=== PATIENT | female | born 1965 | race Caucasian/White ===

== ENCOUNTER → 2024-03-19 13:00 | Outpatient (BNV) | payer MEDICARE, SELFPAY | PROVIDERS: PCP Hospitalist; Visit Provider Internal Medicine | DX: Z12.31 Encounter for screening mammogram for malignant neoplasm of breast (principal) | CPT/HCPCS: 77063; 77067 ==

== ENCOUNTER 2024-03-19 13:14 | Outpatient (REF) | payer MEDICARE, SELFPAY ==
--- NOTE | ~2024-03-19 | MM_ITS ---
EXAMINATION: MM SCREENING DIGITAL BREAST TOMOSYNTHESIS, BILATERAL CLINICAL INFORMATION: Screening. Asymptomatic. COMPARISON: Mammography: Comparison is made with available priors TECHNIQUE: Digital breast mammography with tomosynthesis is performed in both the craniocaudal and mediolateral oblique views along with computer-aided detection (CAD). FINDINGS: Limited exam due to patient's abilities. Within these limitations: There are scattered areas of fibroglandular density (ACR BI-RADS breast composition Category b). The lower posterior left breast is obscured by tissue overlap. There are no significant masses, abnormal calcifications, or other abnormalities. MM/MM tomosynthesis screening BI IMPRESSION: No mammographic evidence of malignancy. ASSESSMENT: BI-RADS BI-RADS 1 - Negative RECOMMENDATION: Routine annual mammography screening. 1 year F/U This examination should not preclude the clinical evaluation of a suspicious palpable abnormality. This patient's information was entered into a reminder system with a target due date for their next mammogram. Electronically signed by: Sabine Butterfield DO 03/30/2024 10:09 AM EDT
== END 2024-03-19 13:15 | disposition home or self-care (01) ==
LOC: HO.MAMMO 13:14
PROVIDERS: PCP Hospitalist; Visit Provider Hospitalist
DX: Z12.31 Encounter for screening mammogram for malignant neoplasm of breast (principal)
CPT/HCPCS: 77063; 77067

== ENCOUNTER 2024-03-22 13:28 | Outpatient (AMB) | payer MEDICARE, MEDICAID, SELFPAY ==
[2024-03-22 13:32] VITALS: BP 100/58; PULSE 115; O2SAT 88; BMI 30.7
--- NOTE | 2024-03-22 13:32 | MHC.OFFVIS ---
Vital Signs 03/22/24 13:32 Height 4 ft 11 in Weight 152 lb BMI 30.7 BP 100/58 L Blood Pressure Location Lt brachial Position Sitting Pulse 115 H Pulse Source Doppler Pulse Oximetry (%) 88 L Oxygen Delivery Method Room Air Intake Visit Reasons: Hypoxia/COPD/MARGARET Allergies erythromycin base Adverse Reaction (Unknown, Verified 03/22/24 13:45) Unknown moxifloxacin Adverse Reaction (Unknown, Verified 03/22/24 13:45) Unknown prednisone Adverse Reaction (Unknown, Verified 03/22/24 13:45) Unknown pregabalin Adverse Reaction (Unknown, Verified 03/22/24 13:45) Unknown HPI HPI Hypoxia/COPD/MARGARET: Details: 59-year-old lady, active 30+ pack-year smoker with likely underlying COPD referred for pulmonary evaluation. Patient states that she has been using Symbicort, duo nebs, and albuterol MDI with suboptimal control of his symptoms. She complains of exertional dyspnea after several 100 yd. Patient denies family history of lung disease. [facility], LATER [facility] Social History (Updated 03/22/24 @ 13:36 by Pao Desai [facility]) Patient Tobacco Use Status: Current everyday Tobacco user Tobacco use type: Cigarette Cigarettes Per Day: 4 Review of Systems Card Denies chest pain, Denies pedal edema, Denies dyspnea, Reports dyspnea on exertion, Denies orthopnea and Denies paroxysmal nocturnal dyspnea Resp Denies cough, Denies hemoptysis, Denies excessive phlegm production, Denies dyspnea, Reports dyspnea on exertion and Denies wheezing Aller/Immun Denies wheezing Physical Exam Vital Signs: Last Vital Signs Pulse 115 H 03/22/24 13:32 BP 100/58 L 03/22/24 13:32 Pulse Ox 88 L 03/22/24 13:32 Oxygen Delivery Method Room Air 03/22/24 13:32 BMI result Body Mass Index 30.7 Const General: no acute distress, alert and awake Nutritional Appearance: not obese Orientation/consciousness: Other orientation findings ( oriented) HEENT Head: Yes atraumatic Eyes General: appearance normal, both eyes and all related structures Sclerae: sclerae normal EOM: EOMs intact bilaterally Neck Neck: Yes no lymphadenopathy, Yes trachea midline and Yes supple Lymphatic: no lymphadenopathy noted Resp Effort & Inspection: normal respiratory effort and no respiratory distress Auscultation: clear to auscultation bilaterally Cardio Rate: regular rate Rhythm: regular rhythm Heart sounds: no gallops, no murmurs and no rubs GI Palpation (GI): Soft to palpation and Other GI palpation findings present ( Nontender) Auscultation: normal bowel sounds Skin General skin exam: other ( warm) Extrem General: Yes no pedal edema, No clubbing and No cyanosis Assessment & Plan Assessment & Plan (1) Personal history of nicotine dependence: Code(s): Z87.891 - Personal history of nicotine dependence Category: Medical Plan: Will obtain lung cancer screening CT chest. (2) COPD (chronic obstructive pulmonary disease): Code(s): J44.9 - Chronic obstructive pulmonary disease, unspecified Category: Medical Plan: Likely underlying COPD of unclear severity suboptimally controlled on Symbicort, will switch to Anoro. Continue albuterol MDI and duo nebs. Will obtain full PFT. In office supplemental oxygen evaluation/6 minute walk test performed, at this time patient does not require supplemental oxygen to maintain normal oximetry with exertion. Orders: Orders PFT pulmonary function test Today J44.9 - Chronic obstructive pulmonary disease, unspecified CT lung screening Today Z87.891 - Personal history of nicotine dependence Medications: New umeclidinium-vilanterol 62.5-25 mcg/actuation (Anoro Ellipta) 1 inh inhalation DAILY 1 ea 6RF J44.9 - Chronic obstructive pulmonary disease, unspecified Coding Level of Care Code New Pt Level 4 (13457) Diagnoses Personal history of nicotine dependence Z87.891 COPD (chronic obstructive pulmonary disease) J44.9
[2024-03-22 14:18] VITALS: PULSE 112; O2SAT 89
== END 2024-03-22 14:01 | disposition home or self-care (01) ==
PROVIDERS: PCP Hospitalist; Visit Provider Internal Medicine Pulmonary Disease
DX: Z87.891 Personal history of nicotine dependence (principal); J44.9 Chronic obstructive pulmonary disease, unspecified
CPT/HCPCS: 94618; 99204

== ENCOUNTER → 2024-03-22 13:28 | Outpatient (BNVA) | payer MEDICARE, SELFPAY | PROVIDERS: PCP Hospitalist; Visit Provider Internal Medicine Pulmonary Disease | DX: J44.9 Chronic obstructive pulmonary disease, unspecified (principal); F17.210 Nicotine dependence, cigarettes, uncomplicated | CPT/HCPCS: 94618; 99202 ==

== ENCOUNTER 2024-05-18 13:52 | Outpatient (REF) | payer MEDICARE, SELFPAY ==
[2024-05-18 11:30] VITALS: PULSE 113; O2SAT 89
--- NOTE | 2024-05-18 13:55 | PFT_ITS ---
Flows: FEV1: 26 % of predicted at 0.56 L FVC: 52 % of predicted at 1.41 L FEV1/FVC: 39 % Bronchodilator response: Present Volumes: Patient was unable to perform lung volumes maneuvers. Diffusion capacity: Severely decreased, adjusts to being moderately decreased after correction for alveolar ventilation. Impression: Very severe obstructive ventilatory defect with positive bronchodilator response. Patient was unable to perform lung volumes maneuvers. Decreased diffusion capacity suggests emphysema. MTDD
== END 2024-05-18 13:53 | disposition home or self-care (01) ==
LOC: HO.RESP 13:52
PROVIDERS: PCP Hospitalist; Visit Provider Internal Medicine Pulmonary Disease
DX: J44.9 Chronic obstructive pulmonary disease, unspecified (principal)
CPT/HCPCS: 94010; 94640; 94727; 94729

== ENCOUNTER → 2024-05-18 13:55 | Outpatient (BNV) | payer MEDICARE, SELFPAY | PROVIDERS: PCP Hospitalist; Visit Provider Internal Medicine Pulmonary Disease | DX: J44.9 Chronic obstructive pulmonary disease, unspecified (principal) | CPT/HCPCS: 94060; 94729 ==

== ENCOUNTER 2024-05-21 10:52 | Outpatient (REF) | payer MEDICARE, SELFPAY | END 2024-05-21 10:53 | disposition home or self-care (01) | LOC: HO.CT 10:52 | PROVIDERS: PCP Hospitalist; Visit Provider Internal Medicine Pulmonary Disease | DX: Z12.2 Encounter for screening for malignant neoplasm of respiratory organs (principal); Z87.891 Personal history of nicotine dependence | CPT/HCPCS: 71271 ==

== ENCOUNTER → 2024-05-21 10:54 | Outpatient (BNV) | payer MEDICARE, SELFPAY | PROVIDERS: PCP Hospitalist; Visit Provider Radiology Diagnostic Radiology | DX: Z12.2 Encounter for screening for malignant neoplasm of respiratory organs (principal); Z87.891 Personal history of nicotine dependence | CPT/HCPCS: 71271 ==

== ENCOUNTER 2024-05-25 14:14 | Outpatient (AMB) | payer MEDICARE, SELFPAY ==
[2024-05-25 14:15] VITALS: BP 117/62; PULSE 117; O2SAT 92; BMI 30.1
--- NOTE | 2024-05-25 14:15 | A.OFFVIS_ITS ---
Vital Signs 05/25/24 14:15 Height 4 ft 11 in Weight 149 lb BMI 30.1 BP 117/62 Blood Pressure Location Rt brachial Position Sitting Pulse 117 H Pulse Source Doppler Pulse Oximetry (%) 92 Oxygen Delivery Method Room Air Intake Visit Reasons: copd Allergies erythromycin base Adverse Reaction (Unknown, Verified 05/25/24 14:21) Unknown moxifloxacin Adverse Reaction (Unknown, Verified 05/25/24 14:21) Unknown prednisone Adverse Reaction (Unknown, Verified 05/25/24 14:21) Unknown pregabalin Adverse Reaction (Unknown, Verified 05/25/24 14:21) Unknown HPI HPI copd: Details: 59-year-old lady, active 30+ pack-year smoker with likely underlying COPD referred for pulmonary evaluation. After the last office visit she was switched to Anoro, however she was not able to tolerate powder inhaler. She denies recent acute exacerbations. COUNTS INCLUDE 234 BEDS AT THE [facility] Social History (Updated 03/22/24 @ 13:36 by Pao Desai Dang) Patient Tobacco Use Status: Current everyday Tobacco user Tobacco use type: Cigarette Cigarettes Per Day: 4 Review of Systems Const Denies daytime sleepiness, Denies excessive sweating, Denies fatigue, Denies fever(s), Denies lethargy, Denies malaise, Denies night sweats, Denies snoring and Denies weight loss Eyes Denies blurry vision and Denies itchy eyes ENT Denies nasal congestion, Denies post nasal drip, Denies sinus pain, Denies sinus pressure and Denies other ( Thrush) Card Denies chest pain, Denies pedal edema, Denies dyspnea, Denies orthopnea and Denies paroxysmal nocturnal dyspnea Resp Denies cough, Denies hemoptysis, Denies excessive phlegm production, Denies dyspnea, Denies snoring and Denies wheezing GI Denies abdominal pain and Denies heartburn Musc Denies myalgias, Denies arthralgias and Denies joint swelling Skin/Breast Denies rash Neuro Denies memory loss and Denies seizure-like activity Psych Denies abnormal sleep pattern, Denies anxiety and Denies memory loss Endo Denies excessive sweating, Denies fatigue and Denies heat intolerance Manuel/Lymph Denies easy bruising Aller/Immun Denies itchy eyes, Denies seasonal rhinorrhea and Denies wheezing Physical Exam Vital Signs: Last Vital Signs Pulse 117 H 05/25/24 14:15 BP 117/62 05/25/24 14:15 Pulse Ox 92 05/25/24 14:15 Oxygen Delivery Method Room Air 05/25/24 14:15 BMI result Body Mass Index 30.1 Const General: no acute distress and alert Nutritional Appearance: not obese Orientation/consciousness: Other orientation findings ( oriented) HEENT Head: Yes atraumatic Eyes General: appearance normal, both eyes and all related structures Sclerae: sclerae normal EOM: EOMs intact bilaterally Neck Neck: Yes supple Lymphatic: no lymphadenopathy noted Resp Effort & Inspection: normal respiratory effort and no use of accessory muscles Auscultation: clear to auscultation bilaterally Cardio Rate: regular rate Rhythm: regular rhythm Heart sounds: no gallops, no murmurs and no rubs Skin General skin exam: other ( warm) Extrem General: No clubbing, No cyanosis and No edema Office Procedures 6 Minute Walk Time:: 14:15 SPO2 % at rest: 92 Pulse at rest: 108 SPO2 % during excercise: 93 Pulse during excercise: 120 SPO2 % after excercise: 91 Pulse after excercise: 117 Distance in yards walked: 50 Autumn Score: 2 Performance Observations:: Katie walked on level ground with a walker, she walked about 50 yards before her legs became weak and she needed to stop. Her SPO2 was 91-93% during the entire walk on room air[place]. [address] - 6 Minute Walk Assessment & Plan Assessment & Plan (1) COPD (chronic obstructive pulmonary disease): Code(s): J44.9 - Chronic obstructive pulmonary disease, unspecified Category: Medical Plan: Underlying COPD suboptimally controlled as patient was not able to tolerate powder inhaler. Will switch Anoro to Stiolto. Continue albuterol MDI and duo nebs. 6 minute walk test/supplemental oxygen evaluation performed, patient does not require supplemental oxygen to maintain normal oximetry with exertion at this time. (2) Personal history of nicotine dependence: Code(s): Z87.891 - Personal history of nicotine dependence Category: Medical Plan: Results of lung cancer screening CT chest are not available for this visit. On my review no worrisome nodules, continue with yearly screening. Orders: Orders AMB 6 minute walk Today J44.9 - Chronic obstructive pulmonary disease, unspecified Medications: New tiotropium-olodaterol 2.5-2.5 mcg/actuation (Stiolto Respimat) 2 puffs inhalation Q24H 4 grams 6RF Discontinued umeclidinium-vilanterol 62.5-25 mcg/actuation (Anoro Ellipta) Discontinued Reason: Doctor's Order 1 inh inhalation DAILY 1 ea 6RF J44.9 - Chronic obstructive pulmonary disease, unspecified Coding Level of Care Code Est Pt Level 4 (92023) Complex EM visit Add On G2211 Diagnoses COPD (chronic obstructive pulmonary disease) J44.9 Personal history of nicotine dependence Z87.891 CPT Codes Coding ([id number])
[2024-05-25 14:36] VITALS: PULSE 108; O2SAT 92
== END 2024-05-25 14:35 | disposition home or self-care (01) ==
PROVIDERS: PCP Hospitalist; Visit Provider Internal Medicine Pulmonary Disease
DX: J44.9 Chronic obstructive pulmonary disease, unspecified (principal); Z87.891 Personal history of nicotine dependence
CPT/HCPCS: 94618; 99214; G2211

== ENCOUNTER → 2024-05-25 14:14 | Outpatient (BNVA) | payer MEDICARE, SELFPAY | PROVIDERS: PCP Hospitalist; Visit Provider Internal Medicine Pulmonary Disease | DX: J44.9 Chronic obstructive pulmonary disease, unspecified (principal); Z87.891 Personal history of nicotine dependence | CPT/HCPCS: 94618; 99212 ==

== ENCOUNTER 2024-07-29 13:37 | Inpatient (IN) | payer MEDICARE, MEDICAID, SELFPAY ==
[2024-07-29] VITALS (17 sets, daily range): BP systolic 77–118; BP diastolic 43–81; PULSE 80–124; RESP 18–34; TEMP 36.2–39.8; O2SAT 61–100; BMI 27.7
--- NOTE | ~2024-07-29 | XR_ITS ---
CLINICAL HISTORY: cough, fever 1 view chest x-ray Comparison: None Findings: Left lower lobe pleural-parenchymal opacity. No pneumothorax. Cardiac silhouette appears prominent. No pulmonary vascular congestion. No acute fracture. IMPRESSION: Left lower lobe consolidation with small parapneumonic effusion. This document has been electronically signed by: Shanti Baird DO on 07/29/2024 16:16:18
--- NOTE | ~2024-07-29 | CT_ITS ---
CLINICAL HISTORY: cough, fevers, hypoxia CT CHEST WITHOUT CONTRAST Comparison: None Findings: No significant pericardial effusion. No thoracic aortic aneurysm. The thyroid gland appears atrophic. No mediastinal lymphadenopathy. [id number] hiatal hernia. Lingular and left lower lobe consolidative changes with air bronchograms. Multiple nodular ground-glass opacities in the right upper lobe. No definite pleural effusion. No pneumothorax. Please see separate report for CT abdomen and pelvis. Mild superior endplate compression deformity in T6 with no significant bony retropulsion. IMPRESSION: 1. Respiratory motion artifact. 2. Lingular and left lower lobe pneumonia. No definite parapneumonic effusion. 3. Multiple nodular ground-glass opacities in the right upper lobe suggesting inflammatory or infectious process. 4. Age-indeterminate mild T6 compression fracture. 5. [id number] hiatal hernia. This document has been electronically signed by: Shanti Baird DO on 07/29/2024 17:46:23
--- NOTE | ~2024-07-29 | CT_ITS ---
CLINICAL HISTORY: herniated stoma CT ABDOMEN AND PELVIS WITHOUT CONTRAST Comparison: None Findings: There is image degradation secondary to motion artifact. Please see separate report for CT chest. No acute abnormalities in the unenhanced solid organs. No renal or ureteral calculus. There is a 3 cm exophytic cyst in the lower pole of the left kidney. Gallbladder is not seen. Calcific plaque throughout the aorta. No AAA. No bowel obstruction, pneumoperitoneum, or pneumatosis. There is a colostomy in the left anterior abdomen near the level of the umbilicus. There is a large parastomal hernia that contains fat and unobstructed bowel. There is diastasis recti with protrusion of mesenteric fat and nonobstructed small bowel loops. No ascites or definite mesenteric edema. No significant paracolic edema. The appendix is not seen. Atrophic appearing uterus. Urinary bladder unremarkable. The bones are intact. IMPRESSION: 1. Motion affected study. 2. No obstructive or acute inflammatory changes in the gastrointestinal and genitourinary tracts. 3. Left-sided colostomy with unobstructed bowel and mesenteric fat in the large parastomal hernia. This document has been electronically signed by: Shanti Baird DO on 07/29/2024 18:15:52
--- NOTE | 2024-07-29 13:45 | ECG_ITS ---
Test Reason : SOB Blood Pressure : */* mmHG Vent. Rate : 115 BPM Atrial Rate : 115 BPM P-R Int : 182 ms QRS Dur : 108 ms QT Int : 334 ms P-R-T Axes : 85 -19 111 degrees QTcB Int : 462 ms Sinus tachycardia with Premature atrial complexes Incomplete left bundle branch block Minimal voltage criteria for LVH, may be normal variant ( Cylinder product ) ST & T wave abnormality, consider lateral ischemia Abnormal ECG No previous ECGs available Referred By: Alta Courtney Electronically Signed By: ELENA LANDAVERDE
--- NOTE | 2024-07-29 14:02 | ED_ITS ---
HPI - SOB/Dyspnea General Chief Complaint: Altered Mental Status Stated Complaint: Sepsis Time Seen by Provider: 07/29/24 13:45 Source: patient and old records reviewed Mode of arrival: ambulatory Limitations: altered mental status History of Present Illness ED Provider: MARIELOS LAMBERT Narrative: 59 yo female with PMH of COPD not on home O2, colon cancer, diverticulitis s/p ostomy, pneumonia, GERD, thrombocytopenia, HLD, CAD with ND, bipolar, who is DNR/DNI but will allow CPAP she presents altered after being ill for one week she was found with low BPs at [facility] - EMS reported RA sat 90% with EMS came in on NRB, BP initially 77/45 given 500NS en route to the hospital. On arrival to the ED she is weak, febrile, junky cough, her stoma is protruding but there is stool in the bag and at the opening of the stoma. It is unclear if she has prior stomal herniation. She is confused and only knows her name. MD elicited complaint: shortness of breath and cough Pertinent past history: COPD Onset (ago): week(s) Context: recent illness Timing: progressively worsening Severity: severe Exacerbating factors: lying flat and coughing Relieving factors: oxygen and upright position Known history of: COPD Associated symptoms: fever, cough and wheezing Treatment prior to arrival: oxygen and other (IVF) Related Data Home Medications ?Medication ?Instructions ?Recorded ?Confirmed albuterol sulfate 90 mcg/actuation 2 puff inhalation Q4-6H PRN 03/22/24 aerosol inhaler ipratropium 0.5 mg-albuterol 3 mg 3 ml inhalation Q6-8H PRN 03/22/24 (2.5 mg base)/3 mL nebulization soln Previous Rx's ?Medication ?Instructions ?Recorded tiotropium 2.5 mcg-olodaterol 2.5 2 puff inhalation Q24H #4 grams 05/25/24 mcg/actuation mist for inhalation (Stiolto Respimat) Allergies Allergy/AdvReac Type Severity Reaction Status Date / Time erythromycin base AdvReac Unknown Unknown Verified 07/29/24 14:03 moxifloxacin AdvReac Unknown Unknown Verified 07/29/24 14:03 prednisone AdvReac Unknown Unknown Verified 07/29/24 14:03 pregabalin AdvReac Unknown Unknown Verified 07/29/24 14:03 Review of Systems 2 Review of Systems: ROS unable to be obtained due to altered mental status [facility] Past Medical History Source: old records reviewed Medical History Bipolar 1 disorder Hyperlipidemia CAD (coronary artery disease) Thrombocytopenia GERD (gastroesophageal reflux disease) Pneumonia Diverticulitis COPD (chronic obstructive pulmonary disease) Social History Social History Patient Tobacco Use Status: Current everyday Tobacco user Tobacco use type: Cigarette Cigarettes Per Day: 4 Advance Directives: Yes Advance Directives Information Provided: Yes Advance Directives on File: No Physical Exam 2 Vital Signs: Vital Signs: Last Vital Signs Temp 100.9 F H 07/29/24 16:58 Pulse 110 H 07/29/24 16:58 Resp 22 H 07/29/24 16:58 BP 96/57 L 07/29/24 16:58 Pulse Ox 94 07/29/24 16:58 O2 Del Method Oxymask 07/29/24 16:58 O2 Flow Rate 4 07/29/24 16:58 Oxygen Flow Rate 4 07/29/24 14:01 BMI result Body Mass Index 27.7 Appearance: Somnolent confused moderate acute distress. Eyes: Pupils equal, round and reactive to light. ENT: Pharynx dry MM Neck: Normal inspection. Neck supple. CVS: tachycardic heart rate and rhythm. Pulses normal. Respiratory: Mod respiratory distress labored. Breath sounds very coarse and diminished Abdomen: Soft and nontender. her ostomy shows a pink herniation of the stoma but there is brown stool and air in the bag Skin: Skin warm and dry. pale skin color. Extremities: No lower extremity edema. Neuro: altered and confused seems to be moving all extremities Course Course Course Narrative: she is not awake enough to take tamiflu she is confused - VBG normal she is desaturating to 60% will need possibly need high flow - ABG ordered Reevaluation(s) Reevaluation #1: there is no next of kin on paperwork at all she is her own contact Reevaluation #2: signed out to Dr. Villalba pending CT scan and admission Medications Administered Generic Name Dose Route Start Last Admin Trade Name Freq PRN Reason Stop Dose Admin Vancomycin HCl 2,000 mg in 500 mls @ 250 mls/hr 07/29/24 16:22 07/29/24 17:18 Vancomycin/Ns IV 07/29/24 18:21 250 mls/hr ONCE ONE Administration Discontinued Medications Generic Name Dose Route Start Last Admin Trade Name Deloris PRN Reason Stop Dose Admin Albuterol Sulfate 5 mg/ 0 mg 07/29/24 13:56 07/29/24 14:06 Albuterol/Ipratropium 3 ml INHALE 07/29/24 13:57 7.5 each ONCE ONE Administration Cefepime HCl 1 gm/ Sodium 50 mls @ 100 mls/hr 07/29/24 13:45 07/29/24 14:53 Chloride IV 07/29/24 14:14 Infused ONCE ONE Infusion Lactated Ringer's 2,268 mls @ 2,268 mls/hr 07/29/24 14:30 07/29/24 15:35 Lr 30 ml/kg infuse over 1 hr (2268 ml) 07/29/24 15:29 Infused IV Infusion .Q1H ONE Acetaminophen 1,000 mg in 100 mls @ 400 mls/hr 07/29/24 14:30 07/29/24 14:49 Ofirmev IV 07/29/24 14:44 Infused ONCE ONE Infusion Methylprednisolone Sodium Succinate 60 mg 07/29/24 13:45 07/29/24 14:12 Methylprednisolone Sod Succ 125 Mg/2 Ml Vial IVPUSH 07/29/24 13:46 60 mg ONCE ONE Administration Medical Decision Making Medical Decision Making [facility] Narrative: 59 yo female with PMH of COPD not on home O2, colon cancer, diverticulitis s/p ostomy, pneumonia, GERD, thrombocytopenia, HLD, CAD with ND, bipolar, who is DNR/DNI at this time will need labs, IVF, cefepime and vancomycin given her fevers, hypotension with EMS - IV tylenol ordered, resp therapy and solumedrol. I did order a CT scan of abdomen as [facility] is unclear if her stomal hernia is knew - it is pink and no signs of necrosis. She will need admission pending workup. Differential Diagnosis Differential Diagnoses: The differential diagnosis associated with the presentation includes pneumonia, viral syndrome, resp failure Admission/Observation Consideration of admission/observation: Escalation of care including admission/observation considered will need admission Lab Data [facility] Lab Attestation statement: I reviewed the patient's lab results. 07/29/24 14:22 07/29/24 14:21 Labs: Lab Results 07/29/24 07/29/24 07/29/24 Range/Units 13:59 14:21 14:22 WBC 10.6 (4.8-10.8) X10*3/uL RBC 3.31 L (4.20-5.50) X10*6/uL Hgb 10.0 L (12.0-16.0) g/dl Hct 31.0 L (37.0-47.0) % MCV 93.7 (80.0-98.0) fL MCH 30.2 (27.0-33.0) pg MCHC 32.3 (31.0-35.0) g/dl RDW 17.6 H (11.0-16.0) % Plt Count 71 L (160-400) X10*3/uL MPV 11.2 (9.4-12.3) fL Immature Gran % (Auto) 0.8 H (0.0-0.4) % Neut % (Auto) 79.7 H (45-73) % Lymph % (Auto) 8.5 L (20-40) % [place] % (Auto) 10.9 (2-11) % Eos % (Auto) 0.0 (0-4) % Baso % (Auto) 0.1 (0-2) % Lymph # (Auto) 0.9 L (1.2-4.9) X10*3/uL [place] # (Auto) 1.2 (0.1-1.2) X10*3/uL Eos # (Auto) 0.0 (0.0-0.4) X10*3/uL Baso # (Auto) 0.0 (0.0-0.2) X10*3/uL Abs Immat Gran (auto) 0.09 H (0.00-0.03) X10*3/uL Absolute Neuts (auto) 8.5 H (2.0-8.3) x10*3/uL Absolute Nucleated RBC 0.000 (0.0-0.012) X10*3/uL Nucleated RBC % (auto) 0.0 (0.0-0.2) /100WBC Smear Tech's Comments VERIFIED PT 14.1 H (10.9-12.4) SEC INR 1.2 H (0.9-1.1) O2 Saturation % ABG pH at Pt Temp (7.35-7.45) ABG pCO2 at Pt Temp (32-45) mmHg ABG pO2 at Pt Temp (83-108) mmHg ABG HCO3 (22-26) mmol/L ABG Base Excess (Actual) mmol/L VBG pH (7.32-7.43) VBG pCO2 mmHg VBG pO2 mmHg VBG HCO3 (22-26) mmol/L VBG O2 Saturation % VBG Base Excess mmol/L Sodium 138 (135-145) mmol/L Potassium 4.0 (3.3-5.1) mmol/L Chloride 104 (96-108) mmol/L Carbon Dioxide 25 (22-29) mmol/L Anion Gap 13 (12-20) BUN 19 H (9-16) mg/dL Creatinine 0.70 (0.5-1.4) mg/dL Estim Creat Clear Calc 89.1 Estimated GFR > 60 Random Glucose 110 (60-115) mg/dL Lactic Acid 0.8 (0.5-2.0) mmol/L Calcium 7.6 L (8.4-10.2) mg/dL Magnesium 1.8 (1.6-2.6) mg/dL Total Bilirubin 0.3 (0.0-1.0) mg/dL Direct Bilirubin 0.2 (0.0-0.5) mg/dL AST 40 H (5-31) U/L ALT < 6 (0-31) U/L Alkaline Phosphatase 50 (39-117) U/L Troponin I High Sens 9.6 (<3.5-17.0) ng/L C-Reactive Protein 11.92 H (< or = 0.50) mg/dL B-Natriuretic Peptide 179 H (<100) pg/mL Total Protein 7.0 (6.5-8.0) g/dL Albumin 2.9 L (3.5-5.0) g/dL Lipase < 4 L (8-78) U/L Procalcitonin 1.35 ng/mL Valproic Acid 62.6 (50.0-100.0) mcg/mL Influenza Type A (PCR) POSITIVE A (Negative) Influenza Type B (PCR) NEGATIVE (Negative) RSV RNA Qual (PCR) NEGATIVE (Negative) SARS-CoV-2 RNA (RT-PCR) NEGATIVE (Negative) Blood Type Antibody Screen 07/29/24 07/29/24 07/29/24 Range/Units 14:24 14:25 15:20 WBC (4.8-10.8) X10*3/uL RBC (4.20-5.50) X10*6/uL Hgb (12.0-16.0) g/dl Hct (37.0-47.0) % MCV (80.0-98.0) fL MCH (27.0-33.0) pg MCHC (31.0-35.0) g/dl RDW (11.0-16.0) % Plt Count (160-400) X10*3/uL MPV (9.4-12.3) fL Immature Gran % (Auto) (0.0-0.4) % Neut % (Auto) (45-73) % Lymph % (Auto) (20-40) % [place] % (Auto) (2-11) % Eos % (Auto) (0-4) % Baso % (Auto) (0-2) % Lymph # (Auto) (1.2-4.9) X10*3/uL [place] # (Auto) (0.1-1.2) X10*3/uL Eos # (Auto) (0.0-0.4) X10*3/uL Baso # (Auto) (0.0-0.2) X10*3/uL Abs Immat Gran (auto) (0.00-0.03) X10*3/uL Absolute Neuts (auto) (2.0-8.3) x10*3/uL Absolute Nucleated RBC (0.0-0.012) X10*3/uL Nucleated RBC % (auto) (0.0-0.2) /100WBC Smear Tech's Comments PT (10.9-12.4) SEC INR (0.9-1.1) O2 Saturation 100.0 % ABG pH at Pt Temp 7.37 (7.35-7.45) ABG pCO2 at Pt Temp 47 H (32-45) mmHg ABG pO2 at Pt Temp 302 H (83-108) mmHg ABG HCO3 27 H (22-26) mmol/L ABG Base Excess (Actual) 2.0 mmol/L VBG pH 7.40 (7.32-7.43) VBG pCO2 45 mmHg VBG pO2 69 mmHg VBG HCO3 28 H (22-26) mmol/L VBG O2 Saturation 92.0 % VBG Base Excess 3.6 mmol/L Sodium (135-145) mmol/L Potassium (3.3-5.1) mmol/L Chloride (96-108) mmol/L Carbon Dioxide (22-29) mmol/L Anion Gap (12-20) BUN (9-16) mg/dL Creatinine (0.5-1.4) mg/dL Estim Creat Clear Calc Estimated GFR Random Glucose (60-115) mg/dL Lactic Acid (0.5-2.0) mmol/L Calcium (8.4-10.2) mg/dL Magnesium (1.6-2.6) mg/dL Total Bilirubin (0.0-1.0) mg/dL Direct Bilirubin (0.0-0.5) mg/dL AST (5-31) U/L ALT (0-31) U/L Alkaline Phosphatase (39-117) U/L Troponin I High Sens (<3.5-17.0) ng/L C-Reactive Protein (< or = 0.50) mg/dL B-Natriuretic Peptide (<100) pg/mL Total Protein (6.5-8.0) g/dL Albumin (3.5-5.0) g/dL Lipase (8-78) U/L Procalcitonin ng/mL Valproic Acid (50.0-100.0) mcg/mL Influenza Type A (PCR) (Negative) Influenza Type B (PCR) (Negative) RSV RNA Qual (PCR) (Negative) SARS-CoV-2 RNA (RT-PCR) (Negative) Blood Type O Positive Antibody Screen NEGATIVE Independent Interpretation I performed an independent interpretation of an: EKG and Plain X-Ray (LLL consolidation) Interpretation: Rate: 115 Rhythm: sinus tach [place]: left, LVH Normal P waves. Normal CRESCENCIO. Normal QRS complex. ST T wave : no CHARLIE, inverted t waves I and aVL qTC: 462 prior studies: no prior The study has been interpreted contemporaneously by me. . Radiology Impression Discussion of test interpretation with radiology: I have reviewed the radiologist's reading. Independent Historian Clinical information obtained from an independent historian. History obtained from or confirmed by: EMS External Record Review External record reviewed: Outpatient record Discharge Plan Discharge Clinical Impression: Fever and chills, Hypoxia, Influenza A Altered mental status Qualifiers: Altered mental status type: unspecified Qualified Code(s): R41.82 - Altered mental status, unspecified Pneumonia Qualifiers: Pneumonia type: due to unspecified organism Laterality: left Lung location: l ower lobe of lung Qualified Code(s): J18.9 - Pneumonia, unspecified organism Patient Disposition: Admitted As Inpatient Print Language: Hebrew
[2024-07-29] MEDS: Albuterol Sulfate 5 MG, Albuterol/Iprat 2.5/0.5MG 3 ML 3 ML INHALE (14:06)
[2024-07-29] MEDS: methylPREDNISolone Sod Succ 125 MG/2 ML VIAL 60 MG IVPUSH (14:12)
[2024-07-29] MEDS: cefEPime HCl 1 GM in 0.9 % Sodium Chloride 50 ML IV (14:23)
[2024-07-29 14:29] LABS: Venous Blood Gas Refer to POC result
[2024-07-29 14:29] LABS: Basophils Percent Auto 0.1 % (0-2); Imm Gran Abs Auto 0.09 X10*3/uL (0.00-0.03); Imm Gran Pct Auto 0.8 % (0.0-0.4); Lymphocytes Absolute Auto 0.9 X10*3/uL (1.2-4.9); Lymphocytes Percent Auto 8.5 % (20-40); Mean Corpuscular HGB Conc 32.3 g/dl (31.0-35.0); Mean Corpuscular Hemoglobin 30.2 pg (27.0-33.0); Mean Corpuscular Volume 93.7 fL (80.0-98.0); Mean Platelet Volume 11.2 fL (9.4-12.3); Monocytes Absolute Auto 1.2 X10*3/uL (0.1-1.2); Monocytes Percent Auto 10.9 % (2-11); Neutrophils Absolute Auto 8.5 x10*3/uL (2.0-8.3); Neutrophils Percent Auto 79.7 % (45-73); Red Blood Count 3.31 X10*6/uL (4.20-5.50); Red Cell Distribution Width 17.6 % (11.0-16.0); White Blood Count 10.6 X10*3/uL (4.8-10.8)
[2024-07-29 14:32] LABS: Platelet Count 71 X10*3/uL (160-400)
[2024-07-29 14:33] LABS: INTERNATIONAL NORM RATIO 1.2 (0.9-1.1); Prothrombin Time 14.1 SEC (10.9-12.4)
[2024-07-29] MEDS: Acetaminophen 1,000 MG/100 ML PIGGYBACK 400 MG IV (14:34)
[2024-07-29] MEDS: LACTATED RINGERS 2268 ML IV (14:35)
[2024-07-29 14:39] LABS: VBG Base Excess 3.6 mmol/L; VBG HCO3 28 mmol/L (22-26); VBG pCO2 45 mmHg; VBG pO2 69 mmHg
[2024-07-29 14:46] LABS: MANUAL DIFF FLAG SCAN
[2024-07-29 14:47] LABS: SLIDE REVIEW VERIFIED
[2024-07-29 14:47] LABS: Valproate 62.6 mcg/mL (50.0-100.0)
[2024-07-29 14:49] LABS: Influenza A PCR POSITIVE (Negative); Influenza B PCR NEGATIVE (Negative); Resp Syncy Virus RNA Qual PCR NEGATIVE (Negative); SARS COV2 PCR INHOUSE NEGATIVE (Negative)
[2024-07-29 14:49] LABS: Lactic Acid 0.8 mmol/L (0.5-2.0)
[2024-07-29 14:55] LABS: Troponin-I High Sensitivity 9.6 ng/L (<3.5-17.0)
[2024-07-29 14:56] LABS: B Type Natriuretic Peptide 179 pg/mL (<100)
[2024-07-29 14:59] LABS: Alanine Aminotransferase < 6 U/L (0-31); Albumin Level 2.9 g/dL (3.5-5.0); Alkaline Phosphatase 50 U/L (39-117); Anion Gap 13 (12-20); Aspartate Amino Transferase 40 U/L (5-31); Bilirubin Direct 0.2 mg/dL (0.0-0.5); Bilirubin Total 0.3 mg/dL (0.0-1.0); Blood Urea Nitrogen 19 mg/dL (9-16); C Reactive Protein 11.92 mg/dL (< or = 0.50); Calcium 7.6 mg/dL (8.4-10.2); Carbon Dioxide 25 mmol/L (22-29); Chloride 104 mmol/L (96-108); Creatinine Clr Calc Pharmacy 89.1; Estimated Glomerular Filt Rate > 60; Glucose Random 110 mg/dL (60-115); Lipase < 4 U/L (8-78); Magnesium 1.8 mg/dL (1.6-2.6); Sodium 138 mmol/L (135-145)
[2024-07-29 15:12] LABS: Procalcitonin 1.35 ng/mL
[2024-07-29 15:26] LABS: ABG HCO3 27 mmol/L (22-26); ABG pCO2 47 mmHg (32-45); ABG pH 7.37 (7.35-7.45); ABG pO2 302 mmHg (83-108)
--- NOTE | 2024-07-29 16:31 | PC.RT ---
RT called to bedside by RN for SATs in the 70's. Upon arrival, pt was on NRB and SATs 100%. RT switched mask to oxy and began titration as tolerated. PT on 4L oxy at this time, SATs 93%. Pt encouraged to cough and coughed up thick, yellow sputum.
[2024-07-29] MEDS: vancomycin/NS 2,000 MG/500 ML PLAST..BAG 250 MG IV (17:18)
--- NOTE | 2024-07-29 18:42 | PC.NURSE ---
16fr indwelling catheter placed - 400ml of clear, dark yellow, foul smelling urine noted immediately post output. specimen obtained/sent to lab. pt tolerated well.
[2024-07-29 18:53] LABS: Appearance Urine Clear; Color Urine Yellow; Glucose Urine UA Negative (Negative); Leukocyte Esterase Urine Negative (Negative); Nitrite Urine Negative (Negative); PH 5.5 (5.0-9.0); Urine Blood Negative (Negative); Urine Ketones 15 mg/dL (Negative); Urine Protein Trace mg/dL (Neg-Trace)
--- NOTE | 2024-07-29 20:24 | P.HPHOSP_ITS ---
History of Present Illness Date of Service: 07/29/24 Attending physician on admission: Maury David Chief Complaint: AMS and weakness Pt is a 59-year-old female with a PMH significant for?colon cancer, diverticulitis, s/p ostomy, COPD HLD, CAD and bipolar disorder among others who presents to the ED from [facility] for evaluation of altered mental status and generalized weakness. Staff report pt has been ill with generalized weakness and cough for the past week. Today was found to be lethargic and altered from baseline, EMS noted her to hypotensive as low as 77/45. Pt was given 500 mL bolus en route. During initial evaluation by ED clinician pt's stoma was noted to be protruding into colostomy bag. CT was negative for obstruction or ischemia of the bowel and showed unobstructed peristomal hernia. Pt seen and evaluated in her room where she is somnolent but arousable, but not answering questions and falling immediately back asleep. Breathing is shallow pt has OxyMask on. In the ED pt was febrile up 103.6, tachycardic up to 124, and tachypneic up to 34, and hypotensive as low as 90/45. Labs were significant for testing positive for influenza type a, H&H 10.0/31.0, CRP 11.92, BNP mildly elevated at 179, albumin 2.9, procalcitonin 1.35. UA negative for UTI. CXR showed left lower lobe consolidation and small parapneumonic effusion. CTA of chest showed lingular and left lower lobe pneumonia and multiple nodular ground-glass opacities in right upper lobe suggesting inflammatory or infectious process. CT?of abdomen and pelvis without acute process. Showed left-sided colostomy with nonobstructive bowel and mesenteric fat and large parastomal hernia. EKG demonstrated sinus tachycardia with PACs . Pt was treated with DuoNeb, Solu- Medrol, Tylenol, IVF, cefepime, and vancomycin. Pt will be admitted to the hospital for treatment and further evaluation of acute metabolic encephalopathy and hypoxic respiratory failure in the setting of flu with underlying pneumonia with sepsis. Review of Systems 2 Review of Systems: Yes Unobtainable due to mental status [facility] Medical History Bipolar 1 disorder Hyperlipidemia CAD (coronary artery disease) Thrombocytopenia GERD (gastroesophageal reflux disease) Pneumonia Diverticulitis COPD (chronic obstructive pulmonary disease) Social History Patient Tobacco Use Status: Current everyday Tobacco user Tobacco use type: Cigarette Cigarettes Per Day: 4 Advance Directives: Yes Advance Directives Information Provided: Yes Advance Directives on File: No Patient : No Meds Allergies Allergy/AdvReac Type Severity Reaction Status Date / Time erythromycin base AdvReac Unknown Unknown Verified 07/29/24 14:03 moxifloxacin AdvReac Unknown Unknown Verified 07/29/24 14:03 prednisone AdvReac Unknown Unknown Verified 07/29/24 14:03 pregabalin AdvReac Unknown Unknown Verified 07/29/24 14:03 Active Medications: Current Medications Acetaminophen (Acetaminophen 325 Mg Tablet) 650 mg PO Q6H PRN PRN Reason: Pain, Mild 1-3,fever,headache Calcium Carbonate (Calcium Carbonate 750 Mg Tab.Chew) 750 mg PO Q4H PRN PRN Reason: Heartburn Ceftriaxone Sodium (Ceftriaxone Sodium 1 Gm Vial) 1 gm IVPUSH Q24H DENISE Enoxaparin Sodium (Enoxaparin Sodium 40 Mg/0.4 Ml Syringe) 40 mg SUBCUT Q24H [facility] Azithromycin 500 mg/ Sodium (Chloride) 250 mls @ 125 mls/hr IV Q24H [facility] Magnesium Hydroxide (Milk Of Magnesia 30 Ml Oral.Susp) 30 ml PO DAILY PRN PRN Reason: Constipation Melatonin (Melatonin 3 Mg Tablet) 6 mg PO BEDTIME PRN PRN Reason: Insomnia Ondansetron HCl (Ondansetron Hcl 4 Mg/2 Ml Vial) 4 mg IVPUSH Q8H PRN PRN Reason: Nausea and Vomiting Oseltamivir Phosphate (Oseltamivir Phosphate 75 Mg Capsule) 75 mg PO Q12H DENISE Stop: 08/03/24 07:46 Sodium Chloride (0.9 % Sodium Chloride Flush 3 Ml Syringe) 3 ml IVFLUSH QSHIFT [facility] Home Medications ?Medication ?Instructions ?Recorded ?Confirmed ?Last Taken ?Type albuterol sulfate 90 mcg/actuation 2 puff inhalation Q4-6H PRN 03/22/24 Unknown History aerosol inhaler ipratropium 0.5 mg-albuterol 3 mg 3 ml inhalation Q6-8H PRN 03/22/24 Unknown History (2.5 mg base)/3 mL nebulization soln Physical Exam 2 Vital Signs and Narrative: Vital Signs: Last Vital Signs Temp 98.8 F 07/29/24 19:34 Pulse 88 07/29/24 19:34 Resp 20 07/29/24 19:34 BP 113/47 L 07/29/24 19:34 Pulse Ox 96 07/29/24 19:34 O2 Del Method Oxymask 07/29/24 19:34 O2 Flow Rate 5 07/29/24 19:34 Oxygen Flow Rate 4 07/29/24 14:01 BMI result Body Mass Index 27.7 General: Somnolent but arousable, though immediately falling back asleep without answering questions. In no acute distress Resp: CTA bilaterally though diminished. Poor inspiratory effort. Some increased work of breathing. CVS: S1, S2, RRR GI: +BS, NT, colostomy with ostomy herniation. Stool in ostomy bag. Skin: Warm, dry Neuro: Cranial nerves II-XII grossly intact bilaterally. Motor grossly intact bilaterally Extremities: No edema Results Labs 07/29/24 14:22 07/29/24 14:21 Labs: Laboratory Results - last 24 hr 07/29/24 07/29/24 07/29/24 13:59 14:21 14:22 MCV 93.7 MCH 30.2 MCHC 32.3 RDW 17.6 H Plt Count 71 L MPV 11.2 Immature Gran % (Auto) 0.8 H Neut % (Auto) 79.7 H Lymph % (Auto) 8.5 L [place] % (Auto) 10.9 Eos % (Auto) 0.0 Baso % (Auto) 0.1 Lymph # (Auto) 0.9 L [place] # (Auto) 1.2 Eos # (Auto) 0.0 Baso # (Auto) 0.0 Abs Immat Gran (auto) 0.09 H Absolute Neuts (auto) 8.5 H Absolute Nucleated RBC 0.000 Nucleated RBC % (auto) 0.0 Smear Tech's Comments VERIFIED PT 14.1 H INR 1.2 H O2 Saturation ABG pH at Pt Temp ABG pCO2 at Pt Temp ABG pO2 at Pt Temp ABG HCO3 ABG Base Excess (Actual) VBG pH VBG pCO2 VBG pO2 VBG HCO3 VBG O2 Saturation VBG Base Excess Anion Gap 13 Estim Creat Clear Calc 89.1 Estimated GFR > 60 Random Glucose 110 Lactic Acid 0.8 Calcium 7.6 L Magnesium 1.8 Total Bilirubin 0.3 Direct Bilirubin 0.2 AST 40 H ALT < 6 Alkaline Phosphatase 50 C-Reactive Protein 11.92 H B-Natriuretic Peptide 179 H Total Protein 7.0 Albumin 2.9 L Lipase < 4 L Procalcitonin 1.35 Urine Color Urine Appearance Urine pH Ur Specific [place] Urine Protein Urine Glucose (UA) Urine Ketones Urine Blood Urine Nitrite Ur Leukocyte Esterase Valproic Acid 62.6 Influenza Type A (PCR) POSITIVE A Influenza Type B (PCR) NEGATIVE RSV RNA Qual (PCR) NEGATIVE SARS-CoV-2 RNA (RT-PCR) NEGATIVE Blood Type Antibody Screen 07/29/24 07/29/24 07/29/24 14:24 14:25 15:20 MCV MCH MCHC RDW Plt Count MPV Immature Gran % (Auto) Neut % (Auto) Lymph % (Auto) [place] % (Auto) Eos % (Auto) Baso % (Auto) Lymph # (Auto) [place] # (Auto) Eos # (Auto) Baso # (Auto) Abs Immat Gran (auto) Absolute Neuts (auto) Absolute Nucleated RBC Nucleated RBC % (auto) Smear Tech's Comments PT INR O2 Saturation 100.0 ABG pH at Pt Temp 7.37 ABG pCO2 at Pt Temp 47 H ABG pO2 at Pt Temp 302 H ABG HCO3 27 H ABG Base Excess (Actual) 2.0 VBG pH 7.40 VBG pCO2 45 VBG pO2 69 VBG HCO3 28 H VBG O2 Saturation 92.0 VBG Base Excess 3.6 Anion Gap Estim Creat Clear Calc Estimated GFR Random Glucose Lactic Acid Calcium Magnesium Total Bilirubin Direct Bilirubin AST ALT Alkaline Phosphatase C-Reactive Protein B-Natriuretic Peptide Total Protein Albumin Lipase Procalcitonin Urine Color Urine Appearance Urine pH Ur Specific [place] Urine Protein Urine Glucose (UA) Urine Ketones Urine Blood Urine Nitrite Ur Leukocyte Esterase Valproic Acid Influenza Type A (PCR) Influenza Type B (PCR) RSV RNA Qual (PCR) SARS-CoV-2 RNA (RT-PCR) Blood Type O Positive Antibody Screen NEGATIVE 07/29/24 18:33 MCV MCH MCHC RDW Plt Count MPV Immature Gran % (Auto) Neut % (Auto) Lymph % (Auto) [place] % (Auto) Eos % (Auto) Baso % (Auto) Lymph # (Auto) [place] # (Auto) Eos # (Auto) Baso # (Auto) Abs Immat Gran (auto) Absolute Neuts (auto) Absolute Nucleated RBC Nucleated RBC % (auto) Smear Tech's Comments PT INR O2 Saturation ABG pH at Pt Temp ABG pCO2 at Pt Temp ABG pO2 at Pt Temp ABG HCO3 ABG Base Excess (Actual) VBG pH VBG pCO2 VBG pO2 VBG HCO3 VBG O2 Saturation VBG Base Excess Anion Gap Estim Creat Clear Calc Estimated GFR Random Glucose Lactic Acid Calcium Magnesium Total Bilirubin Direct Bilirubin AST ALT Alkaline Phosphatase C-Reactive Protein B-Natriuretic Peptide Total Protein Albumin Lipase Procalcitonin Urine Color Yellow Urine Appearance Clear Urine pH 5.5 Ur Specific [place] 1.020 Urine Protein Trace Urine Glucose (UA) Negative Urine Ketones 15 Urine Blood Negative Urine Nitrite Negative Ur Leukocyte Esterase Negative Valproic Acid Influenza Type A (PCR) Influenza Type B (PCR) RSV RNA Qual (PCR) SARS-CoV-2 RNA (RT-PCR) Blood Type Antibody Screen Assessment and Plan (1) Influenza A: Status: Acute (2) Pneumonia: Qualifiers: Laterality: left Lung location: lower lobe of lung Pneumonia type: due to unspecified organism Qualified Code(s): J18.9 - Pneumonia, unspecified organism Status: Acute (3) Hypoxia: Status: Acute Plan Pt is a 59-year-old female with a PMH significant for?colon cancer, diverticulitis, s/p ostomy, COPD HLD, CAD and bipolar disorder among others who presents to the ED from [facility] for evaluation of altered mental status and generalized weakness. Pt will be admitted to the hospital for treatment and further evaluation of acute metabolic encephalopathy and hypoxic respiratory failure in the setting of flu with underlying pneumonia with sepsis. Acute hypoxic respiratory failure in the setting of acute influenza A infection with superimposed pneumonia with sepsis Pt with AMS, desatting into the 80s on RA, influenza type A positive, CT showing left lower lobe pneumonia Meets sepsis criteria with fever, tachycardia, and tachypnea; lactic acid WNL, pt with hypotension Pt received sepsis bolus IVF and started on broad-spectrum antibiotics Will treat with ceftriaxone and azithromycin, started 07/29/2024 DuoNebs, Tamiflu, and guaifenesin Titrate supplemental O2>92, wean as tolerated Monitor respiratory status Follow blood cultures Acute metabolic encephalopathy In the setting of above Treat as above Monitor mentation CAD/HLD Continue aspirin and statin Anemia of chronic disease H&H 10.0/31.0, baseline unknown Continue iron supplementation Hypothyroidism Continue levothyroxine GERD Continue famotidine, pantoprazole Mood disorder Continue Depakote, prazosin, and Seroquel DNR/DNI Attending:?Dr. David DVT Prophylaxis: Lovenox Pt will require a hospitalization of at least two nights for treatment of?acute metabolic encephalopathy and hypoxic respiratory failure in the setting of acute influenza type a infection with underlying pneumonia with sepsis. Pt will require hospital level care for administration of IV antibiotics, supplemental oxygen, breathing treatments, and close monitoring of respiratory status. Quality Stroke Does the patient have a stroke diagnosis?: No VTE Prior VTE?: No VTE Risk Level:: Medical - moderate - high VTE Device Contraindication: Treatment Not Indicated VTE Drug Contraindication: N/A - Med Ordered
[2024-07-29] MEDS: Enoxaparin Sodium 40 MG/0.4 ML SYRINGE SUBCUT (21:32)
[2024-07-29] MEDS: cefTRIAXone sodium 1 GM VIAL IVPUSH (21:33)
[2024-07-29] MEDS: Azithromycin 500 MG in 0.9 % Sodium Chloride 250 ML 125 MG IV (21:33)
[2024-07-29 23:15] LABS: ABG Refer to POC result
[2024-07-29] MEDS: 0.9 % Sodium Chloride Flush 3 ML SYRINGE IVFLUSH (23:46)
[2024-07-30] VITALS (10 sets, daily range): BP systolic 98–127; BP diastolic 51–64; PULSE 85–100; RESP 14–20; TEMP 36.1–36.4; O2SAT 93–100
--- NOTE | 2024-07-30 03:25 | PC.NURSE ---
Pt b/p 84/46. Dr David notified and aware. Plan of care ongoing.
[2024-07-30] MEDS: Lactated Ringers 1,000 ML 999 ML IV (03:30)
--- NOTE | 2024-07-30 03:32 | PC.NURSE ---
Pt medicated per [facility] Plan of care ongoing
[2024-07-30 05:45] LABS: MANUAL DIFF FLAG NO
[2024-07-30 05:49] LABS: Basophils Percent Auto 0.1 % (0-2); Hemoglobin 9.5 g/dl (12.0-16.0); Imm Gran Abs Auto 0.05 X10*3/uL (0.00-0.03); Imm Gran Pct Auto 0.5 % (0.0-0.4); Lymphocytes Absolute Auto 0.7 X10*3/uL (1.2-4.9); Lymphocytes Percent Auto 6.7 % (20-40); Mean Corpuscular HGB Conc 31.7 g/dl (31.0-35.0); Mean Corpuscular Volume 94.6 fL (80.0-98.0); Mean Platelet Volume 12.7 fL (9.4-12.3); Monocytes Absolute Auto 0.7 X10*3/uL (0.1-1.2); Monocytes Percent Auto 6.4 % (2-11); Neutrophils Percent Auto 86.3 % (45-73); Platelet Count 61 X10*3/uL (160-400); Red Blood Count 3.17 X10*6/uL (4.20-5.50); Red Cell Distribution Width 17.1 % (11.0-16.0); White Blood Count 10.4 X10*3/uL (4.8-10.8)
[2024-07-30 05:59] LABS: Anion Gap 11 (12-20); Blood Urea Nitrogen 14 mg/dL (9-16); Calcium 7.4 mg/dL (8.4-10.2); Carbon Dioxide 25 mmol/L (22-29); Chloride 109 mmol/L (96-108); Creatinine Clr Calc Pharmacy 119.9; Estimated Glomerular Filt Rate > 60; Glucose Random 106 mg/dL (60-115); Sodium 141 mmol/L (135-145)
--- NOTE | 2024-07-30 06:15 | PC.NURSE ---
This RN assumed pt care @ 0330 Plan of care ongoing.
--- NOTE | 2024-07-30 06:44 | PC.NURSE ---
Pt arrived to [facility] at 0635, pt seen alert and comfortable on bed with oxymask at 5L/min, pt denies any pain, looking fir her boyfriend, oriented pt on the hospital arrival.
--- NOTE | 2024-07-30 08:08 | PHA.MEDREC ---
Pharmacy Consult ? Medication Reconciliation Pharmacy has completed the medication reconciliation. LIST FROM [facility] [place]. NOTIFIED MED REC COMPLETE
[2024-07-30] MEDS: Albuterol/Iprat 2.5/0.5MG 3 ML AMPUL.NEB INHALE ×2 (09:19→16:15)
[2024-07-30] MEDS: Oseltamivir Phosphate 75 MG CAPSULE PO ×2 (09:26→19:53)
[2024-07-30] MEDS: 0.9 % Sodium Chloride Flush 3 ML SYRINGE IVFLUSH ×2 (09:30→17:23)
[2024-07-30] MEDS: Divalproex Sodium ER 500 MG TAB.ER.24H PO ×2 (10:34→19:53)
[2024-07-30] MEDS: Famotidine 20 MG TABLET PO ×2 (10:34→19:54)
[2024-07-30] MEDS: Cholecalciferol (Vitamin D3) 25 MCG TABLET 50 MCG PO (10:34)
[2024-07-30] MEDS: Cyclobenzaprine HCl 10 MG TABLET PO ×2 (10:35→19:53)
[2024-07-30] MEDS: Omeprazole 20 MG CAPSULE.DR PO (10:35)
[2024-07-30] MEDS: Levothyroxine Sodium 112 MCG TABLET PO (10:35)
[2024-07-30] MEDS: Magnesium Oxide 400 MG TABLET PO ×2 (10:36→19:54)
--- NOTE | 2024-07-30 10:41 | P.PNIM_ITS ---
Subjective Subjective Date of Service: 07/30/24 Interval History: Clinically is doing better, no sob mental status is better Physical Exam 2 Vital Signs: Vital Signs: Last Vital Signs Temp 97 F 07/30/24 07:25 Pulse 85 07/30/24 09:25 Resp 16 07/30/24 09:25 BP 119/64 07/30/24 07:25 Pulse Ox 97 07/30/24 07:25 O2 Del Method Oxymask 07/30/24 07:25 O2 Flow Rate 6 07/30/24 07:25 Oxygen Flow Rate 4 07/29/24 14:01 BMI result Body Mass Index 27.7 Const: Other: General: oriented to self, no distress Resp: CTA bilateral CVS: S1,S2,RRR GI: +BS, NT, no distention Skin: No rash Neuro: motor grossly intact Psych: appropriate affect Objective Data Active Medications Acetaminophen (Acetaminophen 325 Mg Tablet) 650 mg PO Q6H PRN PRN Reason: Pain, Mild 1-3,fever,headache Al Hydroxide/Mg Hydroxide (Magnesium Hydrox/Alum Hydrox 30 Ml Oral.Susp) 30 ml PO Q6H PRN PRN Reason: Dyspepsia Albuterol Sulfate (Albuterol Sulfate 90 Mcg 8 Gm Inhaler) 2 puff INHALE Q4H PRN PRN Reason: Shortness Of Breath Or Wheezing Albuterol/Ipratropium (Albuterol/Iprat 2.5/0.5mg 3 Ml Ampul.Neb) 3 ml INHALE RQ6H WHILE AWAKE [facility] Last Admin: 07/30/24 09:19 Dose: 3 ml Documented By: MADINA Albuterol/Ipratropium (Albuterol/Iprat 2.5/0.5mg 3 Ml Ampul.Neb) 3 ml INHALE Q6H PRN PRN Reason: Shortness Of Breath Or Wheezing Aspirin (Aspirin Enteric Coated 81 Mg Tablet.Dr) 81 mg PO BEDTIME DENISE Atorvastatin Calcium (Atorvastatin Calcium 10 Mg Tablet) 10 mg PO BEDTIME DENISE Bisacodyl (Bisacodyl 10 Mg Supp.Rect) 10 mg LA Q24H PRN PRN Reason: Constipation Calcium Carbonate (Calcium Carbonate 750 Mg Tab.Chew) 750 mg PO Q4H PRN PRN Reason: Heartburn Ceftriaxone Sodium (Ceftriaxone Sodium 1 Gm Vial) 1 gm IVPUSH Q24H [facility] Last Admin: 07/29/24 21:33 Dose: 1 gm Documented By: JORDY Cyclobenzaprine HCl (Cyclobenzaprine Hcl 10 Mg Tablet) 10 mg PO BID [facility] Divalproex Sodium (Divalproex Sodium Er 500 Mg Tab.Er.24h) 500 mg PO BID [facility] Docusate Sodium (Docusate Sodium 100 Mg Capsule) 100 mg PO Q24H PRN PRN Reason: Constipation Enoxaparin Sodium (Enoxaparin Sodium 40 Mg/0.4 Ml Syringe) 40 mg SUBCUT Q24H [facility] Last Admin: 07/29/24 21:32 Dose: 40 mg Documented By: JORDY Famotidine (Famotidine 20 Mg Tablet) 20 mg PO BEDTIME [facility] Ferrous Sulfate (Ferrous Sulfate 324 Mg Tablet.) 324 mg PO BEDTIME [facility] Guaifenesin/Dextromethorphan (Guaifenesin Dm 200/20/10 Ml 10 Ml Syrup) 10 ml PO Q4H PRN PRN Reason: Cough Hydroxyzine HCl (Hydroxyzine Hcl 25 Mg Tablet) 25 mg PO Q6H PRN PRN Reason: Anxiety Azithromycin 500 mg/ Sodium (Chloride) 250 mls @ 125 mls/hr IV Q24H [facility] Last Infusion: 07/29/24 23:46 Dose: Infused Documented By: JORDY Levothyroxine Sodium (Levothyroxine Sodium 112 Mcg Tablet) 112 mcg PO DAILY@0630 [facility] Magnesium Hydroxide (Milk Of Magnesia 30 Ml Oral.Susp) 30 ml PO DAILY PRN PRN Reason: Constipation Magnesium Oxide (Magnesium Oxide 400 Mg Tablet) 400 mg PO BID [facility] Melatonin (Melatonin 3 Mg Tablet) 6 mg PO BEDTIME PRN PRN Reason: Insomnia Non-Formulary Medication (Quetiapine [Seroquel Xr]) 50 mg PO BEDTIME [facility] Non-Formulary Medication (Tiotropium-Olodaterol [Stiolto Respimat]) 2 puff INHALE DAILY [facility] Omeprazole (Omeprazole 20 Mg Capsule.) 20 mg PO DAILY@0630 [facility] Ondansetron HCl (Ondansetron Hcl 4 Mg/2 Ml Vial) 4 mg IVPUSH Q8H PRN PRN Reason: Nausea and Vomiting Oseltamivir Phosphate (Oseltamivir Phosphate 75 Mg Capsule) 75 mg PO Q12H [facility] Stop: 08/03/24 07:46 Last Admin: 07/30/24 09:26 Dose: 75 mg Documented By: JR Prazosin HCl (Prazosin Hcl 1 Mg Capsule) 1 mg PO BEDTIME [facility]; Protocol Senna (Sennosides 8.6 Mg Tablet) 8.6 mg PO Q24H PRN PRN Reason: Constipation Sodium Biphosphate/Sodium Phosphate (Sodium Phosphate,[place]-Dibasic 133 Ml Enema) 118 ml LA Q24H PRN PRN Reason: Constipation Sodium Chloride (0.9 % Sodium Chloride Flush 3 Ml Syringe) 3 ml IVFLUSH QSHIFT [facility] Last Admin: 07/30/24 09:30 Dose: 3 ml Documented By: JR Trazodone HCl (Trazodone Hcl 25 Mg Halftab) 25 mg PO DAILY [facility] Vitamin D (Cholecalciferol (Vitamin D3) 25 Mcg Tablet) 50 mcg PO DAILY [facility] Labs 07/30/24 04:58 07/30/24 04:58 Labs: Laboratory Results - last 24 hr 07/29/24 07/29/24 07/29/24 13:59 14:21 14:22 MCV 93.7 MCH 30.2 MCHC 32.3 RDW 17.6 H Plt Count 71 L MPV 11.2 Immature Gran % (Auto) 0.8 H Neut % (Auto) 79.7 H Lymph % (Auto) 8.5 L [place] % (Auto) 10.9 Eos % (Auto) 0.0 Baso % (Auto) 0.1 Lymph # (Auto) 0.9 L [place] # (Auto) 1.2 Eos # (Auto) 0.0 Baso # (Auto) 0.0 Abs Immat Gran (auto) 0.09 H Absolute Neuts (auto) 8.5 H Absolute Nucleated RBC 0.000 Nucleated RBC % (auto) 0.0 Smear Tech's Comments VERIFIED PT 14.1 H INR 1.2 H O2 Saturation ABG pH at Pt Temp ABG pCO2 at Pt Temp ABG pO2 at Pt Temp ABG HCO3 ABG Base Excess (Actual) VBG pH VBG pCO2 VBG pO2 VBG HCO3 VBG O2 Saturation VBG Base Excess Anion Gap 13 Estim Creat Clear Calc 89.1 Estimated GFR > 60 Random Glucose 110 Lactic Acid 0.8 Calcium 7.6 L Magnesium 1.8 Total Bilirubin 0.3 Direct Bilirubin 0.2 AST 40 H ALT < 6 Alkaline Phosphatase 50 C-Reactive Protein 11.92 H B-Natriuretic Peptide 179 H Total Protein 7.0 Albumin 2.9 L Lipase < 4 L Procalcitonin 1.35 Urine Color Urine Appearance Urine pH Ur Specific [place] Urine Protein Urine Glucose (UA) Urine Ketones Urine Blood Urine Nitrite Ur Leukocyte Esterase Valproic Acid 62.6 Influenza Type A (PCR) POSITIVE A Influenza Type B (PCR) NEGATIVE RSV RNA Qual (PCR) NEGATIVE SARS-CoV-2 RNA (RT-PCR) NEGATIVE Blood Type Antibody Screen 07/29/24 07/29/24 07/29/24 14:24 14:25 15:20 MCV MCH MCHC RDW Plt Count MPV Immature Gran % (Auto) Neut % (Auto) Lymph % (Auto) [place] % (Auto) Eos % (Auto) Baso % (Auto) Lymph # (Auto) [place] # (Auto) Eos # (Auto) Baso # (Auto) Abs Immat Gran (auto) Absolute Neuts (auto) Absolute Nucleated RBC Nucleated RBC % (auto) Smear Tech's Comments PT INR O2 Saturation 100.0 ABG pH at Pt Temp 7.37 ABG pCO2 at Pt Temp 47 H ABG pO2 at Pt Temp 302 H ABG HCO3 27 H ABG Base Excess (Actual) 2.0 VBG pH 7.40 VBG pCO2 45 VBG pO2 69 VBG HCO3 28 H VBG O2 Saturation 92.0 VBG Base Excess 3.6 Anion Gap Estim Creat Clear Calc Estimated GFR Random Glucose Lactic Acid Calcium Magnesium Total Bilirubin Direct Bilirubin AST ALT Alkaline Phosphatase C-Reactive Protein B-Natriuretic Peptide Total Protein Albumin Lipase Procalcitonin Urine Color Urine Appearance Urine pH Ur Specific [place] Urine Protein Urine Glucose (UA) Urine Ketones Urine Blood Urine Nitrite Ur Leukocyte Esterase Valproic Acid Influenza Type A (PCR) Influenza Type B (PCR) RSV RNA Qual (PCR) SARS-CoV-2 RNA (RT-PCR) Blood Type O Positive Antibody Screen NEGATIVE 07/29/24 07/30/24 18:33 04:58 MCV 94.6 MCH 30.0 MCHC 31.7 RDW 17.1 H Plt Count 61 L MPV 12.7 H Immature Gran % (Auto) 0.5 H Neut % (Auto) 86.3 H Lymph % (Auto) 6.7 L [place] % (Auto) 6.4 Eos % (Auto) 0.0 Baso % (Auto) 0.1 Lymph # (Auto) 0.7 L [place] # (Auto) 0.7 Eos # (Auto) 0.0 Baso # (Auto) 0.0 Abs Immat Gran (auto) 0.05 H Absolute Neuts (auto) 9.0 H Absolute Nucleated RBC 0.000 Nucleated RBC % (auto) 0.0 Smear Tech's Comments PT INR O2 Saturation ABG pH at Pt Temp ABG pCO2 at Pt Temp ABG pO2 at Pt Temp ABG HCO3 ABG Base Excess (Actual) VBG pH VBG pCO2 VBG pO2 VBG HCO3 VBG O2 Saturation VBG Base Excess Anion Gap 11 L Estim Creat Clear Calc 119.9 Estimated GFR > 60 Random Glucose 106 Lactic Acid Calcium 7.4 L Magnesium Total Bilirubin Direct Bilirubin AST ALT Alkaline Phosphatase C-Reactive Protein B-Natriuretic Peptide Total Protein Albumin Lipase Procalcitonin Urine Color Yellow Urine Appearance Clear Urine pH 5.5 Ur Specific [place] 1.020 Urine Protein Trace Urine Glucose (UA) Negative Urine Ketones 15 Urine Blood Negative Urine Nitrite Negative Ur Leukocyte Esterase Negative Valproic Acid Influenza Type A (PCR) Influenza Type B (PCR) RSV RNA Qual (PCR) SARS-CoV-2 RNA (RT-PCR) Blood Type Antibody Screen Assessment and Plan (1) Influenza A: Status: Acute (2) Altered mental status: Status: Acute (3) Pneumonia: Status: Acute (4) Hypoxia: Status: Acute Plan Pt is a 59-year-old female with a PMH significant for?colon cancer, diverticulitis, s/p ostomy, COPD HLD, CAD and bipolar disorder among others who presents to the ED from [facility] for evaluation of altered mental status and generalized weakness. Pt will be admitted to the hospital for treatment and further evaluation of acute metabolic encephalopathy and hypoxic respiratory failure in the setting of flu with underlying pneumonia with sepsis. Acute hypoxic respiratory failure in the setting of acute influenza A infection with superimposed pneumonia with sepsis, complicated by metabolic encephalopathy, clinically better today continue DuoNebs, Tamiflu, and guaifenesin Will treat with ceftriaxone and azithromycin, started 07/29/2024 for pna Wean off O2 as ranjana, follow cultures Hypotension related to sepsis, resolved. hold meds today Acute metabolic encephalopathy In the setting of above Treat as above Monitor mentation CAD/HLD Continue aspirin and statin Anemia of chronic disease H&H 10.0/31.0, baseline unknown Continue iron supplementation Hypothyroidism Continue levothyroxine GERD Continue famotidine, pantoprazole Mood disorder Continue Depakote, prazosin, and Seroquel DNR/DNI Attending:?Dr. David DVT Prophylaxis: Lovenox need for inpt: acute hypoxia, influenza a, pna, needs iv abx Quality Stroke Does the patient have a stroke diagnosis?: No VTE Prior VTE?: No VTE Risk Level:: Medical - moderate - high VTE Device Contraindication: Treatment Not Indicated VTE Drug Contraindication: N/A - Med Ordered
[2024-07-30] MEDS: Acetaminophen 325 MG TABLET 650 MG PO (17:57)
[2024-07-30] MEDS: cefTRIAXone sodium 1 GM VIAL IVPUSH (19:52)
[2024-07-30] MEDS: Enoxaparin Sodium 40 MG/0.4 ML SYRINGE SUBCUT (19:52)
[2024-07-30] MEDS: Azithromycin 500 MG in 0.9 % Sodium Chloride 250 ML 125 MG IV (19:52)
[2024-07-30] MEDS: Atorvastatin Calcium 10 MG TABLET PO (19:53)
[2024-07-30] MEDS: Prazosin HCL 1 MG CAPSULE PO (19:53)
[2024-07-30] MEDS: traZODone HCL 25 MG HALFTAB PO (19:53)
[2024-07-30] MEDS: Aspirin Enteric Coated 81 MG TABLET.DR PO (19:53)
[2024-07-30] MEDS: Ferrous Sulfate 324 MG TABLET.DR PO (19:53)
[2024-07-30] MEDS: QUEtiapine Fumarate 50 MG TABLET PO (19:54)
[2024-07-31] MEDS: 0.9 % Sodium Chloride Flush 3 ML SYRINGE IVFLUSH ×2 (00:08→07:28)
[2024-07-31 03:23] VITALS: BP 111/56; PULSE 87; RESP 18; TEMP 36.3; O2SAT 94
[2024-07-31] MEDS: Levothyroxine Sodium 112 MCG TABLET PO (06:07)
[2024-07-31] MEDS: Omeprazole 20 MG CAPSULE.DR PO (06:07)
[2024-07-31] MEDS: Magnesium Oxide 400 MG TABLET PO (07:28)
[2024-07-31] MEDS: Divalproex Sodium ER 500 MG TAB.ER.24H PO (07:28)
[2024-07-31] MEDS: Oseltamivir Phosphate 75 MG CAPSULE PO (07:28)
[2024-07-31] MEDS: Cyclobenzaprine HCl 10 MG TABLET PO (07:28)
[2024-07-31] MEDS: Cholecalciferol (Vitamin D3) 25 MCG TABLET 50 MCG PO (07:28)
[2024-07-31 08:10] VITALS: BP 106/70; PULSE 102; RESP 18; TEMP 36.4; O2SAT 91
[2024-07-31] MEDS: Tiotropium Bromide 2.5 mcg 1 PUFF/2.5 MCG MIST.INHAL 2 PUFF INHALE (09:36)
[2024-07-31] MEDS: Albuterol/Iprat 2.5/0.5MG 3 ML AMPUL.NEB INHALE (09:36)
[2024-07-31 09:37] VITALS: PULSE 100; RESP 18; O2SAT 92
--- NOTE | 2024-07-31 10:19 | P.DS_ITS ---
DS: Providers Provider Date of Service: 07/31/24 Date of admission: 07/29/24 19:37 Date of discharge: 07/31/24 Primary care physician: Wilbert Leonard DO DS: Diagnosis Discharge Diagnosis (1) Influenza A: Status: Acute (2) Altered mental status: Status: Acute (3) Pneumonia: Status: Acute (4) Hypoxia: Status: Acute DS: Summary Hospital Course Hospital Course: Chief Complaint: AMS and weakness Pt is a 59-year-old female with a PMH significant for?colon cancer, diverticulitis, s/p ostomy, COPD HLD, CAD and bipolar disorder among others who presents to the ED from [facility] for evaluation of altered mental status and generalized weakness. Staff report pt has been ill with generalized weakness and cough for the past week. Today was found to be lethargic and altered from baseline, EMS noted her to hypotensive as low as 77/45. Pt was given 500 mL bolus en route. During initial evaluation by ED clinician pt's stoma was noted to be protruding into colostomy bag. CT was negative for obstruction or ischemia of the bowel and showed unobstructed peristomal hernia. Pt seen and evaluated in her room where she is somnolent but arousable, but not answering questions and falling immediately back asleep. Breathing is shallow pt has OxyMask on. In the ED pt was febrile up 103.6, tachycardic up to 124, and tachypneic up to 34, and hypotensive as low as 90/45. Labs were significant for testing positive for influenza type a, H&H 10.0/31.0, CRP 11.92, BNP mildly elevated at 179, albumin 2.9, procalcitonin 1.35. UA negative for UTI. CXR showed left lower lobe consolidation and small parapneumonic effusion. CTA of chest showed lingular and left lower lobe pneumonia and multiple nodular ground-glass opacities in right upper lobe suggesting inflammatory or infectious process. CT?of abdomen and pelvis without acute process. Showed left-sided colostomy with nonobstructive bowel and mesenteric fat and large parastomal hernia. EKG demonstrated sinus tachycardia with PACs . Pt was treated with DuoNeb, Solu- Medrol, Tylenol, IVF, cefepime, and vancomycin. Pt will be admitted to the hospital for treatment and further evaluation of acute metabolic encephalopathy and hypoxic respiratory failure in the setting of flu with underlying pneumonia with sepsis. Hospital course: The patient is a 59-year-old female with a past medical history significant for colon cancer, diverticulitis (status post ostomy), COPD, hyperlipidemia (HLD), coronary artery disease (CAD), and bipolar disorder, among others. She presented to the ED from [facility] for evaluation of altered mental status and generalized weakness.bWorkup revealed Influenza A with pneumonia, hypoxia, metabolic encephalopathy due to acute illness, and she met sepsis criteria. She was treated with Tamiflu (Oseltamivir) 75 mg twice daily for 5 days for influenza, and IV Ceftriaxone and Azithromycin for pneumonia, with a total antibiotic course of 5 days. Cultures were negative.bThe patient uses oxygen at baseline, and her mental status has returned to baseline. She is presently afebrile and will complete the prescribed antibiotic course. Hypotension related to sepsis, resolved with IVF and meds on hold Acute metabolic encephalopathy In the setting of above Treat as above Monitor mentation continue all other home meds Time Attestation Discharge Coordination Time (in mins): 45 Quality: Safe Use of Opioids Does Pt have an Active Cancer Diagnosis on the Problem List?: No Quality: Stroke Does the patient have a stroke diagnosis?: No Physical Exam Vital Signs: Vital Signs: Last Vital Signs Temp 97.6 F 07/31/24 08:10 Pulse 100 07/31/24 09:37 Resp 18 07/31/24 09:37 BP 106/70 07/31/24 08:10 Pulse Ox 91 L 07/31/24 08:10 O2 Del Method Nasal Cannula 07/31/24 08:10 O2 Flow Rate 2 07/31/24 08:10 Oxygen Flow Rate 4 07/29/24 14:01 BMI result Body Mass Index 27.7 DS: Data Data Completed and Pending Labs on day of discharge: Preliminary micro results at discharge 07/29/24 14:20 Blood Culture - Preliminary Blood - Venous No growth after 24 hours. 07/29/24 13:59 Blood Culture - Preliminary Blood - Venous No growth after 24 hours. Discharge Plan Discharge Anticipated Discharge Date/Time: 07/31/24 10:15 Patient Disposition: [facility] Discharge Diagnosis: Influenza pneumonia Referrals: Wilbert Leonard DO [Primary Care Provider] - 1 Week Discharge Medications: New cefuroxime axetil 500 mg tablet 500 mg PO BID 3 Days Qty: 6 0RF oseltamivir [Tamiflu] 75 mg Capsule 75 mg PO Q12H Qty: 7 0RF azithromycin 250 mg tablet 250 mg PO DAILY 2 Days Qty: 2 0RF Rx Instructions: start on day 2 of therapy Continued cyclobenzaprine 10 mg Tablet 10 mg PO BID sennosides [senna] 8.6 mg Tablet 8.6 mg PO Q24H PRN (Reason: Constipation) acetaminophen 325 mg Tablet 650 mg PO Q6H PRN (Reason: pain or fever) ipratropium-albuterol [DuoNeb] 0.5 mg-3 mg(2.5 mg base)/3 mL Solution For Nebulization 3 ml INHALATION Q6H PRN (Reason: Shortness Of Breath Or Wheezing) trazodone 50 mg Tablet 25 mg PO DAILY atorvastatin 10 mg Tablet 10 mg PO BEDTIME prazosin 1 mg Capsule 1 mg PO BEDTIME aspirin 81 mg Tablet,Delayed Release (Dr/Ec) 81 mg PO BEDTIME guaifenesin [Zoraida-Tussin] 100 mg/5 mL Liquid 200 mg PO Q4H PRN (Reason: Cough) ondansetron 8 mg Tablet,Disintegrating 8 mg PO Q8H PRN (Reason: Nausea And Vomiting) famotidine 20 mg Tablet 20 mg PO BEDTIME bisacodyl 10 mg Suppository 10 mg [place] Q24H PRN (Reason: Constipation) pantoprazole 40 mg Tablet,Delayed Release (Dr/Ec) 40 mg PO DAILY@0630 ferrous sulfate 325 mg (65 mg iron) Tablet 325 mg PO BEDTIME divalproex [Depakote ER] 500 mg Tablet Extended Release 24 Hr 500 mg PO BID calcium carbonate 200 mg calcium (500 mg) Tablet,Chewable 400 mg PO Q4H PRN (Reason: Indigestion) Enema 19-7 gram/118 mL Enema 118 ml [place] Q24H PRN (Reason: Constipation) docusate sodium 100 mg Capsule 100 mg PO Q24H PRN (Reason: Constipation) hydroxyzine HCl 25 mg Tablet 25 mg PO Q6H PRN (Reason: Anxiety) alum-mag hydroxide-simeth [Zoraida-Lanta] 200-200-20 mg/5 mL Suspension 30 ml PO Q6H PRN (Reason: Dyspepsia) Rx Instructions: administer between meals and at bedtime albuterol sulfate 90 mcg/actuation Hfa Aerosol Inhaler 2 puff INHALATION Q4H PRN (Reason: Shortness Of Breath Or Wheezing) levothyroxine 112 mcg Tablet 112 mcg PO DAILY@0630 cholecalciferol (vitamin D3) [Vitamin D3] 25 mcg (1,000 unit) Tablet 50 mcg PO DAILY quetiapine [Seroquel XR] 50 mg Tablet Extended Release 24 Hr 50 mg PO BEDTIME Stiolto Respimat 2.5-2.5 mcg/actuation Mist 2 puff INHALATION DAILY magnesium oxide 400 mg magnesium Tablet 400 mg PO BID Discharge Orders: Discharge Order (Routine); Ordered 07/31/24 Ordered By: Kash Warren Diet: Advance to usual diet Activity on Discharge: As tolerated Stand Alone Forms: Patient Portal Discharge page Print Language: Stateless Care Plan Goals: Recovery from influenza pneumonia Health Concerns: Influenza, pneumonia Plan of Treatment: Take Tamiflu as recommended Take cefuroxime and azithromycin as recommended Continue oxygen as before Follow-up with PCP in a week Assessment: See above
--- NOTE | 2024-07-31 11:06 | MHC.CM.PN ---
IMM VERBALLY DELIVERED TO FRIEND CHITRA OSVALDO PT HAS COGNITIVE LOSS. WHITE COPY TO BE LEFT AT PT'S BEDSIDE. PT IS A LTC RESIDENT AT [facility]. PT HAS BEEN MEDICALLY CLEARED FOR RETURN THERE TODAY FOR RESUMPTION OF [facility]. S TRANSPORT BOOKED FOR 1:30 PM VIA [employer]. RN NOTIFIED. CENTER AND CONTACT CHITRA STORY.
== END 2024-07-31 14:55 | disposition intermediate care facility (04) | DRG 193 ==
LOC: HO.ED 17:10 → HO.EDOVER 19:47 → HO.S3 07-30 05:32
PROVIDERS: Emergency Medicine; Admitting Provider Student in an Organized Health Care Education/Training Program; Emergency Provider Emergency Medicine Emergency Medical Services; PCP Hospitalist; Visit Provider Internal Medicine
DX: J10.00 Influenza due to other identified influenza virus with unspecified type of pneumonia (principal); G93.41 Metabolic encephalopathy; I25.10 Atherosclerotic heart disease of native coronary artery without angina pectoris; F17.210 Nicotine dependence, cigarettes, uncomplicated; F31.9 Bipolar disorder, unspecified; I95.9 Hypotension, unspecified; Z71.6 Tobacco abuse counseling; Z66 Do not resuscitate; Z20.822 Contact with and (suspected) exposure to COVID-19; Z93.3 Colostomy status; Z85.038 Personal history of other malignant neoplasm of large intestine; Z79.82 Long term (current) use of aspirin; Z79.890 Hormone replacement therapy; Z79.899 Other long term (current) drug therapy
CPT/HCPCS: 0241U; 36415; 71045; 71250; 74176; 80048; 80076; 80164; 81003; 82803; 83605; 83690; 83735; 83880; 84145; 84484; 85025; 85610; 86140; 86850; 86900; 86901; 87040; 93005; 94640; 99285; C1758; J0131; J0456; J0692; J0696; J1650; J2919; J3370; J7120

== ENCOUNTER → 2024-07-29 13:45 | Outpatient (BNV) | payer MEDICARE, MEDICAID, SELFPAY | PROVIDERS: Emergency Provider Emergency Medicine; PCP Hospitalist; Visit Provider Radiology Diagnostic Radiology | DX: J90 Pleural effusion, not elsewhere classified (principal); R91.8 Other nonspecific abnormal finding of lung field; J18.9 Pneumonia, unspecified organism; S22.050A Wedge compression fracture of T5-T6 vertebra, initial encounter for closed fracture; K44.9 Diaphragmatic hernia without obstruction or gangrene | CPT/HCPCS: 71045; 71250; 74176 ==

== ENCOUNTER → 2024-07-29 13:45 | Outpatient (BNV) | payer MEDICARE, MEDICAID, SELFPAY | PROVIDERS: Admitting Provider Student in an Organized Health Care Education/Training Program; Emergency Provider Emergency Medicine Emergency Medical Services; PCP Hospitalist; Visit Provider Internal Medicine | DX: R00.0 Tachycardia, unspecified (principal); I49.1 Atrial premature depolarization | CPT/HCPCS: 93010 ==

== ENCOUNTER → 2024-07-29 19:37 | Outpatient (BNV) | payer MEDICARE, MEDICAID, SELFPAY | PROVIDERS: Admitting Provider Student in an Organized Health Care Education/Training Program; Emergency Provider Emergency Medicine Emergency Medical Services; PCP Hospitalist; Visit Provider Student in an Organized Health Care Education/Training Program | DX: J96.01 Acute respiratory failure with hypoxia (principal); J10.1 Influenza due to other identified influenza virus with other respiratory manifestations; R41.82 Altered mental status, unspecified; J18.9 Pneumonia, unspecified organism | CPT/HCPCS: 99223; 99232; 99239 ==

== ENCOUNTER 2024-08-16 10:14 | Inpatient (IN) | payer MEDICARE, MEDICAID, SELFPAY ==
[2024-08-16] VITALS (10 sets, daily range): BP systolic 88–123; BP diastolic 47–77; PULSE 99–120; RESP 18–25; TEMP 36.7–39.1; O2SAT 75–99; BMI 24.9
--- NOTE | ~2024-08-16 | XR_ITS ---
EXAMINATION: XR CHEST CLINICAL INFORMATION: Pneumonia? COMPARISON: July 29, 2024. TECHNIQUE: Frontal view of the chest was obtained. FINDINGS: Bilateral multifocal patchy and confluent opacities involving mostly the right lung. Improved aeration in the left lung. No gross pneumothorax. No gross pleural effusion. Cardiomediastinal silhouette size is unchanged with calcified plaque aortic arch. Altered level thoracic and upper lumbar stenosis. XR/XR chest 1V IMPRESSION: Chronic interstitial lung disease with the superimposed interstitial lung edema versus multifocal pneumonia. Electronically signed by: Venkatesh Hunter MD 08/16/2024 12:38 PM EST
--- NOTE | 2024-08-16 10:25 | ECG_ITS ---
Test Reason : SEPSIS Blood Pressure : */* mmHG Vent. Rate : 117 BPM Atrial Rate : 117 BPM P-R Int : 142 ms QRS Dur : 108 ms QT Int : 326 ms P-R-T Axes : 7 22 137 degrees QTcB Int : 454 ms Sinus tachycardia Incomplete left bundle branch block Septal infarct , age undetermined Abnormal ECG When compared with ECG of 29-Jul-2024 15:14, Premature atrial complexes are no longer Present Septal infarct is now Present Referred By: Jay Quintanilla Electronically Signed By: BELEN CH MD
--- NOTE | 2024-08-16 10:27 | ED_ITS ---
HPI - General Adult General Chief complaint: Altered Mental Status Stated complaint: NOT FEELING WELL,FROM SNF PER EMS Time Seen by Provider: 08/16/24 10:22 Source: patient Mode of arrival: ambulatory Limitations: no limitations History of Present Illness ED Provider: Piter Quintanilla HPI narrative: 59-year-old female history of COPD asthma, diverticulitis, with colostomy bag presents to ED for fever, hypoxia 75%, and lethargy. Patient is oxygen dependent but last night was not on her oxygen. EMS placed her on [address] to EMS[address] Unknown how much is patient's baseline O2 L. secondary complaint slight bleeding from colostomy bag. Patient is DNI DNR Related Data Home Medications ?Medication ?Instructions ?Recorded ?Confirmed acetaminophen 325 mg tablet 650 mg PO Q6H PRN pain or fever 07/30/24 08/16/24 albuterol sulfate 90 mcg/actuation 2 puff inhalation Q4H PRN 07/30/24 08/16/24 aerosol inhaler Shortness Of Breath Or Wheezing aluminum-mag hydroxide-simethicone 30 ml PO Q6H PRN Dyspepsia 07/30/24 08/16/24 200 mg-200 mg-20 mg/5 mL oral susp (Zoraida-Lanta) aspirin 81 mg tablet,delayed 81 mg PO DAILY 07/30/24 08/16/24 release atorvastatin 10 mg tablet 10 mg PO BEDTIME 07/30/24 08/16/24 bisacodyl 10 mg rectal suppository 10 mg NV Q24H PRN Constipation 07/30/24 08/16/24 calcium carbonate 400 mg PO Q4H PRN Indigestion 07/30/24 08/16/24 cholecalciferol (vitamin D3) 25 50 mcg PO DAILY 07/30/24 08/16/24 mcg (1,000 unit) tablet (Vitamin D3) cyclobenzaprine 10 mg tablet 10 mg PO BID 07/30/24 08/16/24 divalproex 500 mg tablet,extended 500 mg PO BID 07/30/24 08/16/24 release 24 hr (Depakote ER) docusate sodium 100 mg capsule 100 mg PO Q24H PRN Constipation 07/30/24 08/16/24 famotidine 20 mg tablet 20 mg PO BEDTIME 07/30/24 08/16/24 ferrous sulfate 325 mg (65 mg 325 mg PO DAILY 07/30/24 08/16/24 iron) tablet guaifenesin 100 mg/5 mL oral 200 mg PO Q4H PRN Cough 07/30/24 08/16/24 liquid (Zoraida-Tussin) hydroxyzine HCl 25 mg tablet 25 mg PO Q6H PRN Anxiety 07/30/24 08/16/24 ipratropium 0.5 mg-albuterol 3 mg 3 ml inhalation Q6H PRN Shortness 07/30/24 08/16/24 (2.5 mg base)/3 mL nebulization Of Breath Or Wheezing soln levothyroxine 112 mcg tablet 112 mcg PO DAILY@62907/30/24 08/16/24 magnesium oxide 400 mg PO BID 07/30/24 08/16/24 ondansetron 8 mg disintegrating 8 mg PO Q8H PRN Nausea And Vomiting 07/30/24 08/16/24 tablet pantoprazole 40 mg tablet,delayed 40 mg PO DAILY@62907/30/24 08/16/24 release prazosin 1 mg capsule 1 mg PO BEDTIME 07/30/24 08/16/24 quetiapine 50 mg tablet,extended 50 mg PO BEDTIME 07/30/24 08/16/24 release 24 hr (Seroquel XR) sennosides 8.6 mg tablet (senna) 8.6 mg PO Q24H PRN Constipation 07/30/24 08/16/24 sodium phosphates 19 gram-7 118 ml NV Q24H PRN Constipation 07/30/24 08/16/24 gram/118 mL enema (Enema) tiotropium 2.5 mcg-olodaterol 2.5 2 puff inhalation DAILY 07/30/24 08/16/24 mcg/actuation mist for inhalation (Stiolto Respimat) trazodone 50 mg tablet 25 mg PO DAILY 07/30/24 08/16/24 Allergies Allergy/AdvReac Type Severity Reaction Status Date / Time erythromycin base AdvReac Unknown Unknown Verified 08/16/24 10:43 moxifloxacin AdvReac Unknown Unknown Verified 08/16/24 10:43 prednisone AdvReac Unknown Unknown Verified 08/16/24 10:43 pregabalin AdvReac Unknown Unknown Verified 08/16/24 10:43 Review of Systems 2 Review of Systems: Fever, slight cough, lethargy Yes all other systems are reviewed and are negative FOR[facility]LY [facility] Past Medical History Medical History Bipolar 1 disorder Hyperlipidemia CAD (coronary artery disease) Thrombocytopenia GERD (gastroesophageal reflux disease) Pneumonia Diverticulitis COPD (chronic obstructive pulmonary disease) Social History Social History Household Members: Other Household Members Other:: SNF Housing: [facility] Do you presently have visiting nurse or other home services: No Patient Tobacco Use Status: Tobacco use Unknown Tobacco use type: Cigarette Cigarettes Per Day: 4 Advance Directives Date on File: 07/30/24 service: No Physical Exam ED Vital Signs: Vital Signs - 24 hr 08/16/24 13:46 Temperature 98.0 F Pulse Rate 103 H Respiratory Rate 19 Blood Pressure 114/66 Pulse Oximetry 94 Oxygen Delivery Method Nasal Cannula Oxygen Flow Rate 4 BMI result Body Mass Index 24.9 Const General: cooperative, healthy appearing, comfortable, no acute distress, well developed, alert, awake and Physically active Orientation/consciousness: patient oriented x3 HENMT Head: Yes normal to inspection, Yes No palpable skull fracture present, Yes normocephalic and Yes atraumatic Ears: hearing grossly normal bilaterally, external ears normal, TM's normal bilaterally, TM normal on the right, TM normal on the left, EAC's normal and mastoids normal Throat: Yes posterior oropharynx normal, Yes tonsils normal and Yes uvula midline Eyes General: appearance normal, both eyes and all related structures Neck Neck: Yes normal visual inspection, Yes full ROM, Yes no lymphadenopathy, Yes no meningeal signs, Yes trachea midline, Yes supple, No anterior neck swelling and No tender Chest Chest palpation & inspection: normal inspection of the chest and normal palpation of entire chest wall Resp Effort & Inspection: normal respiratory effort and able to speak in complete sentences Auscultation: clear to auscultation bilaterally and rhonchi Cardio Jugular venous distension: no JVD Heart sounds: S1 normal heart sound present and S2 normal heart sound present GI Inspection: Yes normal to inspection Abdomen image: 2 1. colostomy bag with pink stoma slight blood in colstomy bag. negative for any tenderness, ecchymosis, or bloating. General: Yes no CVA tenderness Back/Spine/Pelvis Back: no CVA tenderness and No back tenderness Skin General skin exam: no rashes or lesions noted, elasticity normal and turgor normal Neuro General: patient oriented x3, gait normal, tone normal, moves all extremities, Normal light touch and pain sensation, no meningeal signs, no focal motor deficits and CN's II-XI intact bilaterally Extrem General: Yes normal to inspection, Yes full ROM and Yes capillary refill normal Psych Appearance: grossly normal, well kempt and not disheveled Medications Administered Generic Name Dose Route Start Last Admin Trade Name Freq PRN Reason Stop Dose Admin Acetaminophen 650 mg 08/16/24 15:18 08/17/24 03:58 Acetaminophen 325 Mg Tablet PO 650 mg Q6H PRN Administration Pain, Mild 1-3,fever,headache Aspirin 81 mg 08/17/24 09:00 08/17/24 09:12 Aspirin Enteric Coated 81 Mg Tablet. PO 81 mg DAILY DENISE Administration Atorvastatin Calcium 10 mg 08/16/24 21:00 08/16/24 21:55 Atorvastatin Calcium 10 Mg Tablet PO 10 mg BEDTIME DENISE Administration Cyclobenzaprine HCl 10 mg 08/16/24 21:00 08/17/24 09:12 Cyclobenzaprine Hcl 10 Mg Tablet PO 10 mg BID DENISE Administration Divalproex Sodium 500 mg 08/16/24 21:00 08/17/24 09:13 Divalproex Sodium Er 500 Mg Tab.Er.24h PO 500 mg BID DENISE Administration Enoxaparin Sodium 40 mg 08/16/24 15:30 08/16/24 15:45 Enoxaparin Sodium 40 Mg/0.4 Ml Syringe SUBCUT 40 mg Q24H DENISE Administration Famotidine 20 mg 08/16/24 21:00 08/16/24 21:55 Famotidine 20 Mg Tablet PO 20 mg BEDTIME DENISE Administration Ferrous Sulfate 324 mg 08/17/24 09:00 08/17/24 09:13 Ferrous Sulfate 324 Mg Tablet. PO 324 mg DAILY DENISE Administration Hydroxyzine HCl 25 mg 08/16/24 16:09 08/17/24 03:58 Hydroxyzine Hcl 25 Mg Tablet PO 25 mg Q6H PRN Administration Anxiety Cefepime HCl 2 gm in 50 mls @ 100 mls/hr 08/16/24 19:30 08/17/24 11:33 Maxipime IV Infused Q8H DENISE Infusion Doxycycline Hyclate 100 mg/ 250 mls @ 166.67 mls/hr 08/17/24 08:00 08/17/24 10:42 Sodium Chloride IV Infused Q12H DENISE Infusion Levalbuterol HCl 1.25 mg 08/16/24 16:00 08/17/24 11:41 Levalbuterol Hcl 1.25 Mg/3 Ml Vial.Neb INHALE 1.25 mg RQ4H WHILE AWAKE DENISE Administration Levothyroxine Sodium 112 mcg 08/17/24 06:30 08/17/24 06:36 Levothyroxine Sodium 112 Mcg Tablet PO 112 mcg DAILY@0630 DENISE Administration Magnesium Oxide 400 mg 08/16/24 21:00 08/17/24 09:12 Magnesium Oxide 400 Mg Tablet PO 400 mg BID DENISE Administration Omeprazole 20 mg 08/17/24 06:30 08/17/24 06:36 Omeprazole 20 Mg Capsule.Dr PO 20 mg DAILY@0630 DENISE Administration Prazosin HCl 1 mg 08/16/24 21:00 08/16/24 21:57 Prazosin Hcl 1 Mg Capsule PO 1 mg BEDTIME EDNISE Administration Protocol Quetiapine Fumarate 25 mg 08/16/24 21:00 08/17/24 09:12 Quetiapine Fumarate 25 Mg Tablet PO 25 mg BID DENISE Administration Sodium Chloride 3 ml 08/16/24 16:00 08/17/24 09:09 0.9 % Sodium Chloride Flush 3 Ml Syringe IVFLUSH 3 ml QSHIFT DENISE Administration Trazodone HCl 25 mg 08/17/24 09:00 08/17/24 09:13 Trazodone Hcl 25 Mg Halftab PO 25 mg DAILY DENISE Administration Vitamin D 50 mcg 08/17/24 09:00 08/17/24 09:13 Cholecalciferol (Vitamin D3) 25 Mcg Tablet PO 50 mcg DAILY DENISE Administration Discontinued Medications Generic Name Dose Route Start Last Admin Trade Name Freq PRN Reason Stop Dose Admin Acetaminophen 650 mg 08/16/24 10:47 08/16/24 11:03 Acetaminophen Supp 650 Mg Supp.Rect NV 08/16/24 10:48 650 mg ONCE ONE Administration Albuterol Sulfate 2.5 mg/ 0 mg 08/16/24 11:28 08/16/24 11:34 Albuterol/Ipratropium 3 ml INHALE 08/16/24 11:29 5 dose ONCE ONE Administration Sodium Chloride 1,000 mls @ 999 mls/hr 08/16/24 10:59 08/16/24 12:10 Ns IV 08/16/24 11:59 Infused .Q1H1M STA Infusion Cefepime HCl 2 gm in 50 mls @ 100 mls/hr 08/16/24 11:10 08/16/24 12:41 Maxipime IV 08/16/24 11:39 Infused ONCE ONE Infusion Sodium Chloride 1,000 mls @ 999 mls/hr 08/16/24 12:53 08/16/24 14:06 Ns IV 08/16/24 13:53 Infused .Q1H1M STA Infusion Medical Decision Making Medical Decision Making MDM Narrative: 59-year-old female history of pneumonia, COPD asthma, diverticulitis colostomy bag DNI DNR presents to ED for fever, tachycardia, and hypoxia on room air 75%. Patient initially was on 5 L oxygen 90% patient was brought down to 2% ends at 90%. Sepsis protocol called. Antibiotic labs fluids ordered 12:13pm: That was a delayed and lab results due to patient being hard stick. 1:04pm: ABG ordered. No white count. Lactate acid negative. Blood pressure soft with odor not of fluids. Case presents to hospitalist 2:00PM; PATIENT ADMITTED FOR MULTIFOCAL PNEUMONIA. SRIDHAR Ramirez WAS MADE AWARE OF PATIENT'S STOMA WITH SLIGHT BLEEDING IN THE c. Holostomy bagE STATES PATIENT'S PRIOR CT SCAN WAS NEGATIVE FOR OBSTRUCTION AND STATES HE WILL WATCH PATIENT'S STOMA AND IF THIS MORE PROTRUSION OR NO BOWEL MOVEMENT OR WORSENING BLEEDING HE WAS SENT FOR CT SCAN. Differential Diagnosis Differential Diagnoses: The differential diagnosis associated with the presentation includes (chf, pneumonia, sars. covid, ) Admission/Observation Consideration of admission/observation: Escalation of care including admission/observation considered Consult Healthcare Provider Management of the patient was discussed with: Hospitalist (Katelin) Lab Data MDM Lab Attestation statement: I reviewed the patient's lab results. 08/17/24 03:58 08/17/24 03:58 Labs: Lab Results 08/16/24 08/16/24 08/16/24 Range/Units 12:08 12:16 12:19 WBC 5.5 (4.8-10.8) X10*3/uL RBC 3.00 L (4.20-5.50) X10*6/uL Hgb 9.1 L (12.0-16.0) g/dl Hct 29.7 L (37.0-47.0) % MCV 99.0 H (80.0-98.0) fL MCH 30.3 (27.0-33.0) pg MCHC 30.6 L (31.0-35.0) g/dl RDW 18.3 H (11.0-16.0) % Plt Count 73 L (160-400) X10*3/uL MPV 12.4 H (9.4-12.3) fL Immature Gran % (Auto) 0.7 H (0.0-0.4) % Neut % (Auto) 64.3 (45-73) % Lymph % (Auto) 17.9 L (20-40) % [place] % (Auto) 14.5 H (2-11) % Eos % (Auto) 2.4 (0-4) % Baso % (Auto) 0.2 (0-2) % Lymph # (Auto) 1.0 L (1.2-4.9) X10*3/uL [place] # (Auto) 0.8 (0.1-1.2) X10*3/uL Eos # (Auto) 0.1 (0.0-0.4) X10*3/uL Baso # (Auto) 0.0 (0.0-0.2) X10*3/uL Abs Immat Gran (auto) 0.04 H (0.00-0.03) X10*3/uL Absolute Neuts (auto) 3.6 (2.0-8.3) x10*3/uL Absolute Nucleated RBC 0.000 (0.0-0.012) X10*3/uL Nucleated RBC % (auto) 0.0 (0.0-0.2) /100WBC VBG pH 7.48 H (7.32-7.43) VBG pCO2 47 mmHg VBG pO2 70 mmHg VBG HCO3 35 H (22-26) mmol/L VBG O2 Saturation 96.0 % VBG Base Excess 11.2 mmol/L Sodium 141 (135-145) mmol/L Potassium 4.1 (3.3-5.1) mmol/L Chloride 108 (96-108) mmol/L Carbon Dioxide 27 (22-29) mmol/L Anion Gap 10 L (12-20) BUN 12 (9-16) mg/dL Creatinine 0.60 (0.5-1.4) mg/dL Estim Creat Clear Calc 95.4 Estimated GFR > 60 Random Glucose 83 (60-115) mg/dL Lactic Acid 1.5 (0.5-2.0) mmol/L Calcium 7.5 L (8.4-10.2) mg/dL Total Bilirubin 0.4 (0.0-1.0) mg/dL AST 16 (5-31) U/L ALT < 6 (0-31) U/L Alkaline Phosphatase 47 (39-117) U/L Troponin I High Sens < 2.7 D (<3.5-17.0) ng/L B-Natriuretic Peptide 38 (<100) pg/mL Total Protein 6.1 L (6.5-8.0) g/dL Albumin 2.7 L (3.5-5.0) g/dL Influenza Type A (PCR) NEGATIVE (Negative) Influenza Type B (PCR) NEGATIVE (Negative) RSV RNA Qual (PCR) NEGATIVE (Negative) SARS-CoV-2 RNA (RT-PCR) NEGATIVE (Negative) Independent Interpretation I performed an independent interpretation of an: EKG (negative stemi) and Plain X-Ray Radiology Impression Discussion of test interpretation with radiology: I have reviewed the radiologist's reading. Independent Historian Clinical information obtained from an independent historian. History obtained from or confirmed by: Other (ems, car one) Critical Care Time Critical Care Time Critical Care Time: Yes Total Critical Care Time: 60 Attestation: patient is hypoxic, septic, and febrile. antibiotics, fluids, breathing treatment ordered. Discharge Plan Discharge Clinical Impression: Pneumonia Qualifiers: Pneumonia type: due to unspecified organism Laterality: left Lung location: l ower lobe of lung Qualified Code(s): J18.9 - Pneumonia, unspecified organism Patient Disposition: Admitted As Inpatient Interventions: Admission Worksheet (ED) Last Done: 08/17/24 08:00 Discharge Date/Time: 08/17/24 10:57
[2024-08-16] MEDS: 0.9 % Sodium Chloride 1,000 ML 999 ML IV ×2 (11:01→13:05)
[2024-08-16] MEDS: Acetaminophen Supp 650 MG SUPP.RECT PR (11:03)
[2024-08-16] MEDS: Albuterol Sulfate 2.5 MG, Albuterol/Iprat 2.5/0.5MG 3 ML 3 ML INHALE (11:34)
[2024-08-16] MEDS: cefEPime HCl/D5W 2 GM/50 ML PIGGYBACK IV ×2 (12:11→19:13)
[2024-08-16 12:15] LABS: MANUAL DIFF FLAG NO
[2024-08-16 12:18] LABS: Basophils Percent Auto 0.2 % (0-2); Eosinophils Absolute Auto 0.1 X10*3/uL (0.0-0.4); Eosinophils Percent Auto 2.4 % (0-4); Hematocrit 29.7 % (37.0-47.0); Hemoglobin 9.1 g/dl (12.0-16.0); Imm Gran Abs Auto 0.04 X10*3/uL (0.00-0.03); Imm Gran Pct Auto 0.7 % (0.0-0.4); Lymphocytes Percent Auto 17.9 % (20-40); Mean Corpuscular HGB Conc 30.6 g/dl (31.0-35.0); Mean Corpuscular Hemoglobin 30.3 pg (27.0-33.0); Mean Platelet Volume 12.4 fL (9.4-12.3); Monocytes Absolute Auto 0.8 X10*3/uL (0.1-1.2); Monocytes Percent Auto 14.5 % (2-11); Neutrophils Absolute Auto 3.6 x10*3/uL (2.0-8.3); Neutrophils Percent Auto 64.3 % (45-73); Red Cell Distribution Width 18.3 % (11.0-16.0); White Blood Count 5.5 X10*3/uL (4.8-10.8)
[2024-08-16 12:21] LABS: Venous Blood Gas Refer to POC result
[2024-08-16 12:21] LABS: VBG Base Excess 11.2 mmol/L; VBG HCO3 35 mmol/L (22-26); VBG pCO2 47 mmHg; VBG pH 7.48 (7.32-7.43); VBG pO2 70 mmHg
[2024-08-16 12:25] LABS: Platelet Count 73 X10*3/uL (160-400)
[2024-08-16 12:30] LABS: Lactic Acid 1.5 mmol/L (0.5-2.0)
[2024-08-16 12:31] LABS: Alanine Aminotransferase < 6 U/L (0-31); Albumin Level 2.7 g/dL (3.5-5.0); Alkaline Phosphatase 47 U/L (39-117); Anion Gap 10 (12-20); Aspartate Amino Transferase 16 U/L (5-31); Bilirubin Total 0.4 mg/dL (0.0-1.0); Blood Urea Nitrogen 12 mg/dL (9-16); Calcium 7.5 mg/dL (8.4-10.2); Carbon Dioxide 27 mmol/L (22-29); Chloride 108 mmol/L (96-108); Creatinine Clr Calc Pharmacy 95.4; Estimated Glomerular Filt Rate > 60; Glucose Random 83 mg/dL (60-115); Potassium 4.1 mmol/L (3.3-5.1); Sodium 141 mmol/L (135-145); Total Protein 6.1 g/dL (6.5-8.0)
[2024-08-16 12:36] LABS: B Type Natriuretic Peptide 38 pg/mL (<100)
[2024-08-16 12:37] LABS: Troponin-I High Sensitivity < 2.7 ng/L (<3.5-17.0)
--- NOTE | 2024-08-16 13:07 | PC.NURSE ---
patient arrived via ems altered mental status- pt unsure the year, unsure where she is and calls this nurse Emily. monitor technician applied, ekg performed,swabs obtained, lungs have rhonchi throughout, she was on O2 via [place] from EMS as they found her with an O2 sat in the 70s, pt is currently low 80s-provider is aware- this nurse attempted forehead, multiple fingers/toes with many different means to obtain a O2 sat without much change in the number., RT to perform an ABG. Pt very difficult stick- this nurse, 2 different techs and 2 different phlebotomy providers all had difficult time obtaining labs which delayed abx to be given. Sepsis checklist has been completed at this time.
[2024-08-16 13:11] LABS: Influenza A PCR NEGATIVE (Negative); Influenza B PCR NEGATIVE (Negative); Resp Syncy Virus RNA Qual PCR NEGATIVE (Negative); SARS COV2 PCR INHOUSE NEGATIVE (Negative)
--- OUTSIDE RECORDS SUMMARY | 2024-08-16 13:17 | XMS_ITS | Clinical Summary ---
Author Organization [address] Address [address] [place] [address] Phone Care Team Providers Care Devops Developer Name Role Phone Wilbert Leonard MD Primary Care Provider [phone] Encounters Date Type Department Care Team Description 07/25/2024 Lab Requisition [facility] Lab [address] [place] [phone] Wilbert Leonard MD Urinary tract infection, site not specified 07/18/2024 Lab Requisition [facility] Lab [address] [place] [phone] Wilbert Leonard MD Other parts counterman (current) drug therapy 07/13/2024 Lab Requisition [facility] Lab [address] [place] [phone] Wilbert Leonard MD Cough, unspecified; Altered mental status, unspecified 07/12/2024 Lab Requisition [facility] Lab [address] [place] [phone] Wilbert Leonard MD Cough, unspecified 06/13/2024 Lab Requisition [facility] Lab [address] [place] [phone] Wilbert Leonard MD Other jail (current) drug therapy 05/28/2024 Lab Requisition [facility] Lab [address] [place] [phone] Wilbert Leonard MD Unspecified intracranial injury with loss of consciousness of unspecified duration, sequela (CMS/HCC) from Last 3 Months Social History Tobacco Use Types Packs/Day Years Used Date Smoking Tobacco: Never Assessed Comments Unknown Sex and Gender Information Value Date Recorded Sex Assigned at Not on file Legal Sex Female 3:40 PM EDT Gender Identity Not on file Sexual Orientation Not on file Plan of Treatment Health Maintenance Due Date Last Done Comments Breast Cancer Screening 1966 DTaP,Tdap,and Td Vaccines (1 - Tdap) 1985 Hepatitis B Vaccines (1 of 3 - 19+ 3-dose series) 1985 Cervical Cancer Screening: P ap Smear 1987 Pneumococcal Vaccine: 50+ Ye ars (1 of 1 - PCV) 2016 Zoster Vaccines (1 of 2) 2016 COVID-19 Vaccine (1 - 2023-2 5 season) 2024 Influenza Vaccine (#1) 2024 Colorectal Cancer Screening: Colonoscopy 04/07/2024 Depression Screening 04/07/2024 HIV Screening 04/07/2024 Hepatitis C Screening 04/07/2024 Social Influencers of Health Screening 04/07/2024 HIB Vaccines Aged Out No longer eligi ble based on patient's age to complete this topic HPV Vaccines Aged Out No longer eligi ble based on patient's age to complete this topic Hepatitis A Vaccines Aged Out No long er eligible based on patient's age to complete this topic IPV Vaccines Aged Out No longer eligi ble based on patient's age to complete this topic MMR Vaccines Aged Out No longer eligi ble based on patient's age to complete this topic Meningococcal ACWY Vaccine Aged Out N o longer eligible based on patient's age to complete this topic Meningococcal B Vacine Aged Out No lo nger eligible based on patient's age to complete this topic Pneumococcal Vaccine: Pediat rics (0 to 5 Years) and At-Risk Patients (6 to 64 Years) Aged Out No longer eligible b ased on patient's age to complete this topic RSV Immunization Patients Un boaz 20 months Aged Out No longer eligible b ased on patient's age to complete this topic Varicella Vaccines Aged Out No longer eligible based on patient's age to complete this topic Procedures Procedure Name Priority Date/Time Associated Diagnosis Comments URINALYSIS WITH REFLEX MICROSCOPIC Routine 07/25/2024 5:40 AM EST Urinary tract infection, site not specified URINALYSIS WITH REFLEX MICROSCOPIC Routine 07/25/2024 5:40 AM EST Urinary tract infection, site not specified VALPROIC ACID LEVEL, TOTAL Routine 07/18/2024 6:40 AM EST Other jail (current) drug therapy VITAMIN D 25 HYDROXY Routine 07/18/2024 6:40 AM EST Other jail (current) drug therapy CBC WITH AUTO DIFFERENTIAL Routine 07/13/2024 7:30 AM EST Cough, unspecified Altered mental status, unspecified AMMONIA Routine 07/13/2024 7:30 AM EST Cough, unspecified Altered mental status, unspecified THYROID STIMULATING HORMONE WITH REFLEX TO FREE T4 AND FREE T3 Routine 07/13/2024 7:30 AM EST Cough, unspecified Altered mental status, unspecified COMPREHENSIVE METABOLIC PANEL Routine 07/13/2024 7:30 AM EST Cough, unspecified Altered mental status, unspecified CBC AND DIFFERENTIAL Routine 07/13/2024 7:30 AM EST Cough, unspecified Altered mental status, unspecified [id number], RSV, FLU A AND B QUALITATIVE RT-PCR, LOCAL REFERENCE LAB Routine 07/12/2024 12:05 PM EST Cough, unspecified VITAMIN D 25 HYDROXY Routine 06/13/2024 8:25 AM EST Other parts counterman (current) drug therapy VITAMIN B6 Routine 06/13/2024 8:25 AM EST Other jail (current) drug therapy HEMOGLOBIN A1C Routine 06/13/2024 8:25 AM EST Other jail (current) drug therapy VITAMIN B12 Routine 06/13/2024 8:25 AM EST Other parts counterman (current) drug therapy THYROXINE FREE Routine 05/28/2024 6:35 AM EST Unspecified intracranial injury with loss of consciousness of unspecified duration, sequela (CMS/HCC) THYROID STIMULATING HORMONE Routine 05/28/2024 6:35 AM EST Unspecified intracranial injury with loss of consciousness of unspecified duration, sequela (CMS/HCC) VALPROIC ACID LEVEL, TOTAL Routine 05/28/2024 6:35 AM EST Unspecified intracranial injury with loss of consciousness of unspecified duration, sequela (CMS/HCC) from Last 3 Months Results * (ABNORMAL) Urinalysis with reflex microscopic (07/25/2024 5:40 AM EST) Specific [place] Urine 1.030 1.003 - 1.030 LAB URINALYSIS - AUTOMATED METHOD 07/25/2024 8:42 AM [facility] pH, Urine 6.5 5.0 - 8.0 pH LAB URINALYSIS - AUTOMATED METHOD 07/25/2024 8:42 AM [facility] Leukocytes, Urine Trace(A) Negative LAB URINALYSIS - AUTOMATED METHOD 07/25/2024 8:42 AM [facility] Nitrite, Urine Negative Negative LAB URINALYSIS - AUTOMATED METHOD 07/25/2024 8:42 AM [facility] Protein, Urine Trace <=Trace mg/dL LAB URINALYSIS - AUTOMATED METHOD 07/25/2024 8:42 AM [facility] Glucose, Urine Negative Negative mg/dL LAB URINALYSIS - AUTOMATED METHOD 07/25/2024 8:42 AM [facility] Ketones, Urine Trace(A) Negative mg/dL LAB URINALYSIS - AUTOMATED METHOD 07/25/2024 8:42 AM [facility] Urobilinogen , Urine 1.0 0.2 - 1.0 mg/dL LAB URINALYSIS - AUTOMATED METHOD 07/25/2024 8:42 AM [facility] Bilirubin, Urine Negative Negative LAB URINALYSIS - AUTOMATED METHOD 07/25/2024 8:42 AM [facility] Blood, Urine Negative Negative LAB URINALYSIS - AUTOMATED METHOD 07/25/2024 8:42 AM [facility] RBC, Urine 0.0 0 - 4 /HPF LAB URINALYSIS - AUTOMATED METHOD 07/25/2024 8:42 AM [facility] WBC, Urine 15.9(H) 0 - 4 /HPF LAB URINALYSIS - AUTOMATED METHOD 07/25/2024 8:42 AM [facility] Squamous Epithelial, Urine 80(H) 0 - 60 /LPF LAB URINALYSIS - AUTOMATED METHOD 07/25/2024 8:42 AM [facility] Non-Squamous Epithelial, Urine 2-5 Transitional epithelial cells. /LPF LAB URINALYSIS - AUTOMATED METHOD 07/25/2024 8:42 AM [facility] Bacteria, Urine Negative Negative /HPF LAB URINALYSIS - AUTOMATED METHOD 07/25/2024 8:42 AM [facility] Hyaline Casts, Urine 4.4(H) 0 - 3 /LPF LAB URINALYSIS - AUTOMATED METHOD 07/25/2024 8:42 AM [facility] Mucus, Urine Small None /HPF LAB URINALYSIS - AUTOMATED METHOD 07/25/2024 8:42 AM [facility] Urine Urine specimen obtained by clean catch procedure / Unknown 07/25/2024 5:40 AM EST 07/25/2024 8:06 AM EST us Wilbert Leonard MD LAB URINE ORDERABLES Final Resul t [facility] [address] [place] [address], * Vitamin D 25 hydroxy (07/18/2024 6:40 AM EST) Only the most recent of2 resultswithin the time period is included. Vit D, 25-Hydroxy 37.6 30.0 - 80.0 ng/mL LAB CHEMISTRY METHOD 07/18/2024 8:57 AM EST [facility] Blood Venous blood specimen / Unknown 07/18/2024 6:40 AM EST 07/18/2024 7:28 AM EST us Wilbert Leonard MD LAB BLOOD ORDERABLES Final Resul t Performing Organization Address [facility]/ZIP Co de Phone Number [facility] [address] [place] [address], [place] [phone] * Valproic acid level, total (07/18/2024 6:40 AM EST) Only the most recent of2 resultswithin the time period is included. Pathologist [facility] Valproic Acid, Total 87 50 - 100 mcg/mL LAB CHEMISTRY METHOD 07/18/2024 8:30 AM EST [facility] Blood Venous blood specimen / Unknown 07/18/2024 6:40 AM EST 07/18/2024 7:28 AM EST us Wilbert Leonard MD LAB BLOOD ORDERABLES Final Resul t Performing Organization Address [facility] de Phone Number [facility] [address] [place] [address], [place] [phone] * Thyroid stimulating hormone with reflex to free t4 and free t3 (07/13/2024 7:30 AM EST) TSH 1.93 0.40 - 4.00 mcIU/mL LAB CHEMISTRY METHOD 07/13/2024 10:39 AM EST [facility] Blood Venous blood specimen / Unknown 07/13/2024 7:30 AM EST 07/13/2024 8:00 AM EST us Wilbert Leonard MD LAB BLOOD ORDERABLES Final Resul t Performing Organization Address City/[facility]/ZIP Co de Phone Number [facility] [address] [place] [address], [place] [phone] * (ABNORMAL) CBC auto differential (07/13/2024 7:30 AM EST) [facility] WBC 12.8(H) 4.8 - 10.8 K/mcL LAB HEMETOLOGY METHOD 07/13/2024 8:10 AM [facility] RBC 3.70(L) 3.80 - 4.80 M/mcL LAB HEMETOLOGY METHOD 07/13/2024 8:10 AM [facility] Hemoglobin 10.7(L) 11.5 - 16.0 g/dL LAB HEMETOLOGY METHOD 07/13/2024 8:10 AM [facility] Hematocrit 35.1 35.0 - 47.0 % LAB HEMETOLOGY METHOD 07/13/2024 8:10 AM [facility] MCV 94.9 79.0 - 98.0 FL LAB HEMETOLOGY METHOD 07/13/2024 8:10 AM [facility] MCH 28.9 27.0 - 32.0 pcg LAB HEMETOLOGY METHOD 07/13/2024 8:10 AM [facility] MCHC 30.5(L) 32.0 - 37.0 g/dL LAB HEMETOLOGY METHOD 07/13/2024 8:10 AM [facility] RDW 15.6(H) 11.0 - 15.0 % LAB HEMETOLOGY METHOD 07/13/2024 8:10 AM [facility] Platelets 210 130 - 400 K/mcL LAB HEMETOLOGY METHOD 07/13/2024 8:10 AM [facility] MPV 10.7 7.0 - 11.0 FL LAB HEMETOLOGY METHOD 07/13/2024 8:10 AM [facility] NRBC 0.2 <1.0 % LAB HEMETOLOGY METHOD 07/13/2024 8:10 AM [facility] NRBC Absolute 0.02 <0.10 K/mcL LAB HEMETOLOGY METHOD 07/13/2024 8:10 AM [facility] Neutrophils Relative 72.7 % LAB HEMETOLOGY METHOD 07/13/2024 8:10 AM [facility] Lymphocytes Relative 13.7 % LAB HEMETOLOGY METHOD 07/13/2024 8:10 AM [facility] Monocytes Relative 10.3 % LAB HEMETOLOGY METHOD 07/13/2024 8:10 AM [facility] Eosinophils Relative 0.8 % LAB HEMETOLOGY METHOD 07/13/2024 8:10 AM [facility] Basophils Relative 0.4 % LAB HEMETOLOGY METHOD 07/13/2024 8:10 AM [facility] Immature Granulocytes Relative 2.1 % LAB HEMETOLOGY METHOD 07/13/2024 8:10 AM [facility] Neutrophils Absolute 9.34(H) 1.50 - 7.00 K/mcL LAB HEMETOLOGY METHOD 07/13/2024 8:10 AM [facility] Lymphocytes Absolute 1.76 1.00 - 5.00 K/mcL LAB HEMETOLOGY METHOD 07/13/2024 8:10 AM [facility] Monocytes Absolute 1.32(H) 0.20 - 1.00 K/mcL LAB HEMETOLOGY METHOD 07/13/2024 8:10 AM [facility] Eosinophils Absolute 0.10 0.00 - 0.50 K/mcL LAB HEMETOLOGY METHOD 07/13/2024 8:10 AM [facility] Basophils Absolute 0.05 0.00 - 0.20 K/mcL LAB HEMETOLOGY METHOD 07/13/2024 8:10 AM [facility] Immature Granulocytes Absolute 0.27(H) 0.00 - 0.03 K/mcL LAB HEMETOLOGY METHOD 07/13/2024 8:10 AM EST [facility] Blood Venous blood specimen / Unknown 07/13/2024 7:30 AM EST 07/13/2024 8:00 AM EST us Wilbert Leonard MD LAB BLOOD ORDERABLES Final Resul t Performing Organization Address [facility]/ZIP Co de Phone Number [facility] [address] [place] [address], [place] [phone] * (ABNORMAL) Ammonia (07/13/2024 7:30 AM EST) Ammonia 52(H) 11 - 35 mcmol/L LAB CHEMISTRY METHOD 07/13/2024 8:27 AM [facility] Comment:Hemolysis present Blood Venous blood specimen / Unknown 07/13/2024 7:30 AM EST 07/13/2024 8:00 AM EST us Wilbert Leonard MD LAB BLOOD ORDERABLES Final Resul t Performing Organization Address [facility] Co de Phone Number [facility] [address] [place] [address], [place] [phone] * (ABNORMAL) Comprehensive metabolic panel (07/13/2024 7:30 AM EST) Sodium 138 133 - 145 mmol/L LAB CHEMISTRY METHOD 07/13/2024 8:34 AM [facility] Potassium 4.2 3.5 - 5.5 mmol/L LAB CHEMISTRY METHOD 07/13/2024 8:34 AM [facility] Chloride 99 96 - 110 mmol/L LAB CHEMISTRY METHOD 07/13/2024 8:34 AM [facility] CO2 35(H) 21 - 32 mmol/L LAB CHEMISTRY METHOD 07/13/2024 8:34 AM [facility] Anion Gap 4 3 - 11 LAB CHEMISTRY METHOD 07/13/2024 8:34 AM [facility] Glucose 83 70 - 100 mg/dL LAB CHEMISTRY METHOD 07/13/2024 8:34 AM [facility] BUN 12 5 - 25 mg/dL LAB CHEMISTRY METHOD 07/13/2024 8:34 AM [facility] Creatinine 0.52 0.50 - 1.10 mg/dL LAB CHEMISTRY METHOD 07/13/2024 8:34 AM [facility] eGFR 108 >=60 mL/min/1. 73m2 LAB CHEMISTRY METHOD 07/13/2024 8:34 AM [facility] Comment:Calculation based on the??Chronic Kidney Disease Epidemiology Collaboration (CKD-EPI) equation refit??without adjustment for race. BUN/Creatinine Ratio 23.1 LAB CHEMISTRY METHOD 07/13/2024 8:34 AM [facility] Calcium 8.0(L) 8.5 - 10.5 mg/dL LAB CHEMISTRY METHOD 07/13/2024 8:34 AM [facility] AST (SGOT) 20 10 - 42 unit/L LAB CHEMISTRY METHOD 07/13/2024 8:34 AM [facility] ALT (SGPT) 11 10 - 60 unit/L LAB CHEMISTRY METHOD 07/13/2024 8:34 AM [facility] Alkaline Phosphatase 70 42 - 121 unit/L LAB CHEMISTRY METHOD 07/13/2024 8:34 AM [facility] Total Protein 6.8 6.0 - 8.0 g/dL LAB CHEMISTRY METHOD 07/13/2024 8:34 AM [facility] Albumin 2.4(L) 3.2 - 5.0 g/dL LAB CHEMISTRY METHOD 07/13/2024 8:34 AM [facility] Total Bilirubin 0.4 0.0 - 1.4 mg/dL LAB CHEMISTRY METHOD 07/13/2024 8:34 AM [facility] Blood Venous blood specimen / Unknown 07/13/2024 7:30 AM EST 07/13/2024 8:00 AM EST us Wilbert Leonard MD LAB BLOOD ORDERABLES Final Resul t [facility] [address] [place] [address], * [id number], RSV, Influenza A and B qualitative RT-PCR (07/12/2024 12:05 PM EST) SARS COV-2 Not Detected Not Detected LAB MOLECULAR DIAGNOSTICS METHOD 07/12/2024 11:53 PM EST [facility] Comment: Disclaimer: The manner in which this information is used to guide patient care is the responsibility of the healthcare provider. Testing was performed using the [employer] m SARS-CoV-2 test. This test has been authorized by FDA under an Emergency Use Authorization (EUA). This test is only authorized for the duration of time the declaration that circumstances exist justifying the authorization of the emergency use of in vitro diagnostic tests for detection of SARS-CoV-2 virus and/or diagnosis of COVID-19 infection under section 564(b)(1) of the Act, 21 U.S.C. 360bbb- 3(b)(1), unless the authorization is terminated or revoked sooner. Fact sheet for Healthcare Providers can be found at: https://www.fda.gov/media/506253/download Fact sheet for Patients can be found at: https://www.fda.gov/media/568306/download Influenza A PCR Not Detected Not Detected LAB MOLECULAR DIAGNOSTICS METHOD 07/12/2024 11:53 PM EST [facility] Influenza B PCR Not Detected Not Detected LAB MOLECULAR DIAGNOSTICS METHOD 07/12/2024 11:53 PM EST [facility] RSV PCR Not Detected Not Detected LAB MOLECULAR DIAGNOSTICS METHOD 07/12/2024 11:53 PM EST [facility] Swab Nasopharyngeal structure / Unknown 07/12/2024 12:05 PM EST 07/12/2024 1:27 PM EST us Wilbert Leonard MD LAB MICROBIOLOGY - GENERAL ORDER GRACIELA Final Result [facility] [address] [place] [address], [place] [phone] * (ABNORMAL) Vitamin B6 (06/13/2024 8:25 AM EST) Vitamin B6 (Pyridoxine) Level 2(L) 5 - 50 ug/L 06/21/2024 6:07 AM EST [facility] Comment: This test was developed and the performance characteristics determined by [facility]. It has not been cleared or approved by the FDA. The laboratory is regulated under CLIA as qualified to perform high-complexity testing. This test is used for patient testing purposes. It should not be regarded as investigational or for research. Test performed at [facility], [address] , [place], [place] ??[address] ? [phone] Deirdre Vogt MD, PhD - Boring Machine Operator Vertical Blood Venous blood specimen / Unknown 06/13/2024 8:25 AM EST 06/13/2024 10:04 AM EST us Wilbert Leonard MD LAB BLOOD ORDERABLES Final Resul t [facility] [address] [place] [address] * Hemoglobin A1c (06/13/2024 8:25 AM EST) Hemoglobin A1C 5.8 <6.5 % LAB CHEMISTRY METHOD 06/14/2024 8:45 AM EST [facility] Mean Bld Glu Estim. 120 mg/dL LAB CHEMISTRY METHOD 06/14/2024 8:45 AM EST [facility] Blood Venous blood specimen / Unknown 06/13/2024 8:25 AM EST 06/13/2024 10:04 AM EST us Wilbert Leonard MD LAB BLOOD ORDERABLES Final Resul t Performing Organization Address [facility] de Phone Number [facility] [address] [place] [address], [place] [phone] * (ABNORMAL) Vitamin B12 (06/13/2024 8:25 AM EST) Vitamin B-12 1,655(H) 250 - 900 pcg/mL LAB CHEMISTRY METHOD 06/13/2024 11:39 AM EST [facility] Blood Venous blood specimen / Unknown 06/13/2024 8:25 AM EST 06/13/2024 10:04 AM EST us Wilbert Leonard MD LAB BLOOD ORDERABLES Final Resul t Performing Organization Address [facility] de Phone Number [facility] [address] [place] [address], [place] [phone] * Thyroid stimulating hormone (05/28/2024 6:35 AM EST) TSH 1.55 0.40 - 4.00 mcIU/mL LAB CHEMISTRY METHOD 05/28/2024 7:43 AM EST [facility] Blood Venous blood specimen / Unknown 05/28/2024 6:35 AM EST 05/28/2024 7:07 AM EST us Wilbert Leonard MD LAB BLOOD ORDERABLES Final Resul t Performing Organization Address [facility]/ZIP Co de Phone Number [facility] [address] [place] [address], [place] [phone] * Thyroxine free (05/28/2024 6:35 AM EST) Free T4 1.07 0.70 - 1.80 ng/dL LAB CHEMISTRY METHOD 05/28/2024 7:42 AM EST [facility] Blood Venous blood specimen / Unknown 05/28/2024 6:35 AM EST 05/28/2024 7:07 AM EST us Wilbert Leonard MD LAB BLOOD ORDERABLES Final Resul t [facility] ([facility]) [facility] [address] [place] [address], from Last 3 Months Care Teams Devops Developer Relationship Specialty Start Date End Date Wilbert Leonard MD [address] [place] [address] Dr [address] [place], [place] PCP - General Internal Medicine 07/18/24
--- OUTSIDE RECORDS SUMMARY | 2024-08-16 13:17 | XMS_ITS | Encounter Summary ---
Author Organization [facility] Address [address] [place] [address] Care Team Providers Care Explosives Worker Name Role Phone Wilbert Leonard MD Primary Care Provider [phone] Encounter Details Date Type Department Care Team (Late st Contact Info) Description 07/18/2024 Lab Requisition [facility] [address] [place] [address] Wilbert Leonard MD [address] [place] [address] [address] [place], [place] Other watermaster (current) drug therapy Social History Tobacco Use Types Packs/Day Years Used Date Smoking Tobacco: Never Assessed Comments Unknown Sex and Gender Information Value Date Recorded Sex Assigned at Not on file Legal Sex Female 3:40 PM EDT Gender Identity Not on file Sexual Orientation Not on file documented as of this encounter Plan of Treatment Not on file documented as of this encounter Procedures Procedure Name Priority Date/Time Associated Diagnosis Comments VITAMIN D 25 HYDROXY Routine 07/18/2024 6:40 AM EST Other watermaster (current) drug therapy VALPROIC ACID LEVEL, TOTAL Routine 07/18/2024 6:40 AM EST Other [facility] (current[facility] drug therapy documented in this encounter Results * Valproic acid level, total (07/18/2024 6:40 AM EST) Valproic Acid, Total 87 50 - 100 mcg/mL LAB CHEMISTRY METHOD 07/18/2024 8:30 AM EST [facility] Blood Venous blood specimen / Unknown 07/18/2024 6:40 AM EST 07/18/2024 7:28 AM EST us Wilbert Leonard MD LAB BLOOD ORDERABLES Final Resul t [facility] [address] [place] [address], [place] [phone] * Vitamin D 25 hydroxy (07/18/2024 6:40 AM EST) Vit D, 25-Hydroxy 37.6 30.0 - 80.0 ng/mL LAB CHEMISTRY METHOD 07/18/2024 8:57 AM EST [facility] Blood Venous blood specimen / Unknown 07/18/2024 6:40 AM EST 07/18/2024 7:28 AM EST us Wilbert Leonard MD LAB BLOOD ORDERABLES Final Resul t Performing Organization Address [facility] Co de Phone Number [facility] [address] [place] [address], [place] [phone] documented in this encounter Visit Diagnoses Diagnosis Other watermaster (current) drug therapy documented in this encounter Care Teams Explosives Worker Relationship Specialty Start Date End Date Wilbert Leonard MD [address] [place] [address] Dr [address] [place] Paulson PCP - General Internal Medicine 07/18/24 documented as of this encounter
--- OUTSIDE RECORDS SUMMARY | 2024-08-16 13:17 | XMS_ITS | Encounter Summary ---
[facility] Organization [facility] Address [address] [place] [address] Care Team Providers Care Respiratory Director Name Role Phone Wilbert Leonard MD Primary Care Provider [phone] Encounter Details Date Type Department Care Team (Late st Contact Info) Description 07/25/2024 Lab Requisition [facility] Lab [address] [facility] [place] [address] Wilbert Leonard MD [address] [place] [address] [address] [place], [place] Urinary tract infection, site not specified Social History Tobacco Use Types Packs/Day Years [...] EST Urinary tract infection, site not specified documented in this encounter Results * (ABNORMAL) Urinalysis with reflex microscopic (07/25/2024 5:40 AM EST) Specific [place] Urine 1.030 1.003 - 1.030 LAB URINALYSIS - AUTOMATED METHOD 07/25/2024 8:42 AM EST [facility] pH, Urine 6.5 5.0 - 8.0 pH LAB URINALYSIS - AUTOMATED METHOD 07/25/2024 8:42 AM EST [facility] Leukocytes, Urine Trace(A) Negative LAB URINALYSIS - AUTOMATED METHOD 07/25/2024 8:42 AM [facility] Nitrite, Urine Negative Negative LAB URINALYSIS - AUTOMATED METHOD 07/25/2024 8:42 AM [facility] Protein, Urine Trace <=Trace mg/dL LAB URINALYSIS - AUTOMATED METHOD 07/25/2024 8:42 AM [facility] Glucose, Urine Negative Negative mg/dL LAB URINALYSIS - AUTOMATED METHOD 07/25/2024 8:42 AM [facility] Ketones, Urine Trace(A) Negative mg/dL LAB URINALYSIS - AUTOMATED METHOD 07/25/2024 8:42 AM [facility] Urobilinogen , Urine 1.0 0.2 - 1.0 mg/dL LAB URINALYSIS - AUTOMATED METHOD 07/25/2024 8:42 AM [facility] Bilirubin, Urine Negative Negative LAB URINALYSIS - AUTOMATED METHOD 07/25/2024 8:42 AM [facility] Blood, Urine Negative Negative LAB URINALYSIS - AUTOMATED METHOD 07/25/2024 8:42 AM [facility] RBC, Urine 0.0 0 - 4 /HPF LAB URINALYSIS - AUTOMATED METHOD 07/25/2024 8:42 AM [facility] WBC, Urine 15.9(H) 0 - 4 /HPF LAB URINALYSIS - AUTOMATED METHOD 07/25/2024 8:42 AM [facility] Squamous Epithelial, Urine 80(H) 0 - 60 /LPF LAB URINALYSIS - AUTOMATED METHOD 07/25/2024 8:42 AM [facility] Non-Squamous Epithelial, Urine 2-5 Transitional epithelial cells. /LPF LAB URINALYSIS - AUTOMATED METHOD 07/25/2024 8:42 AM [facility] Bacteria, Urine Negative Negative /HPF LAB URINALYSIS - AUTOMATED METHOD 07/25/2024 8:42 AM [facility] Hyaline Casts, Urine 4.4(H) 0 - 3 /LPF LAB URINALYSIS - AUTOMATED METHOD 07/25/2024 8:42 AM EST [facility] Mucus, Urine Small None /HPF LAB URINALYSIS - AUTOMATED METHOD 07/25/2024 8:42 AM EST [facility] Urine Urine specimen obtained by clean catch procedure / Unknown 07/25/2024 5:40 AM EST 07/25/2024 8:06 AM EST us Wilbert Leonard MD LAB URINE ORDERABLES Final Resul t [facility] [address] [place] [address], documented in this encounter Visit Diagnoses Diagnosis Urinary tract infection, site not specified documented in this encounter Care Teams Respiratory Director Relationship Specialty Start Date End Date Wilbert Leonard MD [address] [place] [address] Dr [address] [place], [place] PCP - General Internal Medicine 07/18/24 documented as of this encounter
--- OUTSIDE RECORDS SUMMARY | 2024-08-16 13:17 | XMS_ITS | Encounter Summary ---
Author Organization [employer] Address [address] [place] [address] Care Team Providers Care Oil Field Worker Name Role Phone Wilbert Leonard MD Primary Care Provider [phone] Encounter Details Date Type Department Care Team (Late st Contact Info) Description 07/13/2024 Lab Requisition [facility] - Main Lab 299 [facility] [employer] [employer] [place] [address] Wilbert Leonard MD [address] [place] [address] [address] [place], [place] Cough, unspecified; Altered mental status, unspecified Social History Tobacco Use Types Packs/Day Years [...] Procedure Name Priority Date/Time Associated Diagnosis Comments THYROID STIMULATING HORMONE WITH REFLEX TO FREE T4 AND FREE T3 Routine 07/13/2024 7:30 AM EST Cough, unspecified Altered mental status, unspecified CBC WITH AUTO DIFFERENTIAL Routine 07/13/2024 7:30 AM EST Cough, unspecified Altered mental status, unspecified CBC AND DIFFERENTIAL Routine 07/13/2024 7:30 AM EST Cough, unspecified Altered mental status, unspecified AMMONIA Routine 07/13/2024 7:30 AM EST Cough, unspecified Altered mental status, unspecified COMPREHENSIVE METABOLIC PANEL Routine 07/13/2024 7:30 AM EST Cough, unspecified Altered mental status, unspecified documented in this encounter Results * (ABNORMAL) CBC auto differential (07/13/2024 7:30 AM EST) [facility] WBC 12.8(H) 4.8 - 10.8 K/mcL LAB HEMETOLOGY METHOD 07/13/2024 8:10 AM [facility] RBC 3.70(L) 3.80 - 4.80 M/mcL LAB HEMETOLOGY METHOD 07/13/2024 8:10 AM [facility] Hemoglobin 10.7(L) 11.5 - 16.0 g/dL LAB HEMETOLOGY METHOD 07/13/2024 8:10 AM [facility] Hematocrit 35.1 35.0 - 47.0 % LAB HEMETOLOGY METHOD 07/13/2024 8:10 AM [facility] MCV 94.9 79.0 - 98.0 FL LAB HEMETOLOGY METHOD 07/13/2024 8:10 AM [facility] MCH 28.9 27.0 - 32.0 pcg LAB HEMETOLOGY METHOD 07/13/2024 8:10 AM [facility] MCHC 30.5(L) 32.0 - 37.0 g/dL LAB HEMETOLOGY METHOD 07/13/2024 8:10 AM [facility] RDW 15.6(H) 11.0 - 15.0 % LAB HEMETOLOGY METHOD 07/13/2024 8:10 AM [facility] Platelets 210 130 - 400 K/mcL LAB HEMETOLOGY METHOD 07/13/2024 8:10 AM [facility] MPV 10.7 7.0 - 11.0 FL LAB HEMETOLOGY METHOD 07/13/2024 8:10 AM [facility] NRBC 0.2 <1.0 % LAB HEMETOLOGY METHOD 07/13/2024 8:10 AM [facility] NRBC Absolute 0.02 <0.10 K/mcL LAB HEMETOLOGY METHOD 07/13/2024 8:10 AM [facility] Neutrophils Relative 72.7 % LAB HEMETOLOGY METHOD 07/13/2024 8:10 AM [facility] Lymphocytes Relative 13.7 % LAB HEMETOLOGY METHOD 07/13/2024 8:10 AM [facility] Monocytes Relative 10.3 % LAB HEMETOLOGY METHOD 07/13/2024 8:10 AM [facility] Eosinophils Relative 0.8 % LAB HEMETOLOGY METHOD 07/13/2024 8:10 AM [facility] Basophils Relative 0.4 % LAB HEMETOLOGY METHOD 07/13/2024 8:10 AM [facility] Immature Granulocytes Relative 2.1 % LAB HEMETOLOGY METHOD 07/13/2024 8:10 AM [facility] Neutrophils Absolute 9.34(H) 1.50 - 7.00 K/mcL LAB HEMETOLOGY METHOD 07/13/2024 8:10 AM [facility] Lymphocytes Absolute 1.76 1.00 - 5.00 K/mcL LAB HEMETOLOGY METHOD 07/13/2024 8:10 AM [facility] Monocytes Absolute 1.32(H) 0.20 - 1.00 K/mcL LAB HEMETOLOGY METHOD 07/13/2024 8:10 AM [facility] Eosinophils Absolute 0.10 0.00 - 0.50 K/mcL LAB HEMETOLOGY METHOD 07/13/2024 8:10 AM [facility] Basophils Absolute 0.05 0.00 - 0.20 K/mcL LAB HEMETOLOGY METHOD 07/13/2024 8:10 AM [facility] Immature Granulocytes Absolute 0.27(H) 0.00 - 0.03 K/mcL LAB HEMETOLOGY METHOD 07/13/2024 8:10 AM [facility] Blood Venous blood specimen / Unknown 07/13/2024 7:30 AM EST 07/13/2024 8:00 AM EST us Wilbert Leonard MD LAB BLOOD ORDERABLES Final Resul t Performing Organization Address [facility] de Phone Number [facility] [address] [place] [address], [place] [phone] * (ABNORMAL) Ammonia (07/13/2024 7:30 AM EST) Ammonia 52(H) 11 - 35 mcmol/L LAB CHEMISTRY METHOD 07/13/2024 8:27 AM EST [facility] Comment:Hemolysis present Blood Venous blood specimen / Unknown 07/13/2024 7:30 AM EST 07/13/2024 8:00 AM EST us Wilbert Leonard MD LAB BLOOD ORDERABLES Final Resul t Performing Organization Address [facility] de Phone Number [facility] [address] [place] [address], [place] [phone] * Thyroid stimulating hormone with reflex to free t4 and free t3 (07/13/2024 7:30 AM EST) TSH 1.93 0.40 - 4.00 mcIU/mL LAB CHEMISTRY METHOD 07/13/2024 10:39 AM EST [facility] Blood Venous blood specimen / Unknown 07/13/2024 7:30 AM EST 07/13/2024 8:00 AM EST us Wilbert Leonard MD LAB BLOOD ORDERABLES Final Resul t Performing Organization Address [facility] de Phone Number [facility] [address] [place] [address], [place] [phone] * (ABNORMAL) Comprehensive metabolic panel (07/13/2024 7:30 AM EST) Sodium 138 133 - 145 mmol/L LAB CHEMISTRY METHOD 07/13/2024 8:34 AM [facility] Potassium 4.2 3.5 - 5.5 mmol/L LAB CHEMISTRY METHOD 07/13/2024 8:34 AM [facility] Chloride 99 96 - 110 mmol/L LAB CHEMISTRY METHOD 07/13/2024 8:34 AM [facility] CO2 35(H) 21 - 32 mmol/L LAB CHEMISTRY METHOD 07/13/2024 8:34 AM [facility] Anion Gap 4 3 - 11 LAB CHEMISTRY METHOD 07/13/2024 8:34 AM [facility] Glucose 83 70 - 100 mg/dL LAB CHEMISTRY METHOD 07/13/2024 8:34 AM [facility] BUN 12 5 - 25 mg/dL LAB CHEMISTRY METHOD 07/13/2024 8:34 AM [facility] Creatinine 0.52 0.50 - 1.10 mg/dL LAB CHEMISTRY METHOD 07/13/2024 8:34 AM [facility] eGFR 108 >=60 mL/min/1. 73m2 LAB CHEMISTRY METHOD 07/13/2024 8:34 AM [facility] Comment:Calculation based on the??Chronic Kidney Disease Epidemiology Collaboration (CKD-EPI) equation refit??without adjustment for race. BUN/Creatinine Ratio 23.1 LAB CHEMISTRY METHOD 07/13/2024 8:34 AM [facility] Calcium 8.0(L) 8.5 - 10.5 mg/dL LAB CHEMISTRY METHOD 07/13/2024 8:34 AM [facility] AST (SGOT) 20 10 - 42 unit/L LAB CHEMISTRY METHOD 07/13/2024 8:34 AM [facility] ALT (SGPT) 11 10 - 60 unit/L LAB CHEMISTRY METHOD 07/13/2024 8:34 AM [facility] Alkaline Phosphatase 70 42 - 121 unit/L LAB CHEMISTRY METHOD 07/13/2024 8:34 AM EST [facility] Total Protein 6.8 6.0 - 8.0 g/dL LAB CHEMISTRY METHOD 07/13/2024 8:34 AM EST [facility] Albumin 2.4(L) 3.2 - 5.0 g/dL LAB CHEMISTRY METHOD 07/13/2024 8:34 AM [facility] Total Bilirubin 0.4 0.0 - 1.4 mg/dL LAB CHEMISTRY METHOD 07/13/2024 8:34 AM EST [facility] Blood Venous blood specimen / Unknown 07/13/2024 7:30 AM EST 07/13/2024 8:00 AM EST us Wilbert Leonard MD LAB BLOOD ORDERABLES Final Resul t [facility] [address] [place] [address], documented in this encounter Visit Diagnoses Diagnosis Cough, unspecified Altered mental status, unspecified documented in this encounter Care Teams Oil Field Worker Relationship Specialty Start Date End Date Wilbert Leonard MD [address] [place] [address] Dr [facility] GIDEON Paulson PCP - General Internal Medicine 07/18/24 documented as of this encounter
--- OUTSIDE RECORDS SUMMARY | 2024-08-16 13:17 | XMS_ITS | Encounter Summary ---
Author Organization [facility] Address [address] [place] [address] Care Team Providers Care Physical Therapist Aide Name Role Phone Wilbert Leonard MD Primary Care Provider [phone] Encounter Details Date Type Department Care Team (Late st Contact Info) Description 07/12/2024 Lab Requisition [facility] Lab [address] [place] [address] Wilbert Leonard MD [address] [place] [address] [address] [place], [place] Cough, unspecified Social History Tobacco Use Types Packs/Day [...] Procedure Name Priority Date/Time Associated Diagnosis Comments [id number], RSV, FLU A AND B QUALITATIVE RT-PCR, LOCAL REFERENCE LAB Routine 07/12/2024 12:05 PM EST Cough, unspecified documented in this encounter Results * [id number], RSV, Influenza A and B qualitative RT-PCR (07/12/2024 12:05 PM EST) SARS COV-2 Not Detected Not Detected LAB MOLECULAR DIAGNOSTICS METHOD 07/12/2024 11:53 PM EST [facility] Comment: Disclaimer: The manner in which this information is used to guide patient care is the responsibility of the healthcare provider. Testing was performed using the [employer] m SARS-CoV-2 test. This test has [...] for Healthcare Providers can be found at: https://www.fda.gov/media/091607/download Fact sheet for Patients can be found at: https://www.fda.gov/media/161413/download Influenza A PCR Not Detected Not Detected LAB MOLECULAR DIAGNOSTICS METHOD 07/12/2024 11:53 PM EST [facility] Influenza B PCR Not Detected Not Detected LAB MOLECULAR DIAGNOSTICS METHOD 07/12/2024 11:53 PM EST [facility] RSV PCR Not Detected Not Detected LAB MOLECULAR DIAGNOSTICS METHOD 07/12/2024 11:53 PM EST [facility] Swab Nasopharyngeal structure / Unknown 07/12/2024 12:05 PM EST 07/12/2024 1:27 PM EST us Wilbert Leonard MD LAB MICROBIOLOGY - GENERAL ORDER GRACIELA Final Result [facility] [address] [place] [address], documented in this encounter Visit Diagnoses Diagnosis Cough, unspecified documented in this encounter Additional Health Concerns Infection Onset Date Last Indicated Resolved Time Respiratory Rule-Out 07/12/2024 07/12/2024 025 11:53 PM EST documented as of this encounter Care Teams Physical Therapist Aide Relationship Specialty Start Date End Date Wilbert Leonard MD [address] [place] [address] [address] [place], [place] PCP - General Internal Medicine 07/18/24 documented as of this encounter
--- OUTSIDE RECORDS SUMMARY | 2024-08-16 13:17 | XMS_ITS | Encounter Summary ---
Author Organization [facility] Address [address] [place] [address] Care Team Providers Care Body Art Technician Name Role Phone Wilbert Leonard MD Primary Care Provider [phone] Encounter Details Date Type Department Care Team (Late st Contact Info) Description 05/28/2024 Lab Requisition [facility] - Main Lab 299 [facility] [place] [address] Wilbert Leonard MD [address] [place] [address] [address] [place], [place] Unspecified intracranial injury with loss of consciousness of unspecified duration, sequela (CMS/HCC) Social History Tobacco Use Types Packs/Day Years [...] Date/Time Associated Diagnosis Comments THYROID STIMULATING HORMONE Routine 05/28/2024 6:35 AM EST Unspecified intracranial injury with loss of consciousness of unspecified duration, sequela (CMS/HCC) THYROXINE FREE Routine 05/28/2024 6:35 AM EST Unspecified intracranial injury with loss of consciousness of unspecified duration, sequela (CMS/HCC) VALPROIC ACID LEVEL, TOTAL Routine 05/28/2024 6:35 AM EST Unspecified intracranial injury with loss of consciousness of unspecified duration, sequela (CMS/HCC) documented in this encounter Results * Thyroxine free (05/28/2024 6:35 AM EST) [facility] Signature Free T4 1.07 0.70 - 1.80 ng/dL LAB CHEMISTRY METHOD 05/28/2024 7:42 AM EST [facility] Blood Venous blood specimen / Unknown 05/28/2024 6:35 AM EST 05/28/2024 7:07 AM EST us Wilbert Leonard MD LAB BLOOD ORDERABLES Final Resul t Performing Organization Address [facility]/ZIP Co de Phone Number [facility] [address] [place] [address], [place] [phone] * Thyroid stimulating hormone (05/28/2024 6:35 AM EST) TSH 1.55 0.40 - 4.00 mcIU/mL LAB CHEMISTRY METHOD 05/28/2024 7:43 AM EST [facility] Blood Venous blood specimen / Unknown 05/28/2024 6:35 AM EST 05/28/2024 7:07 AM EST us Wilbert Leonard MD LAB BLOOD ORDERABLES Final Resul t Performing Organization Address [facility] Co de Phone Number [facility] [address] [place] [address], [place] [phone] * Valproic acid level, total (05/28/2024 6:35 AM EST) Valproic Acid, Total 70 50 - 100 mcg/mL LAB CHEMISTRY METHOD 05/28/2024 7:33 AM EST [facility] Blood Venous blood specimen / Unknown 05/28/2024 6:35 AM EST 05/28/2024 7:07 AM EST us Wilbert Leonard MD LAB BLOOD ORDERABLES Final Resul t Performing Organization Address City/[facility]/ZIP Co de Phone Number [facility] [address] [place] [address], [place] [phone] documented in this encounter Visit Diagnoses Diagnosis Unspecified intracranial injury with loss of consciousness of unspecified duration, sequela (CMS/HCC) documented in this encounter Additional Health Concerns Infection Onset Date Last Indicated Resolved Time Respiratory Rule-Out 07/12/2024 07/12/2024 025 11:53 PM EST documented as of this encounter Care Teams Body Art Technician Relationship Specialty Start Date End Date Wilbert Leonard MD [address] [place] [address] [address] GIDEON Paulson PCP - General Internal Medicine 07/18/24 documented as of this encounter
--- OUTSIDE RECORDS SUMMARY | 2024-08-16 13:17 | XMS_ITS | Encounter Summary ---
Author Organization [facility] Address [address] [place] [address] Care Team Providers Care Strip Mine Supervisor Name Role Phone Wilbert Leonard MD Primary Care Provider [phone] Encounter Details Date Type Department Care Team (Late st Contact Info) Description 06/13/2024 Lab Requisition [facility] - Main Lab 299 [facility] [place] [address] Wilbert Leonard MD [address] [place] [address] [address] [place], [place] Other director long term care (current) drug therapy Social History Tobacco Use [...] Diagnosis Comments VITAMIN D 25 HYDROXY Routine 06/13/2024 8:25 AM EST Other director long term care (current) drug therapy VITAMIN B6 Routine 06/13/2024 8:25 AM EST Other residential (current) drug therapy HEMOGLOBIN A1C Routine 06/13/2024 8:25 AM EST Other residential (current) drug therapy VITAMIN B12 Routine 06/13/2024 8:25 AM EST Other residential (current) drug therapy documented in this encounter Results * (ABNORMAL) Vitamin D 25 hydroxy (06/13/2024 8:25 AM EST) Vit D, 25-Hydroxy 21.5(L) 30.0 - 80.0 ng/mL LAB CHEMISTRY METHOD 06/13/2024 11:28 AM EST [facility] Blood Venous blood specimen / Unknown 06/13/2024 8:25 AM EST 06/13/2024 10:04 AM EST us Wilbert Leonard MD LAB BLOOD ORDERABLES Final Resul t Performing Organization Address [facility] de Phone Number [facility] [address] [place] [address], [place] [phone] * (ABNORMAL) Vitamin B6 (06/13/2024 8:25 AM EST) Vitamin B6 (Pyridoxine) Level 2(L) 5 - 50 ug/L 06/21/2024 6:07 AM EST [facility] Comment: This test was developed and the performance characteristics determined by [facility]. It has not been cleared or approved by the FDA. The laboratory is regulated under CLIA as qualified to perform high-complexity testing. This test is used for patient testing purposes. It should not be regarded as investigational or for research. Test performed at [facility], [address] , [place], [place] ??[address] ? [phone] Deirdre Vogt MD, PhD - Clothing Cutter Blood Venous blood specimen / Unknown 06/13/2024 8:25 AM EST 06/13/2024 10:04 AM EST us Wilbert Leonard MD LAB BLOOD ORDERABLES Final Resul t Performing Organization Address [facility]/ZIP Co de Phone Number [facility] [address] [place] [address] * Hemoglobin A1c (06/13/2024 8:25 AM EST) Hemoglobin A1C 5.8 <6.5 % LAB CHEMISTRY METHOD 06/14/2024 8:45 AM EST [facility] Mean Bld Glu Estim. 120 mg/dL LAB CHEMISTRY METHOD 06/14/2024 8:45 AM EST [facility] Blood Venous blood specimen / Unknown 06/13/2024 8:25 AM EST 06/13/2024 10:04 AM EST us Wilbert Leonard MD LAB BLOOD ORDERABLES Final Resul t Performing Organization Address [facility]/ZIP Co de Phone Number [facility] [address] [place] [address], [place] [phone] * (ABNORMAL) Vitamin B12 (06/13/2024 8:25 AM EST) [facility] Vitamin B-12 1,655(H) 250 - 900 pcg/mL LAB CHEMISTRY METHOD 06/13/2024 11:39 AM EST [facility] Blood Venous blood specimen / Unknown 06/13/2024 8:25 AM EST 06/13/2024 10:04 AM EST us Wilbert Leonard MD LAB BLOOD ORDERABLES Final Resul t Performing Organization Address City/[facility] Co de Phone Number [facility] [address] [place] [address], [place] [phone] documented in this encounter Visit Diagnoses Diagnosis Other director long term care (current) drug therapy documented in this encounter Additional Health Concerns Infection Onset Date Last Indicated Resolved Time Respiratory Rule-Out 07/12/2024 07/12/2024 025 11:53 PM EST documented as of this encounter Care Teams Strip Mine Supervisor Relationship Specialty Start Date End Date Wilbert Leonard MD [address] [place] [address] [address] [place], [place] PCP - General Internal Medicine 07/18/24 documented as of this encounter
--- NOTE | 2024-08-16 13:27 | MHC.EDTECH ---
When this tech assumed care, I was informed that the pt was a difficult stick and phlebotomy was being sent down to draw which was why there was a delay in labs.
--- NOTE | 2024-08-16 14:01 | P.HPHOSP_ITS ---
History of Present Illness Date of Service: 08/16/24 Attending physician on admission: Stacey Cline Chief Complaint: SOB, difficulty breathing Pt is a 59-year-old female with a PMH significant for?colon cancer, diverticulitis, s/p ostomy, COPD on home 2L O2 at baseline, HLD, CAD, and bipolar disorder among others who presents to the ED from [facility] for evaluation of hypoxia and difficulty breathing. Staff report found pt lethargic this morning. Was not on home O2 last night. EMS found pt satting at 75% on RA and placed on 5 L with improvement to 90%. In the ED pt has been at times agitated and encephalopathic. Pt ripped off her ostomy, as well has pulled off numerous leads. Pt is somnolent but arousable and answers questions, even realizing that she was ?confused? earlier today and apologizes for her behavior. Complains of SOB, difficulty breathing, and cough, but is unable to provide further details or length of symptoms. Denies nausea, vomiting, abdominal pain. Of note, pt was recently admitted to the hospital from 07/29-07/31 and treated for flu and superimposed pneumonia. During initial evaluation in the ED patient's stoma was noted to be protruding into colostomy bag, though CT was negative for obstruction or ischemia of the bowel. In the ED pt was febrile up to 102.3, tachycardic to 112, tachypneic up to 25, soft BP as low as 104/47, and desatting to 75% on RA. Labs were grossly unremarkable and around baseline for pt. Stable microcytic anemia of 9.1/29.7, around baseline. Chronic thrombocytopenia of 73. No significant electrolyte abnormalities. Renal function WNL. Lactic acid WNL. Hepatic function WNL at baseline. Troponin negative. VBG pH 7.48, pCO2 47, bicarb 35. Tested negative for flu, COVID, RSV. CXR showed chronic interstitial lung disease with superimposed interstitial lung edema vs multifocal pneumonia. EKG demonstrated sinus tachycardia of 117 without evidence of significant ST elevations or depressions. Pt was treated with IVF, acetaminophen, DuoNebs, and cefepime. Pt will be admitted to the hospital for treatment and further evaluation of acute hypoxic respiratory failure in the setting of multifocal pneumonia with sepsis. Review of Systems 2 Review of Systems: Negative except for that which is stated in the HPI PMFSH Medical History Bipolar 1 disorder Hyperlipidemia CAD (coronary artery disease) Thrombocytopenia GERD (gastroesophageal reflux disease) Pneumonia Diverticulitis COPD (chronic obstructive pulmonary disease) Social History Household Members: Significant Other Housing: House Do you presently have visiting nurse or other home services: No Patient Tobacco Use Status: Current everyday Tobacco user Tobacco use type: Cigarette Cigarettes Per Day: 4 Advance Directives: Yes Advance Directives on File: Yes Advance Directives Date on File: 07/30/24 Do you have a plan to hurt others: No Plan service: No Meds Allergies Allergy/AdvReac Type Severity Reaction Status Date / Time erythromycin base AdvReac Unknown Unknown Verified 08/16/24 10:43 moxifloxacin AdvReac Unknown Unknown Verified 08/16/24 10:43 prednisone AdvReac Unknown Unknown Verified 08/16/24 10:43 pregabalin AdvReac Unknown Unknown Verified 08/16/24 10:43 Home Medications ?Medication ?Instructions ?Recorded ?Confirmed ?Last Taken ?Type acetaminophen 325 mg tablet 650 mg PO Q6H PRN pain or fever 07/30/24 08/16/24 Unknown History albuterol sulfate 90 mcg/actuation 2 puff inhalation Q4H PRN 07/30/24 08/16/24 Unknown History aerosol inhaler Shortness Of Breath Or Wheezing aluminum-mag hydroxide-simethicone 30 ml PO Q6H PRN Dyspepsia 07/30/24 08/16/24 Unknown History 200 mg-200 mg-20 mg/5 mL oral susp (Zoraida-Lanta) aspirin 81 mg tablet,delayed 81 mg PO DAILY 07/30/24 08/16/24 Unknown History release atorvastatin 10 mg tablet 10 mg PO BEDTIME 07/30/24 08/16/24 Unknown History bisacodyl 10 mg rectal suppository 10 mg [place] Q24H PRN Constipation 07/30/24 08/16/24 Unknown History calcium carbonate 400 mg PO Q4H PRN Indigestion 07/30/24 08/16/24 Unknown History cholecalciferol (vitamin D3) 25 50 mcg PO DAILY 07/30/24 08/16/24 Unknown History mcg (1,000 unit) tablet (Vitamin D3) cyclobenzaprine 10 mg tablet 10 mg PO BID 07/30/24 08/16/24 Unknown History divalproex 500 mg tablet,extended 500 mg PO BID 07/30/24 08/16/24 Unknown History release 24 hr (Depakote ER) docusate sodium 100 mg capsule 100 mg PO Q24H PRN Constipation 07/30/24 08/16/24 Unknown History famotidine 20 mg tablet 20 mg PO BEDTIME 07/30/24 08/16/24 Unknown History ferrous sulfate 325 mg (65 mg 325 mg PO DAILY 07/30/24 08/16/24 Unknown History iron) tablet guaifenesin 100 mg/5 mL oral 200 mg PO Q4H PRN Cough 07/30/24 08/16/24 Unknown History liquid (Zoraida-Tussin) hydroxyzine HCl 25 mg tablet 25 mg PO Q6H PRN Anxiety 07/30/24 08/16/24 Unknown History ipratropium 0.5 mg-albuterol 3 mg 3 ml inhalation Q6H PRN Shortness 07/30/24 08/16/24 Unknown History (2.5 mg base)/3 mL nebulization Of Breath Or Wheezing soln levothyroxine 112 mcg tablet 112 mcg PO DAILY@0607/30/24 08/16/24 Unknown History magnesium oxide 400 mg PO BID 07/30/24 08/16/24 Unknown History ondansetron 8 mg disintegrating 8 mg PO Q8H PRN Nausea And Vomiting 07/30/24 08/16/24 Unknown History tablet pantoprazole 40 mg tablet,delayed 40 mg PO DAILY@0630 07/30/24 08/16/24 Unknown History release prazosin 1 mg capsule 1 mg PO BEDTIME 07/30/24 08/16/24 Unknown History quetiapine 50 mg tablet,extended 50 mg PO BEDTIME 07/30/24 08/16/24 Unknown History release 24 hr (Seroquel XR) sennosides 8.6 mg tablet (senna) 8.6 mg PO Q24H PRN Constipation 07/30/24 08/16/24 Unknown History sodium phosphates 19 gram-7 118 ml [place] Q24H PRN Constipation 07/30/24 08/16/24 Unknown History gram/118 mL enema (Enema) tiotropium 2.5 mcg-olodaterol 2.5 2 puff inhalation DAILY 07/30/24 08/16/24 Unknown History mcg/actuation mist for inhalation (Stiolto Respimat) trazodone 50 mg tablet 25 mg PO DAILY 07/30/24 08/16/24 Unknown History Physical Exam 2 Vital Signs and Narrative: Vital Signs: Last Vital Signs Temp 98.0 F 08/16/24 13:46 Pulse 103 H 08/16/24 13:46 Resp 19 08/16/24 13:46 BP 114/66 08/16/24 13:46 Pulse Ox 94 08/16/24 13:46 O2 Del Method Nasal Cannula 08/16/24 13:46 O2 Flow Rate 4 08/16/24 13:46 Oxygen Flow Rate 3 08/16/24 10:34 BMI result Body Mass Index 24.9 General: Somnolent but arousable, answering questions appropriately. Appears agitated while resting/sleeping. In no acute distress Resp: Diffuse bilateral rhonchi. CVS: S1, S2, regular rhythm, tachycardic GI: +BS, NT, no distention. Pt with ostomy, non-protruding. Skin: Warm, dry Neuro: Cranial nerves II-XII grossly intact bilaterally. Motor grossly intact bilaterally Extremities: No edema Results Labs 08/16/24 12:08 08/16/24 12:08 Labs: Laboratory Results - last 24 hr 08/16/24 08/16/24 08/16/24 12:08 12:16 12:19 MCV 99.0 H MCH 30.3 MCHC 30.6 L RDW 18.3 H Plt Count 73 L MPV 12.4 H Immature Gran % (Auto) 0.7 H Neut % (Auto) 64.3 Lymph % (Auto) 17.9 L [place] % (Auto) 14.5 H Eos % (Auto) 2.4 Baso % (Auto) 0.2 Lymph # (Auto) 1.0 L [place] # (Auto) 0.8 Eos # (Auto) 0.1 Baso # (Auto) 0.0 Abs Immat Gran (auto) 0.04 H Absolute Neuts (auto) 3.6 Absolute Nucleated RBC 0.000 Nucleated RBC % (auto) 0.0 VBG pH 7.48 H VBG pCO2 47 VBG pO2 70 VBG HCO3 35 H VBG O2 Saturation 96.0 VBG Base Excess 11.2 Anion Gap 10 L Estim Creat Clear Calc 95.4 Estimated GFR > 60 Random Glucose 83 Lactic Acid 1.5 Calcium 7.5 L Total Bilirubin 0.4 AST 16 ALT < 6 Alkaline Phosphatase 47 B-Natriuretic Peptide 38 Total Protein 6.1 L Albumin 2.7 L Influenza Type A (PCR) NEGATIVE Influenza Type B (PCR) NEGATIVE RSV RNA Qual (PCR) NEGATIVE SARS-CoV-2 RNA (RT-PCR) NEGATIVE Imaging Radiologist's Impressions: Impressions Chest X-Ray 08/16/24 10:22 IMPRESSION: Chronic interstitial lung disease with the superimposed interstitial lung edema versus multifocal pneumonia. Electronically signed by: Venkatesh Hunter MD 08/16/2024 12:38 PM [facility] Assessment and Plan (1) Acute on chronic hypoxic respiratory failure: Status: Acute Plan Pt is a 59-year-old female with a PMH significant for?colon cancer, diverticulitis, s/p ostomy, COPD on home 2L O2 at baseline, HLD, CAD, and bipolar disorder among others who presents to the ED from [facility] for evaluation of hypoxia and difficulty breathing. Pt will be admitted to the hospital for treatment and further evaluation of acute hypoxic respiratory failure in the setting of multifocal pneumonia with sepsis. Acute on chronic hypoxic respiratory failure in the setting of COPD exacerbation superimposed multifocal pneumonia with sepsis Pt SOB, lethargy, desatting to 75% on RA, CXR concerning for multifocal pneumonia Meets sepsis criteria with fever, tachycardia, and tachypnea; lactic acid WNL Pt received IVF and started broad-spectrum antibiotics Will treat with cefepime, started 08/16/2024 Xopenex, guaifenesin Titrate supplemental O2 >90, pt apparently on 2L home O2 Monitor respiratory status Acute metabolic encephalopathy Pt has been agitated and confused above baseline in the ED Ripped off her colostomy bag, as well as monitoring leads In the setting of above One-on-one sitter/camera Nursing swallow screen prior to p.o. Monitor mentation S/P ostomy During previous admission on 07/29/2024 patient's stoma noted to be protruding into colostomy bag Workup at that time negative for obstruction or ischemia, but showed unobstructed parastomal hernia Monitor stoma and output Repeat imaging if concern for obstruction or stangulation CAD/HLD Continue aspirin and statin Anemia of chronic disease Stable, at baseline Continue iron supplementation Hypothyroidism Continue levothyroxine GERD Continue famotidine, pantoprazole Mood disorder Continue Depakote, prazosin, and Seroquel DNR/DNI Attending:?Dr. Cline DVT Prophylaxis: Lovenox Pt will require a hospital stay of at least 2 overnight for treatment and further evaluation of acute hypoxic respiratory failure in the setting of multifocal pneumonia with sepsis that will require IV antibiotics, breathing treatments, supplemental oxygen above baseline, and close monitoring of mentation and respiratory status. Quality Stroke Does the patient have a stroke diagnosis?: No VTE Prior VTE?: No VTE Risk Level:: Medical - moderate - high VTE Device Contraindication: Treatment Not Indicated VTE Drug Contraindication: N/A - Med Ordered
--- NOTE | 2024-08-16 15:28 | PHA.MEDREC ---
Pharmacy Consult ? Medication Reconciliation Pharmacy has completed the medication reconciliation. Med rec was completed using list from [employer].
--- NOTE | 2024-08-16 15:40 | PC.NURSE ---
patient pulled off O2 sat probe, monitor and also took off her colostomy bag throwing it onto the floor. new colostomy bag obtained, stoma red in color, camera placed in room to prevent patient from pulling at items.
[2024-08-16] MEDS: levalbuterol HCL 1.25 MG/3 ML VIAL.NEB INHALE ×2 (15:44→20:03)
[2024-08-16] MEDS: Enoxaparin Sodium 40 MG/0.4 ML SYRINGE SUBCUT (15:45)
[2024-08-16] MEDS: 0.9 % Sodium Chloride Flush 3 ML SYRINGE IVFLUSH (16:04)
--- NOTE | 2024-08-16 16:34 | PC.NURSE ---
patient is a very difficult stick- 2 respiratory therapists attempted the ABG and was unable to obtain, provider is aware of this
[2024-08-16] MEDS: Cyclobenzaprine HCl 10 MG TABLET PO (21:55)
[2024-08-16] MEDS: Famotidine 20 MG TABLET PO (21:55)
[2024-08-16] MEDS: Atorvastatin Calcium 10 MG TABLET PO (21:55)
[2024-08-16] MEDS: QUEtiapine Fumarate 25 MG TABLET PO (21:56)
[2024-08-16] MEDS: Divalproex Sodium ER 500 MG TAB.ER.24H PO (21:56)
[2024-08-16] MEDS: Magnesium Oxide 400 MG TABLET PO (21:56)
[2024-08-16] MEDS: Prazosin HCL 1 MG CAPSULE PO (21:57)
--- NOTE | 2024-08-16 22:13 | PC.NURSE ---
Pt medicated per mar Tolerated well Complete bed change done. Pt dressed in clean gown. Plan of care ongoing.
[2024-08-17] VITALS (9 sets, daily range): BP systolic 103–130; BP diastolic 57–73; PULSE 86–107; RESP 16–22; TEMP 36.4–37.4; O2SAT 91–97; BMI 24.1
[2024-08-17] MEDS: hydrOXYzine HCL 25 MG TABLET PO (03:58)
[2024-08-17] MEDS: Acetaminophen 325 MG TABLET 650 MG PO (03:58)
[2024-08-17] MEDS: cefEPime HCl/D5W 2 GM/50 ML PIGGYBACK IV ×3 (03:58→21:07)
[2024-08-17 04:08] LABS: Hematocrit 29.4 % (37.0-47.0); Hemoglobin 9.1 g/dl (12.0-16.0); Mean Platelet Volume 11.6 fL (9.4-12.3); Red Blood Count 3.03 X10*6/uL (4.20-5.50); Red Cell Distribution Width 18.2 % (11.0-16.0); White Blood Count 4.9 X10*3/uL (4.8-10.8)
[2024-08-17 04:09] LABS: Platelet Count 60 X10*3/uL (160-400)
[2024-08-17 04:20] LABS: Anion Gap 11 (12-20); Blood Urea Nitrogen 11 mg/dL (9-16); Calcium 7.7 mg/dL (8.4-10.2); Carbon Dioxide 23 mmol/L (22-29); Chloride 110 mmol/L (96-108); Creatinine Clr Calc Pharmacy 119.3; Estimated Glomerular Filt Rate > 60; Glucose Random 90 mg/dL (60-115); Sodium 140 mmol/L (135-145)
[2024-08-17] MEDS: Omeprazole 20 MG CAPSULE.DR PO (06:36)
[2024-08-17] MEDS: Levothyroxine Sodium 112 MCG TABLET PO (06:36)
[2024-08-17] MEDS: 0.9 % Sodium Chloride Flush 3 ML SYRINGE IVFLUSH ×3 (09:09→23:33)
[2024-08-17] MEDS: Doxycycline Hyclate 100 MG in 0.9 % Sodium Chloride 250 ML 166.67 MG IV ×2 (09:09→21:07)
[2024-08-17] MEDS: Cyclobenzaprine HCl 10 MG TABLET PO ×2 (09:12→21:08)
[2024-08-17] MEDS: Aspirin Enteric Coated 81 MG TABLET.DR PO (09:12)
[2024-08-17] MEDS: Magnesium Oxide 400 MG TABLET PO ×2 (09:12→21:08)
[2024-08-17] MEDS: QUEtiapine Fumarate 25 MG TABLET PO ×2 (09:12→21:08)
[2024-08-17] MEDS: traZODone HCL 25 MG HALFTAB PO (09:13)
[2024-08-17] MEDS: Cholecalciferol (Vitamin D3) 25 MCG TABLET 50 MCG PO (09:13)
[2024-08-17] MEDS: Divalproex Sodium ER 500 MG TAB.ER.24H PO ×2 (09:13→21:08)
[2024-08-17] MEDS: Ferrous Sulfate 324 MG TABLET.DR PO (09:13)
--- NOTE | 2024-08-17 10:24 | P.PNIM_ITS ---
Subjective Subjective Date of Service: 08/17/24 Interval History: Seen and evaluated this morning feels little better complaining of all body pain on 4L O2 more alert and interactive Review of Systems Review of Systems: Yes all other systems are reviewed and are negative Physical Exam 2 Vital Signs: Vital Signs: Last Vital Signs Temp 97.5 F 08/17/24 09:58 Pulse 97 08/17/24 09:58 Resp 16 08/17/24 09:58 BP 116/70 08/17/24 09:58 Pulse Ox 96 08/17/24 09:58 O2 Del Method Nasal Cannula 08/17/24 09:58 O2 Flow Rate 4 08/17/24 09:58 Oxygen Flow Rate 3 08/16/24 10:34 BMI result Body Mass Index 24.9 Const: Other: Constitutional : Awake, interactive, not in distress Neck : Normal inspection, Supple Cardiovascular : RRR, no JVP, no lower extremity edema Respiratory : good bilateral air entry, basal fine crackles bilaterally, on O2 supplement Gastrointestinal: soft, lax, Normal bowel sounds, Non tender Skin : Warm, Dry Neurological : Alert & oriented to self and place, No focal deficit Objective Data Active Medications Acetaminophen (Acetaminophen 325 Mg Tablet) 650 mg PO Q6H PRN PRN Reason: Pain, Mild 1-3,fever,headache Last Admin: 08/17/24 03:58 Dose: 650 mg Documented By: MO Al Hydroxide/Mg Hydroxide (Magnesium Hydrox/Alum Hydrox 30 Ml Oral.Susp) 30 ml PO Q6H PRN PRN Reason: Dyspepsia Albuterol Sulfate (Albuterol Sulfate 90 Mcg 8 Gm Inhaler) 2 puff INHALE Q4H PRN PRN Reason: Shortness Of Breath Or Wheezing Aspirin (Aspirin Enteric Coated 81 Mg Tablet.Dr) 81 mg PO DAILY [facility] Last Admin: 08/17/24 09:12 Dose: 81 mg Documented By: GEETA Atorvastatin Calcium (Atorvastatin Calcium 10 Mg Tablet) 10 mg PO BEDTIME [facility] Last Admin: 08/16/24 21:55 Dose: 10 mg Documented By: STEFFANY Bisacodyl (Bisacodyl 10 Mg Supp.Rect) 10 mg [place] Q24H PRN PRN Reason: Constipation Calcium Carbonate (Calcium Carbonate 750 Mg Tab.Chew) 750 mg PO Q4H PRN PRN Reason: Heartburn Cyclobenzaprine HCl (Cyclobenzaprine Hcl 10 Mg Tablet) 10 mg PO BID [facility] Last Admin: 08/17/24 09:12 Dose: 10 mg Documented By: GEETA Divalproex Sodium (Divalproex Sodium Er 500 Mg Tab.Er.24h) 500 mg PO BID [facility] Last Admin: 08/17/24 09:13 Dose: 500 mg Documented By: GEETA Docusate Sodium (Docusate Sodium 100 Mg Capsule) 100 mg PO Q24H PRN PRN Reason: Constipation Enoxaparin Sodium (Enoxaparin Sodium 40 Mg/0.4 Ml Syringe) 40 mg SUBCUT Q24H [facility] Last Admin: 08/16/24 15:45 Dose: 40 mg Documented By: DAMION Famotidine (Famotidine 20 Mg Tablet) 20 mg PO BEDTIME [facility] Last Admin: 08/16/24 21:55 Dose: 20 mg Documented By: STEFFANY Ferrous Sulfate (Ferrous Sulfate 324 Mg Tablet.Dr) 324 mg PO DAILY [facility] Last Admin: 08/17/24 09:13 Dose: 324 mg Documented By: GEETA Guaifenesin/Dextromethorphan (Guaifenesin Dm 200/20/10 Ml 10 Ml Syrup) 10 ml PO Q4H PRN PRN Reason: Cough Hydroxyzine HCl (Hydroxyzine Hcl 25 Mg Tablet) 25 mg PO Q6H PRN PRN Reason: Anxiety Last Admin: 08/17/24 03:58 Dose: 25 mg Documented By: MO Cefepime HCl (Maxipime) 2 gm in 50 mls @ 100 mls/hr IV Q8H [facility] Last Infusion: 08/17/24 04:30 Dose: Infused Documented By: MO Doxycycline Hyclate 100 mg/ (Sodium Chloride) 250 mls @ 166.67 mls/hr IV Q12H [facility] Last Admin: 08/17/24 09:09 Dose: 166.67 mls/hr Documented By: GEETA Levalbuterol HCl (Levalbuterol Hcl 1.25 Mg/3 Ml Vial.Neb) 1.25 mg INHALE RQ4H WHILE AWAKE [facility] Last Admin: 08/17/24 07:49 Dose: Not Given Documented By: LATRICE Non-Admin Reason: Patient Asleep Levothyroxine Sodium (Levothyroxine Sodium 112 Mcg Tablet) 112 mcg PO DAILY@629 [facility] Last Admin: 08/17/24 06:36 Dose: 112 mcg Documented By: MO Magnesium Hydroxide (Milk Of Magnesia 30 Ml Oral.Susp) 30 ml PO DAILY PRN PRN Reason: Constipation Magnesium Oxide (Magnesium Oxide 400 Mg Tablet) 400 mg PO BID [facility] Last Admin: 08/17/24 09:12 Dose: 400 mg Documented By: GEETA Melatonin (Melatonin 3 Mg Tablet) 6 mg PO BEDTIME PRN PRN Reason: Insomnia Omeprazole (Omeprazole 20 Mg Capsule.Dr) 20 mg PO DAILY@629 [facility] Last Admin: 08/17/24 06:36 Dose: 20 mg Documented By: MO Ondansetron HCl (Ondansetron Hcl 4 Mg/2 Ml Vial) 4 mg IVPUSH Q8H PRN PRN Reason: Nausea and Vomiting Prazosin HCl (Prazosin Hcl 1 Mg Capsule) 1 mg PO BEDTIME [facility]; Protocol Last Admin: 08/16/24 21:57 Dose: 1 mg Documented By: STEFFANY Quetiapine Fumarate (Quetiapine Fumarate 25 Mg Tablet) 25 mg PO BID [facility] Last Admin: 08/17/24 09:12 Dose: 25 mg Documented By: GEETA Senna (Sennosides 8.6 Mg Tablet) 8.6 mg PO Q24H PRN PRN Reason: Constipation Sodium Biphosphate/Sodium Phosphate (Sodium Phosphate,[place]-Dibasic 133 Ml Enema) 118 ml [place] Q24H PRN PRN Reason: Constipation Sodium Chloride (0.9 % Sodium Chloride Flush 3 Ml Syringe) 3 ml IVFLUSH QSHIFT [facility] Last Admin: 08/17/24 09:09 Dose: 3 ml Documented By: GEETA Trazodone HCl (Trazodone Hcl 25 Mg Halftab) 25 mg PO DAILY [facility] Last Admin: 08/17/24 09:13 Dose: 25 mg Documented By: GEETA Vitamin D (Cholecalciferol (Vitamin D3) 25 Mcg Tablet) 50 mcg PO DAILY [facility] Last Admin: 08/17/24 09:13 Dose: 50 mcg Documented By: GEETA Labs 08/17/24 03:58 08/17/24 03:58 Labs: Laboratory Results - last 24 hr 08/16/24 08/16/24 08/16/24 12:08 12:16 12:19 MCV 99.0 H MCH 30.3 MCHC 30.6 L RDW 18.3 H Plt Count 73 L MPV 12.4 H Immature Gran % (Auto) 0.7 H Neut % (Auto) 64.3 Lymph % (Auto) 17.9 L [place] % (Auto) 14.5 H Eos % (Auto) 2.4 Baso % (Auto) 0.2 Lymph # (Auto) 1.0 L [place] # (Auto) 0.8 Eos # (Auto) 0.1 Baso # (Auto) 0.0 Abs Immat Gran (auto) 0.04 H Absolute Neuts (auto) 3.6 Absolute Nucleated RBC 0.000 Nucleated RBC % (auto) 0.0 VBG pH 7.48 H VBG pCO2 47 VBG pO2 70 VBG HCO3 35 H VBG O2 Saturation 96.0 VBG Base Excess 11.2 Anion Gap 10 L Estim Creat Clear Calc 95.4 Estimated GFR > 60 Random Glucose 83 Lactic Acid 1.5 Calcium 7.5 L Total Bilirubin 0.4 AST 16 ALT < 6 Alkaline Phosphatase 47 B-Natriuretic Peptide 38 Total Protein 6.1 L Albumin 2.7 L Influenza Type A (PCR) NEGATIVE Influenza Type B (PCR) NEGATIVE RSV RNA Qual (PCR) NEGATIVE SARS-CoV-2 RNA (RT-PCR) NEGATIVE 08/17/24 03:58 MCV 97.0 MCH 30.0 MCHC 31.0 RDW 18.2 H Plt Count 60 L MPV 11.6 Immature Gran % (Auto) Neut % (Auto) Lymph % (Auto) [place] % (Auto) Eos % (Auto) Baso % (Auto) Lymph # (Auto) [place] # (Auto) Eos # (Auto) Baso # (Auto) Abs Immat Gran (auto) Absolute Neuts (auto) Absolute Nucleated RBC 0.000 Nucleated RBC % (auto) 0.0 VBG pH VBG pCO2 VBG pO2 VBG HCO3 VBG O2 Saturation VBG Base Excess Anion Gap 11 L Estim Creat Clear Calc 119.3 Estimated GFR > 60 Random Glucose 90 Lactic Acid Calcium 7.7 L Total Bilirubin AST ALT Alkaline Phosphatase B-Natriuretic Peptide Total Protein Albumin Influenza Type A (PCR) Influenza Type B (PCR) RSV RNA Qual (PCR) SARS-CoV-2 RNA (RT-PCR) Assessment and Plan (1) Acute on chronic hypoxic respiratory failure: Status: Acute (2) Pneumonia: Status: Acute (3) Sepsis: Status: Acute Plan Pt is a 59-year-old female with a PMH significant for?colon cancer, diverticulitis, s/p ostomy, COPD on home 2L O2 at baseline, HLD, CAD, and bipolar disorder among others who presents to the ED from [facility] for evaluation of hypoxia and difficulty breathing. Pt will be admitted to the hospital for treatment and further evaluation of acute hypoxic respiratory failure in the setting of multifocal pneumonia with sepsis. Acute on chronic hypoxic respiratory failure in the setting of COPD exacerbation superimposed multifocal pneumonia with sepsis on 4L O2 Continue with cefepime and Doxycycline, started 08/16/2024 Xopenex, guaifenesin Hold on steroids for reported reaction, unclear Titrate supplemental O2 >90, wean to 2L baseline Monitor respiratory status Acute metabolic encephalopathy 2/2 infection improving dc sitter/ have camera Monitor mentation and redirect as needed Hx Divericulitis S/P ostomy During previous admission on 07/29/2024 patient's stoma noted to be protruding into colostomy bag Workup at that time negative for obstruction or ischemia, but showed unobstructed parastomal hernia Monitor stoma and output Repeat imaging if concern for obstruction or stangulation CAD/HLD Continue aspirin and statin Anemia of chronic disease Stable, at baseline Continue iron supplementation Hypothyroidism Continue levothyroxine GERD Continue famotidine, pantoprazole Mood disorder Continue Depakote, prazosin, and Seroquel DNR/DNI Attending:?Dr. Cline DVT Prophylaxis: Lovenox Pt will require a hospital stay overnight for treatment and further evaluation of acute hypoxic respiratory failure in the setting of multifocal pneumonia with sepsis that will require IV antibiotics, breathing treatments, supplemental oxygen above baseline, and close monitoring of mentation and respiratory status. Quality Stroke Does the patient have a stroke diagnosis?: No VTE Prior VTE?: No VTE Risk Level:: Medical - moderate - high VTE Device Contraindication: Treatment Not Indicated VTE Drug Contraindication: N/A - Med Ordered
--- NOTE | 2024-08-17 11:16 | MHC.CM.PN ---
PT IS A LT RESIDENT AT [facility] WHERE SHE WILL RETURN WHEN DCD BY BLS
[2024-08-17] MEDS: levalbuterol HCL 1.25 MG/3 ML VIAL.NEB INHALE ×3 (11:41→21:41)
--- NOTE | 2024-08-17 12:30 | PC.NURSE ---
unable to participate with RN Swallow eval, to sleepy
[2024-08-17] MEDS: Enoxaparin Sodium 40 MG/0.4 ML SYRINGE SUBCUT (15:18)
[2024-08-17] MEDS: Atorvastatin Calcium 10 MG TABLET PO (21:08)
[2024-08-17] MEDS: Prazosin HCL 1 MG CAPSULE PO (21:08)
[2024-08-17] MEDS: Famotidine 20 MG TABLET PO (21:08)
[2024-08-18] VITALS (9 sets, daily range): BP systolic 107–143; BP diastolic 56–67; PULSE 95–107; RESP 16–19; TEMP 36.1–37.1; O2SAT 75–93
[2024-08-18] MEDS: cefEPime HCl/D5W 2 GM/50 ML PIGGYBACK IV ×3 (04:19→22:20)
[2024-08-18] MEDS: Omeprazole 20 MG CAPSULE.DR PO (05:54)
[2024-08-18] MEDS: Levothyroxine Sodium 112 MCG TABLET PO (05:55)
[2024-08-18 06:16] LABS: MANUAL DIFF FLAG NO
[2024-08-18 06:24] LABS: Basophils Percent Auto 0.3 % (0-2); Eosinophils Percent Auto 0.8 % (0-4); Hematocrit 27.3 % (37.0-47.0); Hemoglobin 8.6 g/dl (12.0-16.0); Imm Gran Abs Auto 0.02 X10*3/uL (0.00-0.03); Imm Gran Pct Auto 0.5 % (0.0-0.4); Lymphocytes Percent Auto 24.3 % (20-40); Mean Corpuscular HGB Conc 31.5 g/dl (31.0-35.0); Mean Corpuscular Hemoglobin 30.2 pg (27.0-33.0); Mean Corpuscular Volume 95.8 fL (80.0-98.0); Mean Platelet Volume 11.9 fL (9.4-12.3); Monocytes Absolute Auto 0.5 X10*3/uL (0.1-1.2); Monocytes Percent Auto 12.3 % (2-11); Neutrophils Absolute Auto 2.5 x10*3/uL (2.0-8.3); Neutrophils Percent Auto 61.8 % (45-73); Platelet Count 65 X10*3/uL (160-400); Red Blood Count 2.85 X10*6/uL (4.20-5.50); Red Cell Distribution Width 17.6 % (11.0-16.0)
[2024-08-18 06:36] LABS: Anion Gap 9 (12-20); Blood Urea Nitrogen 11 mg/dL (9-16); Calcium 8.3 mg/dL (8.4-10.2); Carbon Dioxide 28 mmol/L (22-29); Chloride 107 mmol/L (96-108); Creatinine Clr Calc Pharmacy 110.2; Estimated Glomerular Filt Rate > 60; Glucose Random 84 mg/dL (60-115); Potassium 3.8 mmol/L (3.3-5.1); Sodium 140 mmol/L (135-145)
[2024-08-18] MEDS: levalbuterol HCL 1.25 MG/3 ML VIAL.NEB INHALE ×4 (08:21→19:40)
[2024-08-18] MEDS: traZODone HCL 25 MG HALFTAB PO (09:28)
[2024-08-18] MEDS: Ferrous Sulfate 324 MG TABLET.DR PO (09:29)
[2024-08-18] MEDS: Cyclobenzaprine HCl 10 MG TABLET PO ×2 (09:29→20:56)
[2024-08-18] MEDS: Cholecalciferol (Vitamin D3) 25 MCG TABLET 50 MCG PO (09:29)
[2024-08-18] MEDS: Divalproex Sodium ER 500 MG TAB.ER.24H PO ×2 (09:29→20:57)
[2024-08-18] MEDS: Aspirin Enteric Coated 81 MG TABLET.DR PO (09:29)
[2024-08-18] MEDS: Magnesium Oxide 400 MG TABLET PO ×2 (09:29→20:52)
[2024-08-18] MEDS: Furosemide 20 MG/2 ML VIAL IVPUSH (09:30)
[2024-08-18] MEDS: 0.9 % Sodium Chloride Flush 3 ML SYRINGE IVFLUSH ×2 (09:30→17:29)
[2024-08-18] MEDS: QUEtiapine Fumarate 25 MG TABLET PO ×2 (09:30→20:57)
[2024-08-18] MEDS: Doxycycline Hyclate 100 MG in 0.9 % Sodium Chloride 250 ML 166.67 MG IV ×2 (09:42→22:56)
--- NOTE | 2024-08-18 10:05 | P.PNIM_ITS ---
Subjective Subjective Date of Service: 08/18/24 Interval History: Seen and evaluated this morning feels little better complaining of all body pain on 2L O2 more alert and interactive Review of Systems Review of Systems: Yes all other systems are reviewed and are negative Physical Exam 2 Vital Signs: Vital Signs: Last Vital Signs Temp 96.9 F 08/18/24 08:11 Pulse 107 H 08/18/24 08:23 Resp 18 08/18/24 08:23 BP 111/57 L 08/18/24 08:11 Pulse Ox 92 08/18/24 08:11 O2 Del Method Nasal Cannula 08/18/24 08:11 O2 Flow Rate 3 08/18/24 08:11 Oxygen Flow Rate 3 08/16/24 10:34 BMI result Body Mass Index 24.1 Const: Other: Constitutional : Awake, interactive, not in distress Neck : Normal inspection, Supple Cardiovascular : RRR, no JVP, no lower extremity edema Respiratory : good bilateral air entry, basal fine crackles bilaterally, on O2 supplement Gastrointestinal: soft, lax, Normal bowel sounds, Non tender Skin : Warm, Dry Neurological : Alert & oriented to self and place, No focal deficit Objective Data Active Medications Acetaminophen (Acetaminophen 325 Mg Tablet) 650 mg PO Q6H PRN PRN Reason: Pain, Mild 1-3,fever,headache Last Admin: 08/17/24 03:58 Dose: 650 mg Documented By: MO Al Hydroxide/Mg Hydroxide (Magnesium Hydrox/Alum Hydrox 30 Ml Oral.Susp) 30 ml PO Q6H PRN PRN Reason: Dyspepsia Albuterol Sulfate (Albuterol Sulfate 90 Mcg 8 Gm Inhaler) 2 puff INHALE Q4H PRN PRN Reason: Shortness Of Breath Or Wheezing Aspirin (Aspirin Enteric Coated 81 Mg Tablet.) 81 mg PO DAILY [facility] Last Admin: 08/18/24 09:29 Dose: 81 mg Documented By: BECK Atorvastatin Calcium (Atorvastatin Calcium 10 Mg Tablet) 10 mg PO BEDTIME [facility] Last Admin: 08/17/24 21:08 Dose: 10 mg Documented By: NASRIN Bisacodyl (Bisacodyl 10 Mg Supp.Rect) 10 mg MO Q24H PRN PRN Reason: Constipation Calcium Carbonate (Calcium Carbonate 750 Mg Tab.Chew) 750 mg PO Q4H PRN PRN Reason: Heartburn Cyclobenzaprine HCl (Cyclobenzaprine Hcl 10 Mg Tablet) 10 mg PO BID [facility] Last Admin: 08/18/24 09:29 Dose: 10 mg Documented By: BECK Divalproex Sodium (Divalproex Sodium Er 500 Mg Tab.Er.24h) 500 mg PO BID [facility] Last Admin: 08/18/24 09:29 Dose: 500 mg Documented By: BECK Docusate Sodium (Docusate Sodium 100 Mg Capsule) 100 mg PO Q24H PRN PRN Reason: Constipation Enoxaparin Sodium (Enoxaparin Sodium 40 Mg/0.4 Ml Syringe) 40 mg SUBCUT Q24H [facility] Last Admin: 08/17/24 15:18 Dose: 40 mg Documented By: LEONOR Famotidine (Famotidine 20 Mg Tablet) 20 mg PO BEDTIME [facility] Last Admin: 08/17/24 21:08 Dose: 20 mg Documented By: NASRIN Ferrous Sulfate (Ferrous Sulfate 324 Mg Tablet.Dr) 324 mg PO DAILY [facility] Last Admin: 08/18/24 09:29 Dose: 324 mg Documented By: BECK Furosemide (Furosemide 20 Mg/2 Ml Vial) 20 mg IVPUSH DAILY [facility]; Protocol Last Admin: 08/18/24 09:30 Dose: 20 mg Documented By: BECK Guaifenesin/Dextromethorphan (Guaifenesin Dm 200/20/10 Ml 10 Ml Syrup) 10 ml PO Q4H PRN PRN Reason: Cough Hydroxyzine HCl (Hydroxyzine Hcl 25 Mg Tablet) 25 mg PO Q6H PRN PRN Reason: Anxiety Last Admin: 08/17/24 03:58 Dose: 25 mg Documented By: MO Cefepime HCl (Maxipime) 2 gm in 50 mls @ 100 mls/hr IV Q8H [facility] Last Infusion: 08/18/24 04:58 Dose: Infused Documented By: KEE Doxycycline Hyclate 100 mg/ (Sodium Chloride) 250 mls @ 166.67 mls/hr IV Q12H [facility] Last Admin: 08/18/24 09:42 Dose: 166.67 mls/hr Documented By: BECK Levalbuterol HCl (Levalbuterol Hcl 1.25 Mg/3 Ml Vial.Neb) 1.25 mg INHALE RQ4H WHILE AWAKE [facility] Last Admin: 08/18/24 08:21 Dose: 1.25 mg Documented By: EVER Levothyroxine Sodium (Levothyroxine Sodium 112 Mcg Tablet) 112 mcg PO DAILY@629 [facility] Last Admin: 08/18/24 05:55 Dose: 112 mcg Documented By: KEE Magnesium Hydroxide (Milk Of Magnesia 30 Ml Oral.Susp) 30 ml PO DAILY PRN PRN Reason: Constipation Magnesium Oxide (Magnesium Oxide 400 Mg Tablet) 400 mg PO BID [facility] Last Admin: 08/18/24 09:29 Dose: 400 mg Documented By: BECK Melatonin (Melatonin 3 Mg Tablet) 6 mg PO BEDTIME PRN PRN Reason: Insomnia Omeprazole (Omeprazole 20 Mg Capsule.Dr) 20 mg PO DAILY@629 [facility] Last Admin: 08/18/24 05:54 Dose: 20 mg Documented By: KEE Ondansetron HCl (Ondansetron Hcl 4 Mg/2 Ml Vial) 4 mg IVPUSH Q8H PRN PRN Reason: Nausea and Vomiting Prazosin HCl (Prazosin Hcl 1 Mg Capsule) 1 mg PO BEDTIME [facility]; Protocol Last Admin: 08/17/24 21:08 Dose: 1 mg Documented By: NASRIN Quetiapine Fumarate (Quetiapine Fumarate 25 Mg Tablet) 25 mg PO BID [facility] Last Admin: 08/18/24 09:30 Dose: 25 mg Documented By: BECK Senna (Sennosides 8.6 Mg Tablet) 8.6 mg PO Q24H PRN PRN Reason: Constipation Sodium Biphosphate/Sodium Phosphate (Sodium Phosphate,[place]-Dibasic 133 Ml Enema) 118 ml MO Q24H PRN PRN Reason: Constipation Sodium Chloride (0.9 % Sodium Chloride Flush 3 Ml Syringe) 3 ml IVFLUSH QSHIFT [facility] Last Admin: 08/18/24 09:30 Dose: 3 ml Documented By: BECK Trazodone HCl (Trazodone Hcl 25 Mg Halftab) 25 mg PO DAILY [facility] Last Admin: 08/18/24 09:28 Dose: 25 mg Documented By: BECK Vitamin D (Cholecalciferol (Vitamin D3) 25 Mcg Tablet) 50 mcg PO DAILY [facility] Last Admin: 08/18/24 09:29 Dose: 50 mcg Documented By: BECK Labs 08/18/24 05:52 08/18/24 05:52 Labs: Laboratory Results - last 24 hr 08/18/24 05:52 MCV 95.8 MCH 30.2 MCHC 31.5 RDW 17.6 H Plt Count 65 L MPV 11.9 Immature Gran % (Auto) 0.5 H Neut % (Auto) 61.8 Lymph % (Auto) 24.3 [place] % (Auto) 12.3 H Eos % (Auto) 0.8 Baso % (Auto) 0.3 Lymph # (Auto) 1.0 L [place] # (Auto) 0.5 Eos # (Auto) 0.0 Baso # (Auto) 0.0 Abs Immat Gran (auto) 0.02 Absolute Neuts (auto) 2.5 Absolute Nucleated RBC 0.000 Nucleated RBC % (auto) 0.0 Anion Gap 9 L Estim Creat Clear Calc 110.2 Estimated GFR > 60 Random Glucose 84 Calcium 8.3 L D Microbiology Microbiology Results: Microbiology 08/16/24 12:07 Blood Culture - Preliminary Blood - Venous No growth after 24 hours. 08/16/24 11:05 Blood Culture - Preliminary Blood - Venous No growth after 24 hours. Assessment and Plan (1) Sepsis: Status: Acute (2) Acute on chronic hypoxic respiratory failure: Status: Acute (3) Pneumonia: Status: Acute (4) Influenza A: Status: Acute Plan Pt is a 59-year-old female with a PMH significant for?colon cancer, diverticulitis, s/p ostomy, COPD on home 2L O2 at baseline, HLD, CAD, and bipolar disorder among others who [facility] of hypoxia and difficulty breathing. Pt will be admitted to the hospital for treatment and further evaluation of acute hypoxic respiratory failure in the setting of multifocal pneumonia with sepsis. Acute on chronic hypoxic respiratory failure in the setting of COPD exacerbation superimposed multifocal pneumonia with sepsis on 2L O2 Continue with cefepime and Doxycycline, started 08/16/2024 Xopenex, guaifenesin Hold on steroids for reported reaction, unclear Titrate supplemental O2 >90, wean to 2L baseline Monitor respiratory status Acute metabolic encephalopathy 2/2 infection improving Monitor mentation and redirect as needed Hx Divericulitis S/P ostomy During previous admission on 07/29/2024 patient's stoma noted to be protruding into colostomy bag Workup at that time negative for obstruction or ischemia, but showed unobstructed parastomal hernia Monitor stoma and output Repeat imaging if concern for obstruction or stangulation CAD/HLD Continue aspirin and statin Anemia of chronic disease Stable, at baseline Continue iron supplementation Hypothyroidism Continue levothyroxine GERD Continue famotidine, pantoprazole Mood disorder Continue Depakote, prazosin, and Seroquel DNR/DNI Attending:?Dr. Cline DVT Prophylaxis: Lovenox Pt will require a hospital stay overnight for treatment and further evaluation of acute hypoxic respiratory failure in the setting of multifocal pneumonia with sepsis that will require IV antibiotics, breathing treatments, supplemental oxygen above baseline, and close monitoring of mentation and respiratory status. Quality Stroke Does the patient have a stroke diagnosis?: No VTE Prior VTE?: No VTE Risk Level:: Medical - moderate - high VTE Device Contraindication: Treatment Not Indicated VTE Drug Contraindication: N/A - Med Ordered
[2024-08-18] MEDS: Enoxaparin Sodium 40 MG/0.4 ML SYRINGE SUBCUT (15:39)
[2024-08-18] MEDS: Prazosin HCL 1 MG CAPSULE PO (20:50)
[2024-08-18] MEDS: Acetaminophen 325 MG TABLET 650 MG PO (20:52)
[2024-08-18] MEDS: Melatonin 3 MG TABLET 6 MG PO (20:52)
[2024-08-18] MEDS: Famotidine 20 MG TABLET PO (20:57)
[2024-08-18] MEDS: Atorvastatin Calcium 10 MG TABLET PO (20:57)
[2024-08-19] MEDS: cefEPime HCl/D5W 2 GM/50 ML PIGGYBACK IV (03:19)
[2024-08-19 04:00] VITALS: BP 118/65; PULSE 81; RESP 18; TEMP 36.3; O2SAT 96
[2024-08-19] MEDS: Levothyroxine Sodium 112 MCG TABLET PO (05:45)
[2024-08-19] MEDS: Omeprazole 20 MG CAPSULE.DR PO (05:47)
[2024-08-19 06:19] LABS: MANUAL DIFF FLAG NO
[2024-08-19 06:22] LABS: Basophils Percent Auto 0.7 % (0-2); Eosinophils Absolute Auto 0.1 X10*3/uL (0.0-0.4); Eosinophils Percent Auto 1.7 % (0-4); Hematocrit 29.1 % (37.0-47.0); Hemoglobin 8.9 g/dl (12.0-16.0); Imm Gran Abs Auto 0.01 X10*3/uL (0.00-0.03); Imm Gran Pct Auto 0.3 % (0.0-0.4); Mean Corpuscular HGB Conc 30.6 g/dl (31.0-35.0); Mean Corpuscular Hemoglobin 29.7 pg (27.0-33.0); Mean Platelet Volume 12.5 fL (9.4-12.3); Monocytes Absolute Auto 0.4 X10*3/uL (0.1-1.2); Monocytes Percent Auto 12.5 % (2-11); Neutrophils Absolute Auto 1.5 x10*3/uL (2.0-8.3); Neutrophils Percent Auto 49.8 % (45-73); Red Cell Distribution Width 17.6 % (11.0-16.0)
[2024-08-19 06:23] LABS: Platelet Count 71 X10*3/uL (160-400)
[2024-08-19 06:34] LABS: Anion Gap 9 (12-20); Blood Urea Nitrogen 12 mg/dL (9-16); Calcium 8.2 mg/dL (8.4-10.2); Carbon Dioxide 31 mmol/L (22-29); Chloride 106 mmol/L (96-108); Creatinine Clr Calc Pharmacy 112.6; Estimated Glomerular Filt Rate > 60; Glucose Random 74 mg/dL (60-115); Potassium 3.7 mmol/L (3.3-5.1); Sodium 142 mmol/L (135-145)
[2024-08-19 07:22] VITALS: BP 124/72; PULSE 91; RESP 16; TEMP 36.1; O2SAT 98
[2024-08-19] MEDS: Cyclobenzaprine HCl 10 MG TABLET PO (08:26)
[2024-08-19] MEDS: traZODone HCL 25 MG HALFTAB PO (08:26)
[2024-08-19] MEDS: Ferrous Sulfate 324 MG TABLET.DR PO (08:26)
[2024-08-19] MEDS: Divalproex Sodium ER 500 MG TAB.ER.24H PO (08:26)
[2024-08-19] MEDS: Cholecalciferol (Vitamin D3) 25 MCG TABLET 50 MCG PO (08:26)
[2024-08-19] MEDS: QUEtiapine Fumarate 25 MG TABLET PO (08:26)
[2024-08-19] MEDS: Magnesium Oxide 400 MG TABLET PO (08:26)
[2024-08-19] MEDS: Aspirin Enteric Coated 81 MG TABLET.DR PO (08:26)
[2024-08-19] MEDS: Furosemide 20 MG/2 ML VIAL IVPUSH (08:27)
[2024-08-19] MEDS: Doxycycline Hyclate 100 MG in 0.9 % Sodium Chloride 250 ML 166.67 MG IV (08:27)
[2024-08-19] MEDS: 0.9 % Sodium Chloride Flush 3 ML SYRINGE IVFLUSH ×2 (08:29→17:02)
[2024-08-19] MEDS: levalbuterol HCL 1.25 MG/3 ML VIAL.NEB INHALE ×3 (08:30→15:45)
[2024-08-19 08:31] VITALS: PULSE 88; RESP 18; O2SAT 93
--- NOTE | 2024-08-19 11:16 | P.DS_ITS ---
DS: Providers Provider Date of Service: 08/19/24 Date of admission: 08/16/24 15:18 Date of discharge: 08/19/24 Primary care physician: Wilbert Leonard DO Consults: 08/16/24 15:27 Consult for Sitter Routine Reason for consultation: Pt with agitation, ripping off colostomy and leads DS: Diagnosis Discharge Diagnosis (1) Sepsis: Status: Acute (2) Acute on chronic hypoxic respiratory failure: Status: Acute (3) Pneumonia: Status: Acute (4) Influenza A: Status: Acute DS: Summary Hospital Course Hospital Course: Admission note HPI Pt is a 59-year-old female with a PMH significant for?colon cancer, diverticulitis, s/p ostomy, COPD on home 2L O2 at baseline, HLD, CAD, and bipolar disorder among others who [facility] of [facility] and difficulty breathing. Staff report found pt lethargic this morning. Was not on home O2 last night. EMS found pt satting at 75% on RA and placed on 5 L with improvement to 90%. In the ED pt has been at times agitated and encephalopathic. Pt ripped off her ostomy, as well has pulled off numerous leads. Pt is somnolent but arousable and answers questions, even realizing that she was ?confused? earlier today and apologizes for her behavior. Complains of SOB, difficulty breathing, and cough, but is unable to provide further details or length of symptoms. Denies nausea, vomiting, abdominal pain. Of note, pt was recently admitted to the hospital from 07/29-07/31 and treated for flu and superimposed pneumonia. During initial evaluation in the ED patient's stoma was noted to be protruding into colostomy bag, though CT was negative for obstruction or ischemia of the bowel. In the ED pt was febrile up to 102.3, tachycardic to 112, tachypneic up to 25, soft BP as low as 104/47, and desatting to 75% on RA. Labs were grossly unremarkable and around baseline for pt. Stable microcytic anemia of 9.1/29.7, around baseline. Chronic thrombocytopenia of 73. No significant electrolyte abnormalities. Renal function WNL. Lactic acid WNL. Hepatic function WNL at baseline. Troponin negative. VBG pH 7.48, pCO2 47, bicarb 35. Tested negative for flu, COVID, RSV. CXR showed chronic interstitial lung disease with superimposed interstitial lung edema vs multifocal pneumonia. EKG demonstrated sinus tachycardia of 117 without evidence of significant ST elevations or depressions. Pt was treated with IVF, acetaminophen, DuoNebs, and cefepime. Pt will be admitted to the hospital for treatment and further evaluation of acute hypoxic respiratory failure in the setting of multifocal pneumonia with sepsis. Hospital course The patient was admitted for treatment of Acute on chronic hypoxic respiratory failure in the setting of COPD exacerbation superimposed multifocal pneumonia with sepsis responded well to IV antibiotics of Cefepime and Doxycycline, started 08/16/2024. Xopenex, guaifenesin. Hold on steroids for reported reaction. weaned to 2L baseline O2. To continue Doxycycline and Ceftion PO for 5 more days. Cough medicine as needed. She was also seen for Acute metabolic encephalopathy from the infection which improved to baseline with treatment of the infection. She has Hx Divericulitis S/P ostomy. During previous admission on 07/29/2024 patient's stoma noted to be protruding into colostomy bag. Workup at that time negative for obstruction or ischemia, but showed unobstructed parastomal hernia. Monitored stoma and had normal output. Discharge plan Continue antibiotics as prescrived physical therapy as tolerated This note is constructed using voice recognition software. While every effort has been made to ensure accuracy, roll up guider operator errors may have been included. Time Attestation Discharge Coordination Time (in mins): 43 Quality: Safe Use of Opioids Does Pt have an Active Cancer Diagnosis on the Problem List?: No Quality: Stroke Does the patient have a stroke diagnosis?: No Physical Exam Vital Signs: Vital Signs: Last Vital Signs Temp 96.9 F 08/19/24 07:22 Pulse 88 08/19/24 08:31 Resp 18 08/19/24 08:31 BP 124/72 08/19/24 07:22 Pulse Ox 98 08/19/24 07:22 O2 Del Method Nasal Cannula 08/19/24 07:22 O2 Flow Rate 2 08/19/24 07:22 Oxygen Flow Rate 3 08/16/24 10:34 BMI result Body Mass Index 24.1 Const: Other: Constitutional : Awake, interactive, not in distress Neck : Normal inspection, Supple Cardiovascular : RRR, no JVP, no lower extremity edema Respiratory : good bilateral air entry, resolving basal fine crackles bilaterally, on O2 supplement Gastrointestinal: soft, lax, Normal bowel sounds, Non tender Skin : Warm, Dry Neurological : Alert & oriented to self and place, No focal deficit DS: Data Data Completed and Pending Labs on day of discharge: Laboratory Results - last 24 hr 08/19/24 05:46 WBC 3.0 L RBC 3.00 L Hgb 8.9 L Hct 29.1 L MCV 97.0 MCH 29.7 MCHC 30.6 L RDW 17.6 H Plt Count 71 L MPV 12.5 H Immature Gran % (Auto) 0.3 Neut % (Auto) 49.8 Lymph % (Auto) 35.0 [place] % (Auto) 12.5 H Eos % (Auto) 1.7 Baso % (Auto) 0.7 Lymph # (Auto) 1.0 L [place] # (Auto) 0.4 Eos # (Auto) 0.1 Baso # (Auto) 0.0 Abs Immat Gran (auto) 0.01 Absolute Neuts (auto) 1.5 L Absolute Nucleated RBC 0.000 Nucleated RBC % (auto) 0.0 Sodium 142 Potassium 3.7 Chloride 106 Carbon Dioxide 31 H Anion Gap 9 L BUN 12 Creatinine 0.47 L Estim Creat Clear Calc 112.6 Estimated GFR > 60 Random Glucose 74 Calcium 8.2 L Preliminary micro results at discharge 08/16/24 12:07 Blood Culture - Preliminary Blood - Venous No growth after 48 hours. 08/16/24 11:05 Blood Culture - Preliminary Blood - Venous No growth after 48 hours. Imaging Chest x-ray: Radiologist's impression: ITS Impressions Chest X-Ray 08/16/24 10:22 IMPRESSION: Chronic interstitial lung disease with the superimposed interstitial lung edema versus multifocal pneumonia. Electronically signed by: Venkatesh Hunter MD 08/16/2024 12:38 PM [facility] Discharge Plan Discharge Anticipated Discharge Date/Time: 08/19/24 11:08 Patient Disposition: er [facility] Discharge Diagnosis: Pneumonia Influenza Referrals: Wilbert Leonard DO [Primary Care Provider] - 1 Week Discharge Medications: New doxycycline monohydrate 100 mg Capsule 100 mg PO BID Qty: 10 0RF cefuroxime axetil 500 mg tablet 500 mg PO BID Qty: 10 0RF Continued cyclobenzaprine 10 mg Tablet 10 mg PO BID sennosides [senna] 8.6 mg Tablet 8.6 mg PO Q24H PRN (Reason: Constipation) acetaminophen 325 mg Tablet 650 mg PO Q6H PRN (Reason: pain or fever) ipratropium-albuterol 0.5 mg-3 mg(2.5 mg base)/3 mL Solution For Nebulization 3 ml INHALATION Q6H PRN (Reason: Shortness Of Breath Or Wheezing) trazodone 50 mg Tablet 25 mg PO DAILY atorvastatin 10 mg Tablet 10 mg PO BEDTIME prazosin 1 mg Capsule 1 mg PO BEDTIME aspirin 81 mg Tablet,Delayed Release (Dr/Ec) 81 mg PO DAILY guaifenesin [Zoraida-Tussin] 100 mg/5 mL Liquid 200 mg PO Q4H PRN (Reason: Cough) ondansetron 8 mg Tablet,Disintegrating 8 mg PO Q8H PRN (Reason: Nausea And Vomiting) famotidine 20 mg Tablet 20 mg PO BEDTIME bisacodyl 10 mg Suppository 10 mg NJ Q24H PRN (Reason: Constipation) pantoprazole 40 mg Tablet,Delayed Release (Dr/Ec) 40 mg PO DAILY@0630 ferrous sulfate 325 mg (65 mg iron) Tablet 325 mg PO DAILY divalproex [Depakote ER] 500 mg Tablet Extended Release 24 Hr 500 mg PO BID calcium carbonate 200 mg calcium (500 mg) Tablet,Chewable 400 mg PO Q4H PRN (Reason: Indigestion) Enema 19-7 gram/118 mL Enema 118 ml NJ Q24H PRN (Reason: Constipation) docusate sodium 100 mg Capsule 100 mg PO Q24H PRN (Reason: Constipation) hydroxyzine HCl 25 mg Tablet 25 mg PO Q6H PRN (Reason: Anxiety) alum-mag hydroxide-simeth [Zoraida-Lanta] 200-200-20 mg/5 mL Suspension 30 ml PO Q6H PRN (Reason: Dyspepsia) Rx Instructions: administer between meals and at bedtime albuterol sulfate 90 mcg/actuation Hfa Aerosol Inhaler 2 puff INHALATION Q4H PRN (Reason: Shortness Of Breath Or Wheezing) levothyroxine 112 mcg Tablet 112 mcg PO DAILY@0630 cholecalciferol (vitamin D3) [Vitamin D3] 25 mcg (1,000 unit) Tablet 50 mcg PO DAILY quetiapine [Seroquel XR] 50 mg Tablet Extended Release 24 Hr 50 mg PO BEDTIME Stiolto Respimat 2.5-2.5 mcg/actuation Mist 2 puff INHALATION DAILY magnesium oxide 400 mg magnesium Tablet 400 mg PO BID Discharge Orders: Discharge Order (Routine); Ordered 08/19/24 Ordered By: Stacey Cline Diet: Advance to usual diet Activity on Discharge: As tolerated Stand Alone Forms: Patient Portal Discharge page Print Language: Kinyarwanda Care Plan Goals: Continue Doxycycline and Ceftin for 5 more days Physical therapy as tolerated Health Concerns: Pneumonia Flu Plan of Treatment: Antibiotics Assessment: as above
[2024-08-19 11:37] VITALS: PULSE 94; RESP 18; O2SAT 93
--- NOTE | 2024-08-19 12:39 | MHC.CM.PN ---
PT CLEARED TO DC BACK TO [facility] TODAY CM SPOKE TO [facility], THEY HAVE CLEARED PT TO RETURN BLS TRANSPORT BOOKED FOR 1530 HOURS WITH JAMEL
[2024-08-19] MEDS: cefuroxime axetiL 500 MG TABLET PO (15:08)
[2024-08-19] MEDS: Enoxaparin Sodium 40 MG/0.4 ML SYRINGE SUBCUT (15:08)
[2024-08-19 15:46] VITALS: PULSE 97; RESP 18; O2SAT 92
[2024-08-19 15:53] VITALS: BP 134/66; PULSE 91; RESP 18; TEMP 36.1; O2SAT 92
== END 2024-08-19 17:00 | DRG 871 ==
LOC: HO.ED 10:58 → HO.EDOVER 15:33 → HO.S3 08-17 08:23
PROVIDERS: Physician Assistant; Admitting Provider Student in an Organized Health Care Education/Training Program; Emergency Provider Emergency Medicine; PCP Hospitalist; Visit Provider Student in an Organized Health Care Education/Training Program
DX: A41.9 Sepsis, unspecified organism (principal); G93.41 Metabolic encephalopathy; J18.9 Pneumonia, unspecified organism; J96.21 Acute and chronic respiratory failure with hypoxia; J44.0 Chronic obstructive pulmonary disease with (acute) lower respiratory infection; J44.1 Chronic obstructive pulmonary disease with (acute) exacerbation; E03.9 Hypothyroidism, unspecified; I25.10 Atherosclerotic heart disease of native coronary artery without angina pectoris; D63.8 Anemia in other chronic diseases classified elsewhere; K43.5 Parastomal hernia without obstruction or gangrene; Z66 Do not resuscitate; Z20.822 Contact with and (suspected) exposure to COVID-19; F31.9 Bipolar disorder, unspecified; Z93.3 Colostomy status; Z85.038 Personal history of other malignant neoplasm of large intestine; Z99.81 Dependence on supplemental oxygen; Z79.82 Long term (current) use of aspirin; Z79.890 Hormone replacement therapy; Z79.899 Other long term (current) drug therapy
CPT/HCPCS: 0241U; 36415; 71045; 80048; 80053; 82803; 83605; 83880; 84484; 85025; 85027; 87040; 93005; 94640; 99285; J0692; J1650; J1940

== ENCOUNTER → 2024-08-16 10:22 | Outpatient (BNV) | payer MEDICARE, MEDICAID, SELFPAY | PROVIDERS: Emergency Provider Emergency Medicine; PCP Hospitalist; Visit Provider Radiology Diagnostic Radiology | DX: J84.114 Acute interstitial pneumonitis (principal) | CPT/HCPCS: 71045 ==

== ENCOUNTER → 2024-08-16 10:25 | Outpatient (BNV) | payer MEDICARE, MEDICAID, SELFPAY | PROVIDERS: Admitting Provider Student in an Organized Health Care Education/Training Program; Emergency Provider Emergency Medicine; PCP Hospitalist; Visit Provider Internal Medicine Cardiovascular Disease | DX: I44.7 Left bundle-branch block, unspecified (principal); R00.0 Tachycardia, unspecified | CPT/HCPCS: 93010 ==

== ENCOUNTER → 2024-08-16 15:18 | Outpatient (BNV) | payer MEDICARE, MEDICAID, SELFPAY | PROVIDERS: Admitting Provider Student in an Organized Health Care Education/Training Program; Emergency Provider Emergency Medicine; PCP Hospitalist; Visit Provider Student in an Organized Health Care Education/Training Program | DX: A41.9 Sepsis, unspecified organism (principal); J96.21 Acute and chronic respiratory failure with hypoxia; J18.9 Pneumonia, unspecified organism; J10.1 Influenza due to other identified influenza virus with other respiratory manifestations | CPT/HCPCS: 99223; 99232; 99233; 99239 ==

== ENCOUNTER 2024-08-23 11:38 | Outpatient (AMB) | payer MEDICARE, SELFPAY ==
--- NOTE | 2024-08-23 11:40 | MHC.OFFVIS ---
Vital Signs 08/23/24 11:41 Weight 138 lb BP 117/62 Blood Pressure Location Rt brachial Position Sitting Pulse 107 H Pulse Source Doppler Pulse Oximetry (%) 78 L Oxygen Flow Rate 2 Intake Visit Reasons: COPD Allergies erythromycin base Adverse Reaction (Unknown, Verified 08/23/24 11:53) Unknown moxifloxacin Adverse Reaction (Unknown, Verified 08/23/24 11:53) Unknown prednisone Adverse Reaction (Unknown, Verified 08/23/24 11:53) Unknown pregabalin Adverse Reaction (Unknown, Verified 08/23/24 11:53) Unknown HPI HPI COPD: Details: 59-year-old lady, active 30+ pack-year smoker followed for underlying COPD. Patient has been recently hospitalized for influenza complicated by community-acquired pneumonia requiring 2 L of supplemental oxygen upon discharge. She did have abnormal CT imaging at that time. She continues to use Stiolto, duo nebs, and albuterol MDI with reasonable control of her symptoms. She denies recent exacerbations. [facility] Medical History (Updated 08/23/24 @ 12:13 by Cr Justice MD) COPD (chronic obstructive pulmonary disease) Bipolar 1 disorder Hyperlipidemia CAD (coronary artery disease) Thrombocytopenia GERD (gastroesophageal reflux disease) Pneumonia Diverticulitis Social History Household Members: Other Household Members Other:: SNF Housing: [facility] Do you presently have visiting nurse or other home services: No Patient Tobacco Use Status: Tobacco use Unknown Tobacco use type: Cigarette Cigarettes Per Day: 4 Advance Directives Date on File: 07/30/24 service: No Review of Systems Const Denies daytime sleepiness, Denies excessive sweating, Denies fatigue, Denies fever(s), Denies lethargy, Denies malaise, Denies night sweats, Denies snoring and Denies weight loss Eyes Denies blurry vision and Denies itchy eyes ENT Denies nasal congestion, Denies post nasal drip, Denies sinus pain, Denies sinus pressure and Denies other ( Thrush) Card Denies chest pain, Denies pedal edema, Denies dyspnea, Denies orthopnea and Denies paroxysmal nocturnal dyspnea Resp Denies cough, Denies hemoptysis, Denies excessive phlegm production, Denies dyspnea, Denies snoring and Denies wheezing GI Denies abdominal pain and Denies heartburn Musc Denies myalgias, Denies arthralgias and Denies joint swelling Skin/Breast Denies rash Neuro Denies memory loss and Denies seizure-like activity Psych Denies abnormal sleep pattern, Denies anxiety and Denies memory loss Endo Denies excessive sweating, Denies fatigue and Denies heat intolerance Manuel/Lymph Denies easy bruising Aller/Immun Denies itchy eyes, Denies seasonal rhinorrhea and Denies wheezing Physical Exam Vital Signs: Last Vital Signs Pulse 107 H 08/23/24 11:41 BP 117/62 08/23/24 11:41 Pulse Ox 78 L 08/23/24 11:41 Oxygen Flow Rate 2 08/23/24 11:41 Const General: no acute distress and alert Nutritional Appearance: not obese Orientation/consciousness: Other orientation findings ( oriented) HEENT Head: Yes atraumatic Eyes General: appearance normal, both eyes and all related structures Sclerae: sclerae normal EOM: EOMs intact bilaterally Neck Neck: Yes supple Lymphatic: no lymphadenopathy noted Resp Effort & Inspection: normal respiratory effort and no use of accessory muscles Auscultation: clear to auscultation bilaterally Cardio Rate: regular rate Rhythm: regular rhythm Heart sounds: no gallops, no murmurs and no rubs Skin General skin exam: other ( warm) Extrem General: No clubbing, No cyanosis and No edema Assessment & Plan Assessment & Plan (1) Supplemental oxygen dependent: Code(s): Z99.81 - Dependence on supplemental oxygen Category: Medical Plan: Continue supplemental oxygen to maintain O2 saturation of 88-93%. (2) COPD (chronic obstructive pulmonary disease): Code(s): J44.9 - Chronic obstructive pulmonary disease, unspecified Category: Medical Plan: Well controlled on baseline regimen of Stiolto, duo nebs, and albuterol MDI. Continue current regimen. (3) Abnormal CT scan, chest: Code(s): R93.89 - Abnormal findings on diagnostic imaging of other specified body structures Category: Medical Plan: Abnormal CT imaging when patient was hospitalized with influenza/pneumonia. Will repeat CT chest in October of 2024 to evaluate for resolution. Orders: Orders CT chest wo IV con 10/23/24 J18.9 - Pneumonia, unspecified organism Coding Level of Care Code Est Pt Level 4 (29223) Complex EM visit Add On G2211 Diagnoses Supplemental oxygen dependent Z99.81 COPD (chronic obstructive pulmonary disease) J44.[address] scan, chest R93.89
[2024-08-23 11:41] VITALS: BP 117/62; PULSE 107; O2SAT 78
--- OUTSIDE RECORDS SUMMARY | 2024-08-23 15:04 | XMS_ITS | Clinical Summary ---
Author Organization [address] Address [address] [place] [address] Phone Care Team Providers Care Room Manager Name Role Phone Wilbert Leonard MD Primary Care Provider [phone] Encounters Date Type Department Care Team Description 08/22/2024 Lab Requisition [facility] [address] [place] [phone] Wilbert Leonard MD Bipolar disorder, current episode mixed, severe, with psychotic features ([facility]) 07/25/2024 Lab Requisition [facility] [address] [place] [phone] Wilbert Leonard MD Urinary tract infection, site not specified 07/18/2024 Lab Requisition [facility] [address] [place] [phone] Wilbert Leonard MD Other custodial (current) drug therapy 07/13/2024 Lab Requisition [facility] [address] [place] [address] Wilbert Leonard MD Cough, unspecified; Altered mental status, unspecified 07/12/2024 Lab Requisition [facility] Lab [address] [place] [phone] Wilbert Leonard MD Cough, unspecified 06/13/2024 Lab Requisition [facility] Lab [address] [place] [phone] Wilbert Leonard MD Other supervisor intermediates (current) drug therapy 05/28/2024 Lab Requisition [facility] Lab [address] [place] [phone] Wilbert Leonard MD Unspecified intracranial injury with [...] Vaccines (1 of 2) 2016 COVID-19 Vaccine ( - 2023-2 5 season) 2024 Influenza Vaccine (#1) 2024 Colorectal Cancer Screening: Colonoscopy 04/07/2024 Depression Screening 04/07/2024 HIV Screening 04/07/2024 Hepatitis C Screening 04/07/2024 Social Influencers of Health Screening 04/07/2024 Cholesterol Screening (Lipid Panel) 08/22/2029 08/22/2024 HIB Vaccines Aged Out No longer eligi [...] to 64 Years) Aged Out No longer eligi ble based on patient's age to complete this topic RSV Immunization Patients Un boaz 20 months Aged Out No longer eligible b ased on patient's age to complete this topic Varicella Vaccines Aged Out No longer eligible based on patient's age to complete this topic Procedures Procedure Name Priority Date/Time Associated Diagnosis Comments CBC WITH AUTO DIFFERENTIAL Routine 08/22/2024 6:00 AM EDT Bipolar disorder, current episode mixed, severe, with psychotic features (CMS/HCC) MAGNESIUM Routine 08/22/2024 6:00 AM EDT Bipolar disorder, current episode mixed, severe, with psychotic features (CMS/HCC) THYROXINE FREE Routine 08/22/2024 6:00 AM EDT Bipolar disorder, current episode mixed, severe, with psychotic features (CMS/HCC) AMMONIA Routine 08/22/2024 6:00 AM EDT Bipolar disorder, current episode mixed, severe, with psychotic features (CMS/HCC) VALPROIC ACID LEVEL, TOTAL Routine 08/22/2024 6:00 AM EDT Bipolar disorder, current episode mixed, severe, with psychotic features (CMS/HCC) THYROID STIMULATING HORMONE Routine 08/22/2024 6:00 AM EDT Bipolar disorder, current episode mixed, severe, with psychotic features (CMS/HCC) LIPID PANEL WITH REFLEX TO DIRECT LDL Routine 08/22/2024 6:00 AM EDT Bipolar disorder, current episode mixed, severe, with psychotic features (CMS/HCC) CBC AND DIFFERENTIAL Routine 08/22/2024 6:00 AM EDT Bipolar disorder, current episode mixed, severe, with psychotic features (CMS/HCC) URINALYSIS WITH REFLEX MICROSCOPIC Routine 07/25/2024 5:40 AM EST Urinary tract infection, site not specified URINALYSIS WITH REFLEX MICROSCOPIC Routine 07/25/2024 5:40 AM EST Urinary tract infection, site not specified VALPROIC ACID LEVEL, TOTAL Routine 07/18/2024 6:40 AM EST Other supervisor intermediates (current) drug therapy VITAMIN D 25 HYDROXY Routine 07/18/2024 6:40 AM EST Other custodial (current) drug therapy CBC WITH AUTO DIFFERENTIAL [...] EST Cough, unspecified Altered mental status, unspecified [id number], RSV, FLU A AND B QUALITATIVE RT-PCR, LOCAL REFERENCE LAB Routine 07/12/2024 12:05 PM EST Cough, unspecified VITAMIN D 25 HYDROXY Routine 06/13/2024 8:25 AM EST Other supervisor intermediates (current) drug therapy VITAMIN B6 Routine 06/13/2024 8:25 AM EST Other supervisor intermediates (current) drug therapy HEMOGLOBIN A1C Routine 06/13/2024 8:25 AM EST Other custodial (current) drug therapy VITAMIN B12 Routine 06/13/2024 8:25 AM EST Other custodial (current) drug therapy THYROXINE FREE Routine 05/28/2024 [...] from Last 3 Months Results * (ABNORMAL) Lipid panel with reflex to direct LDL (08/22/2024 6:00 AM EDT) Pathologist [facility] Cholesterol 96 0 - 200 mg/dL LAB CHEMISTRY METHOD 08/22/2024 7:31 AM EDT [facility] Triglycerides 163(H) 0 - 150 mg/dL LAB CHEMISTRY METHOD 08/22[facility]2024 7[facility] HDL 31(L) >=40 mg/dL LAB CHEMISTRY METHOD 08/22/2024 7:31 AM [facility] LDL Calculated 32 0 - 100 mg/dL LAB CHEMISTRY METHOD 08/22/2024 7:31 [facility] VLDL Cholesterol Marshall 32.6 mg/dL LAB CHEMISTRY METHOD 08/22/2024 7:31 AM [facility] Non HDL Chol. (LDL+VLDL) 65 <145 mg/dL LAB CHEMISTRY METHOD 08/22/2024 7:31 AM [facility] Chol/HDL Ratio 3.1 0.0 - 4.4 LAB CHEMISTRY METHOD 08/22/2024 7:31 AM [facility] Blood Venous blood specimen / Unknown 08/22/2024 6:00 AM EDT 08/22/2024 6:36 AM EDT us Wilbert Leonard MD LAB BLOOD ORDERABLES Final Resul t [facility] [address] [place] [address], * (ABNORMAL) CBC auto differential (08/22/2024 6:00 AM EDT) Only the most recent of2 resultswithin the time period is included. WBC 3.6(L) 4.8 - 10.8 K/mcL LAB HEMETOLOGY METHOD 08/22/2024 8:52 AM [facility] RBC 2.70(L) 3.80 - 4.80 M/[facility] LAB HEMETOLOGY METHOD 08/22/2024 8:52 AM [facility] Hemoglobin 8.1(L) 11.5 - 16.0 g/dL LAB HEMETOLOGY METHOD 08/22/2024 8:52 AM [facility] Hematocrit 26.9(L) 35.0 - 47.0 % LAB HEMETOLOGY METHOD 08/22/2024 8:52 AM [facility] MCV 100.0(H) 79.0 - 98.0 FL LAB HEMETOLOGY METHOD 08/22/2024 8:52 AM [facility] MCH 30.1 27.0 - 32.0 pcg LAB HEMETOLOGY METHOD 08/22/2024 8:52 AM [facility] MCHC 30.1(L) 32.0 - 37.0 g/dL LAB HEMETOLOGY METHOD 08/22/2024 8:52 AM [facility] RDW 17.4(H) 11.0 - 15.0 % LAB HEMETOLOGY METHOD 08/22/2024 8:52 AM [facility] Platelets 96(L) 130 - 400 K/[facility] LAB HEMETOLOGY METHOD 08/22/2024 8:52 AM [facility] Comment:reviewed by slide MPV 11.1(H) 7.0 - 11.0 FL LAB HEMETOLOGY METHOD 08/22/2024 8:52 AM [facility] NRBC 0.6 <1.0 % LAB HEMETOLOGY METHOD 08/22/2024 8:52 AM [facility] NRBC Absolute 0.02 <0.10 K/mcL LAB HEMETOLOGY METHOD 08/22/2024 8:52 AM [facility] Neutrophils Relative 28.3 % LAB HEMETOLOGY METHOD 08/22/2024 8:52 AM [facility] Lymphocytes Relative 50.1 % LAB HEMETOLOGY METHOD 08/22/2024 8:52 AM [facility] Monocytes Relative 17.4 % LAB HEMETOLOGY METHOD 08/22/2024 8:52 AM [facility] Eosinophils Relative 1.9 % LAB HEMETOLOGY METHOD 08/22/2024 8:52 AM [facility] Basophils Relative 0.6 % LAB HEMETOLOGY METHOD 08/22/2024 8:52 AM [facility] Immature Granulocytes Relative 1.7 % LAB HEMETOLOGY METHOD 08/22/2024 8:52 AM [facility] Neutrophils Absolute 1.03(L) 1.50 - 7.00 K/mcL LAB HEMETOLOGY METHOD 08/22/2024 8:52 AM [facility] Lymphocytes Absolute 1.82 1.00 - 5.00 K/mcL LAB HEMETOLOGY METHOD 08/22/2024 8:52 AM [facility] Monocytes Absolute 0.63 0.20 - 1.00 K/mcL LAB HEMETOLOGY METHOD 08/22/2024 8:52 AM [facility] Eosinophils Absolute 0.07 0.00 - 0.50 K/mcL LAB HEMETOLOGY METHOD 08/22/2024 8:52 AM [facility] Basophils Absolute 0.02 0.00 - 0.20 K/mcL LAB HEMETOLOGY METHOD 08/22/2024 8:52 AM [facility] Immature Granulocytes Absolute 0.06(H) 0.00 - 0.03 K/mcL LAB HEMETOLOGY METHOD 08/22/2024 8:52 AM EDT [facility] Blood Venous blood specimen / Unknown 08/22/2024 6:00 AM EDT 08/22/2024 6:36 AM EDT us Wilbert Leonard MD LAB BLOOD ORDERABLES Final Resul t Performing Organization Address City/[facility]/ZIP Co de Phone Number [facility] [address] [place] [address], [place] [phone] * (ABNORMAL) Thyroid stimulating hormone (08/22/2024 6:00 AM EDT) Only the most recent of2 resultswithin the time period is included. TSH 4.41(H) 0.40 - 4.00 mcIU/mL LAB CHEMISTRY METHOD 08/22/2024 4:45 PM EDT [facility] Blood Venous blood specimen / Unknown 08/22/2024 6:00 AM EDT 08/22/2024 6:36 AM EDT us Wilbert Leonard MD LAB BLOOD ORDERABLES Final Resul t Performing Organization Address [facility] de Phone Number [facility] [address] [place] [address], [place] [phone] * Thyroxine free (08/22/2024 6:00 AM EDT) Only the most recent of2 resultswithin the time period is included. Free T4 1.45 0.70 - 1.80 ng/dL LAB CHEMISTRY METHOD 08/22/2024 4:45 PM EDT [facility] Blood Venous blood specimen / Unknown 08/22/2024 6:00 AM EDT 08/22/2024 6:36 AM EDT us Wilbert Leonard MD LAB BLOOD ORDERABLES Final Resul t Performing Organization Address City/[facility] Co de Phone Number [facility] [address] [place] [address], [place] [phone] * Magnesium (08/22/2024 6:00 AM EDT) Pathologist [facility] Magnesium 2.0 1.9 - 2.6 mg/dL LAB CHEMISTRY METHOD 08/22/2024 7:31 AM EDT [facility] Blood Venous blood specimen / Unknown 08/22/2024 6:00 AM EDT 08/22/2024 6:36 AM EDT us Wilbert Leonard MD LAB BLOOD ORDERABLES Final Resul t Performing Organization Address City/[facility]/ZIP Co de Phone Number [facility] [address] [place] [address], * (ABNORMAL) Ammonia (08/22/2024 6:00 AM EDT) Only the most recent of2 resultswithin the time period is included. Pathologist [facility] Ammonia 41(H) 11 - 35 mcmol/L LAB CHEMISTRY METHOD 08/22/2024 7:38 AM EDT [facility] Blood Venous blood specimen / Unknown 08/22/2024 6:00 AM EDT 08/22/2024 6:36 AM EDT us Wilbert Leonard MD LAB BLOOD ORDERABLES Final Resul t Performing Organization Address City/[facility]/ZIP Co de Phone Number [facility] [address] [place] [address], [place] [phone] * Valproic acid level, total (08/22/2024 6:00 AM EDT) Only the most recent of3 resultswithin the time period is included. Pathologist [facility] Valproic Acid, Total 77 50 - 100 mcg/mL LAB CHEMISTRY METHOD 08/22/2024 7:31 AM EDT [facility] Blood Venous blood specimen / Unknown 08/22/2024 6:00 AM EDT 08/22/2024 6:36 AM EDT us Wilbert Leonard MD LAB BLOOD ORDERABLES Final Resul t [facility] [address] [place] [address], [place] [phone] * (ABNORMAL) Urinalysis with reflex microscopic (07/25/2024 5:40 AM EST) Specific [place] Urine 1.030 1.003 - 1.030 LAB URINALYSIS - AUTOMATED METHOD 07/25/2024 8:42 AM [facility] pH, Urine 6.5 5.0 - 8.0 pH LAB URINALYSIS - AUTOMATED METHOD 07/25/2024 8:42 AM [facility] Leukocytes, Urine Trace(A) Negative LAB URINALYSIS - AUTOMATED METHOD 07/25/2024 8:42 AM [facility] Nitrite, Urine Negative Negative LAB URINALYSIS - AUTOMATED METHOD 07/25/2024 8:42 AM [facility] Protein, Urine Trace <=Trace mg/dL LAB URINALYSIS - AUTOMATED METHOD 07/25/2024 8:42 AM [facility] Glucose, Urine Negative Negative mg/dL LAB URINALYSIS - AUTOMATED METHOD 07/25/2024 8:42 AM [facility] Ketones, Urine Trace(A) Negative mg/dL LAB URINALYSIS - AUTOMATED METHOD 07/25/2024 8:42 AM [facility] Urobilinogen , Urine 1.0 0.2 - 1.0 mg/dL LAB URINALYSIS - AUTOMATED METHOD 07/25/2024 8:42 AM [facility] Bilirubin, Urine Negative Negative LAB URINALYSIS - AUTOMATED METHOD 07/25/2024 8:42 AM [facility] Blood, Urine Negative Negative LAB URINALYSIS - AUTOMATED METHOD 07/25/2024 8:42 AM [facility] RBC, Urine 0.0 0 - 4 /HPF LAB URINALYSIS - AUTOMATED METHOD 07/25/2024 8:42 AM [facility] WBC, Urine 15.9(H) 0 - 4 /HPF LAB URINALYSIS - AUTOMATED METHOD 07/25/2024 8:42 AM [facility] Squamous Epithelial, Urine 80(H) 0 - 60 /LPF LAB URINALYSIS - AUTOMATED METHOD 07/25/2024 8:42 AM [facility] Non-Squamous Epithelial, Urine 2-5 Transitional epithelial cells. /LPF LAB URINALYSIS - AUTOMATED METHOD 07/25/2024 8:42 AM [facility] Bacteria, Urine Negative Negative /HPF LAB URINALYSIS - AUTOMATED METHOD 07/25/2024 8:42 AM [facility] Hyaline Casts, Urine 4.4(H) 0 - 3 /LPF LAB URINALYSIS - AUTOMATED METHOD 07/25/2024 8:42 AM [facility] Mucus, Urine Small None /HPF LAB URINALYSIS - AUTOMATED METHOD 07/25/2024 8:42 AM [facility] Urine Urine specimen obtained by clean catch procedure / Unknown 07/25/2024 5:40 AM EST 07/25/2024 8:06 AM EST Wilbert Leonard MD LAB URINE ORDERABLES Final Resul t [facility] [address] [place] [address], * Vitamin D 25 hydroxy (07/18/2024 6:40 AM EST) Only the most recent of2 resultswithin the time period is included. Vit D, 25-Hydroxy 37.6 30.0 - 80.0 ng/mL LAB CHEMISTRY METHOD 07/18/2024 8:57 AM [facility] Blood Venous blood specimen / Unknown 07/18/2024 6:40 AM EST 07/18/2024 7:28 AM EST us Wilbert Leonard MD LAB BLOOD ORDERABLES Final Resul t Performing Organization Address [facility]/ZIP Co de Phone Number [facility] [address] [place] [address], [place] [phone] * Thyroid stimulating hormone with reflex to free t4 and free t3 (07/13/2024 7:30 AM EST) TSH 1.93 0.40 - 4.00 mcIU/mL LAB CHEMISTRY METHOD 07/13/2024 10:39 AM EST [facility] Blood Venous blood specimen / Unknown 07/13/2024 7:30 AM EST 07/13/2024 8:00 AM EST us Wilbert Leonard MD LAB BLOOD ORDERABLES Final Resul t Performing Organization Address City/[facility]/ZIP Co de Phone Number [facility] [address] [place] [address], [place] [phone] * (ABNORMAL) Comprehensive metabolic panel (07/13/2024 7:30 AM EST) Sodium 138 133 - 145 mmol/L LAB CHEMISTRY METHOD 07/13/2024 8:34 AM EST [facility] Potassium 4.2 3.5 - 5.5 mmol/L LAB CHEMISTRY METHOD 07/13/2024 8:34 AM EST [facility] Chloride 99 96 - 110 mmol/L LAB CHEMISTRY METHOD 07/13/2024 8:34 AM EST [facility] CO2 35(H) 21 - 32 mmol/L LAB CHEMISTRY METHOD 07/13/2024 8:34 AM EST [facility] Anion Gap 4 3 - 11 LAB CHEMISTRY METHOD 07/13/2024 8:34 AM EST [facility] Glucose 83 70 - 100 mg/dL LAB CHEMISTRY METHOD 07/13/2024 8:34 AM [facility] BUN 12 5 - 25 mg/dL LAB CHEMISTRY METHOD 07/13/2024 8:34 AM [facility] Creatinine 0.52 0.50 - 1.10 mg/dL LAB CHEMISTRY METHOD 07/13/2024 8:34 AM [facility] eGFR 108 >=60 mL/min/1. 73m2 LAB CHEMISTRY METHOD 07/13/2024 8:34 AM [facility] Comment:Calculation based on the??Chronic Kidney Disease Epidemiology Collaboration (CKD-EPI) equation refit??without adjustment for race. BUN/Creatinine Ratio 23.1 LAB CHEMISTRY METHOD 07/13/2024 8:34 AM [facility] Calcium 8.0(L) 8.5 - 10.5 mg/dL LAB CHEMISTRY METHOD 07/13/2024 8:34 AM [facility] AST (SGOT) 20 10 - 42 unit/L LAB CHEMISTRY METHOD 07/13/2024 8:34 AM [facility] ALT (SGPT) 11 10 - 60 unit/L LAB CHEMISTRY METHOD 07/13/2024 8:34 AM [facility] Alkaline Phosphatase 70 42 - 121 unit/L LAB CHEMISTRY METHOD 07/13/2024 8:34 AM [facility] Total Protein 6.8 6.0 - 8.0 g/dL LAB CHEMISTRY METHOD 07/13/2024 8:34 AM [facility] Albumin 2.4(L) 3.2 - 5.0 g/dL LAB CHEMISTRY METHOD 07/13/2024 8:34 AM [facility] Total Bilirubin 0.4 0.0 - 1.4 mg/dL LAB CHEMISTRY METHOD 07/13/2024 8:34 AM [facility] Blood Venous blood specimen / Unknown 07/13/2024 7:30 AM EST 07/13/2024 8:00 AM EST us Wilbert Leonard MD LAB BLOOD ORDERABLES Final Resul t [facility] [address] [place] [address], * [id number], RSV, Influenza A and B qualitative RT-PCR (07/12/2024 12:05 PM EST) SARS COV-2 Not Detected Not Detected LAB MOLECULAR DIAGNOSTICS METHOD 07/12/2024 11:53 PM EST [facility] Comment: Disclaimer: The manner in which this information is used to guide patient care is the responsibility of the healthcare provider. Testing was performed using the [employer] m SARS-CoV-2 test. This test has [...] for Healthcare Providers can be found at: https://www.fda.gov/media/650108/download Fact sheet for Patients can be found at: https://www.fda.gov/media/431689/download Influenza A PCR Not Detected Not Detected LAB MOLECULAR DIAGNOSTICS METHOD 07/12/2024 11:53 PM EST [facility] Influenza B PCR Not Detected Not Detected LAB MOLECULAR DIAGNOSTICS METHOD 07/12/2024 11:53 PM EST [facility] RSV PCR Not Detected Not Detected LAB MOLECULAR DIAGNOSTICS METHOD 07/12/2024 11:53 PM EST [facility] Swab Nasopharyngeal structure / Unknown 07/12/2024 12:05 PM EST 07/12/2024 1:27 PM EST us Wilbert Leonard MD LAB MICROBIOLOGY - GENERAL ORDER GRACIELA Final Result Performing Organization Address City/[facility]/ZIP Co de Phone Number [facility] [address] [place] [address], [place] [phone] * (ABNORMAL) Vitamin B6 (06/13/2024 8:25 AM EST) Vitamin B6 (Pyridoxine) Level 2(L) 5 - 50 ug/L 06/21/2024 6:07 AM EST [facility] Comment: This test was developed and the performance characteristics determined by [facility]. It has not been cleared or approved by the FDA. The laboratory is regulated under CLIA as qualified to perform high-complexity testing. This test is used for patient testing purposes. It should not be regarded as investigational or for research. Test performed at [facility], [address] , [place], [place] ??[address] ? [phone] Deirdre Vogt MD, PhD - Childcare Aide Blood Venous blood specimen / Unknown 06/13/2024 8:25 AM EST 06/13/2024 10:04 AM EST us Wilbert Leonard MD LAB BLOOD ORDERABLES Final Resul t Performing Organization Address [facility] Co de Phone Number [facility] [address] [place] [address] * Hemoglobin A1c (06/13/2024 8:25 AM EST) Hemoglobin A1C 5.8 <6.5 % LAB CHEMISTRY METHOD 06/14/2024 8:45 AM EST [facility] Mean Bld Glu Estim. 120 mg/dL LAB CHEMISTRY METHOD 06/14/2024 8:45 AM EST [facility] Blood Venous blood specimen / Unknown 06/13/2024 8:25 AM EST 06/13/2024 10:04 AM EST us Wilbert Leonard MD LAB BLOOD ORDERABLES Final Resul t Performing Organization Address City/[facility]/ZIP Co de Phone Number [facility] [address] [place] [address], [place] [phone] * (ABNORMAL) Vitamin B12 (06/13/2024 8:25 AM EST) Vitamin B-12 1,655(H) 250 - 900 pcg/mL LAB CHEMISTRY METHOD 06/13/2024 11:39 AM EST [facility] Blood Venous blood specimen / Unknown 06/13/2024 8:25 AM EST 06/13/2024 10:04 AM EST Wilbert Leonard MD LAB BLOOD ORDERABLES Final Resul t Performing Organization Address [facility] Co de Phone Number [facility] [address] [place] [address], [place] [phone] from Last 3 Months Care Teams Room Manager Relationship Specialty Start Date End Date Wilbert Leonard MD [address] [place] [address] Dr [address] GIDEON Paulson PCP - General Internal Medicine 07/18/24
--- OUTSIDE RECORDS SUMMARY | 2024-08-23 15:04 | XMS_ITS | Encounter Summary ---
Author Organization [facility] Address [address] [place] [address] Care Team Providers Care Fabric Worker Fitter Name Role Phone Wilbert Leonard MD Primary Care Provider [phone] Encounter Details Date Type Department Care Team (Late st Contact Info) Description 07/18/2024 Lab Requisition [facility] [address] [place] [address] Wilbert Leonard MD [address] [place] [address] [address] [place], [place] Other chcf (current) drug therapy Social History Tobacco Use [...] HYDROXY Routine 07/18/2024 6:40 AM EST Other fruit receiver (current) drug therapy VALPROIC ACID LEVEL, TOTAL Routine 07/18/2024 6:40 AM EST Other fruit receiver (current) drug therapy documented in this encounter Results * Valproic acid level, total (07/18/2024 6:40 AM EST) Valproic Acid, Total 87 50 - 100 mcg/mL LAB CHEMISTRY METHOD 07/18/2024 8:30 AM EST [facility] Blood Venous blood specimen / Unknown 07/18/2024 6:40 AM EST 07/18/2024 7:28 AM EST us Wilbert Leonard MD LAB BLOOD ORDERABLES Final Resul t [facility] [address] [place] [address], [place] [phone] * Vitamin D 25 hydroxy (07/18/2024 6:40 AM EST) Vit D, 25-Hydroxy 37.6 30.0 - 80.0 ng/mL LAB CHEMISTRY METHOD 07/18/2024 8:57 AM EST [facility] Blood Venous blood specimen / Unknown 07/18/2024 6:40 AM EST 07/18/2024 7:28 AM EST us Wilbert Leonard MD LAB BLOOD ORDERABLES Final Resul t Performing Organization Address [facility] Co de Phone Number [facility] [address] [place] [address], [place] [phone] documented in this encounter Visit Diagnoses Diagnosis Other chcf (current) drug therapy documented in this encounter Care Teams Fabric Worker Fitter Relationship Specialty Start Date End Date Wilbert Leonard MD [address] [place] [address] Dr [address] GIDEON Paulson PCP - General Internal Medicine 07/18/24 documented as of this encounter
--- OUTSIDE RECORDS SUMMARY | 2024-08-23 15:04 | XMS_ITS | Encounter Summary ---
Author Organization [facility] Address [address] [place] [address] Care Team Providers Care Actuarial Consultant Name Role Phone Wilbert Leonard MD Primary Care Provider Encounter Details Date Type Department Care Team (Late st Contact Info) Description 06/13/2024 Lab Requisition [facility] - Main Lab 299 [facility] [place] [address] Wilbert Leonard MD [address] [place] [address] [address] [place] [facility] [place] drug therapy Social History Tobacco Use [...] HYDROXY Routine 06/13/2024 8:25 AM EST Other local intermodal truck driver (current) drug therapy VITAMIN B6 Routine 06/13/2024 8:25 AM EST Other [place] [facility] drug therapy HEMOGLOBIN A1C Routine 06/13/2024 8:25 AM EST Other local intermodal truck driver (current) drug therapy VITAMIN B12 Routine 06/13/2024 8:25 AM EST Other [place] [facility] ([place] drug therapy documented in this encounter Results * (ABNORMAL) Vitamin D 25 hydroxy (06/13/2024 8:25 AM EST) Vit D, 25-Hydroxy 21.5(L) 30.0 - 80.0 ng/mL LAB CHEMISTRY METHOD 06/13/2024 11:28 AM EST [facility] Blood Venous blood specimen / Unknown 06/13/2024 8:25 AM EST 06/13/2024 10:04 AM EST us Wilbetr Leonard MD LAB BLOOD ORDERABLES Final Resul t Performing Organization Address [facility] de Phone Number [facility] [address] [place] [address], [place] [phone] * (ABNORMAL) Vitamin B6 (06/13/2024 8:25 AM EST) Vitamin B6 (Pyridoxine) Level 2(L) 5 - 50 ug/L 06/21/2024 6:07 AM EST [facility] Comment: This test was developed and the performance characteristics determined by [facility]. It has not been cleared or approved by the FDA. The laboratory is regulated under CLIA as qualified to perform high-complexity testing. This test is used for patient testing purposes. It should not be regarded as investigational or for research. Test performed at [facility], [address] , [place], [place] ??[address] ? [phone] Deirdre Vogt MD, PhD - Senior Ux Designer Blood Venous blood specimen / Unknown 06/13/2024 8:25 AM EST 06/13/2024 10:04 AM EST us Wilbert Leonard MD LAB BLOOD ORDERABLES Final Resul t Performing Organization Address [facility]/ZIP Co de Phone Number [facility] [address] [place] [address] * Hemoglobin A1c (06/13/2024 8:25 AM EST) Hemoglobin A1C 5.8 <6.5 % LAB CHEMISTRY METHOD 06/14/2024 8:45 AM EST [facility] Mean Bld Glu Estim. 120 mg/dL LAB CHEMISTRY METHOD 06/14/2024 8:45 AM EST [facility] Blood Venous blood specimen / Unknown 06/13/2024 8:25 AM EST 06/13/2024 10:04 AM EST us Wilbert Leonard MD LAB BLOOD ORDERABLES Final Resul t Performing Organization Address [facility]/ZIP Co de Phone Number [facility] [address] [place] [address], [place] [phone] * (ABNORMAL) Vitamin B12 (06/13/2024 8:25 AM EST) [facility] Vitamin B-12 1,655(H) 250 - 900 pcg/mL LAB CHEMISTRY METHOD 06/13/2024 11:39 AM EST [facility] Blood Venous blood specimen / Unknown 06/13/2024 8:25 AM EST 06/13/2024 10:04 AM EST us Wilbert Leonard MD LAB BLOOD ORDERABLES Final Resul t Performing Organization Address City/[facility] Co de Phone Number [facility] [address] [place] [address], [place] [phone] documented in this encounter Visit Diagnoses Diagnosis Other local intermodal truck driver (current) drug therapy documented in this encounter Additional Health Concerns Infection Onset Date Last Indicated Resolved Time Respiratory Rule-Out 07/12/2024 07/12/2024 025 11:53 PM EST documented as of this encounter Care Teams Actuarial Consultant Relationship Specialty Start Date End Date Wilbert Leonard MD [address] [place] [address] Dr [address] [place], [place] PCP - General Internal Medicine 07/18/24 documented as of this encounter
--- OUTSIDE RECORDS SUMMARY | 2024-08-23 15:04 | XMS_ITS | Encounter Summary ---
[facility] Address [address] [place] [address] Care Team Providers Care Bread Wrapper Operator Name Role Phone Wilbert Leonard MD Primary Care Provider [phone] Encounter Details Date Type Department Care Team (Late st Contact Info) Description 07/12/2024 Lab Requisition [facility] [address] [place] [address] Wilbert Leonard MD [address] [place] [address] [address] [place], [place] Cough, unspecified Social History Tobacco Use [...] Procedure Name Priority Date/Time Associated Diagnosis Comments [id number], RSV, FLU A AND B QUALITATIVE RT-PCR, LOCAL REFERENCE LAB Routine 07/12/2024 12:05 PM EST Cough, unspecified documented in this encounter Results * [id number], RSV, Influenza A and B qualitative RT-PCR (07/12/2024 12:05 PM EST) SARS COV-2 Not Detected Not Detected LAB MOLECULAR DIAGNOSTICS METHOD 07/12/2024 11:53 PM EST [facility] Comment: Disclaimer: The manner in which this information is used to guide patient care is the responsibility of the healthcare provider. Testing was performed using the [employer] Alinity m SARS-CoV-2 test. This test has [...] for Healthcare Providers can be found at: https://www.fda.gov/media/198313/download Fact sheet for Patients can be found at: https://www.fda.gov/media/529168/download Influenza A PCR Not Detected Not Detected LAB MOLECULAR DIAGNOSTICS METHOD 07/12/2024 11:[address] [facility] Influenza B PCR Not Detected Not Detected LAB MOLECULAR DIAGNOSTICS METHOD 07/12/2024 11:[address] [facility] RSV PCR Not Detected Not Detected LAB MOLECULAR DIAGNOSTICS METHOD 07/12/2024 11:[address] [facility] Swab Nasopharyngeal structure / Unknown 07/12/2024 12:05 PM EST 07/12/2024 1:27 PM EST us Wilbert Leonard MD LAB MICROBIOLOGY - GENERAL ORDER GRACIELA Final Result [facility] [address] [place] [address], documented in this encounter Visit Diagnoses Diagnosis Cough, unspecified documented in this encounter Additional Health Concerns Infection Onset Date Last Indicated Resolved Time Respiratory Rule-Out 07/12/2024 07/12/2024 025 11:53 PM EST documented as of this encounter Care Teams Bread Wrapper Operator Relationship Specialty Start Date End Date Wilbert Leonard MD [address] [place] [address] [address] [place], [place] PCP - General Internal Medicine 07/18/24 documented as of this encounter
--- OUTSIDE RECORDS SUMMARY | 2024-08-23 15:04 | XMS_ITS | Encounter Summary ---
Author Organization [facility] Address [address] [place] [address] Care Team Providers Care Fuel Yard Operator Name Role Phone Wilbert Leonard MD Primary Care Provider [phone] Encounter Details Date Type Department Care Team (Late st Contact Info) Description 08/22/2024 Lab Requisition [facility] - Main Lab 299 [facility] [place] [address] Wilbert Leonard MD [address] [place] [address] [address] [place], [place] Bipolar disorder, current episode mixed, severe, with psychotic features (CMS/HCC) Social History Tobacco Use Types Packs/Day [...] Procedure Name Priority Date/Time Associated Diagnosis Comments LIPID PANEL WITH REFLEX TO DIRECT LDL Routine 08/22/2024 6:00 AM EDT Bipolar disorder, current episode mixed, severe, with psychotic features (CMS/HCC) CBC WITH AUTO DIFFERENTIAL Routine 08/22/2024 6:00 [...] episode mixed, severe, with psychotic features (CMS/HCC) documented in this encounter Results * (ABNORMAL) CBC auto differential (08/22/2024 6:00 AM EDT) [facility] Signature WBC 3.6(L) 4.8 - 10.8 K/mcL LAB HEMETOLOGY METHOD 08/22/2024 8:52 AM [facility] RBC 2.70(L) 3.80 - 4.80 M/mcL LAB HEMETOLOGY METHOD 08/22/2024 8:52 AM [facility] Hemoglobin 8.1(L) 11.5 - 16.0 g/dL LAB HEMETOLOGY METHOD 08/22/2024 8:52 AM [facility] Hematocrit 26.9(L) 35.0 - 47.0 % LAB HEMETOLOGY METHOD 08/22/2024 8:52 AM [facility] MCV 100.0(H) 79.0 - 98.0 FL LAB HEMETOLOGY METHOD 08/22/2024 8:52 AM [facility] MCH 30.1 27.0 - 32.0 pcg LAB HEMETOLOGY METHOD 08/22/2024 8:52 AM [facility] MCHC 30.1(L) 32.0 - 37.0 g/dL LAB HEMETOLOGY METHOD 08/22/2024 8:52 AM [facility] RDW 17.4(H) 11.0 - 15.0 % LAB HEMETOLOGY METHOD 08/22/2024 8:52 AM [facility] Platelets 96(L) 130 - 400 K/mcL LAB HEMETOLOGY METHOD 08/22/2024 8:52 AM [facility] Comment:reviewed by slide MPV 11.1(H) 7.0 - 11.0 FL LAB HEMETOLOGY METHOD 08/22/2024 8:52 AM [facility] NRBC 0.6 <1.0 % LAB HEMETOLOGY METHOD 08/22/2024 8:52 AM [facility] NRBC Absolute 0.02 <0.10 K/mcL LAB HEMETOLOGY METHOD 08/22/2024 8:52 AM [facility] Neutrophils Relative 28.3 % LAB HEMETOLOGY METHOD 08/22/2024 8:52 AM [facility] Lymphocytes Relative 50.1 % LAB HEMETOLOGY METHOD 08/22/2024 8:52 AM [facility] Monocytes Relative 17.4 % LAB HEMETOLOGY METHOD 08/22/2024 8:52 AM [facility] Eosinophils Relative 1.9 % LAB HEMETOLOGY METHOD 08/22/2024 8:52 AM [facility] Basophils Relative 0.6 % LAB HEMETOLOGY METHOD 08/22/2024 8:52 AM [facility] Immature Granulocytes Relative 1.7 % LAB HEMETOLOGY METHOD 08/22/2024 8:52 AM [facility] Neutrophils Absolute 1.03(L) 1.50 - 7.00 K/mcL LAB HEMETOLOGY METHOD 08/22/2024 8:52 AM [facility] Lymphocytes Absolute 1.82 1.00 - 5.00 K/mcL LAB HEMETOLOGY METHOD 08/22/2024 8:52 AM EDT [facility] Monocytes Absolute 0.63 0.20 - 1.00 K/mcL LAB HEMETOLOGY METHOD 08/22/2024 8:52 AM EDT [facility] Eosinophils Absolute 0.07 0.00 - 0.50 K/mcL LAB HEMETOLOGY METHOD 08/22/2024 8:52 AM EDT [facility] Basophils Absolute 0.02 0.00 - 0.20 K/[facility] LAB HEMETOLOGY METHOD 08/22/2024 8:52 AM EDT [facility] Immature Granulocytes Absolute 0.06(H) 0.00 - 0.03 K/[facility] LAB HEMETOLOGY METHOD 08/22/2024 8:52 AM EDT [facility] Blood Venous blood specimen / Unknown 08/22/2024 6:00 AM EDT 08/22/2024 6:36 AM EDT us Wilbert Leonard MD LAB BLOOD ORDERABLES Final Resul t Performing Organization Address City/[facility]/ZIP Co de Phone Number [facility] [address] [place] [address], [place] [phone] * Magnesium (08/22/2024 6:00 AM EDT) Magnesium 2.0 1.9 - 2.6 mg/dL LAB CHEMISTRY METHOD 08/22/2024 7:31 AM EDT [facility] Blood Venous blood specimen / Unknown 08/22/2024 6:00 AM EDT 08/22/2024 6:36 AM EDT us Wilbert Leonard MD LAB BLOOD ORDERABLES Final Resul t Performing Organization Address City/[facility]/ZIP Co de Phone Number [facility] [address] [place] [address], [place] [phone] * Thyroxine free (08/22/2024 6:00 AM EDT) Free T4 1.45 0.70 - 1.80 ng/dL LAB CHEMISTRY METHOD 08/22/2024 4:45 PM EDT [facility] Blood Venous blood specimen / Unknown 08/22/2024 6:00 AM EDT 08/22/2024 6:36 AM EDT us Wilbert Leonard MD LAB BLOOD ORDERABLES Final Resul t Performing Organization Address [facility] de Phone Number [facility] [address] [place] [address], [place] [phone] * (ABNORMAL) Ammonia (08/22/2024 6:00 AM EDT) Ammonia 41(H) 11 - 35 mcmol/L LAB CHEMISTRY METHOD 08/22/2024 7:38 AM EDT [facility] Blood Venous blood specimen / Unknown 08/22/2024 6:00 AM EDT 08/22/2024 6:36 AM EDT us Wilbert Leonard MD LAB BLOOD ORDERABLES Final Resul t Performing Organization Address [facility] de Phone Number [facility] [address] [place] [address], [place] [phone] * Valproic acid level, total (08/22/2024 6:00 AM EDT) Valproic Acid, Total 77 50 - 100 mcg/mL LAB CHEMISTRY METHOD 08/22/2024 7:31 AM EDT [facility] Blood Venous blood specimen / Unknown 08/22/2024 6:00 AM EDT 08/22/2024 6:36 AM EDT us Wilbert Leonard MD LAB BLOOD ORDERABLES Final Resul t Performing Organization Address City/[facility]/ZIP Co de Phone Number [facility] [address] [place] [address], [place] [phone] * (ABNORMAL) Thyroid stimulating hormone (08/22/2024 6:00 AM EDT) TSH 4.41(H) 0.40 - 4.00 mcIU/mL LAB CHEMISTRY METHOD 08/22/2024 4:45 PM EDT [facility] Blood Venous blood specimen / Unknown 08/22/2024 6:00 AM EDT 08/22/2024 6:36 AM EDT Wilbert Leonard MD LAB BLOOD ORDERABLES Final Resul t [facility] [address] [place] [address], [place] [phone] * (ABNORMAL) Lipid panel with reflex to direct LDL (08/22/2024 6:00 AM EDT) Pathologist [facility] Cholesterol 96 0 - 200 mg/dL LAB CHEMISTRY METHOD 08/22/2024 7:[facility] Triglycerides 163(H) 0 - 150 mg/dL LAB CHEMISTRY METHOD 08/22/2024 7:31 AM [facility] HDL 31(L) >=40 mg/dL LAB CHEMISTRY METHOD 08/22/2024 7:31 AM EDT [facility] LDL Calculated 32 0 - 100 mg/dL LAB CHEMISTRY METHOD 08/22/2024 7:31 AM [facility] VLDL Cholesterol Marshall 32.6 mg/dL LAB CHEMISTRY METHOD 08/22/2024 7:31 AM EDT [facility] Non HDL Chol. (LDL+VLDL) 65 <145 mg/dL LAB CHEMISTRY METHOD 08/22/2024 7:31 AM [facility] Chol/HDL Ratio 3.1 0.0 - 4.4 LAB CHEMISTRY METHOD 08/22/2024 7:31 AM EDT [facility] Blood Venous blood specimen / Unknown 08/22/2024 6:00 AM EDT 08/22/2024 6:36 AM EDT us Wilbert Loenard MD LAB BLOOD ORDERABLES Final Resul t [facility] [address] [place] [address], documented in this encounter Visit Diagnoses Diagnosis Bipolar disorder, current episode mixed, severe, with psychotic features (CMS/HCC) documented in this encounter Care Teams Fuel Yard Operator Relationship Specialty Start Date End Date Wilbert Leonard MD [address] [place] [address] Dr [address] [place], [place] PCP - General Internal Medicine 07/18/24 documented as of this encounter
--- OUTSIDE RECORDS SUMMARY | 2024-08-23 15:04 | XMS_ITS | Encounter Summary ---
Author Organization [facility] Address [address] [place] [address] Care Team Providers Care Donor Services Specialist Name Role Phone Wilbert Leonard MD Primary Care Provider [phone] Encounter Details Date Type Department Care Team (Late st Contact Info) Description 05/28/2024 Lab Requisition [facility] - Main Lab 299 [facility] [place] [address] Wilbert Leonard MD [address] [place] [address] [address] [place], [place] Unspecified intracranial injury with loss of [...] * Thyroxine free (05/28/2024 6:35 AM EST) [facility] Signature Free T4 1.07 0.70 - 1.80 ng/dL LAB CHEMISTRY METHOD 05/28/2024 7:42 AM EST [facility] Blood Venous blood specimen / Unknown 05/28/2024 6:35 AM EST 05/28/2024 7:07 AM EST us Wilbert Leonard MD LAB BLOOD ORDERABLES Final Resul t Performing Organization Address [facility]/ZIP Co de Phone Number [facility] [address] [place] [address], [place] [phone] * Thyroid stimulating hormone (05/28/2024 6:35 AM EST) TSH 1.55 0.40 - 4.00 mcIU/mL LAB CHEMISTRY METHOD 05/28/2024 7:43 AM EST [facility] Blood Venous blood specimen / Unknown 05/28/2024 6:35 AM EST 05/28/2024 7:07 AM EST us Wilbert Leonard MD LAB BLOOD ORDERABLES Final Resul t Performing Organization Address [facility] Co de Phone Number [facility] [address] [place] [address], [place] [phone] * Valproic acid level, total (05/28/2024 6:35 AM EST) Valproic Acid, Total 70 50 - 100 mcg/mL LAB CHEMISTRY METHOD 05/28/2024 7:33 AM EST [facility] Blood Venous blood specimen / Unknown 05/28/2024 6:35 AM EST 05/28/2024 7:07 AM EST us Wilbert Leonard MD LAB BLOOD ORDERABLES Final Resul t Performing Organization Address City/[facility]/ZIP Co de Phone Number [facility] [address] [place] [address], [place] [phone] documented in this encounter Visit Diagnoses Diagnosis Unspecified intracranial injury with loss of consciousness of unspecified duration, sequela (CMS/HCC) documented in this encounter Additional Health Concerns Infection Onset Date Last Indicated Resolved Time Respiratory Rule-Out 07/12/2024 07/12/2024 025 11:53 PM EST documented as of this encounter Care Teams Donor Services Specialist Relationship Specialty Start Date End Date Wilbert Leonard MD [address] [place] [address] Dr [address] [place] PCP - General Internal Medicine 07/18/24 documented as of this encounter
--- OUTSIDE RECORDS SUMMARY | 2024-08-23 15:04 | XMS_ITS | Encounter Summary ---
[facility] Address [address] [place] [address] Care Team Providers Care Continuity Person Name Role Phone Wilbert Leonard MD Primary Care Provider [phone] Encounter Details Date Type Department Care Team (Late st Contact Info) Description 07/25/2024 Lab Requisition [facility] Lab [address] [place] [address] Wilbert Leonard MD [address] [place] [address] [address] [place], [place] Urinary tract infection, site not specified [...] reflex microscopic (07/25/2024 5:40 AM EST) Specific [place] Urine 1.030 1.003 - 1.030 LAB URINALYSIS - AUTOMATED METHOD 07/25/2024 8:42 AM EST [facility] pH, Urine 6.5 5.0 - 8.0 pH LAB URINALYSIS - AUTOMATED METHOD 07/25/2024 8:42 AM EST [facility] Leukocytes, Urine Trace(A) Negative LAB URINALYSIS - AUTOMATED METHOD 07/25/2024 8:42 AM [facility] Nitrite, Urine Negative Negative LAB URINALYSIS - AUTOMATED METHOD 07/25/2024 8:42 AM [facility] Protein, Urine Trace <=Trace mg/dL LAB URINALYSIS - AUTOMATED METHOD 07/25/2024 8:42 AM [facility] Glucose, Urine Negative Negative mg/dL LAB URINALYSIS - AUTOMATED METHOD 07/25/2024 8:42 AM [facility] Ketones, Urine Trace(A) Negative mg/dL LAB URINALYSIS - AUTOMATED METHOD 07/25/2024 8:42 AM [facility] Urobilinogen , Urine 1.0 0.2 - 1.0 mg/dL LAB URINALYSIS - AUTOMATED METHOD 07/25/2024 8:42 AM [facility] Bilirubin, Urine Negative Negative LAB URINALYSIS - AUTOMATED METHOD 07/25/2024 8:42 AM [facility] Blood, Urine Negative Negative LAB URINALYSIS - AUTOMATED METHOD 07/25/2024 8:42 AM [facility] RBC, Urine 0.0 0 - 4 /HPF LAB URINALYSIS - AUTOMATED METHOD 07/25/2024 8:42 AM [facility] WBC, Urine 15.9(H) 0 - 4 /HPF LAB URINALYSIS - AUTOMATED METHOD 07/25/2024 8:42 AM [facility] Squamous Epithelial, Urine 80(H) 0 - 60 /LPF LAB URINALYSIS - AUTOMATED METHOD 07/25/2024 8:42 AM [facility] Non-Squamous Epithelial, Urine 2-5 Transitional epithelial cells. /LPF LAB URINALYSIS - AUTOMATED METHOD 07/25/2024 8:42 AM [facility] Bacteria, Urine Negative Negative /HPF LAB URINALYSIS - AUTOMATED METHOD 07/25/2024 8:42 AM [facility] Hyaline Casts, Urine 4.4(H) 0 - 3 /LPF LAB URINALYSIS - AUTOMATED METHOD 07/25/2024 8:42 AM EST [facility] Mucus, Urine Small None /HPF LAB URINALYSIS - AUTOMATED METHOD 07/25/2024 8:42 AM EST [facility] Urine Urine specimen obtained by clean catch procedure / Unknown 07/25/2024 5:40 AM EST 07/25/2024 8:06 AM EST us Wilbert Leonard MD LAB URINE ORDERABLES Final Resul t [facility] [address] [place] [address], documented in this encounter Visit Diagnoses Diagnosis Urinary tract infection, site not specified documented in this encounter Care Teams Continuity Person Relationship Specialty Start Date End Date Wilbert Leonard MD [address] [place] [address] Dr [address] [place], [place] PCP - General Internal Medicine 07/18/24 documented as of this encounter
--- OUTSIDE RECORDS SUMMARY | 2024-08-23 15:04 | XMS_ITS | Encounter Summary ---
Author Organization [facility] Address [address] [place] [address] Care Team Providers Care Television Audio Engineer Name Role Phone Wilbert Leonard MD Primary Care Provider [phone] Encounter Details Date Type Department Care Team (Late st Contact Info) Description 07/13/2024 Lab Requisition [facility] - Main Lab [address] [facility] [place] [address] Wilbert Leonard MD [address] [place] [address] [address] [place], [place] Cough, unspecified; Altered mental status, unspecified [...] CBC auto differential (07/13/2024 7:30 AM EST) [facility] WBC 12.8(H) 4.8 - 10.8 K/mcL LAB HEMETOLOGY METHOD 07/13/2024 8:10 AM [facility] RBC 3.70(L) 3.80 - 4.80 M/mcL LAB HEMETOLOGY METHOD 07/13/2024 8:10 AM [facility] LAB Hemoglobin 10.7(L) 11.5 - 16.0 g/dL LAB HEMETOLOGY METHOD 07/13/2024 8:10 AM [facility] LAB Hematocrit 35.1 35.0 - 47.0 % LAB HEMETOLOGY METHOD 07/13/2024 8:10 AM [facility] MCV 94.9 79.0 - 98.0 FL LAB HEMETOLOGY METHOD 07/13/2024 8:10 AM [facility] LAB MCH 28.9 27.0 - 32.0 pcg LAB HEMETOLOGY METHOD 07/13/2024 8:10 AM [facility] LAB MCHC 30.5(L) 32.0 - 37.0 g/dL LAB HEMETOLOGY METHOD 07/13/2024 8:10 AM [facility] RDW 15.6(H) 11.0 - 15.0 % LAB HEMETOLOGY METHOD 07/13/2024 8:10 AM [facility] Platelets 210 130 - 400 K/mcL LAB HEMETOLOGY METHOD 07/13/2024 8:10 AM [facility] LAB MPV 10.7 7.0 - 11.0 FL LAB HEMETOLOGY METHOD 07/13/2024 8:10 AM [facility] NRBC 0.2 <1.0 % LAB HEMETOLOGY METHOD 07/13/2024 8:10 AM [facility] LAB NRBC Absolute 0.02 <0.10 K/mcL LAB HEMETOLOGY METHOD 07/13/2024 8:10 AM [facility] Neutrophils Relative 72.7 % LAB HEMETOLOGY METHOD 07/13/2024 8:10 AM [facility] Lymphocytes Relative 13.7 % LAB HEMETOLOGY METHOD 07/13/2024 8:10 AM [facility] Monocytes Relative 10.3 % LAB HEMETOLOGY METHOD 07/13/2024 8:10 AM [facility] Eosinophils Relative 0.8 % LAB HEMETOLOGY METHOD 07/13/2024 8:10 AM [facility] Basophils Relative 0.4 % LAB HEMETOLOGY METHOD 07/13/2024 8:10 AM [facility] Immature Granulocytes Relative 2.1 % LAB HEMETOLOGY METHOD 07/13/2024 8:10 AM [facility] Neutrophils Absolute 9.34(H) 1.50 - 7.00 K/mcL LAB HEMETOLOGY METHOD 07/13/2024 8:10 AM [facility] Lymphocytes Absolute 1.76 1.00 - 5.00 K/mcL LAB HEMETOLOGY METHOD 07/13/2024 8:10 AM [facility] Monocytes Absolute 1.32(H) 0.20 - 1.00 K/mcL LAB HEMETOLOGY METHOD 07/13/2024 8:10 AM [facility] Eosinophils Absolute 0.10 0.00 - 0.50 K/mcL LAB HEMETOLOGY METHOD 07/13/2024 8:10 AM [facility] Basophils Absolute 0.05 0.00 - 0.20 K/mcL LAB HEMETOLOGY METHOD 07/13/2024 8:10 AM [facility] Immature Granulocytes Absolute 0.27(H) 0.00 - 0.03 K/mcL LAB HEMETOLOGY METHOD 07/13/2024 8:10 AM [facility] Blood Venous blood specimen / Unknown 07/13/2024 7:30 AM EST 07/13/2024 8:00 AM EST us Wilbert Leonard MD LAB BLOOD ORDERABLES Final Resul t Performing Organization Address [facility] de Phone Number [facility] LAB [address] [place] [address], [place] [phone] * (ABNORMAL) Ammonia (07/13/2024 7:30 AM EST) Ammonia 52(H) 11 - 35 mcmol/L LAB CHEMISTRY METHOD 07/13/2024 8:27 AM EST [facility] Comment:Hemolysis present Blood Venous blood specimen / Unknown 07/13/2024 7:30 AM EST 07/13/2024 8:00 AM EST us Wilbert Leonard MD LAB BLOOD ORDERABLES Final Resul t Performing Organization Address [facility] de Phone Number [facility] [address] [place] [address], [place] [phone] * Thyroid stimulating hormone with reflex to free t4 and free t3 (07/13/2024 7:30 AM EST) TSH 1.93 0.40 - 4.00 mcIU/mL LAB CHEMISTRY METHOD 07/13/2024 10:39 AM EST [facility] Blood Venous blood specimen / Unknown 07/13/2024 7:30 AM EST 07/13/2024 8:00 AM EST us Wilbert Leonard MD LAB BLOOD ORDERABLES Final Resul t Performing Organization Address [facility] de Phone Number [facility] [address] [place] [address], [place] [phone] * (ABNORMAL) Comprehensive metabolic panel (07/13/2024 7:30 AM EST) Sodium 138 133 - 145 mmol/L LAB CHEMISTRY METHOD 07/13/2024 8:34 AM [facility] Potassium 4.2 3.5 - 5.5 mmol/L LAB CHEMISTRY METHOD 07/13/2024 8:34 AM [facility] Chloride 99 96 - 110 mmol/L LAB CHEMISTRY METHOD 07/13/2024 8:34 AM [facility] CO2 35(H) 21 - 32 mmol/L LAB CHEMISTRY METHOD 07/13/2024 8:34 AM [facility] Anion Gap 4 3 - 11 LAB CHEMISTRY METHOD 07/13/2024 8:34 AM [facility] Glucose 83 70 - 100 mg/dL LAB CHEMISTRY METHOD 07/13/2024 8:34 AM [facility] BUN 12 5 - 25 mg/dL LAB CHEMISTRY METHOD 07/13/2024 8:34 AM [facility] Creatinine 0.52 0.50 - 1.10 mg/dL LAB CHEMISTRY METHOD 07/13/2024 8:34 AM [facility] eGFR 108 >=60 mL/min/1. 73m2 LAB CHEMISTRY METHOD 07/13/2024 8:34 AM [facility] LAB Comment:Calculation based on the??Chronic Kidney Disease Epidemiology Collaboration (CKD-EPI) equation refit??without adjustment for race. BUN/Creatinine Ratio 23.1 LAB CHEMISTRY METHOD 07/13/2024 8:34 AM [facility] Calcium 8.0(L) 8.5 - 10.5 mg/dL LAB CHEMISTRY METHOD 07/13/2024 8:34 AM [facility] AST (SGOT) 20 10 - 42 unit/L LAB CHEMISTRY METHOD 07/13/2024 8:34 AM [facility] ALT (SGPT) 11 10 - 60 unit/L LAB CHEMISTRY METHOD 07/13/2024 8:34 AM [facility] Alkaline Phosphatase 70 42 - 121 unit/L LAB CHEMISTRY METHOD 07/13/2024 8:34 AM EST [facility] Total Protein 6.8 6.0 - 8.0 g/dL LAB CHEMISTRY METHOD 07/13/2024 8:34 AM EST [facility] Albumin 2.4(L) 3.2 - 5.0 g/dL LAB CHEMISTRY METHOD 07/13/2024 8:34 AM [facility] Total Bilirubin 0.4 0.0 - 1.4 mg/dL LAB CHEMISTRY METHOD 07/13/2024 8:34 AM EST [facility] Blood Venous blood specimen / Unknown 07/13/2024 7:30 AM EST 07/13/2024 8:00 AM EST us Wilbert Leonard MD LAB BLOOD ORDERABLES Final Resul t [facility] [address] [place] [address], documented in this encounter Visit Diagnoses Diagnosis Cough, unspecified Altered mental status, unspecified documented in this encounter Care Teams Television Audio Engineer Relationship Specialty Start Date End Date Wilbert Leonard MD [address] [place] [address] Dr [facility] GIDEON Paulson PCP - General Internal Medicine 07/18/24 documented as of this encounter
== END 2024-08-23 12:06 | disposition home or self-care (01) ==
LOC: HO.HPS 11:39
PROVIDERS: PCP Hospitalist; Visit Provider Internal Medicine Pulmonary Disease
DX: Z99.81 Dependence on supplemental oxygen (principal); J44.9 Chronic obstructive pulmonary disease, unspecified; R93.89 Abnormal findings on diagnostic imaging of other specified body structures
CPT/HCPCS: 99214; G2211

== ENCOUNTER → 2024-08-23 11:38 | Outpatient (BNVA) | payer MEDICARE, SELFPAY | PROVIDERS: PCP Hospitalist; Visit Provider Internal Medicine Pulmonary Disease | DX: J44.9 Chronic obstructive pulmonary disease, unspecified (principal); J18.9 Pneumonia, unspecified organism; F17.210 Nicotine dependence, cigarettes, uncomplicated; R93.89 Abnormal findings on diagnostic imaging of other specified body structures; Z99.81 Dependence on supplemental oxygen | CPT/HCPCS: 99212 ==

== ENCOUNTER 2024-11-28 07:56 | Outpatient (REF) | payer MEDICARE, SELFPAY ==
--- NOTE | ~2024-11-28 | CT_ITS ---
CLINICAL HISTORY: J18.9 - Pneumonia, unspecified organism CT chest without IV contrast. COMPARISON: CT chest dated 07/29/24 at 17:03 EST FINDINGS: No supraclavicular or axillary lymphadenopathy. Ascending aorta and main pulmonary artery are normal in caliber. Coronary artery calcifications present within the LAD. Mitral annular calcifications. Euuxq-bs-hswieich hiatal hernia. No mediastinal lymphadenopathy. No pleural effusion. Multifocal tree-in-bud nodularity primarily within the mid to lower lungs. Linear atelectasis versus scarring along the posterior right upper lung. Trachea and central airways are clear. Mild bronchial wall thickening. No bronchiectasis. Visualized portions of the upper abdomen are unremarkable. Chronic anterior wedge compression fracture of the T6 vertebral body with approximately 50 percent height loss, stable. No acute fracture. IMPRESSION: 1. Multifocal tree-in-bud nodularity with bronchial wall thickening consistent with a multifocal pneumonia including atypical/viral infections. 2. Ipamw-zr-kixlzcbr hiatal hernia. 3. Coronary artery atherosclerosis. This document has been electronically signed by: Des Monroe MD on 11/28/2024 16:03:23
--- OUTSIDE RECORDS SUMMARY | 2024-11-28 08:03 | XMS_ITS | Encounter Summary ---
Author Organization [facility] Address [address] [place] [address] Care Team Providers Care Railroad Car Inspector Name Role Phone Wilbert Leonard MD Primary Care Provider [phone] Encounter Details Date Type Department Care Team (Late st Contact Info) Description 07/25/2024 Lab Requisition [facility] Lab [address] [facility] [place] [address] Wilbert Leonard MD [address] [place] [address] [address] [place], [place] Urinary tract infection, site not specified [...] reflex microscopic (07/25/2024 5:40 AM EST) Specific [place] Urine 1.030 1.003 - 1.030 LAB URINALYSIS - AUTOMATED METHOD 07/25/2024 8:42 AM EST [facility] pH, Urine 6.5 5.0 - 8.0 pH LAB URINALYSIS - AUTOMATED METHOD 07/25/2024 8:42 AM EST [facility] Leukocytes, Urine Trace(A) Negative LAB URINALYSIS - AUTOMATED METHOD 07/25/2024 8:42 AM [facility] Nitrite, Urine Negative Negative LAB URINALYSIS - AUTOMATED METHOD 07/25/2024 8:42 AM [facility] Protein, Urine Trace <=Trace mg/dL LAB URINALYSIS - AUTOMATED METHOD 07/25/2024 8:42 AM [facility] Glucose, Urine Negative Negative mg/dL LAB URINALYSIS - AUTOMATED METHOD 07/25/2024 8:42 AM [facility] Ketones, Urine Trace(A) Negative mg/dL LAB URINALYSIS - AUTOMATED METHOD 07/25/2024 8:42 AM [facility] Urobilinogen , Urine 1.0 0.2 - 1.0 mg/dL LAB URINALYSIS - AUTOMATED METHOD 07/25/2024 8:42 AM [facility] Bilirubin, Urine Negative Negative LAB URINALYSIS - AUTOMATED METHOD 07/25/2024 8:42 AM [facility] Blood, Urine Negative Negative LAB URINALYSIS - AUTOMATED METHOD 07/25/2024 8:42 AM [facility] RBC, Urine 0.0 0 - 4 /HPF LAB URINALYSIS - AUTOMATED METHOD 07/25/2024 8:42 AM [facility] WBC, Urine 15.9(H) 0 - 4 /HPF LAB URINALYSIS - AUTOMATED METHOD 07/25/2024 8:42 AM [facility] Squamous Epithelial, Urine 80(H) 0 - 60 /LPF LAB URINALYSIS - AUTOMATED METHOD 07/25/2024 8:42 AM [facility] Non-Squamous Epithelial, Urine 2-5 Transitional epithelial cells. /LPF LAB URINALYSIS - AUTOMATED METHOD 07/25/2024 8:42 AM [facility] Bacteria, Urine Negative Negative /HPF LAB URINALYSIS - AUTOMATED METHOD 07/25/2024 8:42 AM [facility] Hyaline Casts, Urine 4.4(H) 0 - 3 /LPF LAB URINALYSIS - AUTOMATED METHOD 07/25/2024 8:42 AM EST [facility] Mucus, Urine Small None /HPF LAB URINALYSIS - AUTOMATED METHOD 07/25/2024 8:42 AM EST [facility] Urine Urine specimen obtained by clean catch procedure / Unknown 07/25/2024 5:40 AM EST 07/25/2024 8:06 AM EST us Wilbert Leonard MD LAB URINE ORDERABLES Final Resul t [facility] [address] [place] [address], documented in this encounter Visit Diagnoses Diagnosis Urinary tract infection, site not specified documented in this encounter Care Teams Railroad Car Inspector Relationship Specialty Start Date End Date Wilbert Leonard MD [address] [place] [address] Dr [address] [place], [place] PCP - General Internal Medicine 07/18/24 documented as of this encounter
== END 2024-11-28 07:57 | disposition home or self-care (01) ==
LOC: HO.CT 07:56
PROVIDERS: PCP Hospitalist; Visit Provider Internal Medicine Pulmonary Disease
DX: J18.9 Pneumonia, unspecified organism (principal)
CPT/HCPCS: 71250

== ENCOUNTER → 2024-11-28 07:57 | Outpatient (BNV) | payer MEDICARE, SELFPAY | PROVIDERS: PCP Hospitalist; Visit Provider Radiology Diagnostic Radiology | DX: I25.10 Atherosclerotic heart disease of native coronary artery without angina pectoris (principal); J98.09 Other diseases of bronchus, not elsewhere classified; K44.9 Diaphragmatic hernia without obstruction or gangrene; R91.1 Solitary pulmonary nodule | CPT/HCPCS: 71250 ==

== ENCOUNTER 2025-04-09 09:35 | Outpatient (AMB) | payer MEDICARE, MEDICAID, SELFPAY ==
--- NOTE | 2025-04-09 09:43 | MHC.OFFVIS ---
Vital Signs 04/09/25 09:46 Height 4 ft 11 in Weight 110 lb BMI 22.2 BP 96/60 Blood Pressure Location Rt brachial Position Sitting Pulse 100 Pulse Source Pulse Oximeter Pulse Oximetry (%) 83 L Oxygen Delivery Method Room Air Intake Visit Reasons: COPD Allergies erythromycin base Adverse Reaction (Unknown, Verified 04/09/25 09:47) Unknown moxifloxacin Adverse Reaction (Unknown, Verified 04/09/25 09:47) Unknown prednisone Adverse Reaction (Unknown, Verified 04/09/25 09:47) Unknown pregabalin Adverse Reaction (Unknown, Verified 04/09/25 09:47) Unknown HPI HPI COPD: Details: 59-year-old lady, recent 30+ pack-year smoker, quit some 2024 followed for underlying supplemental oxygen dependent COPD and abnormal CT chest. She continues to use albuterol MDI, duo nebs, and Stiolto with reasonable control of her symptoms. She did have follow-up CT chest in November of 2024 showed improving bilateral patchy opacities. She denies recent exacerbations. She is now a resident at [facility]. ON LICENSE OF [facility] Medical History (Updated 08/27/24 @ 00:02 by Brennon Krishna) COPD (chronic obstructive pulmonary disease) Bipolar 1 disorder Hyperlipidemia CAD (coronary artery disease) Thrombocytopenia GERD (gastroesophageal reflux disease) Pneumonia Diverticulitis Social History Household Members: Other Household Members Other:: SNF Housing: Retirement Do you presently have visiting nurse or other home services: No Patient Tobacco Use Status: Tobacco use Unknown Tobacco use type: Cigarette Cigarettes Per Day: 4 Advance Directives Date on File: 07/30/24 service: No Review of Systems Const Denies daytime sleepiness, Denies excessive sweating, Denies fatigue, Denies fever(s), Denies lethargy, Denies malaise, Denies night sweats, Denies snoring and Denies weight loss Eyes Denies blurry vision and Denies itchy eyes ENT Denies nasal congestion, Denies post nasal drip, Denies sinus pain, Denies sinus pressure and Denies other ( Thrush) Card Denies chest pain, Denies pedal edema, Denies dyspnea, Denies orthopnea and Denies paroxysmal nocturnal dyspnea Resp Denies cough, Denies hemoptysis, Denies excessive phlegm production, Denies dyspnea, Denies snoring and Denies wheezing GI Denies abdominal pain and Denies heartburn Musc Denies myalgias, Denies arthralgias and Denies joint swelling Skin/Breast Denies rash Neuro Denies memory loss and Denies seizure-like activity Psych Denies abnormal sleep pattern, Denies anxiety and Denies memory loss Endo Denies excessive sweating, Denies fatigue and Denies heat intolerance Manuel/Lymph Denies easy bruising Aller/Immun Denies itchy eyes, Denies seasonal rhinorrhea and Denies wheezing Physical Exam Vital Signs: Last Vital Signs Pulse 100 04/09/25 09:46 BP 96/60 04/09/25 09:46 Pulse Ox 83 L 04/09/25 09:46 Oxygen Delivery Method Room Air 04/09/25 09:46 BMI result Body Mass Index 22.2 Const General: no acute distress and alert Nutritional Appearance: not obese Orientation/consciousness: Other orientation findings ( oriented) HEENT Head: Yes atraumatic Eyes General: appearance normal, both eyes and all related structures Sclerae: sclerae normal EOM: EOMs intact bilaterally Neck Neck: Yes supple Lymphatic: no lymphadenopathy noted Resp Effort & Inspection: normal respiratory effort and no use of accessory muscles Auscultation: clear to auscultation bilaterally Cardio Rate: regular rate Rhythm: regular rhythm Heart sounds: no gallops, no murmurs and no rubs Skin General skin exam: other ( warm) Extrem General: No clubbing, No cyanosis and No edema Assessment & Plan Assessment & Plan (1) COPD (chronic obstructive pulmonary disease): Code(s): J44.9 - Chronic obstructive pulmonary disease, unspecified Category: Medical Plan: Well controlled on Stiolto, duo nebs, and albuterol MDI. Continue current regimen. (2) Supplemental oxygen dependent: Code(s): Z99.81 - Dependence on supplemental oxygen Category: Medical Plan: Continue supplemental oxygen to maintain O2 saturation of 89-93%. (3) Abnormal CT scan, chest: Code(s): R93.89 - Abnormal findings on diagnostic imaging of other specified body structures Category: Medical Plan: Results of follow-up CT chest from 11/30/2024 reviewed and improving patchy infiltrates noted, will repeat CT chest in 6 months from prior, ordered. Orders: Orders CT chest wo IV con 05/30/25 R93.89 - Abnormal findings on diagnostic imaging of other specified body structures Coding Level of Care Code Est Pt Level 4 (00407) Complex EM visit Add On G2211 Diagnoses COPD (chronic obstructive pulmonary disease) J44.9 Supplemental oxygen dependent Z99.[address] scan, chest R93.89
[2025-04-09 09:46] VITALS: BP 96/60; PULSE 100; O2SAT 83; BMI 22.2
== END 2025-04-09 10:09 | disposition home or self-care (01) ==
PROVIDERS: PCP Hospitalist; Visit Provider Internal Medicine Pulmonary Disease
DX: J44.9 Chronic obstructive pulmonary disease, unspecified (principal); Z99.81 Dependence on supplemental oxygen; R93.89 Abnormal findings on diagnostic imaging of other specified body structures
CPT/HCPCS: 99214; G2211

== ENCOUNTER → 2025-04-09 09:35 | Outpatient (BNVA) | payer MEDICARE, MEDICAID, SELFPAY | PROVIDERS: PCP Hospitalist; Visit Provider Internal Medicine Pulmonary Disease | DX: R93.89 Abnormal findings on diagnostic imaging of other specified body structures (principal); J44.9 Chronic obstructive pulmonary disease, unspecified; Z99.81 Dependence on supplemental oxygen | CPT/HCPCS: 99212 ==

== ENCOUNTER 2025-04-11 09:02 | Emergency (ER) | payer MEDICARE, MEDICAID, SELFPAY ==
--- NOTE | ~2025-04-11 | CT_ITS ---
EXAMINATION: CT CHEST ANGIOGRAPHY WITH IV CONTRAST INDICATION: SOB, hypoxia, concern for PE COMPARISON: Previous chest CT most recent July and November 2024 TECHNIQUE: Helical CT scan of the chest was performed following administration of intravenous contrast (65 mL Omnipaque 350). The contrast bolus was timed to optimally opacify the pulmonary arteries. Thin sections were obtained through the pulmonary arteries. Coronal and sagittal reformatted images were generated. 3D/MIP reconstructed images are also obtained and reviewed. This CT exam was performed with one or more of the following dose reduction techniques: automated exposure control, adjustment of the mA and/or kV according to patient size, use of iterative reconstruction technique. DLP: 218 mGy-cm CHEST: THYROID: No nodule. PULMONARY ARTERIES: No intraluminal filling defects are identified within the pulmonary arteries to suggest pulmonary emboli. Pulmonary arteries are normal in size and main pulmonary artery measuring 2.3 cm. No evidence of right heart strain or reflux of contrast into the liver. LUNGS: Limited evaluation due to artifact from respiratory motion. Increased groundglass attenuation and patchy nodular opacities in the posterior segment of the right upper lobe. Largest nodule or nodular opacity measures 7 mm axial image 51 series 6. This is new from recent November 2024 exam. Previously identified nodular opacities in the right upper lobe are no longer seen or appearing improved. Waxing and waning appearance suggests an infectious or inflammatory process. Bilateral lower lobe bronchial wall thickening. Groundglass attenuation and consolidation in the bilateral lower lobes and to a lesser extent the right middle lobe suggestive of pneumonitis/pneumonia. MEDIASTINUM: Moderate size esophageal hernia. Patulous appearing proximal thoracic esophagus. This contains dependent debris. Potential aspiration should be considered. BRYAN: There is no hilar lymphadenopathy. CARDIOVASCULATURE: The heart is normal in size. There is no pericardial effusion. The thoracic aorta is normal in caliber. 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 DEGREE OF CORONARY CALCIFICATION: mild PLEURA: There is no pleural effusion. No pneumothorax. MAIN AIRWAYS: The mainstem bronchi and proximal branches are patent. AXILLA: There is no axillary lymphadenopathy. UPPER ABDOMEN: The visualized portions of the liver, spleen, and adrenals are unremarkable. BONES AND SOFT TISSUES: Degenerative changes of the spine. Loss of height of the T6 vertebral body questionable for mild compression fracture versus Schmorl's node. This is unchanged from prior exams. CT/CT angio chest PE protocol IMPRESSION: No evidence of pulmonary emboli. New bronchial wall thickening and mixed groundglass attenuation and consolidation in both lower lobes and to lesser extent right middle lobe probably representing pneumonia/pneumonitis. Increased groundglass attenuation in the posterior segment of the right upper lobe. Waxing and waning appearance of right upper lobe nodules or nodular opacities. This probably represents an infectious or inflammatory process as well. Moderate esophageal hernia. Patulous appearing proximal thoracic esophagus with food debris. Consider potential aspiration. Electronically signed by: Katharina Green MD 04/11/2025 11:03 AM EDT
--- NOTE | ~2025-04-11 | XR_ITS ---
EXAMINATION: XR CHEST CLINICAL INFORMATION: chest pain COMPARISON: August 16, 2024. Correlated to CT chest dated November 28, 2024. TECHNIQUE: Frontal view of the chest was obtained. FINDINGS: Hyperinflated lungs. Pulmonary reticular nodular pattern with confluent opacity left lower hemithorax. Blunting of the right costophrenic angle. No pneumothorax. Cardiomediastinal silhouette size is normal. Calcified plaque thoracic aorta. Multilevel spondylosis. Osteopenia versus osteoporosis. Degenerative changes in the left shoulder. XR/XR chest 1V IMPRESSION: Acute on chronic airspace disease and bilateral pleural effusions, small volume. Electronically signed by: Venkatesh Hunter MD 04/11/2025 09:55 AM EDT
--- NOTE | 2025-04-11 09:10 | ED_ITS ---
HPI - General Adult General Chief complaint: Chest Pain Stated complaint: ESAU CP SINCE MIDNIGHT PER MS Time Seen by Provider: 04/11/25 09:10 Source: patient and EMS Mode of arrival: EMS Limitations: no limitations History of Present Illness ED Provider: Christelle Monae PA-C HPI narrative: This is a 60 yo female who was BIBA to the ED from her SNF for chest pain. She has a history of COPD on supplemental oxygen, CAD, pneumonia, diverticulitis, thrombocytopenia, and bipolar I. Patient is a poor historian. She states that this started with chest pain that awoke her from sleep around 12am last night. Since then, she has been having intermittent episodes of 9/10 twisting left chest pain and now some right-sided chest pain. She believes this chest pain is new. Denies fever, chills. Related Data Home Medications ?Medication ?Instructions ?Recorded ?Confirmed acetaminophen 325 mg tablet 650 mg PO Q6H PRN pain or fever 07/30/24 04/11/25 albuterol sulfate 90 mcg/actuation 2 puff inhalation Q 4H PRN 07/30/24 04/11/25 aerosol inhaler Shortness Of Breath Or Wheez ing aluminum-mag hydroxide-simethicone 30 ml PO Q6H PRN Dy spepsia 07/30/24 04/11/25 200 mg-200 mg-20 mg/5 mL oral susp (Zoraida-Lanta) aspirin 81 mg tablet,delayed 81 mg PO DAILY 07/30/24 1 release atorvastatin 10 mg tablet 10 mg PO BEDTIME 07/30/24 bisacodyl 10 mg rectal suppository 10 mg OK Q24H PRN C onstipation 07/30/24 04/11/25 calcium carbonate 400 mg PO Q4H PRN Indigestio n 07/30/24 04/11/25 cholecalciferol (vitamin D3) 25 50 mcg PO DAILY 04/11/25 mcg (1,000 unit) tablet (Vitamin D3) cyclobenzaprine 10 mg tablet 10 mg PO BID 07/30/24 divalproex 500 mg tablet,extended 500 mg PO BID 04/11/25 release 24 hr (Depakote ER) docusate sodium 100 mg capsule 100 mg PO Q24H PRN Cons tipation 07/30/24 04/11/25 famotidine 20 mg tablet 20 mg PO BEDTIME 07/30/24 ferrous sulfate 325 mg (65 mg 325 mg PO DAILY 07/30/24 04/11/25 iron) tablet guaifenesin 100 mg/5 mL oral 200 mg PO Q4H PRN Cough 0 07/30/24 04/11/25 liquid (Zoraida-Tussin) ipratropium 0.5 mg-albuterol 3 mg 3 ml inhalation Q6H PRN Shortness 07/30/24 04/11/25 (2.5 mg base)/3 mL nebulization Of Breath Or Wheezing soln levothyroxine 112 mcg tablet 112 mcg PO DAILY@62904/11/25 magnesium oxide 400 mg PO BID 07/30/2404/11 ondansetron 8 mg disintegrating 8 mg PO Q8H PRN Nausea And Vomiting 07/30/24 04/11/25 tablet pantoprazole 40 mg tablet,delayed 40 mg PO DAILY@62907/30/24 04/11/25 release prazosin 1 mg capsule 1 mg PO BEDTIME 07/30/24 quetiapine 50 mg tablet,extended 50 mg PO BEDTIME 07/1404/11/25 release 24 hr (Seroquel XR) sennosides 8.6 mg tablet (senna) 8.6 mg PO Q24H PRN Co nstipation 07/30/24 04/11/25 sodium phosphates 19 gram-7 118 ml OK Q24H PRN Constip ation 07/30/24 04/11/25 gram/118 mL enema (Enema) tiotropium 2.5 mcg-olodaterol 2.5 2 puff inhalation DA NERI 07/30/24 04/11/25 mcg/actuation mist for inhalation (Stiolto Respimat) trazodone 50 mg tablet 25 mg PO DAILY 07/30/2403/15 calcium carbonate 500 mg PO DAILY 04/11/25 multivitamin 1 tab PO DAILY 04/11/2503/15 pyridoxine (vitamin B6) 100 mg 100 mg PO DAILY 5 04/11/25 tablet (Vitamin B-6) tramadol 50 mg tablet 50 mg PO Q8H PRN Pain 04/11/25 Allergies Allergy/AdvReac Type Severity Reaction Status Date / Time erythromycin base AdvReac Unknown Unknown Verified 04/11/25 09:30 moxifloxacin AdvReac Unknown Unknown Verified 04/11/25 09:30 prednisone AdvReac Unknown Unknown Verified 04/11/25 09:30 pregabalin AdvReac Unknown Unknown Verified 04/11/25 09:30 Review of Systems 2 Constitutional: Constitutional: Reports as per HPI Eyes: Eyes: Reports as per HPI ENT: Reports as per HPI Cardiovascular: Cardiovascular: Reports as per HPI Respiratory: Respiratory: Reports as per HPI Gastrointestinal: Gastrointestinal: Reports as per HPI Genitourinary: Genitourinary: Reports as per HPI Musculoskeletal: Musculoskeletal: Reports as per HPI Integumentary/Breasts: Skin/Breast: Reports as per HPI Neurologic: Reports as per HPI Psychiatric: Psychiatric: Reports as per HPI Endocrine: Endocrine: Reports as per HPI Hematologic/Lymphatic: Hematologic/Lymphatic: Reports as per HPI Allergic/Immunologic: Allergic/Immunologic: Reports as per HPI [facility] Past Medical History Attestation statement: The following information was validated with the patient. Source: old records reviewed and nursing notes reviewed Medical History COPD (chronic obstructive pulmonary disease) Bipolar 1 disorder Hyperlipidemia CAD (coronary artery disease) Thrombocytopenia GERD (gastroesophageal reflux disease) Pneumonia Diverticulitis Social History Social History Household Members: Other Household Members Other:: SNF Housing: Half-Way Do you presently have visiting nurse or other home services: No Patient Tobacco Use Status: Tobacco use Unknown Tobacco use type: Cigarette Cigarettes Per Day: 4 Advance Directives Date on File: 07/30/24 service: No Physical Exam ED Vital Signs: Vital Signs - 24 hr 04/11/25 09:23 04/11/25 09:51 04/11/25 11:13 Temperature 98.5 F Pulse Rate 96 86 Respiratory Rate 20 16 Blood Pressure 97/58 L 116/84 100/64 Pulse Oximetry 86 L 94 94 Oxygen Delivery Method Nasal Cannula Nasal Cannula Nasal Cannula Oxygen Flow Rate 4 4 04/11/25 13:39 Temperature 0 F L Pulse Rate 86 Respiratory Rate 16 Blood Pressure 100/64 Pulse Oximetry 94 Oxygen Delivery Method Nasal Cannula Oxygen Flow Rate 4 BMI result Body Mass Index 23.3 Const General: alert, awake, ill appearing, tired appearing and other (appears older than stated age) Nutritional Appearance: thin Orientation/consciousness: oriented to person HENMT Head: Yes normal to inspection and Yes atraumatic Ears: hearing grossly normal bilaterally and external ears normal General nose exam: Normal external nose present, no nasal discharge noted and no epistaxis Face and sinus: Yes normal facial exam, No abrasion and No laceration Mouth: Normal oral and palatal mucosa present, no drooling and no muffled voice Eyes General: appearance normal, both eyes and all related structures Periorbital: periorbital findings normal Eyelids: Yes eyelids normal Conjunctivae: conjunctivae normal Pupils: Equal, round and reactive pupils present EOM: EOMs intact bilaterally Neck Neck: Yes normal visual inspection and Yes full ROM Resp Effort & Inspection: able to speak in complete sentences and Actively coughing Quality: wet Auscultation: diminished lung sounds diffuse Neuro General: oriented to person Cranial nerves: Yes Equal, round and reactive pupils present Extrem General: Yes normal to inspection, Yes full ROM and Yes capillary refill normal Psych Appearance: grossly normal Mental Status: mental status grossly normal Affect: normal affect Attitude: cooperative Thought content: Normal thought content present Medications Administered Discontinued Medications Generic Name Dose Route Start Last Admin Trade Name Freq PRN Reason Stop Dose Admin Ceftriaxone Sodium 1 gm/ 50 mls @ 100 mls/hr 04/11/25 10:13 04/11/25 11:51 Sodium Chloride IV 04/11/25 10:42 Infused ONCE ONE Infusion Metronidazole 500 mg in 100 mls @ 100 mls/hr 04/11/25 11:15 04/11/25 13:20 Flagyl IV 04/11/25 12:14 Infused ONCE ONE Infusion Iohexol 100 ml 04/11/25 10:45 04/11/25 10:45 Iohexol 350 Mg/Ml 100 Ml Infus..Btl IV 04/11/25 10:46 65 ml ONCE ONE Administration Medical Decision Making Medical Decision Making MDM Narrative: This is a 60 yo female who was BIBA to the ED from her SNF for chest pain. She has a history of COPD on supplemental oxygen, CAD, pneumonia, diverticulitis, thrombocytopenia, and bipolar I. Patient's physical exam was as noted in the physical exam portion of this note. Patient's blood work showed a slightly increased BNP of 431.8 with a chronically low albumin of 2.9. Patient's EKG was unremarkable. Patient's chest x-ray showed acute on chronic airspace disease and bilateral pleural effusions (small). Patient's CT chest PE study showed a possible aspiration pneumonia. I explained my physical exam findings as well as all test results to the patient. I answered all questions asked by the patient. Patient is a resident of [facility] and under the care of Dr. Leonard, a member of our hospitalist team. I consulted with him on whether the patient should be admitted or not. He stated that given she is her baseline mentation - he would be more comfortable caring for her with ABX + additional staff at her bed side back at [facility] rather than admitted to the hospital. Patient received IV Ceftriaxone + Zofran while in the department. Patient's clinical presentation is not consistent with Sepsis (@1215). Patient verbalized agreement and understanding with this treatment plan and discharge back to [facility]. Differential Diagnosis Differential Diagnoses: The differential diagnosis associated with the presentation includes Pneumonia Hypoxia Admission/Observation Consideration of admission/observation: Escalation of care including admission/observation considered Discussed case and potential for admission with hospitalist Dr. Leonard as noted in the MDM Rationale portion of this note. Consult Healthcare Provider Management of the patient was discussed with: Hospitalist (consulted with Dr. Leonard as noted in the MDM Rationale portion of this note. ) Lab Data [facility] Lab Attestation statement: I reviewed the patient's lab results. My interpretation of these results are in the MDM Rationale portion of this note. 04/11/25 09:47 04/11/25 09:47 Labs: Lab Results 04/11/25 04/11/25 04/11/25 Range/Units 09:47 09:53 11:05 WBC 6.4 (4.8-10.8) X10*3/uL RBC 3.19 L (4.20-5.50) X10*6/uL Hgb 9.0 L (12.0-16.0) g/dl Hct 29.9 L (37.0-47.0) % MCV 93.7 (80.0-98.0) fL MCH 28.2 (27.0-33.0) pg MCHC 30.1 L (31.0-35.0) g/dl RDW 15.9 (11.0-16.0) % Plt Count 175 D (160-400) X10*3/uL MPV 11.0 (9.4-12.3) fL Immature Gran % (Auto) 0.8 H (0.0-0.4) % Neut % (Auto) 72.1 (45-73) % Lymph % (Auto) 14.8 L (20-40) % Dickens % (Auto) 10.3 (2-11) % Eos % (Auto) 1.7 (0-4) % Baso % (Auto) 0.3 (0-2) % Lymph # (Auto) 1.0 L (1.2-4.9) X10*3/uL Dickens # (Auto) 0.7 (0.1-1.2) X10*3/uL Eos # (Auto) 0.1 (0.0-0.4) X10*3/uL Baso # (Auto) 0.0 (0.0-0.2) X10*3/uL Abs Immat Gran (auto) 0.05 H (0.00-0.03) X10*3/uL Absolute Neuts (auto) 4.6 (2.0-8.3) x10*3/uL Absolute Nucleated RBC 0.000 (0.0-0.012) X10*3/uL Nucleated RBC % (auto) 0.0 (0.0-0.2) /100WBC VBG pH 7.55 H (7.32-7.43) VBG pCO2 43 mmHg VBG pO2 50 mmHg VBG HCO3 37 H (22-26) mmol/L VBG O2 Saturation 77.0 % VBG Base Excess 14.2 mmol/L Sodium 139 (135-145) mmol/L Potassium 4.6 D (3.3-5.1) mmol/L Chloride 100 (96-108) mmol/L Carbon Dioxide 33 H (22-29) mmol/L Anion Gap 11 L (12-20) BUN 17 H (9-16) mg/dL Creatinine 0.75 (0.5-1.4) mg/dL Estim Creat Clear Calc 59.8 Estimated GFR > 60 Random Glucose 84 (60-115) mg/dL Lactic Acid 0.9 (0.5-2.0) mmol/L Calcium 8.4 (8.4-10.2) mg/dL Magnesium 1.9 (1.6-2.6) mg/dL Total Bilirubin 0.3 (0.0-1.0) mg/dL AST 41 H (5-31) U/L ALT < 6 (0-31) U/L Alkaline Phosphatase 66 (39-117) U/L Troponin I High Sens < 2.7 (<3.5-17.0) ng/L NT-Pro-B Natriuret Pep 431.8 H (<300) pg/mL Total Protein 7.7 (6.5-8.0) g/dL Albumin 2.9 L (3.5-5.0) g/dL COVID-19 (NESTOR) Negative (Negative) COVID-19 Clin Com See Note Influenza Type A (CL) Negative (Negative) Influenza Type B (CL) Negative (Negative) Influenza A & B Note See Note Independent Interpretation I performed an independent interpretation of an: EKG, Plain X-Ray and CT Scan Interpretation: My interpretation is in agreement with the radiologist's impression of these imaging studies. L Reason for Exam: chest pain EXAMINATION: XR CHEST CLINICAL INFORMATION: chest pain COMPARISON: August 16, 2024. Correlated to CT chest dated November 28, 2024. TECHNIQUE: Frontal view of the chest was obtained. FINDINGS: Hyperinflated lungs. Pulmonary reticular nodular pattern with confluent opacity left lower hemithorax. Blunting of the right costophrenic angle. No pneumothorax. Cardiomediastinal silhouette size is normal. Calcified plaque thoracic aorta. Multilevel spondylosis. Osteopenia versus osteoporosis. Degenerative changes in the left shoulder. XR/XR chest 1V IMPRESSION: Acute on chronic airspace disease and bilateral pleural effusions, small volume. Electronically signed by: Venkatesh Hunter MD 04/11/2025 09:55 AM EDT Dictated By: Venkatesh Briseno MD Signed By: Electronically signed by Venkatesh Gibbons MD 04/11/25 0955 Report Number: [id number]: Total DLP = 218.00 mGy-cm Reason for Exam: SOB, hypoxia, concern for PE EXAMINATION: CT CHEST ANGIOGRAPHY WITH IV CONTRAST INDICATION: SOB, hypoxia, concern for PE COMPARISON: Previous chest CT most recent July and November 2024 TECHNIQUE: Helical CT scan of the chest was performed following administration of intravenous contrast (65 mL Omnipaque 350). The contrast bolus was timed to optimally opacify the pulmonary arteries. Thin sections were obtained through the pulmonary arteries. Coronal and sagittal reformatted images were generated. 3D/MIP reconstructed images are also obtained and reviewed. This CT exam was performed with one or more of the following dose reduction techniques: automated exposure control, adjustment of the mA and/or kV according to patient size, use of iterative reconstruction technique. DLP: 218 mGy-cm CHEST: THYROID: No nodule. PULMONARY ARTERIES: No intraluminal filling defects are identified within the pulmonary arteries to suggest pulmonary emboli. Pulmonary arteries are normal in size and main pulmonary artery measuring 2.3 cm. No evidence of right heart strain or reflux of contrast into the liver. LUNGS: Limited evaluation due to artifact from respiratory motion. Increased groundglass attenuation and patchy nodular opacities in the posterior segment of the right upper lobe. Largest nodule or nodular opacity measures 7 mm axial image 51 series 6. This is new from recent November 2024 exam. Previously identified nodular opacities in the right upper lobe are no longer seen or appearing improved. Waxing and waning appearance suggests an infectious or inflammatory process. Bilateral lower lobe bronchial wall thickening. Groundglass attenuation and consolidation in the bilateral lower lobes and to a lesser extent the right middle lobe suggestive of pneumonitis/pneumonia. MEDIASTINUM: Moderate size esophageal hernia. Patulous appearing proximal thoracic esophagus. This contains dependent debris. Potential aspiration should be considered. BRYAN: There is no hilar lymphadenopathy. CARDIOVASCULATURE: The heart is normal in size. There is no pericardial effusion. The thoracic aorta is normal in caliber. 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 DEGREE OF CORONARY CALCIFICATION: mild PLEURA: There is no pleural effusion. No pneumothorax. MAIN AIRWAYS: The mainstem bronchi and proximal branches are patent. AXILLA: There is no axillary lymphadenopathy. UPPER ABDOMEN: The visualized portions of the liver, spleen, and adrenals are unremarkable. BONES AND SOFT TISSUES: Degenerative changes of the spine. Loss of height of the T6 vertebral body questionable for mild compression fracture versus Schmorl's node. This is unchanged from prior exams. CT/CT angio chest PE protocol IMPRESSION: No evidence of pulmonary emboli. New bronchial wall thickening and mixed groundglass attenuation and consolidation in both lower lobes and to lesser extent right middle lobe probably representing pneumonia/pneumonitis. Increased groundglass attenuation in the posterior segment of the right upper lobe. Waxing and waning appearance of right upper lobe nodules or nodular opacities. This probably represents an infectious or inflammatory process as well. Moderate esophageal hernia. Patulous appearing proximal thoracic esophagus with food debris. Consider potential aspiration. Electronically signed by: Katharina Green MD 04/11/2025 11:03 AM EDT RP Dictated By: Katharina Green MD Signed By: Electronically signed by Katharina Green MD 04/11/25 1103 I independently interpreted this EKG and am in agreement with the below findings: Vent. Rate: 96 BPM Atrial Rate: 96 BPM P-R Int: 146 ms QRS Dur: 90 ms QT Int: 352 ms P-R-T Axes: -14 -8 50 degrees QTcB Int: 444 ms Normal sinus rhythm Septal infarct (cited on or before 16-Aug-2024) When compared with ECG of 16-Aug-2024 10:37, QRS duration has decreased Nonspecific T wave abnormality no longer evident in Lateral leads DD/ 0924 Radiology Impression Discussion of test interpretation with radiology: I have reviewed the radiologist's reading. Independent Historian Clinical information obtained from an independent historian. History obtained from or confirmed by: EMS (EMS provided additional history) and Other ([facility] staff provided additional history) Critical Care Time Critical Care Time Critical Care Time: Yes Total Critical Care Time: 37 Attestation: I spent 37 minutes of Critical Care Time with this patient. This does not include time spent on separately reported billable procedures. Discharge Plan Discharge Clinical Impression: Aspiration pneumonia, Hypoxia Patient Disposition: er SNF Transfer Details: Back to [facility] Instructions: Aspiration Pneumonia (DC), Hypoxia (ED) Additional Instructions: Your doctor, Dr. Leonard, has opted to have you be discharged back to [facility] and treated for your symptoms there. He will handle your care. IF you are prescribed home medications and/or you are taking over the counter medications at home - it is very important you continue to do so as prescribed / directed unless told otherwise. Follow up with your primary care provider. Return to the emergency department immediately if your symptoms worsen or if you develop any numbness, tingling, dizziness, shortness of breath, difficulty breathing, chest pain, blurry vision, loss of vision, nausea, vomiting, abdominal pain, fever, chills, back pain, or any other complaints. Please see the information below about our Patient Portal. If you are not yet enrolled in the [facility] Patient Portal, you will receive an enrollment email invitation following your visit to any [facility] setting. You may also self-enroll in the Patient Portal by visiting our website: [email or web address] The following information is required to access the Patient Portal: - Your [facility] Medical Record Number - Your personal home email address (must match what is in your electronic medical record, Registration staff can assist with this) - Name - Date of Capabilities of the Patient Portal: - Message some providers - View upcoming appointments - Access your health summary, medical history, and visit history - View current conditions and allergies - View procedure and lab results - View your medications, including guidelines, side effects, and precautions - Complete pre-appointment questionnaires requested by your provider - Ready summary reports of your office visits and procedures To access the Patient Portal Mobile [employer], follow these directions: - Search Vyykn in the [employer]mitri Store or Google Sitesimon Store - Download the Dmitri - Search for [facility] - Enter your login/password Prescriptions: No Action cyclobenzaprine 10 mg Tablet 10 mg PO BID sennosides [senna] 8.6 mg Tablet 8.6 mg PO Q24H PRN (Reason: Constipation) acetaminophen 325 mg Tablet 650 mg PO Q6H PRN (Reason: pain or fever) ipratropium-albuterol 0.5 mg-3 mg(2.5 mg base)/3 mL Solution For Nebulization 3 ml INHALATION Q6H PRN (Reason: Shortness Of Breath Or Wheezing) trazodone 50 mg Tablet 25 mg PO DAILY atorvastatin 10 mg Tablet 10 mg PO BEDTIME prazosin 1 mg Capsule 1 mg PO BEDTIME aspirin 81 mg Tablet,Delayed Release (Dr/Ec) 81 mg PO DAILY guaifenesin [Zoraida-Tussin] 100 mg/5 mL Liquid 200 mg PO Q4H PRN (Reason: Cough) ondansetron 8 mg Tablet,Disintegrating 8 mg PO Q8H PRN (Reason: Nausea And Vomiting) famotidine 20 mg Tablet 20 mg PO BEDTIME bisacodyl 10 mg Suppository 10 mg OK Q24H PRN (Reason: Constipation) Rx Instructions: If Senna ineffective pantoprazole 40 mg Tablet,Delayed Release (Dr/Ec) 40 mg PO DAILY@0630 ferrous sulfate 325 mg (65 mg iron) Tablet 325 mg PO DAILY divalproex [Depakote ER] 500 mg Tablet Extended Release 24 Hr 500 mg PO BID calcium carbonate 200 mg calcium (500 mg) Tablet,Chewable 400 mg PO Q4H PRN (Reason: Indigestion) Enema 19-7 gram/118 mL Enema 118 ml OK Q24H PRN (Reason: Constipation) Rx Instructions: If Bisacodyl ineffective docusate sodium 100 mg Capsule 100 mg PO Q24H PRN (Reason: Constipation) alum-mag hydroxide-simeth [Zoraida-Lanta] 200-200-20 mg/5 mL Suspension 30 ml PO Q6H PRN (Reason: Dyspepsia) Rx Instructions: administer between meals and at bedtime albuterol sulfate 90 mcg/actuation Hfa Aerosol Inhaler 2 puff INHALATION Q4H PRN (Reason: Shortness Of Breath Or Wheezing) levothyroxine 112 mcg Tablet 112 mcg PO DAILY@0630 cholecalciferol (vitamin D3) [Vitamin D3] 25 mcg (1,000 unit) Tablet 50 mcg PO DAILY quetiapine [Seroquel XR] 50 mg Tablet Extended Release 24 Hr 50 mg PO BEDTIME Stiolto Respimat 2.5-2.5 mcg/actuation Mist 2 puff INHALATION DAILY magnesium oxide 400 mg magnesium Tablet 400 mg PO BID multivitamin Tablet 1 tab PO DAILY tramadol 50 mg Tablet 50 mg PO Q8H PRN (Reason: Pain) calcium carbonate [Calcium 500] 500 mg calcium (1,250 mg) Tablet 500 mg PO DAILY pyridoxine (vitamin B6) [Vitamin B-6] 100 mg Tablet 100 mg PO DAILY Referrals: Wilbert Leonard DO [Primary Care Provider, Hospitalist] Interventions: ED Discharge Assessment Last Done: 04/11/25 13:39 Discharge Date/Time: 04/11/25 13:40 Print Language: Dutch
--- NOTE | 2025-04-11 09:13 | ECG_ITS ---
Test Reason : CP Blood Pressure : */* mmHG Vent. Rate : 96 BPM Atrial Rate : 96 BPM P-R Int : 146 ms QRS Dur : 90 ms QT Int : 352 ms P-R-T Axes : -14 -8 50 degrees QTcB Int : 444 ms Normal sinus rhythm Septal infarct (cited on or before 16-Aug-2024) Abnormal ECG When compared with ECG of 16-Aug-2024 10:37, QRS duration has decreased Nonspecific T wave abnormality no longer evident in Lateral leads Referred By: Christelle Monae Electronically Signed By: ELENA LANDAVERDE
[2025-04-11 09:23] VITALS: BP 93/59; BP 97/58; PULSE 100; PULSE 96; RESP 20; TEMP 36.9; O2SAT 86; O2SAT 96; BMI 23.3
[2025-04-11 09:51] VITALS: BP 116/84; O2SAT 94
[2025-04-11 09:54] LABS: MANUAL DIFF FLAG NO
[2025-04-11 09:57] LABS: VBG HCO3 37 mmol/L (22-26); VBG O2 % Saturation 77.0 %
[2025-04-11 09:57] LABS: Hematocrit 29.9 % (37.0-47.0); Hemoglobin 9.0 g/dl (12.0-16.0); Imm Gran Abs Auto 0.05 X10*3/uL (0.00-0.03); Imm Gran Pct Auto 0.8 % (0.0-0.4); Lymphocytes Absolute Auto 1.0 X10*3/uL (1.2-4.9); Mean Corpuscular HGB Conc 30.1 g/dl (31.0-35.0); Mean Corpuscular Hemoglobin 28.2 pg (27.0-33.0); Mean Corpuscular Volume 93.7 fL (80.0-98.0); NRBC Abs Auto 0.000 X10*3/uL (0.0-0.012); NRBC Pct Auto 0.0 /100WBC (0.0-0.2); Platelet Count 175 X10*3/uL (160-400); Red Blood Count 3.19 X10*6/uL (4.20-5.50); White Blood Count 6.4 X10*3/uL (4.8-10.8)
[2025-04-11 09:59] LABS: Venous Blood Gas Refer to POC result
[2025-04-11 10:13] LABS: Alanine Aminotransferase < 6 U/L (0-31); Albumin Level 2.9 g/dL (3.5-5.0); Alkaline Phosphatase 66 U/L (39-117); Anion Gap 11 (12-20); Aspartate Amino Transferase 41 U/L (5-31); Blood Urea Nitrogen 17 mg/dL (9-16); Calcium 8.4 mg/dL (8.4-10.2); Carbon Dioxide 33 mmol/L (22-29); Chloride 100 mmol/L (96-108); Creatinine Clr Calc Pharmacy 59.8; Estimated Glomerular Filt Rate > 60; Magnesium 1.9 mg/dL (1.6-2.6); Potassium 4.6 mmol/L (3.3-5.1); Sodium 139 mmol/L (135-145); Total Protein 7.7 g/dL (6.5-8.0)
[2025-04-11 10:19] LABS: NT Pro B Type Natriuretic Pept 431.8 pg/mL (<300)
[2025-04-11 10:20] LABS: Troponin-I High Sensitivity < 2.7 ng/L (<3.5-17.0)
[2025-04-11 10:40] LABS: COVID-19 Test Negative (Negative); IDNOW Serial# 152EDE1D; IDNOW Serial# 16C4AD1C; Influenza B2 Negative (Negative)
[2025-04-11] MEDS: iohexoL 350 MG/ML 100 ML INFUS..BTL IV (10:45)
--- NOTE | 2025-04-11 10:52 | PC.NURSE ---
pt is alert and oriented, skin pale in appearance, respirations even and unlabored but does have a very junky intermittent cough, ls course in the right lower lobe, pt is reporting left sided chest pain that radiants to the right sided that stared on the overnight and intermittent feeling of sob, pt is at baseline on 2l but was only sating at 86-88, increased the oxygen to 4L and sating anywhere from 91-93%
--- NOTE | 2025-04-11 11:03 | PC.NURSE ---
pt is a difficult stick awaiting blood coutures to be drawn
[2025-04-11 11:13] VITALS: BP 100/64; PULSE 86; RESP 16; O2SAT 94
[2025-04-11] MEDS: metroNIDAZOLE/NS 500 MG/100 ML PIGGYBACK 100 MG IV (11:51)
--- NOTE | 2025-04-11 12:08 | PHA.MEDREC ---
Addendum entered by Mery Engel RPh 04/11/25 12:19: reviewed by farheen Original Note: Pharmacy Consult ? Medication Reconciliation Pharmacy has completed the medication reconciliation. Utilized list from [facility] [place].
--- OUTSIDE RECORDS SUMMARY | 2025-04-11 12:20 | XMS_ITS | Encounter Summary ---
Author Organization [employer] Address [address] [place] [address] Care Team Providers Care Social Insurance Specialist Name Role Phone Wilbert Leonard MD Primary Care Provider [phone] Encounter Details Date Type Department Care Team (Late st Contact Info) Description 08/22/2024 Lab Requisition [facility] - Main Lab 299 [facility] [place] [address] Wilbert Leonard MD [address] [place] [address] [address] [place] Bipolar disorder, current episode mixed, severe, with psychotic features (CMS/HCC V24, CMS/HCC V28) Social History Tobacco Use Types Packs/Day Years [...] CBC auto differential (08/22/2024 6:00 AM EDT) WBC 3.6(L) 4.8 - 10.8 K/mcL LAB HEMETOLOGY METHOD 08/22/2024 8:52 AM [facility] RBC 2.70(L) 3.80 - 4.80 M/mcL LAB HEMETOLOGY METHOD 08/22/2024 8:52 AM [facility] Hemoglobin 8.1(L) 11.5 - 16.0 g/dL LAB HEMETOLOGY METHOD 08/22/2024 8:52 AM [facility] Hematocrit 26.9(L) 35.0 - 47.0 % LAB HEMETOLOGY METHOD 08/22/2024 8:52 AM [facility] MCV 100.0(H) 79.0 - 98.0 FL LAB HEMETOLOGY METHOD 08/22/2024 8:52 AM [facility] MCH 30.1 27.0 - 32.0 pcg LAB HEMETOLOGY METHOD 08/22/2024 8:52 AM [facility] MCHC 30.1(L) 32.0 - 37.0 g/dL LAB HEMETOLOGY METHOD 08/22/2024 8:52 AM [facility] RDW 17.4(H) 11.0 - 15.0 % LAB HEMETOLOGY METHOD 08/22/2024 8:52 AM [facility] Platelets 96(L) 130 - 400 K/mcL LAB HEMETOLOGY METHOD 08/22/2024 8:52 AM [facility] Comment:reviewed by slide MPV 11.1(H) 7.0 - 11.0 FL LAB HEMETOLOGY METHOD 08/22/2024 8:52 AM [facility] NRBC 0.6 <1.0 % LAB HEMETOLOGY METHOD 08/22/2024 8:52 AM [facility] NRBC Absolute 0.02 <0.10 K/mcL LAB HEMETOLOGY METHOD 08/22/2024 8:52 AM [facility] Neutrophils Relative 28.3 % LAB HEMETOLOGY METHOD 08/22/2024 8:52 AM [facility] Lymphocytes Relative 50.1 % LAB HEMETOLOGY METHOD 08/22/2024 8:52 AM [facility] Monocytes Relative 17.4 % LAB HEMETOLOGY METHOD 08/22/2024 8:52 AM [facility] Eosinophils Relative 1.9 % LAB HEMETOLOGY METHOD 08/22/2024 8:52 AM [facility] Basophils Relative 0.6 % LAB HEMETOLOGY METHOD 08/22/2024 8:52 AM [facility] Immature Granulocytes Relative 1.7 % LAB HEMETOLOGY METHOD 08/22/2024 8:52 AM [facility] Neutrophils Absolute 1.03(L) 1.50 - 7.00 K/mcL LAB HEMETOLOGY METHOD 08/22/2024 8:52 AM [facility] Lymphocytes Absolute 1.82 1.00 - 5.00 K/mcL LAB HEMETOLOGY METHOD 08/22/2024 8:52 AM EDT [facility] Monocytes Absolute 0.63 0.20 - 1.00 K/[facility] LAB HEMETOLOGY METHOD 08/22/2024 8:52 AM EDT [facility] Eosinophils Absolute 0.07 0.00 - 0.50 K/[facility] LAB HEMETOLOGY METHOD 08/22/2024 8:52 AM EDT [facility] Basophils Absolute 0.02 0.00 - 0.20 K/[facility] LAB HEMETOLOGY METHOD 08/22/2024 8:52 AM EDT [facility] Immature Granulocytes Absolute 0.06(H) 0.00 - 0.03 K/[facility] LAB HEMETOLOGY METHOD 08/22/2024 8:52 AM EDT [facility] Blood Venous blood specimen / Unknown 08/22/2024 6:00 AM EDT 08/22/2024 6:36 AM EDT us Wilbert Leonard MD LAB BLOOD ORDERABLES Final Resul t Performing Organization Address City/[facility]/ZIP Co de Phone Number [facility] [address] [place] [address], [place] [phone] * Magnesium (08/22/2024 6:00 AM EDT) Magnesium 2.0 1.9 - 2.6 mg/dL LAB CHEMISTRY METHOD 08/22/2024 7:31 AM EDT [facility] Blood Venous blood specimen / Unknown 08/22/2024 6:00 AM EDT 08/22/2024 6:36 AM EDT us Wilbert Leonard MD LAB BLOOD ORDERABLES Final Resul t [facility] [address] [place] [address], [place] [phone] * Thyroxine free (08/22/2024 6:00 AM EDT) Free T4 1.45 0.70 - 1.80 ng/dL LAB CHEMISTRY METHOD 08/22/2024 4:45 PM EDT [facility] Blood Venous blood specimen / Unknown 08/22/2024 6:00 AM EDT 08/22/2024 6:36 AM EDT us Wilbert Leonard MD LAB BLOOD ORDERABLES Final Resul t Performing Organization Address [facility]/ZIP Co de Phone Number [facility] [address] [place] [address], [place] [phone] * (ABNORMAL) Ammonia (08/22/2024 6:00 AM EDT) Ammonia 41(H) 11 - 35 mcmol/L LAB CHEMISTRY METHOD 08/22/2024 7:38 AM EDT [facility] Blood Venous blood specimen / Unknown 08/22/2024 6:00 AM EDT 08/22/2024 6:36 AM EDT us Wilbert Leonard MD LAB BLOOD ORDERABLES Final Resul t Performing Organization Address [facility]/ZIP Co de Phone Number [facility] [address] [place] [address], [place] [phone] * Valproic acid level, total (08/22/2024 6:00 AM EDT) Valproic Acid, Total 77 50 - 100 mcg/mL LAB CHEMISTRY METHOD 08/22/2024 7:31 AM EDT [facility] Blood Venous blood specimen / Unknown 08/22/2024 6:00 AM EDT 08/22/2024 6:36 AM EDT us Wilbert Leonard MD LAB BLOOD ORDERABLES Final Resul t Performing Organization Address [facility]/ZIP Co de Phone Number [facility] [address] [place] [address], [place] [phone] * (ABNORMAL) Thyroid stimulating hormone (08/22/2024 6:00 AM EDT) TSH 4.41(H) 0.40 - 4.00 mcIU/mL LAB CHEMISTRY METHOD 08/22/2024 4:45 PM EDT [facility] Blood Venous blood specimen / Unknown 08/22/2024 6:00 AM EDT 08/22/2024 6:36 AM EDT Wilbert Leonard MD LAB BLOOD ORDERABLES Final Resul t Performing Organization Address [facility]/ZIP Co de Phone Number [facility] [address] [place] [address], [place] [phone] * (ABNORMAL) Lipid panel with reflex to direct LDL (08/22/2024 6:00 AM EDT) Cholesterol 96 0 - 200 mg/dL LAB CHEMISTRY METHOD 08/22/2024 7:31 AM EDT [facility] Triglycerides 163(H) 0 - 150 mg/dL LAB CHEMISTRY METHOD 08/22/2024 7:31 AM [facility] HDL 31(L) >=40 mg/dL LAB CHEMISTRY METHOD 08/22/2024 7:31 AM EDT [facility] LDL Calculated 32 0 - 100 mg/dL LAB CHEMISTRY METHOD 08/22/2024 7:31 AM EDT [facility] VLDL Cholesterol Marshall 32.6 mg/dL LAB CHEMISTRY METHOD 08/22/2024 7:31 AM EDT [facility] Non HDL Chol. (LDL+VLDL) 65 <145 mg/dL LAB [facility]STR[facility]24 [facility] Chol/HDL Ratio 3.1 0.0 - 4.4 LAB CHEMISTRY METHOD 08/22/2024 7:31 AM EDT [facility] Blood Venous blood specimen / Unknown 08/22/2024 6:00 AM EDT 08/22/2024 6:36 AM EDT us Wilbert Leonard MD LAB BLOOD ORDERABLES Final Resul t [facility] [address] [place] [address], documented in this encounter Visit Diagnoses Diagnosis Bipolar disorder, current episode mixed, severe, with psychotic features (CMS/HCC V24, CMS/HCC V28) documented in this encounter Care Teams Social Insurance Specialist Relationship Specialty Start Date End Date Wilbert Leonard MD [address] [place] [address] Dr [address] [place], [place] PCP - General Internal Medicine 07/18/24 documented as of this encounter
--- OUTSIDE RECORDS SUMMARY | 2025-04-11 12:20 | XMS_ITS | Encounter Summary ---
Author Organization [employer] Address [address] [place] [address] Care Team Providers Care Air Conditioning Installer Name Role Phone Wilbert Leonard MD Primary Care Provider [phone] Encounter Details Date Type Department Care Team (Late st Contact Info) Description 07/25/2024 Lab Requisition [facility] Lab 299 [facility] [address] [place] [address] Wilbert Leonard MD [address] [place] [address] [address] [place] Urinary tract infection, site not specified Social [...] reflex microscopic (07/25/2024 5:40 AM EST) Specific [place] Urine 1.030 1.003 - 1.030 LAB URINALYSIS - AUTOMATED METHOD 07/25/2024 8:42 AM EST [facility] pH, Urine 6.5 5.0 - 8.0 pH LAB URINALYSIS - AUTOMATED METHOD 07/25/2024 8:42 AM [facility] Leukocytes, Urine Trace(A) Negative LAB [...] Final Resul t [facility] [address] [place] [address], documented in this encounter Visit Diagnoses Diagnosis Urinary tract infection, site not specified documented in this encounter Care Teams Air Conditioning Installer Relationship Specialty Start Date End Date Wilbert Leonard MD [address] [place] [address] Dr [address] [place], [place] PCP - General Internal Medicine 07/18/24 documented as of this encounter
--- OUTSIDE RECORDS SUMMARY | 2025-04-11 12:20 | XMS_ITS | Encounter Summary ---
Author Organization [employer] Address [address] [place] [address] Care Team Providers Care Poultry Inseminator Name Role Phone Wilbert Leonard MD Primary Care Provider [phone] Encounter Details Date Type Department Care Team (Late st Contact Info) Description 12/25/2024 Lab Requisition [facility] - Main Lab 299 [facility] [place] [address] Wilbert Leonard MD [address] [place] [address] [address] [place], [place] Bipolar disorder, current episode mixed, severe, [...] on file documented as of this encounter Visit Diagnoses Diagnosis Bipolar disorder, current episode mixed, severe, with psychotic features (CMS/HCC V24, CMS/HCC V28) documented in this encounter Care Teams Poultry Inseminator Relationship Specialty Start Date End Date Wilbert Leonard MD [address] [place] [address] Dr [address] [place], [place] PCP - General Internal Medicine 07/18/24 documented as of this encounter
--- OUTSIDE RECORDS SUMMARY | 2025-04-11 12:20 | XMS_ITS | Encounter Summary ---
Author Organization [facility] Address [address] [place] [address] Care Team Providers Care Dye Blender Name Role Phone Wilbert Leonard MD Primary Care Provider [phone] Encounter Details Date Type Department Care Team (Late st Contact Info) Description 02/28/2025 Lab Requisition [facility] Lab [address] [place] [address] Wilbert Leonard MD [address] [place] [address] [address] [place] Magnesium deficiency; Other hyperlipidemia Social History Tobacco Use Types Packs/Day Years [...] PANEL WITH REFLEX TO DIRECT LDL Routine 02/28/2025 6:56 AM EDT Magnesium deficiency Other hyperlipidemia MAGNESIUM Routine 02/28/2025 6:56 AM EDT Magnesium deficiency Other hyperlipidemia documented in this encounter Results * Magnesium (02/28/2025 6:56 AM EDT) Magnesium 1.9 1.9 - 2.6 mg/dL LAB CHEMISTRY METHOD 02/28/2025 9:16 AM EDT [facility] Blood Venous blood specimen / Unknown 02/28/2025 6:56 AM EDT 02/28/2025 7:44 AM EDT us Wilbert Leonard MD LAB BLOOD ORDERABLES Final Resul t [facility] [address] [place] [address], [place] [phone] * (ABNORMAL) Lipid panel with reflex to direct LDL (02/28/2025 6:56 AM EDT) Cholesterol 118 0 - 200 mg/dL LAB CHEMISTRY METHOD 02/28/2025 9:16 AM EDT [facility] Triglycerides 99 0 - 150 mg/dL LAB CHEMISTRY METHOD 02/28/2025 9:16 AM EDT [facility] HDL 39(L) >=40 mg/dL LAB CHEMISTRY METHOD 02/28/2025 9:16 AM EDT [facility] LDL Calculated 59 0 - 100 mg/dL LAB CHEMISTRY METHOD 02/28/2025 9:16 AM EDT [facility] Comment:Estimated LDL Calcul ated using equation: Total cholesterol - HDL cholesterol - (Triglycerides/5) VLDL Cholesterol Marshall 19.8 mg/dL LAB CHEMISTRY METHOD 02/28/2025 9:16 AM EDT [facility] Non HDL Chol. (LDL+VLDL) 79 <145 mg/dL LAB CHEMISTRY METHOD 02/28/2025 9:16 AM EDT [facility] Chol/HDL Ratio 3.0 0.0 - 4.4 LAB CHEMISTRY METHOD 02/28/2025 9:16 AM T [facility] Blood Venous blood specimen / Unknown 02/28/2025 6:56 AM EDT 02/28/2025 7:44 AM EDT us Wilbert Leonard MD LAB BLOOD ORDERABLES Final Resul t [facility] [address] [place] [address], [place] [phone] documented in this encounter Visit Diagnoses Diagnosis Magnesium deficiency Disorders of magnesium metabolism Other hyperlipidemia documented in this encounter Care Teams Dye Blender Relationship Specialty Start Date End Date Wilbert Leonard MD [address] [place] [address] [address] [place] PCP - General Internal Medicine 07/18/24 documented as of this encounter
--- OUTSIDE RECORDS SUMMARY | 2025-04-11 12:20 | XMS_ITS | Encounter Summary ---
Author Organization [employer] Address [address] [place] [address] Care Team Providers Care Reclamation Engineer Name Role Phone Wilbert Leonard MD Primary Care Provider [phone] Encounter Details Date Type Department Care Team (Late st Contact Info) Description 05/28/2024 Lab Requisition [facility] - Main Lab 299 [facility] [place] [address] Wilbert Leonard MD [address] [place] [address] [address] [place] Unspecified intracranial injury with loss of consciousness of unspecified duration, sequela (CMS/HCC V24) Social History Tobacco Use Types Packs/Day Years [...] LAB CHEMISTRY METHOD 05/28/2024 7:42 AM EST [facility] Blood Venous blood specimen / Unknown 05/28/2024 6:35 AM EST 05/28/2024 7:07 AM EST us Wilbert Leonard MD LAB BLOOD ORDERABLES Final Resul t Performing Organization Address City/[facility]/ZIP Co de Phone Number [facility] [address] [place] [address], [place] [phone] * Thyroid stimulating hormone (05/28/2024 6:35 AM EST) TSH 1.55 0.40 - 4.00 mcIU/mL LAB CHEMISTRY METHOD 05/28/2024 7:43 AM EST [facility] Blood Venous blood specimen / Unknown 05/28/2024 6:35 AM EST 05/28/2024 7:07 AM EST us Wilbert Leonard MD LAB BLOOD ORDERABLES Final Resul t Performing Organization Address City/[facility]/ZIP Co de Phone Number [facility] [address] [place] [address], [place] [phone] * Valproic acid level, total (05/28/2024 6:35 AM EST) Valproic Acid, Total 70 50 - 100 mcg/mL LAB CHEMISTRY METHOD 05/28/2024 7:33 AM EST [facility] Blood Venous blood specimen / Unknown 05/28/2024 6:35 AM EST 05/28/2024 7:07 AM EST us Wilbert Leonard MD LAB BLOOD ORDERABLES Final Resul t [facility] [address] [place] [address], [place] [phone] documented in this encounter Visit Diagnoses Diagnosis Unspecified intracranial injury with loss of consciousness of unspecified duration, sequela (CMS/HCC V24) documented in this encounter Additional Health Concerns Infection Onset Date Last Indicated Resolved Time Respiratory Rule-Out 07/12/2024 07/12/2024 025 11:53 PM EST documented as of this encounter Care Teams Reclamation Engineer Relationship Specialty Start Date End Date Wilbert Leonard MD [address] [place] [address] [address] [place] PCP - General Internal Medicine 07/18/24 documented as of this encounter
--- OUTSIDE RECORDS SUMMARY | 2025-04-11 12:20 | XMS_ITS | Encounter Summary ---
Author Organization [employer] Address [address] [place] [address] Care Team Providers Care Maple Sugar Maker Name Role Phone Wilbert Leonard MD Primary Care Provider [phone] Encounter Details Date Type Department Care Team (Late st Contact Info) Description 12/25/2024 Lab Requisition [facility] - Main Lab 299 [facility] [place] [address] Wilbert Leonard MD [address] [place] [address] [address] [place] Bipolar disorder, current episode mixed, severe, with psychotic features (CMS/[facility] V24, CMS/[facility] V28) Social History Tobacco Use Types Packs/Day [...] Name Priority Date/Time Associated Diagnosis Comments VITAMIN B6 Routine 12/25/2024 12:46 PM EDT Bipolar disorder, current episode mixed, severe, with psychotic features (CMS/HCC V24, CMS/[facility] V28) documented in this encounter Results * Vitamin B6 (12/25/2024 12:46 PM EDT) Vitamin B6 (Pyridoxine) Level 48 5 - 50 ug/L 12/31/2024 10:08 AM EDT [facility] Comment: This test was developed and the performance characteristics determined by [facility]. It has not been cleared or approved by the FDA. The laboratory is regulated under CLIA as qualified to perform high-complexity testing. This test is used for patient testing purposes. It should not be regarded as investigational or for research. Test performed at [facility], [address], [place] [address] Deirdre Vogt MD, PhD - Merchandising Internship Blood Venous blood specimen / Unknown 12/25/2024 12:46 PM EDT 12/25/2024 1:52 PM EDT us Wilbert Leonard MD LAB BLOOD ORDERABLES Final Resul t [facility] [address] [place] [address] documented in this encounter Visit Diagnoses Diagnosis Bipolar disorder, current episode mixed, severe, with psychotic features (CMS/HCC V24, CMS/HCC V28) documented in this encounter Care Teams Maple Sugar Maker Relationship Specialty Start Date End Date Wilbert Leonard MD [address] [place] [address] [address] [place] PCP - General Internal Medicine 07/18/24 documented as of this encounter
--- OUTSIDE RECORDS SUMMARY | 2025-04-11 12:20 | XMS_ITS | Encounter Summary ---
Author Organization [facility] Address [address] [place] [address] Care Team Providers Care Tractor Technician Name Role Phone Wilbert Leonard MD Primary Care Provider [phone] Encounter Details Date Type Department Care Team (Late st Contact Info) Description 01/31/2025 Lab Requisition [facility] Lab [address] [place] [address] Wilbert Leonard MD [address] [place] [address] [address] [place] Abnormal finding of blood chemistry, unspecified Social History Tobacco Use Types Packs/Day [...] Procedure Name Priority Date/Time Associated Diagnosis Comments CALCIUM Routine 01/31/2025 6:55 AM EDT Abnormal finding of blood chemistry, unspecified documented in this encounter Results * (ABNORMAL) Calcium (01/31/2025 6:55 AM EDT) Calcium 7.9(L) 8.5 - 10.5 mg/dL LAB CHEMISTRY METHOD 01/31/2025 8:[address] [facility] Blood Venous blood specimen / Unknown 01/31/2025 6:55 AM EDT 01/31/2025 7:46 AM EDT us Wilbert Leonard MD LAB BLOOD ORDERABLES Final Resul t [facility] [address] [place], [place] [address] [phone] documented in this encounter Visit Diagnoses Diagnosis Abnormal finding of blood chemistry, unspecified documented in this encounter Care Teams Tractor Technician Relationship Specialty Start Date End Date Wilbert Leonard MD [address] [place] [address] [address] [place] [address] PCP - General Internal Medicine 07/18/24 documented as of this encounter
--- OUTSIDE RECORDS SUMMARY | 2025-04-11 12:20 | XMS_ITS | Encounter Summary ---
Author Organization [employer] Address [address] [place] [address] Care Team Providers Care Choker Setter Name Role Phone Wilbert Leonard MD Primary Care Provider [phone] Encounter Details Date Type Department Care Team (Late st Contact Info) Description 07/18/2024 Lab Requisition [facility] Lab 299 [facility] [place] [address] Wilbert Leonard MD [address] [place] [address] [address] [place] Other prison (current) drug therapy Social History Tobacco Use [...] HYDROXY Routine 07/18/2024 6:40 AM EST Other prison (current) drug therapy VALPROIC ACID LEVEL, TOTAL Routine 07/18/2024 6:40 AM EST Other exterminator helper termite (current) drug therapy documented in this encounter Results * Valproic acid level, total (07/18/2024 6:40 AM EST) Valproic Acid, Total 87 50 - 100 mcg/mL LAB CHEMISTRY METHOD 07/18/2024 8:30 AM EST [facility] ([facility] Blood Venous blood specimen / Unknown 07/18/2024 6:40 AM EST 07/18/2024 7:28 AM EST us Wilbert Leonard MD LAB BLOOD ORDERABLES Final Resul t Performing Organization Address [facility]/ZIP Co de Phone Number [facility] [address] [place] [address], * Vitamin D 25 hydroxy (07/18/2024 6:40 AM EST) Vit D, 25-Hydroxy 37.6 30.0 - 80.0 ng/mL LAB CHEMISTRY METHOD 07/18/2024 8:57 AM EST [facility] Blood Venous blood specimen / Unknown 07/18/2024 6:40 AM EST 07/18/2024 7:28 AM EST Wilbert Leonard MD LAB BLOOD ORDERABLES Final Resul t Performing Organization Address [facility] Co de Phone Number [facility] [address] [place] [address], [place] [phone] documented in this encounter Visit Diagnoses Diagnosis Other prison (current) drug therapy documented in this encounter Care Teams Choker Setter Relationship Specialty Start Date End Date Wilbert Leonard MD [address] [place] [address] Dr [address] [place] PCP - General Internal Medicine 07/18/24 documented as of this encounter
--- OUTSIDE RECORDS SUMMARY | 2025-04-11 12:20 | XMS_ITS | Encounter Summary ---
Author Organization [employer] Address [address] [place] [address] Care Team Providers Care Curriculum Advisory Teacher Name Role Phone Wilbert Leonard MD Primary Care Provider [phone] Encounter Details Date Type Department Care Team (Late st Contact Info) Description 01/16/2025 Lab Requisition [facility] [address] [facility] [place] [address] Wilbert Leonard MD [address] [place] [address] Dr [address] [place] Acute and chronic respiratory failure with hypoxia (CMS/HCC V24, CMS/HCC V28) Social History Tobacco [...] Diagnosis Comments CBC WITH AUTO DIFFERENTIAL Routine 01/16/2025 7:02 AM EDT Acute and chronic respiratory failure with hypoxia (CMS/HCC V24, CMS/HCC V28) RED - PLAIN Routine 01/16/2025 7:02 AM EDT Acute and chronic respiratory failure with hypoxia (CMS/HCC V24, CMS/HCC V28) CBC AND DIFFERENTIAL Routine 01/16/2025 7:02 AM EDT Acute and chronic respiratory failure with hypoxia (CMS/HCC V24, CMS/HCC V28) AMMONIA Routine 01/16/2025 7:02 AM EDT Acute and chronic respiratory failure with hypoxia (CMS/HCC V24, CMS/HCC V28) VALPROIC ACID LEVEL, TOTAL Routine 01/16/2025 7:02 AM EDT Acute and chronic respiratory failure with hypoxia (CMS/HCC V24, CMS/HCC V28) COMPREHENSIVE METABOLIC PANEL Routine 01/16/2025 7:02 AM EDT Acute and chronic respiratory failure with hypoxia (CMS/HCC V24, CMS/HCC V28) documented in this encounter Results * Red tube (01/16/2025 7:02 AM EDT) [facility] Extra Tube Hold for add-ons. 01/16/2025 9:01 AM EDT [facility] Comment:Auto resulted. Blood Venous blood specimen / Unknown 01/16/2025 7:02 AM EDT 01/16/2025 7:49 AM EDT us Wilbert Leonard MD LAB BLOOD ORDERABLES Final Resul t [facility] [address] [place] [address], [place] [phone] * (ABNORMAL) CBC auto differential (01/16/2025 7:02 AM EDT) [facility] WBC 4.8 4.8 - 10.8 K/mcL LAB HEMETOLOGY METHOD 01/16/2025 7:56 AM EDT [facility] RBC 2.80(L) 3.80 - 4.80 M/mcL LAB HEMETOLOGY METHOD 01/16/2025 7:56 AM EDT [facility] Hemoglobin 8.5(L) 11.5 - 16.0 g/dL LAB HEMETOLOGY METHOD 01/16/2025 7:56 AM EDT [facility] Hematocrit 27.9(L) 35.0 - 47.0 % LAB HEMETOLOGY METHOD 01/16/2025 7:56 AM EDT [facility] MCV 99.3(H) 79.0 - 98.0 FL LAB HEMETOLOGY METHOD 01/16/2025 7:56 AM [facility] MCH 30.2 27.0 - 32.0 pcg LAB HEMETOLOGY METHOD 01/16/2025 7:56 AM [facility] MCHC 30.5(L) 32.0 - 37.0 g/dL LAB HEMETOLOGY METHOD 01/16/2025 7:56 AM [facility] RDW 15.6(H) 11.0 - 15.0 % LAB HEMETOLOGY METHOD 01/16/2025 7:56 AM [facility] Platelets 155 130 - 400 K/mcL LAB HEMETOLOGY METHOD 01/16/2025 7:56 AM [facility] MPV 10.8 7.0 - 11.0 FL LAB HEMETOLOGY METHOD 01/16/2025 7:56 AM [facility] NRBC 0.0 <1.0 % LAB HEMETOLOGY METHOD 01/16/2025 7:56 AM [facility] NRBC Absolute 0.00 <0.10 K/mcL LAB HEMETOLOGY METHOD 01/16/2025 7:56 AM [facility] Neutrophils Relative 45.0 % LAB HEMETOLOGY METHOD 01/16/2025 7:56 AM [facility] Lymphocytes Relative 40.5 % LAB HEMETOLOGY METHOD 01/16/2025 7:56 AM [facility] Monocytes Relative 10.4 % LAB HEMETOLOGY METHOD 01/16/2025 7:56 AM [facility] Eosinophils Relative 2.9 % LAB HEMETOLOGY METHOD 01/16/2025 7:56 AM [facility] Basophils Relative 0.6 % LAB HEMETOLOGY METHOD 01/16/2025 7:56 AM [facility] Immature Granulocytes Relative 0.6 % LAB HEMETOLOGY METHOD 01/16/2025 7:56 AM EDT [facility] Neutrophils Absolute 2.15 1.50 - 7.00 K/mcL LAB HEMETOLOGY METHOD 01/16/2025 7:56 AM EDT [facility] Lymphocytes Absolute 1.94 1.00 - 5.00 K/mcL LAB HEMETOLOGY METHOD 01/16/2025 7:56 AM EDT [facility] Monocytes Absolute 0.50 0.20 - 1.00 K/mcL LAB HEMETOLOGY METHOD 01/16/2025 7:56 AM EDT [facility] Eosinophils Absolute 0.14 0.00 - 0.50 K/mcL LAB HEMETOLOGY METHOD 01/16/2025 7:56 AM EDT [facility] Basophils Absolute 0.03 0.00 - 0.20 K/mcL LAB HEMETOLOGY METHOD 01/16/2025 7:56 AM EDT [facility] Immature Granulocytes Absolute 0.03 0.00 - 0.03 K/mcL LAB HEMETOLOGY METHOD 01/16/2025 7:56 AM EDT [facility] Blood Venous blood specimen / Unknown 01/16/2025 7:02 AM EDT 01/16/2025 7:49 AM EDT us Wilbert Leonard MD LAB BLOOD ORDERABLES Final Resul t [facility] [address] [place] [address], * (ABNORMAL) Ammonia (01/16/2025 7:02 AM EDT) Ammonia 47(H) 11 - 35 mcmol/L LAB CHEMISTRY METHOD 01/16/2025 8:17 AM EDT [facility] Blood Venous blood specimen / Unknown 01/16/2025 7:02 AM EDT 01/16/2025 7:49 AM EDT us Wilbert Leonard MD LAB BLOOD ORDERABLES Final Resul t Performing Organization Address City/[facility]/ZIP Co de Phone Number [facility] [address] [place] [address], [place] [phone] * Valproic acid level, total (01/16/2025 7:02 AM EDT) [facility] Valproic Acid, Total 77 50 - 100 mcg/mL LAB CHEMISTRY METHOD 01/16/2025 8:28 AM EDT [facility] Blood Venous blood specimen / Unknown 01/16/2025 7:02 AM EDT 01/16/2025 7:49 AM EDT us Wilbert Leonard MD LAB BLOOD ORDERABLES Final Resul t Performing Organization Address [facility]/ZIP Co de Phone Number [facility] [address] [place] [address], [place] [phone] * (ABNORMAL) Comprehensive metabolic panel (01/16/2025 7:02 AM EDT) [facility] Sodium 139 133 - 145 mmol/L LAB CHEMISTRY METHOD 01/16/2025 8:28 AM [facility] Potassium 4.0 3.5 - 5.5 mmol/L LAB CHEMISTRY METHOD 01/16/2025 8:28 AM [facility] Chloride 105 96 - 110 mmol/L LAB CHEMISTRY METHOD 01/16/2025 8:28 AM [facility] CO2 31 21 - 32 mmol/L LAB CHEMISTRY METHOD 01/16/2025 8:28 AM [facility] Anion Gap 3 3 - 11 LAB CHEMISTRY METHOD 01/16/2025 8:28 AM [facility] Glucose 66(L) 70 - 100 mg/dL LAB CHEMISTRY METHOD 01/16/2025 8:28 AM [facility] BUN 13 5 - 25 mg/dL LAB CHEMISTRY METHOD 01/16/2025 8:28 AM [facility] Creatinine 0.55 0.50 - 1.10 mg/dL LAB CHEMISTRY METHOD 01/16/2025 8:28 AM [facility] eGFR 106 >=60 mL/min/1. 73m2 LAB CHEMISTRY METHOD 01/16/2025 8:28 AM [facility] Comment:Calculation based on the Chronic Kidney Disease Epidemiology Collaboration (CKD-EPI) equation refit without adjustment for race. BUN/Creatinine Ratio 23.6 LAB CHEMISTRY METHOD 01/16/2025 8:28 AM [facility] Calcium 8.1(L) 8.5 - 10.5 mg/dL LAB CHEMISTRY METHOD 01/16/2025 8:28 AM [facility] AST (SGOT) 12 10 - 42 unit/L LAB CHEMISTRY METHOD 01/16/2025 8:28 AM [facility] ALT (SGPT) 11 10 - 60 unit/L LAB CHEMISTRY METHOD 01/16/2025 8:28 AM [facility] Alkaline Phosphatase 56 42 - 121 unit/L LAB CHEMISTRY METHOD 01/16/2025 8:28 AM [facility] Total Protein 5.9(L) 6.0 - 8.0 g/dL LAB CHEMISTRY METHOD 01/16/2025 8:28 AM [facility] Albumin 2.0(L) 3.2 - 5.0 g/dL LAB CHEMISTRY METHOD 01/16/2025 8:28 AM [facility] Total Bilirubin 0.2 0.0 - 1.4 mg/dL LAB CHEMISTRY METHOD 01/16/2025 8:28 AM [facility] Blood Venous blood specimen / Unknown 01/16/2025 7:02 AM EDT 01/16/2025 7:49 AM EDT us Wilbert Leonard MD LAB BLOOD ORDERABLES Final Resul t [facility] ([facility] [email or web address] [address] [place] [address], documented in this encounter Visit Diagnoses Diagnosis Acute and chronic respiratory failure with hypoxia (CMS/HCC V24, CMS/HCC V28) documented in this encounter Care Teams Curriculum Advisory Teacher Relationship Specialty Start Date End Date Wilbert Leonard MD [address] [place] [address] Dr [address] [place], [place] PCP - General Internal Medicine 07/18/24 documented as of this encounter
--- OUTSIDE RECORDS SUMMARY | 2025-04-11 12:21 | XMS_ITS | Clinical Summary ---
Author Organization [address] [facility] Address [address] [place] [address] Phone Care Team Providers Care Airplane Gastank Liner Assembler Name Role Phone Wilbert Leonard MD Primary Care Provider [phone] Encounters Date Type Department Care Team Description 03/25/2025 Lab Requisition [facility] [address] [place] [phone] Wilbert Leonard MD Vitamin D deficiency, unspecified 03/21/2025 Lab Requisition [facility] [address] [place] [phone] Wilbert Leonard MD Sepsis, unspecified organism (CMS/HCC V24, CMS/HCC V28); Other low back pain 02/28/2025 Lab Requisition [facility] Lab [address] [place] [phone] Wilbert Leonard MD Magnesium deficiency; Other hyperlipidemia 01/31/2025 Lab Requisition [facility] [address] [place] [phone] Wilbert Leonard MD Abnormal finding of blood chemistry, unspecified 01/16/2025 Lab Requisition [facility] [address] [place] [phone] Wilbert Leonard MD Acute and chronic respiratory failure with hypoxia (CMS/HCC V24, CMS/HCC V28) from Last 3 Months Social History Tobacco Use Types Packs/Day Years Used Date Smoking Tobacco: Never Assessed Comments Unknown Sex and Gender Information Value Date Recorded Sex Assigned at Not on file Legal Sex Female 3:40 PM EDT Gender Identity Not on file Sexual Orientation Not on file Plan of Treatment Health Maintenance Due Date Last Done Comments Breast Cancer Screening 1966 Colorectal Cancer Screening: Colonoscopy 1966 DTaP,Tdap,and Td Vaccines (1 - Tdap) 1985 Hepatitis B Vaccines (1 of 3 - 19+ 3-dose series) 1985 Cervical Cancer Screening: P ap Smear 1987 Pneumococcal Vaccine: 50+ Years (1 of 1 - PCV) 2016 Zoster Vaccines (1 of 2) 2016 HIV Screening 04/07/2024 Hepatitis C Screening 04/07/2024 Medicare Annual Wellness Visit 04/07/2024 Social Influencers of Health Screening 04/07/2024 Depression Screening 06/13/2024 COVID-19 Vaccine (1 - 2023-2 5 season) 2025 Influenza Vaccine (#1) 2025 Cholesterol Screening (Lipid Panel) 02/28/2030 02/28/2025, 08/22/2024 RSV Immunization Adult Patients (1 - 1-dose 75+ series) 2041 HIB Vaccines Aged Out No longer eligi [...] age to complete this topic Meningococcal B Vaccine Aged Out No l onger eligible based on patient's age to complete this topic RSV Immunization Patients Under 20 months Aged Out No longer eligible b ased on patient's age to complete this topic Varicella Vaccines Aged Out No longer eligible based on patient's age to complete this topic Procedures Procedure Name Priority Date/Time Associated Diagnosis Comments VITAMIN D 25 HYDROXY Routine 03/25/2025 6:43 AM EDT Vitamin D deficiency, unspecified URINALYSIS WITH REFLEX MICROSCOPIC Routine 03/20/2025 5:00 PM EDT Sepsis, unspecified organism (CMS/HCC V24, CMS/HCC V28) Other low back pain URINALYSIS WITH REFLEX MICROSCOPIC Routine 03/20/2025 5:00 PM EDT Sepsis, unspecified organism (CMS/HCC V24, CMS/HCC V28) Other low back pain CULTURE URINE Routine 03/20/2025 5:00 PM EDT Sepsis, unspecified organism (CMS/HCC V24, CMS/HCC V28) Other low back pain MAGNESIUM Routine 02/28/2025 6:56 AM EDT Magnesium deficiency Other hyperlipidemia LIPID PANEL WITH REFLEX TO DIRECT LDL Routine 02/28/2025 6:56 AM EDT Magnesium deficiency Other hyperlipidemia CALCIUM Routine 01/31/2025 6:55 AM EDT Abnormal finding of blood chemistry, unspecified RED - PLAIN Routine 01/16/2025 7:02 AM EDT Acute and chronic respiratory failure with hypoxia (CMS/HCC V24, CMS/HCC V28) CBC WITH AUTO DIFFERENTIAL Routine 01/16/2025 7:02 [...] failure with hypoxia (CMS/HCC V24, CMS/HCC V28) from Last 3 Months Results * Vitamin D 25 hydroxy (03/25/2025 6:43 AM EDT) Pathologist [facility] Vit D, 25-Hydroxy 46.0 30.0 - 80.0 ng/mL LAB CHEMISTRY METHOD 03/26/2025 10:59 AM [facility] Blood Venous blood specimen / Unknown 03/25/2025 6:43 AM EDT 03/26/2025 8:33 AM EDT us Wilbert Leonard MD LAB BLOOD ORDERABLES Final Resul t [facility] [address] [place] [address], * (ABNORMAL) Urinalysis with reflex microscopic (03/20/2025 5:00 PM EDT) [facility] Specific [place] Urine 1.025 1.003 - 1.030 LAB URINALYSIS - AUTOMATED METHOD 03/21/2025 8:05 AM [facility] pH, Urine 6.0 5.0 - 8.0 pH LAB URINALYSIS - AUTOMATED METHOD 03/21/2025 8:05 AM [facility] Leukocytes, Urine Large(A) Negative LAB URINALYSIS - AUTOMATED METHOD 03/21/2025 8:05 AM [facility] Nitrite, Urine Negative Negative LAB URINALYSIS - AUTOMATED METHOD 03/21/2025 8:05 AM [facility] Protein, Urine 30(A) <=Trace mg/dL LAB URINALYSIS - AUTOMATED METHOD 03/21/2025 8:05 AM [facility] Glucose, Urine Negative Negative mg/dL LAB URINALYSIS - AUTOMATED METHOD 03/21/2025 8:05 AM [facility] Ketones, Urine Trace(A) Negative mg/dL LAB URINALYSIS - AUTOMATED METHOD 03/21/2025 8:05 AM [facility] Urobilinogen, Urine 1.0 0.2 - 1.0 mg/dL LAB URINALYSIS - AUTOMATED METHOD 03/21/2025 8:05 AM [facility] Bilirubin, Urine Negative Negative LAB URINALYSIS - AUTOMATED METHOD 03/21/2025 8:05 AM [facility] Blood, Urine Negative Negative LAB URINALYSIS - AUTOMATED METHOD 03/21/2025 8:05 AM [facility] RBC, Urine 4.0 0 - 4 /HPF LAB URINALYSIS - AUTOMATED METHOD 03/21/2025 8:05 AM [facility] WBC, Urine 134.3(H) 0 - 4 /HPF LAB URINALYSIS - AUTOMATED METHOD 03/21/2025 8:05 AM [facility] Squamous Epithelial, Urine 14 0 - 60 /LPF LAB URINALYSIS - AUTOMATED METHOD 03/21/2025 8:05 AM [facility] Bacteria, Urine Many(A) Negative /HPF LAB URINALYSIS - AUTOMATED METHOD 03/21/2025 8:05 AM [facility] Hyaline Casts, Urine 4.1(H) 0 - 3 /LPF LAB URINALYSIS - AUTOMATED METHOD 03/21/2025 8:05 AM [facility] Urine Urine specimen obtained by clean catch procedure / Unknown 03/20/2025 5:00 PM EDT 03/21/2025 7:39 AM EDT us Wilbert Leonard MD LAB URINE ORDERABLES Final Resul t [facility] [address] [place] [address], * Culture urine (03/20/2025 5:00 PM EDT) Culture, Urine >100,000 CFU/mL Mixed bacterial morphotypes present suggestive of possible contamination during collection. Suggest appropriate recollection if clinically indicated. 03/25/2025 8:54 AM EDT [facility] Urine Urine specimen obtained by clean catch procedure / Unknown 03/20/2025 5:00 PM EDT 03/21/2025 7:39 AM EDT Narrative [facility] - 03/25/2025 8:54 AM EDT Previously reported Gram Positive Cocci is part of mixed bacterial zaki. us Wilbert Leonard MD LAB MICROBIOLOGY - GENERAL ORDER GRACIELA Final Result [facility] [address] [place] [address], [place] [phone] * (ABNORMAL) Lipid panel with reflex to direct LDL (02/28/2025 6:56 AM EDT) Cholesterol 118 0 - 200 mg/dL LAB CHEMISTRY METHOD 02/28/2025 9:16 AM [facility] Triglycerides 99 0 - 150 mg/dL LAB CHEMISTRY METHOD 02/28/2025 9:16 AM [facility] HDL 39(L) >=40 mg/dL LAB CHEMISTRY METHOD 02/28/2025 9:16 AM [facility] LDL Calculated 59 0 - 100 mg/dL LAB CHEMISTRY METHOD 02/28/2025 9:16 AM [facility] Comment:Estimated LDL Calcul ated using equation: Total cholesterol - HDL cholesterol - (Triglycerides/5) VLDL Cholesterol Marshall 19.8 mg/dL LAB CHEMISTRY METHOD 02/28/2025 9:16 AM [facility] Non HDL Chol. (LDL+VLDL) 79 <145 mg/dL LAB CHEMISTRY METHOD 02/28/2025 9:16 AM [facility] Chol/HDL Ratio 3.0 0.0 - 4.4 LAB CHEMISTRY METHOD 02/28/2025 9:16 AM [facility] Blood Venous blood specimen / Unknown 02/28/2025 6:56 AM EDT 02/28/2025 7:44 AM EDT us Wilbert Leonard MD LAB BLOOD ORDERABLES Final Resul t Performing Organization Address [facility] de Phone Number [facility] [address] [place] [address], [place] [phone] * Magnesium (02/28/2025 6:56 AM EDT) Pathologist [facility] Magnesium 1.9 1.9 - 2.6 mg/dL LAB CHEMISTRY METHOD 02/28/2025 9:16 AM EDT [facility] Blood Venous blood specimen / Unknown 02/28/2025 6:56 AM EDT 02/28/2025 7:44 AM EDT us Wilbert Leonard MD LAB BLOOD ORDERABLES Final Resul t Performing Organization Address [facility] de Phone Number [facility] [address] [place] [address], [place] [phone] * (ABNORMAL) Calcium (01/31/2025 6:55 AM EDT) [facility] Calcium 7.9(L) 8.5 - 10.5 mg/dL LAB CHEMISTRY METHOD 01/31/2025 8:31 AM EDT [facility] Blood Venous blood specimen / Unknown 01/31/2025 6:55 AM EDT 01/31/2025 7:46 AM EDT us Wilbert Leonard MD LAB BLOOD ORDERABLES Final Resul t Performing Organization Address [facility] Co de Phone Number [facility] [address] [place] [address], [place] [phone] * (ABNORMAL) CBC auto differential (01/16/2025 7:02 AM EDT) WBC 4.8 4.8 - 10.8 K/mcL LAB HEMETOLOGY METHOD 01/16/2025 7:56 AM [facility] RBC 2.80(L) 3.80 - 4.80 M/mcL LAB HEMETOLOGY METHOD 01/16/2025 7:56 AM [facility] Hemoglobin 8.5(L) 11.5 - 16.0 g/dL LAB HEMETOLOGY METHOD 01/16/2025 7:56 AM [facility] Hematocrit 27.9(L) 35.0 - 47.0 % LAB HEMETOLOGY METHOD 01/16/2025 7:56 AM [facility] MCV 99.3(H) 79.0 - 98.0 FL LAB HEMETOLOGY METHOD 01/16/2025 7:56 AM [facility] MCH 30.2 27.0 - 32.0 pcg LAB HEMETOLOGY METHOD 01/16/2025 7:56 AM [facility] MCHC 30.5(L) 32.0 - 37.0 g/dL LAB HEMETOLOGY METHOD 01/16/2025 7:56 AM [facility] RDW 15.6(H) 11.0 - 15.0 % LAB HEMETOLOGY METHOD 01/16/2025 7:56 AM [facility] Platelets 155 130 - 400 K/mcL LAB HEMETOLOGY METHOD 01/16/2025 7:56 AM [facility] MPV 10.8 7.0 - 11.0 FL LAB HEMETOLOGY METHOD 01/16/2025 7:56 AM [facility] NRBC 0.0 <1.0 % LAB HEMETOLOGY METHOD 01/16/2025 7:56 AM [facility] NRBC Absolute 0.00 <0.10 K/mcL LAB HEMETOLOGY METHOD 01/16/2025 7:56 AM [facility] Neutrophils Relative 45.0 % LAB HEMETOLOGY METHOD 01/16/2025 7:56 AM EDT [facility] Lymphocytes Relative 40.5 % LAB HEMETOLOGY METHOD 01/16/2025 7:56 AM [facility] Monocytes Relative 10.4 % LAB HEMETOLOGY METHOD 01/16/2025 7:56 AM [facility] Eosinophils Relative 2.9 % LAB HEMETOLOGY METHOD 01/16/2025 7:56 AM [facility] Basophils Relative 0.6 % LAB HEMETOLOGY METHOD 01/16/2025 7:56 AM [facility] Immature Granulocytes Relative 0.6 % LAB HEMETOLOGY METHOD 01/16/2025 7:56 AM [facility] Neutrophils Absolute 2.15 1.50 - 7.00 K/mcL LAB HEMETOLOGY METHOD 01/16/2025 7:56 AM [facility] Lymphocytes Absolute 1.94 1.00 - 5.00 K/mcL LAB HEMETOLOGY METHOD 01/16/2025 7:56 AM [facility] Monocytes Absolute 0.50 0.20 - 1.00 K/mcL LAB HEMETOLOGY METHOD 01/16/2025 7:56 AM [facility] Eosinophils Absolute 0.14 0.00 - 0.50 K/mcL LAB HEMETOLOGY METHOD 01/16/2025 7:56 AM [facility] Basophils Absolute 0.03 0.00 - 0.20 K/mcL LAB HEMETOLOGY METHOD 01/16/2025 7:56 AM [facility] Immature Granulocytes Absolute 0.03 0.00 - 0.03 K/mcL LAB HEMETOLOGY METHOD 01/16/2025 7:56 AM [facility] Blood Venous blood specimen / Unknown 01/16/2025 7:02 AM EDT 01/16/2025 7:49 AM EDT us Wilbert Leonard MD LAB BLOOD ORDERABLES Final Resul t Performing Organization Address [facility] Co de Phone Number [facility] [address] [place] [address], [place] [phone] * Red tube (01/16/2025 7:02 AM EDT) [facility] Extra Tube Hold for add-ons. 01/16/2025 9:01 AM EDT [facility] Comment:Auto resulted. Blood Venous blood specimen / Unknown 01/16/2025 7:02 AM EDT 01/16/2025 7:49 AM EDT us Wilbert Leonard MD LAB BLOOD ORDERABLES Final Resul t Performing Organization Address [facility] de Phone Number [facility] [address] [place] [address], [place] [phone] * (ABNORMAL) Ammonia (01/16/2025 7:02 AM EDT) [facility] Ammonia 47(H) 11 - 35 mcmol/L LAB CHEMISTRY METHOD 01/16/2025 8:17 AM EDT [facility] Blood Venous blood specimen / Unknown 01/16/2025 7:02 AM EDT 01/16/2025 7:49 AM EDT us Wilbert Leonard MD LAB BLOOD ORDERABLES Final Resul t Performing Organization Address [facility] de Phone Number [facility] [address] [place] [address], [place] [phone] * Valproic acid level, total (01/16/2025 7:02 AM EDT) Pathologist [facility] Valproic Acid, Total 77 50 - 100 mcg/mL LAB CHEMISTRY METHOD 01/16/2025 8:28 AM [facility] Blood Venous blood specimen / Unknown 01/16/2025 7:02 AM EDT 01/16/2025 7:49 AM EDT us Wilbert Leonard MD LAB BLOOD ORDERABLES Final Resul t [facility] [address] [place] [address], [place] [phone] * (ABNORMAL) Comprehensive metabolic panel (01/16/2025 7:02 AM EDT) Sodium 139 133 - 145 mmol/L LAB CHEMISTRY METHOD 01/16/2025 8:28 AM [facility] Potassium 4.0 3.5 - 5.5 mmol/L LAB CHEMISTRY METHOD 01/16/2025 8:28 AM [facility] Chloride 105 96 - 110 mmol/L LAB CHEMISTRY METHOD 01/16/2025 8:28 AM [facility] CO2 31 21 - 32 mmol/L LAB CHEMISTRY METHOD 01/16/2025 8:28 AM [facility] Anion Gap 3 3 - 11 LAB CHEMISTRY METHOD 01/16/2025 8:28 AM [facility] Glucose 66(L) 70 - 100 mg/dL LAB CHEMISTRY METHOD 01/16/2025 8:28 AM [facility] BUN 13 5 - 25 mg/dL LAB CHEMISTRY METHOD 01/16/2025 8:28 AM [facility] Creatinine 0.55 0.50 - 1.10 mg/dL LAB CHEMISTRY METHOD 01/16/2025 8:28 AM [facility] eGFR 106 >=60 mL/min/1. 73m2 LAB CHEMISTRY METHOD 01/16/2025 8:28 AM [facility] Comment:Calculation based on the Chronic Kidney Disease Epidemiology Collaboration (CKD-EPI) equation refit without adjustment for race. BUN/Creatinine Ratio 23.6 LAB CHEMISTRY METHOD 01/16/2025 8:28 AM [facility] Calcium 8.1(L) 8.5 - 10.5 mg/dL LAB CHEMISTRY METHOD 01/16/2025 8:28 AM [facility] AST (SGOT) 12 10 - 42 unit/L LAB CHEMISTRY METHOD 01/16/2025 8:28 AM [facility] ALT (SGPT) 11 10 - 60 unit/L LAB CHEMISTRY METHOD 01/16/2025 8:28 AM [facility] Alkaline Phosphatase 56 42 - 121 unit/L LAB CHEMISTRY METHOD 01/16/2025 8:28 AM [facility] Total Protein 5.9(L) 6.0 - 8.0 g/dL LAB CHEMISTRY METHOD 01/16/2025 8:28 AM [facility] Albumin 2.0(L) 3.2 - 5.0 g/dL LAB CHEMISTRY METHOD 01/16/2025 8:28 AM [facility] Total Bilirubin 0.2 0.0 - 1.4 mg/dL LAB CHEMISTRY METHOD 01/16/2025 8:28 AM [facility] Blood Venous blood specimen / Unknown 01/16/2025 7:02 AM EDT 01/16/2025 7:49 AM EDT us Wilbert Leonard MD LAB BLOOD ORDERABLES Final Resul t [facility] [address] [place] [address], from Last 3 Months Insurance MEDICARE Care Teams Airplane Gastank Liner Assembler Relationship Specialty Start Date End Date Wilbert Leonard MD [address] [place] [address] Dr [address] GIDEON Paulson PCP - General Internal Medicine 07/18/24
--- OUTSIDE RECORDS SUMMARY | 2025-04-11 12:21 | XMS_ITS | Encounter Summary ---
Author Organization [facility] Address [address] [place] [address] Care Team Providers Care Customer Project Manager Name Role Phone Wilbert Leonard MD Primary Care Provider [phone] Encounter Details Date Type Department Care Team (Late st Contact Info) Description 09/13/[address] [facility] [address] [facility] [place] [address] Wilbert Leonard MD [address] [place] [address] [address] [place] Other penitentiary (current) drug therapy Social History Tobacco Use [...] Diagnosis Comments VITAMIN D 25 HYDROXY Routine 09/13/2024 6:15 AM EDT Other penitentiary (current) drug therapy VITAMIN B6 Routine 09/13/2024 6:15 AM EDT Other penitentiary (current) drug therapy HEMOGLOBIN A1C Routine 09/13/2024 6:15 AM EDT Other terminal system operator (current) drug therapy VITAMIN B12 Routine 09/13/2024 6:15 AM EDT Other penitentiary (current) drug therapy documented in this encounter Results * (ABNORMAL) Vitamin B6 (09/13/2024 6:15 AM EDT) Vitamin B6 (Pyridoxine) Level <2(L) 5 - 50 ug/L 09/19/2024 11:08 AM EDT [facility] Comment: This test was developed and the performance characteristics determined by [facility]. It has not been cleared or approved by the FDA. The laboratory is regulated under CLIA as qualified to perform high-complexity testing. This test is used for patient testing purposes. It should not be regarded as investigational or for research. Test performed at [facility], [address] , [place] [address] Deirdre Vogt MD, PhD - Mail Handler Equipment Operator Blood Venous blood specimen / Unknown 09/13/2024 6:15 AM EDT 09/13/2024 6:54 AM EDT us Wilbert Leonard MD LAB BLOOD ORDERABLES Final Resul t [facility] [address] [place] [address] * (ABNORMAL) Vitamin B12 (09/13/2024 6:15 AM EDT) Pathologist [facility] Vitamin B-12 926(H) 250 - 900 pcg/mL LAB CHEMISTRY METHOD 09/13/2024 8:[address] [facility] Blood Venous blood specimen / Unknown 09/13/2024 6:15 AM EDT 09/13/2024 6:54 AM EDT us Wilbert Leonard MD LAB BLOOD ORDERABLES Final Resul t [facility] [address] [place] [address], [place] [phone] * Vitamin D 25 hydroxy (09/13/2024 6:15 AM EDT) Vit D, 25-Hydroxy 64.6 30.0 - 80.0 ng/mL LAB CHEMISTRY METHOD 09/13/2024 9:[address] [facility] Blood Venous blood specimen / Unknown 09/13/2024 6:15 AM EDT 09/13/2024 6:54 AM EDT us Wilbert Leonard MD LAB BLOOD ORDERABLES Final Resul t Performing Organization Address [facility] Co de Phone Number [facility] [address] [place] [address], [place] [phone] * Hemoglobin A1c (09/13/2024 6:15 AM EDT) Hemoglobin A1C 4.7 <6.5 % LAB CHEMISTRY METHOD 09/13/2024 2:[address] [facility] Mean Bld Glu Estim. 88 mg/dL LAB CHEMISTRY METHOD 09/13/2024 2:[address] [facility] Blood Venous blood specimen / Unknown 09/13/2024 6:15 AM EDT 09/13/2024 6:54 AM EDT us Wilbert Leonard MD LAB BLOOD ORDERABLES Final Resul t Performing Organization Address [facility] Co de Phone Number [facility] [address] [place] [address], [place] [phone] documented in this encounter Visit Diagnoses Diagnosis Other terminal system operator (current) drug therapy documented in this encounter Care Teams Customer Project Manager Relationship Specialty Start Date End Date Wilbert Leonard MD [address] [place] [address] Dr Suite [facility] [place] PCP - General Internal Medicine 07/18/24 documented as of this encounter
--- OUTSIDE RECORDS SUMMARY | 2025-04-11 12:21 | XMS_ITS | Encounter Summary ---
Author Organization [facility] Address [address] [place] [address] Care Team Providers Care Dictionary Editor Name Role Phone Wilbert Leonard MD Primary Care Provider [phone] Encounter Details Date Type Department Care Team (Late st Contact Info) Description 03/21/2025 Lab Requisition [facility] - Main Lab [address] [facility] [place] [address] Wilbert Leonard MD [address] [place] [address] [address] [place] Sepsis, unspecified organism (CMS/HCC V24, CMS/HCC V28); Other low back pain Social History Tobacco Use Types Packs/Day Years [...] Diagnosis Comments URINALYSIS WITH REFLEX MICROSCOPIC Routine 03/20/2025 5:00 PM EDT Sepsis, unspecified organism (CMS/HCC V24, CMS/HCC V28) Other low back pain URINALYSIS WITH REFLEX MICROSCOPIC Routine 03/20/2025 5:00 PM EDT Sepsis, unspecified organism (CMS/HCC V24, CMS/HCC V28) Other low back pain CULTURE URINE Routine 03/20/2025 5:00 PM EDT Sepsis, unspecified organism (CMS/HCC V24, CMS/HCC V28) Other low back pain documented in this encounter Results * (ABNORMAL) Urinalysis with reflex microscopic (03/20/2025 5:00 PM EDT) Specific [place] Urine 1.025 1.003 - 1.030 LAB URINALYSIS - AUTOMATED METHOD 03/21/2025 8:05 AM [facility] pH, Urine 6.0 5.0 - 8.0 pH LAB URINALYSIS - AUTOMATED METHOD 03/21/2025 8:05 AM [facility] Leukocytes, Urine Large(A) Negative LAB URINALYSIS - AUTOMATED METHOD 03/21/2025 8:05 AM [facility] Nitrite, Urine Negative Negative LAB URINALYSIS - AUTOMATED METHOD 03/21/2025 8:05 AM [facility] Protein, Urine 30(A) <=Trace mg/dL LAB URINALYSIS - AUTOMATED METHOD 03/21/2025 8:05 AM [facility] Glucose, Urine Negative Negative mg/dL LAB URINALYSIS - AUTOMATED METHOD 03/21/2025 8:05 AM [facility] Ketones, Urine Trace(A) Negative mg/dL LAB URINALYSIS - AUTOMATED METHOD 03/21/2025 8:05 AM [facility] Urobilinogen, Urine 1.0 0.2 - 1.0 mg/dL LAB URINALYSIS - AUTOMATED METHOD 03/21/2025 8:05 AM [facility] Bilirubin, Urine Negative Negative LAB URINALYSIS - AUTOMATED METHOD 03/21/2025 8:05 AM [facility] Blood, Urine Negative Negative LAB URINALYSIS - AUTOMATED METHOD 03/21/2025 8:05 AM [facility] RBC, Urine 4.0 0 - 4 /HPF LAB URINALYSIS - AUTOMATED METHOD 03/21/2025 8:05 AM [facility] WBC, Urine 134.3(H) 0 - 4 /HPF LAB URINALYSIS - AUTOMATED METHOD 03/21/2025 8:05 AM [facility] Squamous Epithelial, Urine 14 0 - 60 /LPF LAB URINALYSIS - AUTOMATED METHOD 03/21/2025 8:05 AM EDT [facility] Bacteria, Urine Many(A) Negative /HPF LAB URINALYSIS - AUTOMATED METHOD 03/21/2025 8:05 AM EDT [facility] Hyaline Casts, Urine 4.1(H) 0 - 3 /LPF LAB URINALYSIS - AUTOMATED METHOD 03/21/2025 8:05 AM EDT [facility] Urine Urine specimen obtained by clean catch procedure / Unknown 03/20/2025 5:00 PM EDT 03/21/2025 7:39 AM EDT us Wilbert Leonard MD LAB URINE ORDERABLES Final Resul t Performing Organization Address [facility]/ZIP Co de Phone Number [facility] [address] [place] [address], [place] [phone] * Culture urine (03/20/2025 5:00 PM EDT) Culture, Urine >100,000 CFU/mL Mixed bacterial morphotypes present suggestive of possible contamination during collection. Suggest appropriate recollection if clinically indicated. 03/25/2025 8:54 AM EDT [facility] Urine Urine specimen obtained by clean catch procedure / Unknown 03/20/2025 5:00 PM EDT 03/21/2025 7:39 AM EDT Narrative [facility] - 03/25/2025 8:54 AM EDT Previously reported Gram Positive Cocci is part of mixed bacterial zaki. us Wilbert Leonard MD LAB MICROBIOLOGY - GENERAL ORDER GRACIELA Final Result Performing Organization Address City/[facility]/ZIP Co de Phone Number [facility] [address] [place] [address], [place] [phone] documented in this encounter Visit Diagnoses Diagnosis Sepsis, unspecified organism (CMS/HCC V24, CMS/[facility] V28) Other low back pain documented in this encounter Care Teams Dictionary Editor Relationship Specialty Start Date End Date Wilbert Leonard MD [address] [place] [address] Dr [address] [place] Paul[place] PCP - General Internal Medicine 07/18/24 documented as of this encounter
--- OUTSIDE RECORDS SUMMARY | 2025-04-11 12:21 | XMS_ITS | Encounter Summary ---
Author Organization [facility] Address [address] [place] [address] Care Team Providers Care Real Estate Administrative Assistant Name Role Phone Wilbert Leonard MD Primary Care Provider [phone] Encounter Details Date Type Department Care Team (Late st Contact Info) Description 03/25/2025 Lab Requisition [facility] [address] [place] [address] Wilbert Leonard MD [address] [place] [address] Dr [address] [place] Vitamin D deficiency, unspecified Social History Tobacco Use Types Packs/Day [...] 6:43 AM EDT Vitamin D deficiency, unspecified documented in this encounter Results * Vitamin D 25 hydroxy (03/25/2025 6:43 AM EDT) Vit D, 25-Hydroxy 46.0 30.0 - 80.0 ng/mL LAB CHEMISTRY METHOD 03/26/2025 10:59 AM EDT [facility] Blood Venous blood specimen / Unknown 03/25/2025 6:43 AM EDT 03/26/2025 8:33 AM EDT us Wilbert Leonard MD LAB BLOOD ORDERABLES Final Resul t [facility] [address] [place], [place] [address] [phone] documented in this encounter Visit Diagnoses Diagnosis Vitamin D deficiency, unspecified documented in this encounter Care Teams Real Estate Administrative Assistant Relationship Specialty Start Date End Date Wilbert Leonard MD [address] [place] [address] Dr [address] [place], [place] PCP - General Internal Medicine 07/18/24 documented as of this encounter
--- OUTSIDE RECORDS SUMMARY | 2025-04-11 12:21 | XMS_ITS | Encounter Summary ---
Author Organization [facility] Address [address] [place] [address] Care Team Providers Care Dough Mixer Name Role Phone Wilbert Leonard MD Primary Care Provider [phone] Encounter Details Date Type Department Care Team (Late st Contact Info) Description 09/07/2024 Lab Requisition [facility] Lab [address] [place] [address] Wilbert Leonard MD [address] [place] [address] Dr [address] [place], [place] Other snf (current) drug therapy Social History Tobacco Use [...] Diagnosis Comments VITAMIN D 25 HYDROXY Routine 09/07/2024 5:53 AM EDT Other snf (current) drug therapy documented in this encounter Results * Vitamin D 25 hydroxy (09/07/2024 5:53 AM EDT) Vit D, 25-Hydroxy 73.4 30.0 - 80.0 ng/mL LAB CHEMISTRY METHOD 09/07/2024 8:26 AM EDT [facility] Blood Venous blood specimen / Unknown 09/07/2024 5:53 AM EDT 09/07/2024 7:11 AM EDT us Wilbert Leonard MD LAB BLOOD ORDERABLES Final Resul t [facility] [address] [place] [address], documented in this encounter Visit Diagnoses Diagnosis Other extermination inspector (current) drug therapy documented in this encounter Care Teams Dough Mixer Relationship Specialty Start Date End Date Wilbert Leonard MD [address] [place] [address] Dr [address] [place], [place] PCP - General Internal Medicine 07/18/24 documented as of this encounter
--- OUTSIDE RECORDS SUMMARY | 2025-04-11 12:21 | XMS_ITS | Encounter Summary ---
Author Organization [employer] Address [address] [place] [address] Care Team Providers Care Social Sciences Chair Name Role Phone Wilbert Leonard MD Primary Care Provider [phone] Encounter Details Date Type Department Care Team (Late st Contact Info) Description 06/13/2024 Lab Requisition [facility] - Main Lab [address] [facility] [place] [address] Wilbert Leonard MD [address] [place] [address] [address] [place] Other alf (current) drug therapy Social History Tobacco Use [...] HYDROXY Routine 06/13/2024 8:25 AM EST Other alf (current) drug therapy VITAMIN B6 Routine 06/13/2024 8:25 AM EST Other alf (current) drug therapy HEMOGLOBIN A1C Routine 06/13/2024 8:25 AM EST Other equipment operator intermodal yard (current) drug therapy VITAMIN B12 Routine 06/13/2024 8:25 AM EST Other alf (current) drug therapy documented in this encounter [...] ORDERABLES Final Resul t Performing Organization Address [facility] Co de Phone Number [facility] [address] [place] [address], [place] [phone] * (ABNORMAL) Vitamin B6 (06/13/2024 8:25 AM EST) Vitamin B6 (Pyridoxine) Level 2(L) 5 - 50 ug/L 06/21/2024 6:07 AM EST [facility] Comment: This test was developed and the performance characteristics determined by [facility]. It has not been cleared or approved by the FDA. The laboratory is regulated under CLIA as qualified to perform high-complexity testing. This test is used for patient testing purposes. It should not be regarded as investigational or for research. Test performed at [facility], [address] , [place] [address] Deirdre Vogt MD, PhD - Cutter Finisher Blood Venous blood specimen / Unknown 06/13/2024 8:25 AM EST 06/13/2024 10:04 AM EST us Wilbert Leonard MD LAB BLOOD ORDERABLES Final Resul t Performing Organization Address City/[facility]/ZIP Co de Phone Number [facility] [address] [place] [address] * Hemoglobin A1c (06/13/2024 8:25 AM EST) [...] ORDERABLES Final Resul t Performing Organization Address [facility]/ZIP Co de Phone Number [facility] [address] [place] [address], [place] [phone] * (ABNORMAL) Vitamin B12 (06/13/2024 8:25 AM EST) Pathologist [facility] Vitamin B-12 1,655(H) 250 - 900 pcg/mL LAB CHEMISTRY METHOD 06/13/2024 11:39 AM EST [facility] Blood Venous blood specimen / Unknown 06/13/2024 8:25 AM EST 06/13/2024 10:04 AM EST us Wilbert Leonard MD LAB BLOOD ORDERABLES Final Resul t Performing Organization Address City/[facility] Co de Phone Number [facility] [address] [place] [address], [place] [phone] documented in this encounter Visit Diagnoses Diagnosis Other equipment operator intermodal yard (current) drug therapy documented in this encounter Additional Health Concerns Infection Onset Date Last Indicated Resolved Time Respiratory Rule-Out 07/12/2024 07/12/2024 025 11:53 PM EST documented as of this encounter Care Teams Social Sciences Chair Relationship Specialty Start Date End Date Wilbert Leonard MD [address] [place] [address] [address] [place] PCP - General Internal Medicine 07/18/24 documented as of this encounter
--- OUTSIDE RECORDS SUMMARY | 2025-04-11 12:21 | XMS_ITS | Encounter Summary ---
Author Organization [facility] Address [address] [place] [address] Care Team Providers Care Channel Supervisor Name Role Phone Wilbert Leonard MD Primary Care Provider [phone] Encounter Details Date Type Department Care Team (Late st Contact Info) Description 11/01/2024 Lab Requisition [facility] - Main Lab [address] [facility] [place] [address] Wilbert Leonard MD [address] [place] [address] [address] [place] Other custodial (current) drug therapy Social History Tobacco Use [...] Date/Time Associated Diagnosis Comments VITAMIN B6 Routine 11/01/2024 6:45 AM EDT Other emt intermediate (current) drug therapy documented in this encounter Results * (ABNORMAL) Vitamin B6 (11/01/2024 6:45 AM EDT) Vitamin B6 (Pyridoxine) Level <2(L) 5 - 50 ug/L 11/08/2024 10:36 AM EDT [facility] Comment: This test was developed and the performance characteristics determined by [facility]. It has not been cleared or approved by the FDA. The laboratory is regulated under CLIA as qualified to perform high-complexity testing. This test is used for patient testing purposes. It should not be regarded as investigational or for research. Test performed at [facility], [address], [place] [address] Deirdre Vogt MD, PhD - Government Professor Blood Venous blood specimen / Unknown 11/01/2024 6:45 AM EDT 11/01/2024 7:13 AM EDT us Wilbert Leonard MD LAB BLOOD ORDERABLES Final Resul t [facility] [address] [place] [phone] documented in this encounter Visit Diagnoses Diagnosis Other custodial (current) drug therapy documented in this encounter Care Teams Channel Supervisor Relationship Specialty Start Date End Date Wilbert Leonard MD [address] [place] [address] Dr [address] [place] PCP - General Internal Medicine 07/18/24 documented as of this encounter
--- OUTSIDE RECORDS SUMMARY | 2025-04-11 12:21 | XMS_ITS | Encounter Summary ---
Author Organization [facility] [facility] Address [address] [place] [address] Care Team Providers Care Batch Mixer Operator Name Role Phone Wilbert Leonard MD Primary Care Provider [phone] Encounter Details Date Type Department Care Team (Late st Contact Info) Description 07/12/2024 Lab Requisition [facility] [address] [place] [address] Wilbert Leonard MD [address] [place] [address] Dr [address] [place] Cough, unspecified Social History Tobacco Use Types [...] Procedure Name Priority Date/Time Associated Diagnosis Comments [id number], RSV, FLU A AND B QUALITATIVE RT-PCR, LOCAL REFERENCE LAB Routine 07/12/2024 12:05 PM EST Cough, unspecified documented in this encounter Results * [id number], RSV, Influenza A and B qualitative RT-PCR (07/12/2024 12:05 PM EST) SARS COV-2 Not Detected Not Detected LAB MOLECULAR DIAGNOSTICS METHOD 07/12/2024 11:53 PM EST [facility] ([facility]) [facility] Comment: Disclaimer: The manner in which this information is used to guide patient care is the responsibility of the healthcare provider. Testing was performed using the [employer] m SARS-CoV-2 test. This test has [...] for Healthcare Providers can be found at: https://www.fda.gov/media/449239/download Fact sheet for Patients can be found at: https://www.fda.gov/media/210608/download Influenza A PCR Not Detected Not Detected LAB MOLECULAR DIAGNOSTICS METHOD 07/12/2024 11:53 PM EST [facility] Influenza B PCR Not Detected Not Detected LAB MOLECULAR DIAGNOSTICS METHOD 07/12/2024 11:53 PM EST [facility] RSV PCR Not Detected Not Detected LAB MOLECULAR DIAGNOSTICS METHOD 07/12/2024 11:53 PM EST [facility] Swab Nasopharyngeal structure / Unknown 07/12/2024 12:05 PM EST 07/12/2024 1:27 PM EST us Wilbert Leonard MD LAB MICROBIOLOGY - GENERAL ORDER GRACIELA Final Result [facility] [address] [place] [address], documented in this encounter Visit Diagnoses Diagnosis Cough, unspecified documented in this encounter Additional Health Concerns Infection Onset Date Last Indicated Resolved Time Respiratory Rule-Out 07/12/2024 07/12/2024 025 11:53 PM EST documented as of this encounter Care Teams Batch Mixer Operator Relationship Specialty Start Date End Date Wilbert Leonard MD [address] [place] [address] [address] [place] [address] PCP - General Internal Medicine 07/18/24 documented as of this encounter
--- OUTSIDE RECORDS SUMMARY | 2025-04-11 12:21 | XMS_ITS | Encounter Summary ---
Author Organization [employer] Address [address] [place] [address] Care Team Providers Care New Accounts Banking Representative Name Role Phone Wilbert Leonard MD Primary Care Provider [phone] Encounter Details Date Type Department Care Team (Late st Contact Info) Description 11/08/2024 Lab Requisition [facility] - Main Lab [address] [facility] [place] [address] Wilbert Leonard MD [address] [place] [address] [address] GIDEON Paulson Other rodent exterminator (current) drug therapy; Encounter for other specified special examinations; Other specified hypothyroidism Social History Tobacco Use Types Packs/Day Years [...] Diagnosis Comments CBC WITH AUTO DIFFERENTIAL Routine 11/08/2024 7:00 AM EDT Other custodial (current) drug therapy Encounter for other specified special examinations Other specified hypothyroidism CBC AND DIFFERENTIAL Routine 11/08/2024 7:00 AM EDT Other rodent exterminator (current) drug therapy Encounter for other specified special examinations Other specified hypothyroidism THYROID STIMULATING HORMONE Routine 11/08/2024 7:00 AM EDT Other custodial (current) drug therapy Encounter for other specified special examinations Other specified hypothyroidism PREALBUMIN Routine 11/08/2024 7:00 AM EDT Other custodial (current) drug therapy Encounter for other specified special examinations Other specified hypothyroidism AMMONIA Routine 11/08/2024 7:00 AM EDT Other rodent exterminator (current) drug therapy Encounter for other specified special examinations Other specified hypothyroidism VALPROIC ACID LEVEL, TOTAL Routine 11/08/2024 7:00 AM EDT Other custodial (current) drug therapy Encounter for other specified special examinations Other specified hypothyroidism COMPREHENSIVE METABOLIC PANEL Routine 11/08/2024 7:00 AM EDT Other custodial (current) drug therapy Encounter for other specified special examinations Other specified hypothyroidism documented in this encounter Results * (ABNORMAL) Comprehensive metabolic panel (11/08/2024 7:00 AM EDT) [facility] Signature Sodium 140 133 - 145 mmol/L LAB CHEMISTRY METHOD 11/08/2024 8:50 AM [facility] Potassium 4.1 3.5 - 5.5 mmol/L LAB CHEMISTRY METHOD 11/08/2024 8:50 AM [facility] Chloride 104 96 - 110 mmol/L LAB CHEMISTRY METHOD 11/08/2024 8:50 AM [facility] CO2 29 21 - 32 mmol/L LAB CHEMISTRY METHOD 11/08/2024 8:50 AM [facility] Anion Gap 7 3 - 11 LAB CHEMISTRY METHOD 11/08/2024 8:50 AM [facility] Glucose 82 70 - 100 mg/dL LAB CHEMISTRY METHOD 11/08/2024 8:50 AM [facility] BUN 17 5 - 25 mg/dL LAB CHEMISTRY METHOD 11/08/2024 8:50 AM [facility] Creatinine 0.57 0.50 - 1.10 mg/dL LAB CHEMISTRY METHOD 11/08/2024 8:50 AM [facility] eGFR 105 >=60 mL/min/1. 73m2 LAB CHEMISTRY METHOD 11/08/2024 8:50 AM [facility] Comment:Calculation based on the Chronic Kidney Disease Epidemiology Collaboration (CKD-EPI) equation refit without adjustment for race. BUN/Creatinine Ratio 29.8 LAB CHEMISTRY METHOD 11/08/2024 8:50 AM [facility] Calcium 8.2(L) 8.5 - 10.5 mg/dL LAB CHEMISTRY METHOD 11/08/2024 8:50 AM [facility] AST (SGOT) 12 10 - 42 unit/L LAB CHEMISTRY METHOD 11/08/2024 8:50 AM [facility] ALT (SGPT) 8(L) 10 - 60 unit/L LAB CHEMISTRY METHOD 11/08/2024 8:50 AM [facility] Alkaline Phosphatase 81 42 - 121 unit/L LAB CHEMISTRY METHOD 11/08/2024 8:50 AM [facility] Total Protein 6.8 6.0 - 8.0 g/dL LAB CHEMISTRY METHOD 11/08/2024 8:50 AM [facility] Albumin 2.1(L) 3.2 - 5.0 g/dL LAB CHEMISTRY METHOD 11/08/2024 8:50 AM [facility] Total Bilirubin 0.3 0.0 - 1.4 mg/dL LAB CHEMISTRY METHOD 11/08/2024 8:50 AM [facility] Blood Venous blood specimen / Unknown 11/08/2024 7:00 AM EDT 11/08/2024 7:30 AM EDT us Wilbert Leonard MD LAB BLOOD ORDERABLES Final Resul t [facility] [address] [place] [address], * (ABNORMAL) CBC auto differential (11/08/2024 7:00 AM EDT) WBC 6.4 4.8 - 10.8 K/mcL LAB HEMETOLOGY METHOD 11/08/2024 7:47 AM EDT [facility] RBC 3.00(L) 3.80 - 4.80 M/mcL LAB HEMETOLOGY METHOD 11/08/2024 7:47 AM [facility] Hemoglobin 8.9(L) 11.5 - 16.0 g/dL LAB HEMETOLOGY METHOD 11/08/2024 7:47 AM [facility] Hematocrit 29.6(L) 35.0 - 47.0 % LAB HEMETOLOGY METHOD 11/08/2024 7:47 AM [facility] MCV 100.0(H) 79.0 - 98.0 FL LAB HEMETOLOGY METHOD 11/08/2024 7:47 AM [facility] MCH 30.1 27.0 - 32.0 pcg LAB HEMETOLOGY METHOD 11/08/2024 7:47 AM [facility] MCHC 30.1(L) 32.0 - 37.0 g/dL LAB HEMETOLOGY METHOD 11/08/2024 7:47 AM [facility] RDW 15.7(H) 11.0 - 15.0 % LAB HEMETOLOGY METHOD 11/08/2024 7:47 AM [facility] Platelets 140 130 - 400 K/mcL LAB HEMETOLOGY METHOD 11/08/2024 7:47 AM [facility] MPV 11.2(H) 7.0 - 11.0 FL LAB HEMETOLOGY METHOD 11/08/2024 7:47 AM [facility] NRBC 0.0 <1.0 % LAB HEMETOLOGY METHOD 11/08/2024 7:47 AM [facility] NRBC Absolute 0.00 <0.10 K/mcL LAB HEMETOLOGY METHOD 11/08/2024 7:47 AM [facility] Neutrophils Relative 59.5 % LAB HEMETOLOGY METHOD 11/08/2024 7:47 AM [facility] Lymphocytes Relative 27.1 % LAB HEMETOLOGY METHOD 11/08/2024 7:47 AM [facility] Monocytes Relative 11.2 % LAB HEMETOLOGY METHOD 11/08/2024 7:47 AM [facility] Eosinophils Relative 1.4 % LAB HEMETOLOGY METHOD 11/08/2024 7:47 AM [facility] Basophils Relative 0.5 % LAB HEMETOLOGY METHOD 11/08/2024 7:47 AM [facility] Immature Granulocytes Relative 0.3 % LAB HEMETOLOGY METHOD 11/08/2024 7:47 AM [facility] Neutrophils Absolute 3.78 1.50 - 7.00 K/mcL LAB HEMETOLOGY METHOD 11/08/2024 7:47 AM [facility] Lymphocytes Absolute 1.72 1.00 - 5.00 K/mcL LAB HEMETOLOGY METHOD 11/08/2024 7:47 AM [facility] Monocytes Absolute 0.71 0.20 - 1.00 K/mcL LAB HEMETOLOGY METHOD 11/08/2024 7:47 AM [facility] Eosinophils Absolute 0.09 0.00 - 0.50 K/mcL LAB HEMETOLOGY METHOD 11/08/2024 7:47 AM [facility] Basophils Absolute 0.03 0.00 - 0.20 K/mcL LAB HEMETOLOGY METHOD 11/08/2024 7:47 AM [facility] Immature Granulocytes Absolute 0.02 0.00 - 0.03 K/mcL LAB HEMETOLOGY METHOD 11/08/2024 7:47 AM [facility] Blood Venous blood specimen / Unknown 11/08/2024 7:00 AM EDT 11/08/2024 7:30 AM EDT us Wilbert Leonard MD LAB BLOOD ORDERABLES Final Resul t Performing Organization Address [facility] de Phone Number [facility] [address] [place] [address], [place] [phone] * Thyroid stimulating hormone (11/08/2024 7:00 AM EDT) TSH 3.71 0.40 - 4.00 mcIU/mL LAB CHEMISTRY METHOD 11/08/2024 10:45 AM EDT [facility] Blood Venous blood specimen / Unknown 11/08/2024 7:00 AM EDT 11/08/2024 7:30 AM EDT us Wilbert Leonard MD LAB BLOOD ORDERABLES Final Resul t Performing Organization Address [facility] de Phone Number [facility] [address] [place] [address], [place] [phone] * (ABNORMAL) Prealbumin (11/08/2024 7:00 AM EDT) Prealbumin 11(L) 18 - 45 mg/dL LAB CHEMISTRY METHOD 11/08/2024 8:50 AM EDT [facility] Blood Venous blood specimen / Unknown 11/08/2024 7:00 AM EDT 11/08/2024 7:30 AM EDT us Wilbert Leonard MD LAB BLOOD ORDERABLES Final Resul t Performing Organization Address [facility] de Phone Number [facility] [address] [place] [address], [place] [phone] * (ABNORMAL) Ammonia (11/08/2024 7:00 AM EDT) Ammonia 38(H) 11 - 35 mcmol/L LAB CHEMISTRY METHOD 11/08/2024 7:58 AM EDT [facility] Blood Venous blood specimen / Unknown 11/08/2024 7:00 AM EDT 11/08/2024 7:30 AM EDT us Wilbert Leonard MD LAB BLOOD ORDERABLES Final Resul t Performing Organization Address [facility]/ZIP Co de Phone Number [facility] [address] [place] [address], [place] [phone] * Valproic acid level, total (11/08/2024 7:00 AM EDT) Valproic Acid, Total 58 50 - 100 mcg/mL LAB CHEMISTRY METHOD 11/08/2024 8:50 AM EDT [facility] Blood Venous blood specimen / Unknown 11/08/2024 7:00 AM EDT 11/08/2024 7:30 AM EDT us Wilbert Leonard MD LAB BLOOD ORDERABLES Final Resul t Performing Organization Address [facility] Co de Phone Number [facility] [address] [place] [address], [place] [phone] documented in this encounter Visit Diagnoses Diagnosis Other custodial (current) drug therapy Encounter for other specified special examinations Other specified hypothyroidism documented in this encounter Care Teams New Accounts Banking Representative Relationship Specialty Start Date End Date Wilbert Leonard MD [address] [place] [address] Dr [address] [place], [place] PCP - General Internal Medicine 07/18/24 documented as of this encounter
--- OUTSIDE RECORDS SUMMARY | 2025-04-11 12:21 | XMS_ITS | Encounter Summary ---
Author Organization [employer] Address [address] [place] [address] Care Team Providers Care Material Chaser Name Role Phone Wilbert Leonard MD Primary Care Provider [phone] Encounter Details Date Type Department Care Team (Late st Contact Info) Description 07/13/2024 Lab Requisition [facility] - Main Lab [address] [facility] [place] [address] Wilbert Leonard MD [address] [place] [address] Dr [address] GIDEON Paulson Cough, unspecified; Altered mental status, unspecified Social [...] AM EST) [facility] WBC 12.8(H) 4.8 - 10.8 K/mcL LAB HEMETOLOGY METHOD 07/13/2024 8:10 AM [facility] RBC 3.70(L) 3.80 - 4.80 M/mcL LAB HEMETOLOGY METHOD 07/13/2024 8:10 AM [facility] Hemoglobin 10.7(L) 11.5 - 16.0 g/dL LAB HEMETOLOGY METHOD 07/13/2024 8:10 AM [facility] Hematocrit 35.1 35.0 - 47.0 % LAB HEMETOLOGY METHOD 07/13/2024 8:10 AM [facility] MCV 94.9 79.0 - 98.0 FL LAB HEMETOLOGY METHOD 07/13/2024 8:10 AM [facility] MCH 28.9 27.0 - 32.0 pcg LAB HEMETOLOGY METHOD 07/13/2024 8:10 AM [facility] MCHC 30.5(L) 32.0 - 37.0 g/dL LAB HEMETOLOGY METHOD 07/13/2024 8:10 AM [facility] RDW 15.6(H) 11.0 - 15.0 % LAB HEMETOLOGY METHOD 07/13/2024 8:10 AM [facility] Platelets 210 130 - 400 K/mcL LAB HEMETOLOGY METHOD 07/13/2024 8:10 AM [facility] MPV 10.7 7.0 - 11.0 FL LAB HEMETOLOGY METHOD 07/13/2024 8:10 AM [facility] NRBC 0.2 <1.0 % LAB HEMETOLOGY METHOD 07/13/2024 8:10 AM [facility] NRBC Absolute 0.02 <0.10 K/mcL LAB HEMETOLOGY METHOD 07/13/2024 8:10 AM [facility] Neutrophils Relative 72.7 % LAB HEMETOLOGY METHOD 07/13/2024 8:10 AM [facility] Lymphocytes Relative 13.7 % LAB HEMETOLOGY METHOD 07/13/2024 8:10 AM [facility] Monocytes Relative 10.3 % LAB HEMETOLOGY METHOD 07/13/2024 8:10 AM [facility] Eosinophils Relative 0.8 % LAB HEMETOLOGY METHOD 07/13/2024 8:10 AM [facility] Basophils Relative 0.4 % LAB HEMETOLOGY METHOD 07/13/2024 8:10 AM [facility] Immature Granulocytes Relative 2.1 % LAB HEMETOLOGY METHOD 07/13/2024 8:10 AM [facility] Neutrophils Absolute 9.34(H) 1.50 - 7.00 K/[facility] LAB HEMETOLOGY METHOD 07/13/2024 8:10 AM [facility] Lymphocytes Absolute 1.76 1.00 - 5.00 K/[facility] LAB HEMETOLOGY METHOD 07/13/2024 8:10 AM [facility] Monocytes Absolute 1.32(H) 0.20 - 1.00 K/mcL LAB HEMETOLOGY METHOD 07/13/2024 8:10 AM [facility] Eosinophils Absolute 0.10 0.00 - 0.50 K/mcL LAB HEMETOLOGY METHOD 07/13/2024 8:10 AM [facility] Basophils Absolute 0.05 0.00 - 0.20 K/mcL LAB HEMETOLOGY METHOD 07/13/2024 8:10 AM [facility] Immature Granulocytes Absolute 0.27(H) 0.00 - 0.03 K/mcL LAB HEMETOLOGY METHOD 07/13/2024 8:10 AM [facility] Blood Venous blood specimen / Unknown 07/13/2024 7:30 AM EST 07/13/2024 8:00 AM EST us Wilbert Leonard MD LAB BLOOD ORDERABLES Final Resul t Performing Organization Address [facility] Co de Phone Number [facility] [address] [place] [address], [place] [phone] * (ABNORMAL) Ammonia (07/13/2024 7:30 AM EST) Ammonia 52(H) 11 - 35 mcmol/L LAB CHEMISTRY METHOD 07/13/2024 8:27 AM EST [facility] Comment:Hemolysis present Blood Venous blood specimen / Unknown 07/13/2024 7:30 AM EST 07/13/2024 8:00 AM EST us Wilbert Leonard MD LAB BLOOD ORDERABLES Final Resul t Performing Organization Address [facility] de Phone Number [facility] [address] [place] [address], [place] [phone] * Thyroid stimulating hormone with reflex to free t4 and free t3 (07/13/2024 7:30 AM EST) TSH 1.93 0.40 - 4.00 mcIU/mL LAB CHEMISTRY METHOD 07/13/2024 10:39 AM EST [facility] Blood Venous blood specimen / Unknown 07/13/2024 7:30 AM EST 07/13/2024 8:00 AM EST us Wilbert Leonard MD LAB BLOOD ORDERABLES Final Resul t Performing Organization Address [facility] Co de Phone Number [facility] [address] [place] [address], [place] [phone] * (ABNORMAL) Comprehensive metabolic panel (07/13/2024 7:30 AM EST) Sodium 138 133 - 145 mmol/L LAB CHEMISTRY METHOD 07/13/2024 8:34 AM [facility] Potassium 4.2 3.5 - 5.5 mmol/L LAB CHEMISTRY METHOD 07/13/2024 8:34 AM [facility] Chloride 99 96 - 110 mmol/L LAB CHEMISTRY METHOD 07/13/2024 8:34 AM [facility] CO2 35(H) 21 - 32 mmol/L LAB CHEMISTRY METHOD 07/13/2024 8:34 AM [facility] Anion Gap 4 3 - 11 LAB CHEMISTRY METHOD 07/13/2024 8:34 AM [facility] Glucose 83 70 - 100 mg/dL LAB CHEMISTRY METHOD 07/13/2024 8:34 AM [facility] BUN 12 5 - 25 mg/dL LAB CHEMISTRY METHOD 07/13/2024 8:34 AM [facility] Creatinine 0.52 0.50 - 1.10 mg/dL LAB CHEMISTRY METHOD 07/13/2024 8:34 AM [facility] eGFR 108 >=60 mL/min/1. 73m2 LAB CHEMISTRY METHOD 07/13/2024 8:34 AM [facility] Comment:Calculation based on the Chronic Kidney Disease Epidemiology Collaboration (CKD-EPI) equation refit without adjustment for race. BUN/Creatinine Ratio 23.1 LAB CHEMISTRY METHOD 07/13/2024 8:34 AM [facility] Calcium 8.0(L) 8.5 - 10.5 mg/dL LAB CHEMISTRY METHOD 07/13/2024 8:34 AM [facility] AST (SGOT) 20 10 - 42 unit/L LAB CHEMISTRY METHOD 07/13/2024 8:34 AM [facility] ALT (SGPT) 11 10 - 60 unit/L LAB CHEMISTRY METHOD 07/13/2024 8:34 AM [facility] Alkaline Phosphatase 70 42 - 121 unit/L LAB CHEMISTRY METHOD 07/13/2024 8:34 AM EST [facility] Total Protein 6.8 6.0 - 8.0 g/dL LAB CHEMISTRY METHOD 07/13/2024 8:34 AM EST [facility] Albumin 2.4(L) 3.2 - 5.0 g/dL LAB CHEMISTRY METHOD 07/13/2024 8:34 AM [facility] Total Bilirubin 0.4 0.0 - 1.4 mg/dL LAB CHEMISTRY METHOD 07/13/2024 8:34 AM EST [facility] Blood Venous blood specimen / Unknown 07/13/2024 7:30 AM EST 07/13/2024 8:00 AM EST us Wilbert Leonard MD LAB BLOOD ORDERABLES Final Resul t [facility] [address] [place] [address], documented in this encounter Visit Diagnoses Diagnosis Cough, unspecified Altered mental status, unspecified documented in this encounter Care Teams Material Chaser Relationship Specialty Start Date End Date Wilbert Leonard MD [address] [place] [address] Dr [facility] [facility] GIDEON Paulson PCP - General Internal Medicine 07/18/24 documented as of this encounter
--- OUTSIDE RECORDS SUMMARY | 2025-04-11 12:21 | XMS_ITS | Encounter Summary ---
Author Organization [facility] Address [address] [place] [address] Care Team Providers Care Chain Saw Mechanic Name Role Phone Wilbert Leonard MD Primary Care Provider [phone] Encounter Details Date Type Department Care Team (Late st Contact Info) Description 08/29/[address] [facility] [address] [place] [address] Wilbert Leonard MD [address] [place] [address] [address] [place] Vitamin D deficiency, unspecified Social History Tobacco [...] Diagnosis Comments VITAMIN D 25 HYDROXY Routine 08/29/2024 4:53 AM EDT Vitamin D deficiency, unspecified documented in this encounter Results * Vitamin D 25 hydroxy (08/29/2024 4:53 AM EDT) Vit D, 25-Hydroxy 63.6 30.0 - 80.0 ng/mL LAB CHEMISTRY METHOD 08/29/2024 6:11 AM EDT [facility] Blood Venous blood specimen / Unknown 08/29/2024 4:53 AM EDT 08/29/2024 5:37 AM EDT us Wilbert Leonard MD LAB BLOOD ORDERABLES Final Resul t [facility] [address] [place], [place] [address] [phone] documented in this encounter Visit Diagnoses Diagnosis Vitamin D deficiency, unspecified documented in this encounter Care Teams Chain Saw Mechanic Relationship Specialty Start Date End Date Wilbert Leonard MD [address] [place] [address] Dr [address] [place], [place] PCP - General Internal Medicine 07/18/24 documented as of this encounter
--- NOTE | 2025-04-11 12:24 | PM.EVENT ---
Event Note Date of Service: 04/11/25 Event Note: Chart reviewed patient examined. Well known to me from [facility]. Exam consistent with baseline. Given extreme natures of her behaviors, she will be transferred back to [facility] and we will treat the CAT scan changes there. She will be better served by the behavioral staff in environment that she is used to. Case discussed with ER attending and Dr. Fabian at [facility]. She will be transferred back to [facility] and I will follow up with her up there Time Spent With Patient Time: Total time managing care of this patient today ____ minutes.
[2025-04-11 13:39] VITALS: BP 100/64; PULSE 86; RESP 16; TEMP -17.7; TEMP 0; O2SAT 94
--- NOTE | 2025-04-11 13:40 | PC.NURSE ---
report given to Valentine gallegos at [facility]
== END 2025-04-11 13:40 | disposition skilled nursing facility (03) ==
PROVIDERS: Physician Assistant Medical; Emergency Provider Emergency Medicine; PCP Hospitalist
DX: J69.0 Pneumonitis due to inhalation of food and vomit (principal); R09.02 Hypoxemia; J44.9 Chronic obstructive pulmonary disease, unspecified; Z87.01 Personal history of pneumonia (recurrent); Z87.19 Personal history of other diseases of the digestive system; Z79.899 Other long term (current) drug therapy; Z72.0 Tobacco use; Z99.81 Dependence on supplemental oxygen
CPT/HCPCS: 36415; 71045; 71275; 80053; 82803; 83605; 83735; 83880; 84484; 85025; 87040; 87502; 87635; 93005; 96365; 96367; 99285; J0696; J1836; Q9967

== ENCOUNTER → 2025-04-11 09:13 | Outpatient (BNV) | payer MEDICARE, MEDICAID, SELFPAY | PROVIDERS: Emergency Provider Emergency Medicine; PCP Hospitalist; Visit Provider Internal Medicine | DX: I25.2 Old myocardial infarction (principal) | CPT/HCPCS: 93010 ==

== ENCOUNTER → 2025-04-11 09:13 | Outpatient (BNV) | payer MEDICARE, MEDICAID, SELFPAY | PROVIDERS: PCP Hospitalist; Visit Provider Radiology Diagnostic Radiology | DX: J98.09 Other diseases of bronchus, not elsewhere classified (principal); R91.8 Other nonspecific abnormal finding of lung field; K44.9 Diaphragmatic hernia without obstruction or gangrene; J90 Pleural effusion, not elsewhere classified | CPT/HCPCS: 71045 ==

== ENCOUNTER 2025-04-24 09:32 | Outpatient (REF) | payer MEDICARE, SELFPAY ==
[2025-04-24 11:15] LABS: Hematocrit 29.6 % (37.0-47.0); Hemoglobin 9.0 g/dl (12.0-16.0); Mean Corpuscular HGB Conc 30.4 g/dl (31.0-35.0); Mean Corpuscular Hemoglobin 28.6 pg (27.0-33.0); Mean Corpuscular Volume 94.0 fL (80.0-98.0); NRBC Abs Auto 0.000 X10*3/uL (0.0-0.012); NRBC Pct Auto 0.0 /100WBC (0.0-0.2); Platelet Count 167 X10*3/uL (160-400); Red Blood Count 3.15 X10*6/uL (4.20-5.50); White Blood Count 10.8 X10*3/uL (4.8-10.8)
[2025-04-24 12:13] LABS: Iron 66 mcg/dL (30-160); Percent Iron Saturation 32 % (15-50); Total Iron Binding Capacity 209 mcg/dL (228-428); Unsaturated Iron Binding 143 ug/dL
[2025-04-24 12:19] LABS: Ferritin 154 ng/mL (10-250)
[2025-04-24 12:36] LABS: Folate 2.8 ng/mL (> or = 4.0); Vitamin B12 1151 pg/mL (200-900)
== END 2025-04-24 09:33 | disposition home or self-care (01) ==
LOC: HO.LAB 09:32
PROVIDERS: PCP Hospitalist; Visit Provider Internal Medicine
DX: D64.9 Anemia, unspecified (principal)
CPT/HCPCS: 36415; 82607; 82728; 82746; 83540; 85027; 99202

== ENCOUNTER 2025-04-24 09:32 | Outpatient (AMB) | payer MEDICARE, SELFPAY ==
[2025-04-24 09:35] VITALS: BP 151/57; PULSE 83; BMI 23.2
--- NOTE | 2025-04-24 09:35 | MHC.OFFVIS ---
Vital Signs 04/24/25 09:35 Height 4 ft 11 in Weight 115 lb BMI 23.2 BP 151/57 H Blood Pressure Location Lt brachial Position Sitting Pulse 83 Intake Visit Reasons: Diverticulitis r/s 12/17/24 Intake Note: Katie presents in the office for diverticulitis. her only concern is her colostomy bag! Allergies erythromycin base Adverse Reaction (Unknown, Verified 04/24/25 09:37) Unknown moxifloxacin Adverse Reaction (Unknown, Verified 04/24/25 09:37) Unknown prednisone Adverse Reaction (Unknown, Verified 04/24/25 09:37) Unknown pregabalin Adverse Reaction (Unknown, Verified 04/24/25 09:37) Unknown HPI Comments Details: 60 y.o F with PMH of bipolar disorder, COPD on chronic 2L O2, hx of diverticulitis s/p colostomy, who is here to review colonoscopy. Pt unable to tell me when or why the colostomy was created, she thinks possible due to diverticulitis. She is originally from [facility] but currently a resident of [facility]. She does not want us to contact her siblings. Spoke to Mayelin at [facility] who will fax over previous records from [place] re indication for surgery and what kind of surgery she had. Labs reviewed, has normocytic anemia. Will get iron and B12/folate. She also has extensive hx of smoking but quit earlier this year. Sees [facility] pulm. She is due for repeat CT chest in May 2025. [facility] Medical History COPD (chronic obstructive pulmonary disease) Bipolar 1 disorder Hyperlipidemia CAD (coronary artery disease) Thrombocytopenia GERD (gastroesophageal reflux disease) Pneumonia Diverticulitis Social History Household Members: Other Household Members Other:: SNF Housing: Long Term Do you presently have visiting nurse or other home services: No Patient Tobacco Use Status: Tobacco use Unknown Tobacco use type: Cigarette Cigarettes Per Day: 4 Advance Directives Date on File: 07/30/24 service: No Review of Systems Const All systems reviewed & are unremarkable except as noted in HPI and below Physical Exam Exam Exam: No apparent distress Nonicteric Abdomen soft, nondistended, ostomy in LUQ with formed brown stool Alert and oriented x3, normal gait Vital Signs: Last Vital Signs Pulse 83 04/24/25 09:35 BP 151/57 H 04/24/25 09:35 BMI result Body Mass Index 23.2 Assessment & Plan Assessment & Plan (1) Anemia: Code(s): D64.9 - Anemia, unspecified Category: Medical Plan Pt here to establish care for anemia and need for endoscopic evaluation. Will get labs to [facility] for cause of anemia. Op notes from colostomy also requested from [facility]. Will book colo early 2025 after chest imaging completed. Plan: - Labs - If iron deficient, will need EGD/colo both, otherwise colo only. - PEG prep Rxed - written orders as per type disk quality control supervisor Mayelin. - Pt also noted to have hard/formed stools in ostomy bag. Advised to start bisacodyl 10 mg BID x 3 days prior to colo - Will also need to clarify consenting person for the procedure Follow up after scopes Orders: Orders Complete Blood Count no Diff Today D64.9 - Anemia, unspecified Vitamin B12 and Folate Today D64.9 - Anemia, unspecified Ferritin Today D64.9 - Anemia, unspecified IRON PROFILE Today D64.9 - Anemia, unspecified Coding Level of Care Code New Pt Level 4 (68025) Complex EM visit Add On G2211 Diagnoses Anemia D64.9
--- OUTSIDE RECORDS SUMMARY | 2025-04-24 10:45 | XMS_ITS | Encounter Summary ---
Author Organization [employer] Address [address] [place] [address] Care Team Providers Care Grief Counselor Name Role Phone Wilbert Leonard MD Primary Care Provider Encounter Details Date Type Department Care Team (Late st Contact Info) Description 08/22/2024 Lab Requisition [facility] Lab 299 [facility] [place] [address] Wilbert Leonard MD [address] [place] [address] Dr [address] [place] Bipolar disorder, current episode mixed, severe, with [...] K/mcL LAB HEMETOLOGY METHOD 08/22/2024 8:52 AM [facility] RBC 2.70(L) 3.80 - 4.80 M/mcL LAB HEMETOLOGY METHOD 08/22/2024 8:52 AM [facility] Hemoglobin 8.1(L) 11.5 - 16.0 g/dL LAB HEMETOLOGY METHOD 08/22/2024 8:52 AM [facility] Hematocrit 26.9(L) 35.0 - 47.0 % LAB HEMETOLOGY METHOD 08/22/2024 8:52 AM [facility] MCV 100.0(H) 79.0 - 98.0 FL LAB HEMETOLOGY METHOD 08/22/2024 8:52 AM [facility] MCH 30.1 27.0 - 32.0 pcg LAB HEMETOLOGY METHOD 08/22/2024 8:52 AM [facility] MCHC 30.1(L) 32.0 - 37.0 g/dL LAB HEMETOLOGY METHOD 08/22/2024 8:52 AM [facility] RDW 17.4(H) 11.0 - 15.0 % LAB HEMETOLOGY METHOD 08/22/2024 8:52 AM [facility] Platelets 96(L) 130 - 400 K/mcL LAB HEMETOLOGY METHOD 08/22/2024 8:52 AM [facility] Comment:reviewed by slide MPV 11.1(H) 7.0 - 11.0 FL LAB HEMETOLOGY METHOD 08/22/2024 8:52 AM [facility] NRBC 0.6 <1.0 % LAB HEMETOLOGY METHOD 08/22/2024 8:52 AM [facility] NRBC Absolute 0.02 <0.10 K/mcL LAB HEMETOLOGY METHOD 08/22/2024 8:52 AM [facility] Neutrophils Relative 28.3 % LAB HEMETOLOGY METHOD 08/22/2024 8:52 AM [facility] Lymphocytes Relative 50.1 % LAB HEMETOLOGY METHOD 08/22/2024 8:52 AM [facility] Monocytes Relative 17.4 % LAB HEMETOLOGY METHOD 08/22/2024 8:52 AM [facility] Eosinophils Relative 1.9 % LAB HEMETOLOGY METHOD 08/22/2024 8:52 AM [facility] Basophils Relative 0.6 % LAB HEMETOLOGY METHOD 08/22/2024 8:52 AM [facility] Immature Granulocytes Relative 1.7 % LAB HEMETOLOGY METHOD 08/22/2024 8:52 AM [facility] Neutrophils Absolute 1.03(L) 1.50 - 7.00 K/mcL LAB HEMETOLOGY METHOD 08/22/2024 8:52 AM [facility] Lymphocytes Absolute 1.82 1.00 - 5.00 K/mcL LAB HEMETOLOGY METHOD 08/22/2024 8:52 AM EDT [facility] Monocytes Absolute 0.63 0.20 - 1.00 K/[facility] LAB HEMETOLOGY METHOD 08/22/2024 8:52 AM EDT [facility] Eosinophils Absolute 0.07 0.00 - 0.50 K/[facility] LAB HEMETOLOGY METHOD 08/22/2024 8:52 AM EDT [facility] Basophils Absolute 0.02 0.00 - 0.20 K/[facility] LAB HEMETOLOGY METHOD 08/22/2024 8:52 AM EDT [facility] Immature Granulocytes Absolute 0.06(H) 0.00 - 0.03 K/[facility] LAB HEMETOLOGY METHOD 08/22/2024 8:52 AM EDT [facility] Blood Venous blood specimen / Unknown 08/22/2024 6:00 AM EDT 08/22/2024 6:36 AM EDT us Wilbert Leonard MD LAB BLOOD ORDERABLES Final Resul t Performing Organization Address City/[facility]/ZIP Co de Phone Number [facility] [address] [place] [address], [place] [phone] * Magnesium (08/22/2024 6:00 AM EDT) Magnesium 2.0 1.9 - 2.6 mg/dL LAB CHEMISTRY METHOD 08/22/2024 7:31 AM EDT [facility] Blood Venous blood specimen / Unknown 08/22/2024 6:00 AM EDT 08/22/2024 6:36 AM EDT us Wilbert Leonard MD LAB BLOOD ORDERABLES Final Resul t [facility] [address] [place] [address], [place] [phone] * Thyroxine free (08/22/2024 6:00 AM EDT) Free T4 1.45 0.70 - 1.80 ng/dL LAB CHEMISTRY METHOD 08/22/2024 4:45 PM EDT [facility] Blood Venous blood specimen / Unknown 08/22/2024 6:00 AM EDT 08/22/2024 6:36 AM EDT us Wilbert Leonard MD LAB BLOOD ORDERABLES Final Resul t Performing Organization Address [facility]/ZIP Co de Phone Number [facility] [address] [place] [address], [place] [phone] * (ABNORMAL) Ammonia (08/22/2024 6:00 AM EDT) Ammonia 41(H) 11 - 35 mcmol/L LAB CHEMISTRY METHOD 08/22/2024 7:38 AM EDT [facility] Blood Venous blood specimen / Unknown 08/22/2024 6:00 AM EDT 08/22/2024 6:36 AM EDT us Wilbert Leonard MD LAB BLOOD ORDERABLES Final Resul t Performing Organization Address [facility]/ZIP Co de Phone Number [facility] [address] [place] [address], [place] [phone] * Valproic acid level, total (08/22/2024 6:00 AM EDT) Valproic Acid, Total 77 50 - 100 mcg/mL LAB CHEMISTRY METHOD 08/22/2024 7:31 AM EDT [facility] Blood Venous blood specimen / Unknown 08/22/2024 6:00 AM EDT 08/22/2024 6:36 AM EDT us Wilbert Leonard MD LAB BLOOD ORDERABLES Final Resul t Performing Organization Address [facility]/ZIP Co de Phone Number [facility] [address] [place] [address], [place] [phone] * (ABNORMAL) Thyroid stimulating hormone (08/22/2024 6:00 AM EDT) TSH 4.41(H) 0.40 - 4.00 mcIU/mL LAB CHEMISTRY METHOD 08/22/2024 4:45 PM EDT [facility] Blood Venous blood specimen / Unknown 08/22/2024 6:00 AM EDT 08/22/2024 6:36 AM EDT Wilbert Leonard MD LAB BLOOD ORDERABLES Final Resul t Performing Organization Address [facility]/ZIP Co de Phone Number [facility] [address] [place] [address], [place] [phone] * (ABNORMAL) Lipid panel with reflex to direct LDL (08/22/2024 6:00 AM EDT) Cholesterol 96 0 - 200 mg/dL LAB CHEMISTRY METHOD 08/22/2024 7:31 AM EDT [facility] Triglycerides 163(H) 0 - 150 mg/dL LAB CHEMISTRY METHOD 08/22/2024 7:31 AM [facility] HDL 31(L) >=40 mg/dL LAB CHEMISTRY METHOD 08/22/2024 7:31 AM EDT [facility] LDL Calculated 32 0 - 100 mg/dL LAB CHEMISTRY METHOD 08/22/2024 7:31 AM EDT [facility] VLDL Cholesterol Marshall 32.6 mg/dL LAB CHEMISTRY METHOD 08/22/2024 7:31 AM EDT [facility] Non HDL Chol. (LDL+VLDL) 65 <145 mg/dL LAB [facility]STR[facility] Chol/HDL Ratio 3.1 0.0 - 4.4 LAB CHEMISTRY METHOD 08/22/2024 7:31 AM EDT [facility] Blood Venous blood specimen / Unknown 08/22/2024 6:00 AM EDT 08/22/2024 6:36 AM EDT us Wilbert Leonard MD LAB BLOOD ORDERABLES Final Resul t [facility] [address] [place] [address], documented in this encounter Visit Diagnoses Diagnosis Bipolar disorder, current episode mixed, severe, with psychotic features (CMS/HCC V24, CMS/HCC V28) documented in this encounter Care Teams Grief Counselor Relationship Specialty Start Date End Date Wilbert eLonard MD [address] [place] [address] Dr [address] [place], [place] PCP - General Internal Medicine 07/18/24 documented as of this encounter
--- OUTSIDE RECORDS SUMMARY | 2025-04-24 10:45 | XMS_ITS | Encounter Summary ---
Author Organization [employer] Address [address] [place] [address] Care Team Providers Care Photographic Artist Name Role Phone Wilbert Leonard MD Primary Care Provider Encounter Details Date Type Department Care Team (Late st Contact Info) Description 07/18/2024 Lab Requisition [facility] 299 [facility] [place] [address] Wilbert Leonard MD [address] [place] [address] [address] [place] Other marine oil terminal superintendent (current) drug therapy Social History Tobacco Use [...] HYDROXY Routine 07/18/2024 6:40 AM EST Other fpc (current) drug therapy VALPROIC ACID LEVEL, TOTAL Routine 07/18/2024 6:40 AM EST Other fpc (current) drug therapy documented in this encounter Results * Valproic acid level, total (07/18/2024 6:40 AM EST) Valproic Acid, Total 87 50 - 100 mcg/mL LAB CHEMISTRY METHOD 07/18/2024 8:30 AM EST [facility] Blood Venous blood specimen / Unknown 07/18/2024 6:40 AM EST 07/18/2024 7:28 AM EST us Wilbert Leonard MD LAB BLOOD ORDERABLES Final Resul t Performing Organization Address [facility]/ZIP Co de Phone Number [facility] [address] [place] [address], * Vitamin D 25 hydroxy (07/18/2024 6:40 AM EST) Vit D, 25-Hydroxy 37.6 30.0 - 80.0 ng/mL LAB CHEMISTRY METHOD 07/18/2024 8:57 AM EST [facility] Blood Venous blood specimen / Unknown 07/18/2024 6:40 AM EST 07/18/2024 7:28 AM EST Wilbert Leonard MD LAB BLOOD ORDERABLES Final Resul t Performing Organization Address [facility] Co de Phone Number [facility] [address] [place] [address], [place] [phone] documented in this encounter Visit Diagnoses Diagnosis Other fpc (current) drug therapy documented in this encounter Care Teams Photographic Artist Relationship Specialty Start Date End Date Wilbert Leonard MD [address] [place] [address] [address] [place] PCP - General Internal Medicine 07/18/24 documented as of this encounter
--- OUTSIDE RECORDS SUMMARY | 2025-04-24 10:45 | XMS_ITS | Encounter Summary ---
Author Organization [employer] Address [address] [place] [address] Care Team Providers Care Placement Director Name Role Phone Wilbert Leonard MD Primary Care Provider [phone] Encounter Details Date Type Department Care Team (Late st Contact Info) Description 12/25/2024 Lab Requisition [facility] Lab 299 [facility] [place] [address] Wilbert Leonard MD [address] [place] [address] [address] [place] Bipolar disorder, current episode mixed, severe, with psychotic features (CMS/[facility] V24, CMS/[facility] V28) Social History Tobacco Use Types Packs/Day [...] mixed, severe, with psychotic features (CMS/HCC V24, CMS/[facility] V28) documented in this encounter Results * Vitamin B6 (12/25/2024 12:46 PM EDT) Vitamin B6 (Pyridoxine) Level 48 5 - 50 ug/L 12/31/2024 10:08 AM EDT [facility] Comment: This test was developed and the performance characteristics determined by [facility]. It has not been cleared or approved by the FDA. The laboratory is regulated under CLIA as qualified to perform high-complexity testing. This test is used for patient testing purposes. It should not be regarded as investigational or for research. Test performed at [facility], [address], [place] [address] Deirdre Vogt MD, PhD - Packaging Design Engineer Blood Venous blood specimen / Unknown 12/25/2024 12:46 PM EDT 12/25/2024 1:52 PM EDT us Wilbert Leonard MD LAB BLOOD ORDERABLES Final Resul t [facility] [address] [place] [address] documented in this encounter Visit Diagnoses Diagnosis Bipolar disorder, current episode mixed, severe, with psychotic features (CMS/HCC V24, CMS/HCC V28) documented in this encounter Care Teams Placement Director Relationship Specialty Start Date End Date Wilbert Leonard MD [address] [place] [address] [address] [place] PCP - General Internal Medicine 07/18/24 documented as of this encounter
--- OUTSIDE RECORDS SUMMARY | 2025-04-24 10:45 | XMS_ITS | Encounter Summary ---
Author Organization [employer] Address [address] [place] [address] Care Team Providers Care Senior Network Security Engineer Name Role Phone Wilbert Leonard MD Primary Care Provider [phone] Encounter Details Date Type Department Care Team (Late st Contact Info) Description 05/28/2024 Lab Requisition [facility] - Main Lab 299 [facility] [employer] [address] Wilbert Leonard MD [address] [place] [address] [address] [place] Unspecified intracranial injury with loss of consciousness [...] LAB CHEMISTRY METHOD 05/28/2024 7:42 AM EST [facility] Blood Venous blood specimen / Unknown 05/28/2024 6:35 AM EST 05/28/2024 7:07 AM EST us Wilbert Leonard MD LAB BLOOD ORDERABLES Final Resul t Performing Organization Address City/[facility]/ZIP Co de Phone Number [facility] [address] [place] [address], [place] [phone] * Thyroid stimulating hormone (05/28/2024 6:35 AM EST) TSH 1.55 0.40 - 4.00 mcIU/mL LAB CHEMISTRY METHOD 05/28/2024 7:43 AM EST [facility] Blood Venous blood specimen / Unknown 05/28/2024 6:35 AM EST 05/28/2024 7:07 AM EST us Wilbert Leonard MD LAB BLOOD ORDERABLES Final Resul t Performing Organization Address City/[facility]/ZIP Co de Phone Number [facility] [address] [place] [address], [place] [phone] * Valproic acid level, total (05/28/2024 6:35 AM EST) Valproic Acid, Total 70 50 - 100 mcg/mL LAB CHEMISTRY METHOD 05/28/2024 7:33 AM EST [facility] Blood Venous blood specimen / Unknown 05/28/2024 6:35 AM EST 05/28/2024 7:07 AM EST us Wilbert Leonard MD LAB BLOOD ORDERABLES Final Resul t [facility] [address] [place] [address], [place] [phone] documented in this encounter Visit Diagnoses Diagnosis Unspecified intracranial injury with loss of consciousness of unspecified duration, sequela (CMS/HCC V24) documented in this encounter Additional Health Concerns Infection Onset Date Last Indicated Resolved Time Respiratory Rule-Out 07/12/2024 07/12/2024 025 11:53 PM EST documented as of this encounter Care Teams Senior Network Security Engineer Relationship Specialty Start Date End Date Wilbert Leonard MD [address] [place] [address] [address] [place] PCP - General Internal Medicine 07/18/24 documented as of this encounter
--- OUTSIDE RECORDS SUMMARY | 2025-04-24 10:45 | XMS_ITS | Encounter Summary ---
Author Organization [employer] Address [address] [place] [address] Care Team Providers Care Manager Engagement Name Role Phone Wilbert Leonard MD Primary Care Provider [phone] Encounter Details Date Type Department Care Team (Late st Contact Info) Description 07/25/[address] [facility] [address] [facility] [place] [address] Wilbert Leonard MD [address] [place] [address] [address] [place] Urinary tract infection, site not specified Social [...] reflex microscopic (07/25/2024 5:40 AM EST) Specific Chama Urine 1.030 1.003 - 1.030 LAB URINALYSIS - AUTOMATED METHOD 07/25/2024 8:42 AM EST [facility] pH, Urine 6.5 5.0 - 8.0 pH LAB URINALYSIS - AUTOMATED METHOD 07/25/2024 8:42 AM [facility] Leukocytes, Urine Trace(A) Negative LAB URINALYSIS - AUTOMATED METHOD 07/25/2024 8:42 AM [facility] Nitrite, Urine Negative Negative LAB URINALYSIS - AUTOMATED METHOD 07/25/2024 8:42 AM [facility] Protein, Urine Trace <=Trace mg/dL LAB URINALYSIS - AUTOMATED METHOD 07/25/2024 8:42 AM [facility] Glucose, Urine Negative Negative mg/dL LAB URINALYSIS - AUTOMATED METHOD 07/25/2024 8:42 AM [facility] Ketones, Urine Trace(A) Negative mg/dL LAB URINALYSIS - AUTOMATED METHOD 07/25/2024 8:42 AM [facility] Urobilinogen , Urine 1.0 0.2 - 1.0 mg/dL LAB URINALYSIS - AUTOMATED METHOD 07/25/2024 8:42 AM [facility] Bilirubin, Urine Negative Negative LAB URINALYSIS - AUTOMATED METHOD 07/25/2024 8:42 AM [facility] Blood, Urine Negative Negative LAB URINALYSIS - AUTOMATED METHOD 07/25/2024 8:42 AM [facility] RBC, Urine 0.0 0 - 4 /HPF LAB URINALYSIS - AUTOMATED METHOD 07/25/2024 8:42 AM [facility] WBC, Urine 15.9(H) 0 - 4 /HPF LAB URINALYSIS - AUTOMATED METHOD 07/25/2024 8:42 AM [facility] Squamous Epithelial, Urine 80(H) 0 - 60 /LPF LAB URINALYSIS - AUTOMATED METHOD 07/25/2024 8:42 AM [facility] Non-Squamous Epithelial, Urine 2-5 Transitional epithelial cells. /LPF LAB URINALYSIS - AUTOMATED METHOD 07/25/2024 8:42 AM [facility] Bacteria, Urine Negative Negative /HPF LAB URINALYSIS - AUTOMATED METHOD 07/25/2024 8:42 AM [facility] Hyaline Casts, Urine 4.4(H) 0 [...] Final Resul t [facility] [address] [place] [address], documented in this encounter Visit Diagnoses Diagnosis Urinary tract infection, site not specified documented in this encounter Care Teams Manager Engagement Relationship Specialty Start Date End Date Wilbert Leonard MD [address] [place] [address] [address] [place], [place] PCP - General Internal Medicine 07/18/24 documented as of this encounter
--- OUTSIDE RECORDS SUMMARY | 2025-04-24 10:45 | XMS_ITS | Encounter Summary ---
Author Organization [employer] Address [address] [place] [address] Care Team Providers Care Engineering Group Leader Name Role Phone Wilbert Leonard MD Primary Care Provider [phone] Encounter Details Date Type Department Care Team (Late st Contact Info) Description 11/08/2024 Lab Requisition [facility] - Main Lab 299 [facility] [place] [address] Wilbert Leonard MD [address] [place] [address] [address] GIDEON Paulson Other emt intermediate (current) drug therapy; Encounter for other specified [...] DIFFERENTIAL Routine 11/08/2024 7:00 AM EDT Other emt intermediate (current) drug therapy Encounter for other specified special examinations Other specified hypothyroidism CBC AND DIFFERENTIAL Routine 11/08/2024 7:00 AM EDT Other senior care (current) drug therapy Encounter for other specified special examinations Other specified hypothyroidism THYROID STIMULATING HORMONE Routine 11/08/2024 7:00 AM EDT Other senior care (current) drug therapy Encounter for other specified special examinations Other specified hypothyroidism PREALBUMIN Routine 11/08/2024 7:00 AM EDT Other senior care (current) drug therapy Encounter for other specified special examinations Other specified hypothyroidism AMMONIA Routine 11/08/2024 7:00 AM EDT Other emt intermediate (current) drug therapy Encounter for other specified special examinations Other specified hypothyroidism VALPROIC ACID LEVEL, TOTAL Routine 11/08/2024 7:00 AM EDT Other emt intermediate (current) drug therapy Encounter for other specified special examinations Other specified hypothyroidism COMPREHENSIVE METABOLIC PANEL Routine 11/08/2024 7:00 AM EDT Other emt intermediate (current) drug therapy Encounter for other specified special examinations Other specified hypothyroidism documented in this encounter Results * (ABNORMAL) Comprehensive metabolic panel (11/08/2024 7:00 AM EDT) [facility] Signature Sodium 140 133 - 145 mmol/L LAB CHEMISTRY METHOD 11/08/2024 8:50 AM [facility] Potassium 4.1 3.5 - 5.5 mmol/L LAB CHEMISTRY METHOD 11/08/2024 8:50 AM [facility] Chloride 104 96 - 110 mmol/L LAB CHEMISTRY METHOD 11/08/2024 8:50 AM [facility] CO2 29 21 - 32 mmol/L LAB CHEMISTRY METHOD 11/08/2024 8:50 AM [facility] Anion Gap 7 3 - 11 LAB CHEMISTRY METHOD 11/08/2024 8:50 AM [facility] Glucose 82 70 - 100 mg/dL LAB CHEMISTRY METHOD 11/08/2024 8:50 AM [facility] BUN 17 5 - 25 mg/dL LAB CHEMISTRY METHOD 11/08/2024 8:50 AM [facility] Creatinine 0.57 0.50 - 1.10 mg/dL LAB CHEMISTRY METHOD 11/08/2024 8:50 AM [facility] eGFR 105 >=60 mL/min/1. 73m2 LAB CHEMISTRY METHOD 11/08/2024 8:50 AM [facility] Comment:Calculation based on the Chronic Kidney Disease Epidemiology Collaboration (CKD-EPI) equation refit without adjustment for race. BUN/Creatinine Ratio 29.8 LAB CHEMISTRY METHOD 11/08/2024 8:50 AM [facility] Calcium 8.2(L) 8.5 - 10.5 mg/dL LAB CHEMISTRY METHOD 11/08/2024 8:50 AM [facility] AST (SGOT) 12 10 - 42 unit/L LAB CHEMISTRY METHOD 11/08/2024 8:50 AM [facility] ALT (SGPT) 8(L) 10 - 60 unit/L LAB CHEMISTRY METHOD 11/08/2024 8:50 AM [facility] Alkaline Phosphatase 81 42 - 121 unit/L LAB CHEMISTRY METHOD 11/08/2024 8:50 AM [facility] Total Protein 6.8 6.0 - 8.0 g/dL LAB CHEMISTRY METHOD 11/08/2024 8:50 AM [facility] Albumin 2.1(L) 3.2 - 5.0 g/dL LAB CHEMISTRY METHOD 11/08/2024 8:50 AM [facility] Total Bilirubin 0.3 0.0 - 1.4 mg/dL LAB CHEMISTRY METHOD 11/08/2024 8:50 AM [facility] Blood Venous blood specimen / Unknown 11/08/2024 7:00 AM EDT 11/08/2024 7:30 AM EDT us Wilbert Leonard MD LAB BLOOD ORDERABLES Final Resul t [facility] [address] [place] [address], * (ABNORMAL) CBC auto differential (11/08/2024 7:00 AM EDT) WBC 6.4 4.8 - 10.8 K/mcL LAB HEMETOLOGY METHOD 11/08/2024 7:47 AM EDT [facility] RBC 3.00(L) 3.80 - 4.80 M/mcL LAB HEMETOLOGY METHOD 11/08/2024 7:47 AM [facility] Hemoglobin 8.9(L) 11.5 - 16.0 g/dL LAB HEMETOLOGY METHOD 11/08/2024 7:47 AM [facility] Hematocrit 29.6(L) 35.0 - 47.0 % LAB HEMETOLOGY METHOD 11/08/2024 7:47 AM [facility] MCV 100.0(H) 79.0 - 98.0 FL LAB HEMETOLOGY METHOD 11/08/2024 7:47 AM [facility] MCH 30.1 27.0 - 32.0 pcg LAB HEMETOLOGY METHOD 11/08/2024 7:47 AM [facility] MCHC 30.1(L) 32.0 - 37.0 g/dL LAB HEMETOLOGY METHOD 11/08/2024 7:47 AM [facility] RDW 15.7(H) 11.0 - 15.0 % LAB HEMETOLOGY METHOD 11/08/2024 7:47 AM [facility] Platelets 140 130 - 400 K/mcL LAB HEMETOLOGY METHOD 11/08/2024 7:47 AM [facility] MPV 11.2(H) 7.0 - 11.0 FL LAB HEMETOLOGY METHOD 11/08/2024 7:47 AM [facility] NRBC 0.0 <1.0 % LAB HEMETOLOGY METHOD 11/08/2024 7:47 AM [facility] NRBC Absolute 0.00 <0.10 K/mcL LAB HEMETOLOGY METHOD 11/08/2024 7:47 AM [facility] Neutrophils Relative 59.5 % LAB HEMETOLOGY METHOD 11/08/2024 7:47 AM [facility] Lymphocytes Relative 27.1 % LAB HEMETOLOGY METHOD 11/08/2024 7:47 AM [facility] Monocytes Relative 11.2 % LAB HEMETOLOGY METHOD 11/08/2024 7:47 AM [facility] Eosinophils Relative 1.4 % LAB HEMETOLOGY METHOD 11/08/2024 7:47 AM [facility] Basophils Relative 0.5 % LAB HEMETOLOGY METHOD 11/08/2024 7:47 AM [facility] Immature Granulocytes Relative 0.3 % LAB HEMETOLOGY METHOD 11/08/2024 7:47 AM [facility] Neutrophils Absolute 3.78 1.50 - 7.00 K/mcL LAB HEMETOLOGY METHOD 11/08/2024 7:47 AM [facility] Lymphocytes Absolute 1.72 1.00 - 5.00 K/mcL LAB HEMETOLOGY METHOD 11/08/2024 7:47 AM [facility] Monocytes Absolute 0.71 0.20 - 1.00 K/mcL LAB HEMETOLOGY METHOD 11/08/2024 7:47 AM [facility] Eosinophils Absolute 0.09 0.00 - 0.50 K/mcL LAB HEMETOLOGY METHOD 11/08/2024 7:47 AM [facility] Basophils Absolute 0.03 0.00 - 0.20 K/mcL LAB HEMETOLOGY METHOD 11/08/2024 7:47 AM [facility] Immature Granulocytes Absolute 0.02 0.00 - 0.03 K/mcL LAB HEMETOLOGY METHOD 11/08/2024 7:47 AM [facility] Blood Venous blood specimen / Unknown 11/08/2024 7:00 AM EDT 11/08/2024 7:30 AM EDT us Wilbert Leonard MD LAB BLOOD ORDERABLES Final Resul t Performing Organization Address [facility] de Phone Number [facility] [address] [place] [address], [place] [phone] * Thyroid stimulating hormone (11/08/2024 7:00 AM EDT) TSH 3.71 0.40 - 4.00 mcIU/mL LAB CHEMISTRY METHOD 11/08/2024 10:45 AM EDT [facility] Blood Venous blood specimen / Unknown 11/08/2024 7:00 AM EDT 11/08/2024 7:30 AM EDT us Wilbert Leonard MD LAB BLOOD ORDERABLES Final Resul t Performing Organization Address [facility] de Phone Number [facility] [address] [place] [address], [place] [phone] * (ABNORMAL) Prealbumin (11/08/2024 7:00 AM EDT) Prealbumin 11(L) 18 - 45 mg/dL LAB CHEMISTRY METHOD 11/08/2024 8:50 AM EDT [facility] Blood Venous blood specimen / Unknown 11/08/2024 7:00 AM EDT 11/08/2024 7:30 AM EDT us Wilbert Leonard MD LAB BLOOD ORDERABLES Final Resul t Performing Organization Address [facility] de Phone Number [facility] [address] [place] [address], [place] [phone] * (ABNORMAL) Ammonia (11/08/2024 7:00 AM EDT) Ammonia 38(H) 11 - 35 mcmol/L LAB CHEMISTRY METHOD 11/08/2024 7:58 AM EDT [facility] Blood Venous blood specimen / Unknown 11/08/2024 7:00 AM EDT 11/08/2024 7:30 AM EDT us Wilbert Leonard MD LAB BLOOD ORDERABLES Final Resul t Performing Organization Address [facility]/ZIP Co de Phone Number [facility] [address] [place] [address], [place] [phone] * Valproic acid level, total (11/08/2024 7:00 AM EDT) Valproic Acid, Total 58 50 - 100 mcg/mL LAB CHEMISTRY METHOD 11/08/2024 8:50 AM EDT [facility] Blood Venous blood specimen / Unknown 11/08/2024 7:00 AM EDT 11/08/2024 7:30 AM EDT us Wilbert Leonard MD LAB BLOOD ORDERABLES Final Resul t Performing Organization Address [facility] Co de Phone Number [facility] [address] [place] [address], [place] [phone] documented in this encounter Visit Diagnoses Diagnosis Other senior care (current) drug therapy Encounter for other specified special examinations Other specified hypothyroidism documented in this encounter Care Teams Engineering Group Leader Relationship Specialty Start Date End Date Wilbert Leonard MD [address] [place] [address] Dr [address] [place], [place] PCP - General Internal Medicine 07/18/24 documented as of this encounter
--- OUTSIDE RECORDS SUMMARY | 2025-04-24 10:45 | XMS_ITS | Clinical Summary ---
Author Organization [address] [facility] Address [address] [place] [address] Phone Care Team Providers Care Olap Developer Name Role Phone Wilbert Leonard MD Primary Care Provider [phone] Encounters Date Type Department Care Team Description 03/25/2025 Lab Requisition [facility] Lab [address] [place] [phone] Wilbert Leonard MD Vitamin D deficiency, unspecified 03/21/2025 Lab Requisition [facility] Lab [address] [place] [phone] Wilbert Leonard MD Sepsis, unspecified organism (CMS/HCC V24, CMS/HCC V28); Other low back pain 02/28/2025 Lab Requisition [facility] Lab [address] [place] [phone] Wilbert Leonard MD Magnesium deficiency; Other hyperlipidemia 01/31/2025 Lab Requisition [facility] Lab [address] [place] [phone] Wilbert Leonard MD Abnormal finding of blood chemistry, unspecified from Last 3 Months Social History Tobacco [...] 03/20/2025 5:00 PM EDT Sepsis, unspecified organism ([facility] V24, [facility] V28) Other low back pain URINALYSIS WITH REFLEX MICROSCOPIC Routine 03/20/2025 5:00 PM EDT Sepsis, unspecified organism ([facility]/HCC V24, CMS/[facility] V28) Other low back pain CULTURE URINE Routine 03/20/2025 5:00 PM EDT Sepsis, unspecified organism ([facility] V24, CMS/[facility] V28) Other low back pain MAGNESIUM Routine 02/28/2025 6:56 AM EDT Magnesium deficiency Other hyperlipidemia LIPID PANEL WITH REFLEX TO DIRECT LDL Routine 02/28/2025 6:56 AM EDT Magnesium deficiency Other hyperlipidemia CALCIUM Routine 01/31/2025 6:55 AM EDT Abnormal finding of blood chemistry, unspecified from Last 3 Months Results * Vitamin D 25 hydroxy (03/25/2025 6:43 AM EDT) [facility] Vit D, 25-Hydroxy 46.0 30.0 - 80.0 ng/mL LAB CHEMISTRY METHOD 03/26/2025 10:59 AM EDT [facility] Blood Venous blood specimen / Unknown 03/25/2025 6:43 AM EDT 03/26/2025 8:33 AM EDT us Wilbert Leonard MD LAB BLOOD ORDERABLES Final Resul t [facility] [address] [place] [address], [place] [phone] * (ABNORMAL) Urinalysis with reflex microscopic (03/20/2025 5:00 PM EDT) [facility] Specific [place] Urine 1.025 1.003 - 1.030 LAB URINALYSIS - AUTOMATED METHOD 03/21/2025 8:05 AM EDT [facility] pH, Urine 6.0 5.0 - 8.0 pH LAB URINALYSIS - AUTOMATED METHOD 03/21/2025 8:05 AM EDT [facility] Leukocytes, Urine Large(A) Negative LAB URINALYSIS - AUTOMATED METHOD 03/21/2025 8:05 AM EDT [facility] Nitrite, Urine Negative Negative LAB URINALYSIS - AUTOMATED METHOD 03/21/2025 8:05 AM [facility] Protein, Urine 30(A) <=Trace mg/dL LAB URINALYSIS - AUTOMATED METHOD 03/21/2025 8:05 AM [facility] Glucose, Urine Negative Negative mg/dL LAB URINALYSIS - AUTOMATED METHOD 03/21/2025 8:05 AM [facility] Ketones, Urine Trace(A) Negative mg/dL LAB URINALYSIS - AUTOMATED METHOD 03/21/2025 8:05 AM [facility] Urobilinogen, Urine 1.0 0.2 - 1.0 mg/dL LAB URINALYSIS - AUTOMATED METHOD 03/21/2025 8:05 AM [facility] Bilirubin, Urine Negative Negative LAB URINALYSIS - AUTOMATED METHOD 03/21/2025 8:05 AM [facility] Blood, Urine Negative Negative LAB URINALYSIS - AUTOMATED METHOD 03/21/2025 8:05 AM [facility] RBC, Urine 4.0 0 - 4 /HPF LAB URINALYSIS - AUTOMATED METHOD 03/21/2025 8:05 AM [facility] WBC, Urine 134.3(H) 0 - 4 /HPF LAB URINALYSIS - AUTOMATED METHOD 03/21/2025 8:05 AM [facility] Squamous Epithelial, Urine 14 0 - 60 /LPF LAB URINALYSIS - AUTOMATED METHOD 03/21/2025 8:05 AM [facility] Bacteria, Urine Many(A) Negative /HPF LAB URINALYSIS - AUTOMATED METHOD 03/21/2025 8:05 AM [facility] Hyaline Casts, Urine 4.1(H) 0 - 3 /LPF LAB URINALYSIS - AUTOMATED METHOD 03/21/2025 8:05 AM [facility] Urine Urine specimen obtained by clean catch procedure / Unknown 03/20/2025 5:00 PM EDT 03/21/2025 7:39 AM EDT us Wilbert Leonard MD LAB URINE ORDERABLES Final Resul t Performing Organization Address [facility] Co de Phone Number [facility] [address] [place] [address], [place] [phone] * Culture urine (03/20/2025 5:00 PM EDT) Culture, Urine >100,000 CFU/mL Mixed bacterial morphotypes present suggestive of possible contamination during collection. Suggest appropriate recollection if clinically indicated. 03/25/2025 8:54 AM EDT [facility] Urine Urine specimen obtained by clean catch procedure / Unknown 03/20/2025 5:00 PM EDT 03/21/2025 7:39 AM EDT Narrative [facility] - 03/25/2025 8:54 AM EDT Previously reported Gram Positive Cocci is part of mixed bacterial zaki. us Wilbert Leonard MD LAB MICROBIOLOGY - GENERAL ORDER GRACIELA Final Result Performing Organization Address [facility] de Phone Number [facility] [address] [place] [address], [place] [phone] * (ABNORMAL) Lipid panel with reflex to direct LDL (02/28/2025 6:56 AM EDT) Cholesterol 118 0 - 200 mg/dL LAB CHEMISTRY METHOD 02/28/2025 9:16 AM EDT [facility] Triglycerides 99 0 - 150 mg/dL LAB CHEMISTRY METHOD 02/28/2025 9:16 AM EDT [facility] HDL 39(L) >=40 mg/dL LAB CHEMISTRY METHOD 02/28/2025 9:16 AM EDT [facility] LDL Calculated 59 0 - 100 mg/dL LAB CHEMISTRY METHOD 02/28/2025 9:16 AM EDT [facility] Comment:Estimated LDL Calcul ated using equation: Total cholesterol - HDL cholesterol - (Triglycerides/5) VLDL Cholesterol Marshall 19.8 mg/dL LAB CHEMISTRY METHOD 02/28/2025 9:16 AM EDT [facility] Non HDL Chol. (LDL+VLDL) 79 <145 mg/dL LAB CHEMISTRY METHOD 02/28/2025 9:16 AM EDT [facility] Chol/HDL Ratio 3.0 0.0 - 4.4 LAB CHEMISTRY METHOD 02/28/2025 9:16 AM EDT [facility] Blood Venous blood specimen / Unknown 02/28/2025 6:56 AM EDT 02/28/2025 7:44 AM EDT us Wilbert Leonard MD LAB BLOOD ORDERABLES Final Resul t Performing Organization Address [facility]/ZIP Co de Phone Number [facility] [address] [place] [address], [place] [phone] * Magnesium (02/28/2025 6:56 AM EDT) Magnesium 1.9 1.9 - 2.6 mg/dL LAB CHEMISTRY METHOD 02/28/2025 9:16 AM EDT [facility] Blood Venous blood specimen / Unknown 02/28/2025 6:56 AM EDT 02/28/2025 7:44 AM EDT us Wilbert Leonard MD LAB BLOOD ORDERABLES Final Resul t Performing Organization Address City/[facility]/ZIP Co de Phone Number [facility] [address] [place] [address], [place] [phone] * (ABNORMAL) Calcium (01/31/2025 6:55 AM EDT) Calcium 7.9(L) 8.5 - 10.5 mg/dL LAB CHEMISTRY METHOD 01/31/2025 8:31 AM EDT [facility] Blood Venous blood specimen / Unknown 01/31/2025 6:55 AM EDT 01/31/2025 7:46 AM EDT Wilbert Leonard MD LAB BLOOD ORDERABLES Final Resul t [facility] [address] [place] [address], [place] [phone] from Last 3 Months Insurance MEDICARE Care Teams Olap Developer Relationship Specialty Start Date End Date Wilbert Leonard MD [address] [place] [address] Dr [address] GIDEON Paulson PCP - General Internal Medicine 07/18/24
--- OUTSIDE RECORDS SUMMARY | 2025-04-24 10:45 | XMS_ITS | Encounter Summary ---
Author Organization [employer] Address [address] [place] [address] Care Team Providers Care Cell Biology Scientist Name Role Phone Wilbert Leonard MD Primary Care Provider [phone] Encounter Details Date Type Department Care Team (Late st Contact Info) Description 12/25/2024 Lab Requisition [facility] - Main Lab [address] [facility] [employer] [place] [address] Wilbert Leonard MD [address] [place] [address] [address] [place], [place] Bipolar disorder, current episode mixed, severe, [...] V28) documented in this encounter Care Teams Cell Biology Scientist Relationship Specialty Start Date End Date Wilbert Leonard MD [address] [place] [address] Dr [address] [place], [place] PCP - General Internal Medicine 07/18/24 documented as of this encounter
--- OUTSIDE RECORDS SUMMARY | 2025-04-24 10:45 | XMS_ITS | Encounter Summary ---
Author Organization [facility] Address [address] [place] [address] Care Team Providers Care Secretary Receptionist Name Role Phone Wilbert Leonard MD Primary Care Provider [phone] Encounter Details Date Type Department Care Team (Late st Contact Info) Description 08/29/2024 Lab Requisition [facility] Lab [address] [place] [address] Wilbert Leonard MD [address] [place] [address] [address] [place] Vitamin D deficiency, unspecified Social History Tobacco [...] LAB CHEMISTRY METHOD 08/29/2024 6:11 AM EDT [facility] Blood Venous blood specimen / Unknown 08/29/2024 4:53 AM EDT 08/29/2024 5:37 AM EDT us Wilbert Leonard MD LAB BLOOD ORDERABLES Final Resul t [facility] [address] [place], [place] [address] [phone] documented in this encounter Visit Diagnoses Diagnosis Vitamin D deficiency, unspecified documented in this encounter Care Teams Secretary Receptionist Relationship Specialty Start Date End Date Wilbert Leonard MD [address] [place] [address] [address] [place], [place] PCP - General Internal Medicine 07/18/24 documented as of this encounter
--- OUTSIDE RECORDS SUMMARY | 2025-04-24 10:45 | XMS_ITS | Encounter Summary ---
Author Organization [facility] Address [address] [place] [address] Care Team Providers Care Ice Carver Name Role Phone Wilbert Leonard MD Primary Care Provider Encounter Details Date Type Department Care Team (Late st Contact Info) Description 02/28/[address] [facility] Lab [address] [place] [address] Wilbert Leonard MD [address] [place] [address] [address] [place] Magnesium deficiency; Other hyperlipidemia Social History Tobacco [...] LAB CHEMISTRY METHOD 02/28/2025 9:16 AM EDT [facility] ([facility]) [facility] Blood Venous blood specimen / Unknown 02/28/2025 6:56 AM EDT 02/28/2025 7:44 AM EDT us Wilbert Leonard MD LAB BLOOD ORDERABLES Final Resul t [facility] [address] [place] [address], [place] [phone] * (ABNORMAL) Lipid panel with reflex to direct LDL (02/28/2025 6:56 AM EDT) Cholesterol 118 0 - 200 mg/dL LAB CHEMISTRY METHOD 02/28/2025 9:[address] [facility] Triglycerides 99 0 - 150 mg/dL LAB CHEMISTRY METHOD 02/28/2025 9:[address] [facility] HDL 39(L) >=40 mg/dL LAB CHEMISTRY METHOD 02/28/2025 9:[address] [facility] LDL Calculated 59 0 - 100 mg/dL LAB CHEMISTRY METHOD 02/28/2025 9:[address] [facility] Comment:Estimated LDL Calcul ated using equation: Total cholesterol - HDL cholesterol - (Triglycerides/5) VLDL Cholesterol Marshall 19.8 mg/dL LAB CHEMISTRY METHOD 02/28/2025 9:[address] [facility] Non HDL Chol. (LDL+VLDL) 79 <145 mg/dL LAB CHEMISTRY METHOD 02/28/2025 9:[address] [facility] Chol/HDL Ratio 3.0 0.0 - 4.4 LAB CHEMISTRY METHOD 02/28/2025 9:[address] [facility] Blood Venous blood specimen / Unknown 02/28/2025 6:56 AM EDT 02/28/2025 7:44 AM EDT us Wilbert Leonard MD LAB BLOOD ORDERABLES Final Resul t [facility] [address] [place] [address], [place] [phone] documented in this encounter Visit Diagnoses Diagnosis Magnesium deficiency Disorders of magnesium metabolism Other hyperlipidemia documented in this encounter Care Teams Ice Carver Relationship Specialty Start Date End Date Wilbert Leonard MD [address] [place] [address] Dr [address] GIDEON Paulson PCP - General Internal Medicine 07/18/24 documented as of this encounter
--- OUTSIDE RECORDS SUMMARY | 2025-04-24 10:45 | XMS_ITS | Encounter Summary ---
Author Organization [facility] Address [address] [place] [address] Care Team Providers Care Obgyn Nurse Name Role Phone Wilbert Leonard MD Primary Care Provider [phone] Encounter Details Date Type Department Care Team (Late st Contact Info) Description 01/31/2025 Lab Requisition [facility] Lab [address] [place] [address] Wilbert Leonard MD [address] [place] [address] Dr [address] [place] Abnormal finding of blood chemistry, unspecified Social [...] LAB CHEMISTRY METHOD 01/31/2025 8:31 AM EDT [facility] Blood Venous blood specimen / Unknown 01/31/2025 6:55 AM EDT 01/31/2025 7:46 AM EDT us Wilbert Leonard MD LAB BLOOD ORDERABLES Final Resul t [facility] [address] [place], [place] [address] [phone] documented in this encounter Visit Diagnoses Diagnosis Abnormal finding of blood chemistry, unspecified documented in this encounter Care Teams Obgyn Nurse Relationship Specialty Start Date End Date Wilbert Leonard MD [address] [place] [address] [address] [place] [address] PCP - General Internal Medicine 07/18/24 documented as of this encounter
--- OUTSIDE RECORDS SUMMARY | 2025-04-24 10:45 | XMS_ITS | Encounter Summary ---
Author Organization [facility] Address [address] [place] [address] Care Team Providers Care Wheel Braider Name Role Phone Wilbert Leonard MD Primary Care Provider Encounter Details Date Type Department Care Team (Late st Contact Info) Description 03/25/2025 Lab Requisition [facility] Lab [address] [place] [address] Wilbert Leonard MD [address] [place] [address] Dr [address] [place] Vitamin D deficiency, unspecified Social History Tobacco [...] LAB CHEMISTRY METHOD 03/26/2025 10:59 AM EDT [facility] Blood Venous blood specimen / Unknown 03/25/2025 6:43 AM EDT 03/26/2025 8:33 AM EDT us Wilbert Leonard MD LAB BLOOD ORDERABLES Final Resul t [facility] [address] [place], [place] [address] [phone] documented in this encounter Visit Diagnoses Diagnosis Vitamin D deficiency, unspecified documented in this encounter Care Teams Wheel Braider Relationship Specialty Start Date End Date Wilbert Leonard MD [address] [place] [address] Dr [address] [place], [place] PCP - General Internal Medicine 07/18/24 documented as of this encounter
--- OUTSIDE RECORDS SUMMARY | 2025-04-24 10:45 | XMS_ITS | Encounter Summary ---
Author Organization [facility] Address [address] [place] [address] Care Team Providers Care Finish Machine Tender Name Role Phone Wilbert Leonard MD Primary Care Provider [phone] Encounter Details Date Type Department Care Team (Late st Contact Info) Description 01/16/2025 Lab Requisition [facility] - Main Lab [address] [facility] [place] [address] Wilbert Leonard MD [address] [place] [address] Dr [address] [place], [place] Acute and chronic respiratory failure with hypoxia [...] * Red tube (01/16/2025 7:02 AM EDT) [facility] Extra Tube Hold for add-ons. 01/16/2025 9:01 AM EDT [facility] Comment:Auto resulted. Blood Venous blood specimen / Unknown 01/16/2025 7:02 AM EDT 01/16/2025 7:49 AM EDT us Wilbert Leonard MD LAB BLOOD ORDERABLES Final Resul t [facility] [address] [place] [address], [place] [phone] * (ABNORMAL) CBC auto differential (01/16/2025 7:02 AM EDT) [facility] WBC 4.8 4.8 - 10.8 K/mcL LAB HEMETOLOGY METHOD 01/16/2025 7:56 AM EDT [facility] RBC 2.80(L) 3.80 - 4.80 M/mcL LAB HEMETOLOGY METHOD 01/16/2025 7:56 AM EDT [facility] Hemoglobin 8.5(L) 11.5 - 16.0 g/dL LAB HEMETOLOGY METHOD 01/16/2025 7:56 AM EDT [facility] Hematocrit 27.9(L) 35.0 - 47.0 % LAB HEMETOLOGY METHOD 01/16/2025 7:56 AM EDT [facility] MCV 99.3(H) 79.0 - 98.0 FL LAB HEMETOLOGY METHOD 01/16/2025 7:56 AM [facility] MCH 30.2 27.0 - 32.0 pcg LAB HEMETOLOGY METHOD 01/16/2025 7:56 AM [facility] MCHC 30.5(L) 32.0 - 37.0 g/dL LAB HEMETOLOGY METHOD 01/16/2025 7:56 AM [facility] RDW 15.6(H) 11.0 - 15.0 % LAB HEMETOLOGY METHOD 01/16/2025 7:56 AM [facility] Platelets 155 130 - 400 K/mcL LAB HEMETOLOGY METHOD 01/16/2025 7:56 AM [facility] MPV 10.8 7.0 - 11.0 FL LAB HEMETOLOGY METHOD 01/16/2025 7:56 AM [facility] NRBC 0.0 <1.0 % LAB HEMETOLOGY METHOD 01/16/2025 7:56 AM [facility] NRBC Absolute 0.00 <0.10 K/mcL LAB HEMETOLOGY METHOD 01/16/2025 7:56 AM [facility] Neutrophils Relative 45.0 % LAB HEMETOLOGY METHOD 01/16/2025 7:56 AM [facility] Lymphocytes Relative 40.5 % LAB HEMETOLOGY METHOD 01/16/2025 7:56 AM [facility] Monocytes Relative 10.4 % LAB HEMETOLOGY METHOD 01/16/2025 7:56 AM [facility] Eosinophils Relative 2.9 % LAB HEMETOLOGY METHOD 01/16/2025 7:56 AM [facility] Basophils Relative 0.6 % LAB HEMETOLOGY METHOD 01/16/2025 7:56 AM [facility] Immature Granulocytes Relative 0.6 % LAB HEMETOLOGY METHOD 01/16/2025 7:56 AM EDT [facility] Neutrophils Absolute 2.15 1.50 - 7.00 K/mcL LAB HEMETOLOGY METHOD 01/16/2025 7:56 AM EDT [facility] Lymphocytes Absolute 1.94 1.00 - 5.00 K/mcL LAB HEMETOLOGY METHOD 01/16/2025 7:56 AM EDT [facility] Monocytes Absolute 0.50 0.20 - 1.00 K/mcL LAB HEMETOLOGY METHOD 01/16/2025 7:56 AM EDT [facility] Eosinophils Absolute 0.14 0.00 - 0.50 K/mcL LAB HEMETOLOGY METHOD 01/16/2025 7:56 AM EDT [facility] Basophils Absolute 0.03 0.00 - 0.20 K/mcL LAB HEMETOLOGY METHOD 01/16/2025 7:56 AM EDT [facility] Immature Granulocytes Absolute 0.03 0.00 - 0.03 K/mcL LAB HEMETOLOGY METHOD 01/16/2025 7:56 AM EDT [facility] Blood Venous blood specimen / Unknown 01/16/2025 7:02 AM EDT 01/16/2025 7:49 AM EDT us Wilbert Leonard MD LAB BLOOD ORDERABLES Final Resul t [facility] [address] [place] [address], * (ABNORMAL) Ammonia (01/16/2025 7:02 AM EDT) Ammonia 47(H) 11 - 35 mcmol/L LAB CHEMISTRY METHOD 01/16/2025 8:17 AM EDT [facility] Blood Venous blood specimen / Unknown 01/16/2025 7:02 AM EDT 01/16/2025 7:49 AM EDT us Wilbert Leonard MD LAB BLOOD ORDERABLES Final Resul t Performing Organization Address City/[facility]/ZIP Co de Phone Number [facility] [address] [place] [address], [place] [phone] * Valproic acid level, total (01/16/2025 7:02 AM EDT) [facility] Valproic Acid, Total 77 50 - 100 mcg/mL LAB CHEMISTRY METHOD 01/16/2025 8:28 AM EDT [facility] Blood Venous blood specimen / Unknown 01/16/2025 7:02 AM EDT 01/16/2025 7:49 AM EDT us Wilbert Leonard MD LAB BLOOD ORDERABLES Final Resul t Performing Organization Address [facility]/ZIP Co de Phone Number [facility] [address] [place] [address], [place] [phone] * (ABNORMAL) Comprehensive metabolic panel (01/16/2025 7:02 AM EDT) [facility] Sodium 139 133 - 145 mmol/L LAB CHEMISTRY METHOD 01/16/2025 8:28 AM [facility] Potassium 4.0 3.5 - 5.5 mmol/L LAB CHEMISTRY METHOD 01/16/2025 8:28 AM [facility] Chloride 105 96 - 110 mmol/L LAB CHEMISTRY METHOD 01/16/2025 8:28 AM [facility] CO2 31 21 - 32 mmol/L LAB CHEMISTRY METHOD 01/16/2025 8:28 AM [facility] Anion Gap 3 3 - 11 LAB CHEMISTRY METHOD 01/16/2025 8:28 AM [facility] Glucose 66(L) 70 - 100 mg/dL LAB CHEMISTRY METHOD 01/16/2025 8:28 AM [facility] BUN 13 5 - 25 mg/dL LAB CHEMISTRY METHOD 01/16/2025 8:28 AM [facility] Creatinine 0.55 0.50 - 1.10 mg/dL LAB CHEMISTRY METHOD 01/16/2025 8:28 AM [facility] eGFR 106 >=60 mL/min/1. 73m2 LAB CHEMISTRY METHOD 01/16/2025 8:28 AM [facility] Comment:Calculation based on the Chronic Kidney Disease Epidemiology Collaboration (CKD-EPI) equation refit without adjustment for race. BUN/Creatinine Ratio 23.6 LAB CHEMISTRY METHOD 01/16/2025 8:28 AM [facility] Calcium 8.1(L) 8.5 - 10.5 mg/dL LAB CHEMISTRY METHOD 01/16/2025 8:28 AM [facility] AST (SGOT) 12 10 - 42 unit/L LAB CHEMISTRY METHOD 01/16/2025 8:28 AM [facility] ALT (SGPT) 11 10 - 60 unit/L LAB CHEMISTRY METHOD 01/16/2025 8:28 AM [facility] Alkaline Phosphatase 56 42 - 121 unit/L LAB CHEMISTRY METHOD 01/16/2025 8:28 AM [facility] Total Protein 5.9(L) 6.0 - 8.0 g/dL LAB CHEMISTRY METHOD 01/16/2025 8:28 AM [facility] Albumin 2.0(L) 3.2 - 5.0 g/dL LAB CHEMISTRY METHOD 01/16/2025 8:28 AM [facility] Total Bilirubin 0.2 0.0 - 1.4 mg/dL LAB CHEMISTRY METHOD 01/16/2025 8:28 AM [facility] Blood Venous blood specimen / Unknown 01/16/2025 7:02 AM EDT 01/16/2025 7:49 AM EDT us Wilbert Leonard MD LAB BLOOD ORDERABLES Final Resul t [facility] [address] [place] [address], documented in this encounter Visit Diagnoses Diagnosis Acute and chronic respiratory failure with hypoxia (CMS/HCC V24, CMS/HCC V28) documented in this encounter Care Teams Finish Machine Tender Relationship Specialty Start Date End Date Wilbert Leonard MD [address] [place] [address] Dr [address] [place], [place] PCP - General Internal Medicine 07/18/24 documented as of this encounter
--- OUTSIDE RECORDS SUMMARY | 2025-04-24 10:45 | XMS_ITS | Encounter Summary ---
Author Organization [facility] Address [address] [place] [address] Care Team Providers Care Boilerhouse Mechanic Name Role Phone Wilbert Leonard MD Primary Care Provider [phone] Encounter Details Date Type Department Care Team (Late st Contact Info) Description 03/21/2025 Lab Requisition [facility] - Main Lab 299 [facility] [place] [address] Wilbert Leonard MD [address] [place] [address] Dr [address] [place] Sepsis, unspecified organism (CMS/HCC V24, CMS/HCC V28); [...] reflex microscopic (03/20/2025 5:00 PM EDT) Specific [place] Urine 1.025 1.003 - 1.030 LAB URINALYSIS - AUTOMATED METHOD 03/21/2025 8:05 AM [facility] pH, Urine 6.0 5.0 - 8.0 pH LAB URINALYSIS - AUTOMATED METHOD 03/21/2025 8:05 AM [facility] Leukocytes, Urine Large(A) Negative LAB URINALYSIS - AUTOMATED METHOD 03/21/2025 8:05 AM [facility] Nitrite, Urine Negative Negative LAB URINALYSIS - AUTOMATED METHOD 03/21/2025 8:05 AM [facility] Protein, Urine 30(A) <=Trace mg/dL LAB URINALYSIS - AUTOMATED METHOD 03/21/2025 8:05 AM [facility] Glucose, Urine Negative Negative mg/dL LAB URINALYSIS - AUTOMATED METHOD 03/21/2025 8:05 AM [facility] Ketones, Urine Trace(A) Negative mg/dL LAB URINALYSIS - AUTOMATED METHOD 03/21/2025 8:05 AM [facility] Urobilinogen, Urine 1.0 0.2 - 1.0 mg/dL LAB URINALYSIS - AUTOMATED METHOD 03/21/2025 8:05 AM [facility] Bilirubin, Urine Negative Negative LAB URINALYSIS - AUTOMATED METHOD 03/21/2025 8:05 AM [facility] Blood, Urine Negative Negative LAB URINALYSIS - AUTOMATED METHOD 03/21/2025 8:05 AM [facility] RBC, Urine 4.0 0 - 4 /HPF LAB URINALYSIS - AUTOMATED METHOD 03/21/2025 8:05 AM [facility] WBC, Urine 134.3(H) 0 - 4 /HPF LAB URINALYSIS - AUTOMATED METHOD 03/21/2025 8:05 AM [facility] Squamous Epithelial, Urine 14 0 - 60 /LPF LAB URINALYSIS - AUTOMATED METHOD 03/21/2025 8:05 AM EDT [facility] Bacteria, Urine Many(A) Negative /HPF LAB URINALYSIS - AUTOMATED METHOD 03/21/2025 8:05 AM EDT [facility] Hyaline Casts, Urine 4.1(H) 0 - 3 /LPF LAB URINALYSIS - AUTOMATED METHOD 03/21/2025 8:05 AM EDT [facility] Urine Urine specimen obtained by clean catch procedure / Unknown 03/20/2025 5:00 PM EDT 03/21/2025 7:39 AM EDT us Wilbert Leonard MD LAB URINE ORDERABLES Final Resul t Performing Organization Address [facility]/ZIP Co de Phone Number [facility] [address] [place] [address], [place] [phone] * Culture urine (03/20/2025 5:00 PM EDT) Culture, Urine >100,000 CFU/mL Mixed bacterial morphotypes present suggestive of possible contamination during collection. Suggest appropriate recollection if clinically indicated. 03/25/2025 8:54 AM EDT [facility] Urine Urine specimen obtained by clean catch procedure / Unknown 03/20/2025 5:00 PM EDT 03/21/2025 7:39 AM EDT Narrative [facility] - 03/25/2025 8:54 AM EDT Previously reported Gram Positive Cocci is part of mixed bacterial zaki. us Wilbert Leonard MD LAB MICROBIOLOGY - GENERAL ORDER GRACIELA Final Result Performing Organization Address City/[facility]/ZIP Co de Phone Number [facility] [address] [place] [address], [place] [phone] documented in this encounter Visit Diagnoses Diagnosis Sepsis, unspecified organism (CMS/HCC V24, CMS/[facility] V28) Other low back pain documented in this encounter Care Teams Boilerhouse Mechanic Relationship Specialty Start Date End Date Wilbert Leonard MD [address] [place] [address] Dr [address] [place] PCP - General Internal Medicine 07/18/24 documented as of this encounter
--- OUTSIDE RECORDS SUMMARY | 2025-04-24 10:45 | XMS_ITS | Encounter Summary ---
Author Organization [facility] Address [address] [place] [address] Care Team Providers Care Landscaping Crew Leader Name Role Phone Wilbert Leonard MD Primary Care Provider Encounter Details Date Type Department Care Team (Late st Contact Info) Description 07/12/2024 Lab Requisition [facility] Lab [address] [place] [address] Wilbert Leonard MD [address] [place] [address] Dr [address] [place] Cough, unspecified Social History Tobacco Use Types [...] Procedure Name Priority Date/Time Associated Diagnosis Comments [id number], RSV, FLU A AND B QUALITATIVE RT-PCR, LOCAL REFERENCE LAB Routine 07/12/2024 12:05 PM EST Cough, unspecified documented in this encounter Results * [id number], RSV, Influenza A and B qualitative RT-PCR (07/12/2024 12:05 PM EST) SARS COV-2 Not Detected Not Detected LAB MOLECULAR DIAGNOSTICS METHOD 07/12/2024 11:53 PM EST [facility] Comment: Disclaimer: The manner in which this information is used to guide patient care is the responsibility of the healthcare provider. Testing was performed using the Almin[employer] Alinity m SARS-CoV-2 test. This test has [...] for Healthcare Providers can be found at: https://www.fda.gov/media/366791/download Fact sheet for Patients can be found at: https://www.fda.gov/media/960945/download Influenza A PCR Not Detected Not Detected LAB MOLECULAR DIAGNOSTICS METHOD 07/12/2024 11:53 PM EST [facility] Influenza B PCR Not Detected Not Detected LAB MOLECULAR DIAGNOSTICS METHOD 07/12/2024 11:53 PM EST [facility] RSV PCR Not Detected Not Detected LAB MOLECULAR DIAGNOSTICS METHOD 07/12/2024 11:53 PM EST [facility] Swab Nasopharyngeal structure / Unknown 07/12/2024 12:05 PM EST 07/12/2024 1:27 PM EST us Wilbert Leonard MD LAB MICROBIOLOGY - GENERAL ORDER GRACIELA Final Result [facility] [address] [place] [address], documented in this encounter Visit Diagnoses Diagnosis Cough, unspecified documented in this encounter Additional Health Concerns Infection Onset Date Last Indicated Resolved Time Respiratory Rule-Out 07/12/2024 07/12/2024 025 11:53 PM EST documented as of this encounter Care Teams Landscaping Crew Leader Relationship Specialty Start Date End Date Wilbert Leonard MD [address] [place] [address] [address] [place] [address] PCP - General Internal Medicine 07/18/24 documented as of this encounter
--- OUTSIDE RECORDS SUMMARY | 2025-04-24 10:46 | XMS_ITS | Encounter Summary ---
Author Organization [facility] Address [address] [place] [address] Care Team Providers Care Carpenter Helper Maintenance Name Role Phone Wilbert Leonard MD Primary Care Provider [phone] Encounter Details Date Type Department Care Team (Late st Contact Info) Description 06/13/2024 Lab Requisition [facility] - Main Lab 299 [facility] [place] [address] Wilbert Leonard MD [address] [place] [address] [address] [place] Other grievance manager (current) drug therapy Social History Tobacco Use [...] HYDROXY Routine 06/13/2024 8:25 AM EST Other [facility]p (current) drug therapy VITAMIN B6 Routine 06/13/2024 8:25 AM EST Other grievance manager (current) drug therapy HEMOGLOBIN A1C Routine 06/13/2024 8:25 AM EST Other usp (current) drug therapy VITAMIN B12 Routine 06/13/2024 8:25 AM EST Other [facility]p (current) drug therapy documented in this encounter Results * (ABNORMAL) Vitamin D 25 hydroxy (06/13/2024 8:25 AM EST) Vit D, 25-Hydroxy 21.5(L) 30.0 - 80.0 ng/mL LAB CHEMISTRY METHOD 06/13/2024 11:28 AM EST [facility] Blood Venous blood specimen / Unknown 06/13/2024 8:25 AM EST 06/13/2024 10:04 AM EST us Wilbert Leonard MD LAB BLOOD ORDERABLES Final Resul t Performing Organization Address [facility] Co de Phone Number [facility] [address] [place] [address], [place] [phone] * (ABNORMAL) Vitamin B6 (06/13/2024 8:25 AM EST) Vitamin B6 (Pyridoxine) Level 2(L) 5 - 50 ug/L 06/21/2024 6:07 AM EST [facility] Comment: This test was developed and the performance characteristics determined by [facility]. It has not been cleared or approved by the FDA. The laboratory is regulated under CLIA as qualified to perform high-complexity testing. This test is used for patient testing purposes. It should not be regarded as investigational or for research. Test performed at [facility], [address] , [place] [address] Deirdre Vogt MD, PhD - Director Machine Blood Venous blood specimen / Unknown 06/13/2024 8:25 AM EST 06/13/2024 10:04 AM EST us Wilbert Leonard MD LAB BLOOD ORDERABLES Final Resul t Performing Organization Address City/[facility]/ZIP Co de Phone Number [facility] [address] [place] [address] * Hemoglobin A1c (06/13/2024 8:25 AM EST) Hemoglobin A1C 5.8 <6.5 % LAB CHEMISTRY METHOD 06/14/2024 8:45 AM EST [facility] Mean Bld Glu Estim. 120 mg/dL LAB CHEMISTRY METHOD 06/14/2024 8:45 AM EST [facility] Blood Venous blood specimen / Unknown 06/13/2024 8:25 AM EST 06/13/2024 10:04 AM EST us Wilbert Leonard MD LAB BLOOD ORDERABLES Final Resul t Performing Organization Address [facility]/ZIP Co de Phone Number [facility] [address] [place] [address], [place] [phone] * (ABNORMAL) Vitamin B12 (06/13/2024 8:25 AM EST) Pathologist [facility] Vitamin B-12 1,655(H) 250 - 900 pcg/mL LAB CHEMISTRY METHOD 06/13/2024 11:39 AM EST [facility] Blood Venous blood specimen / Unknown 06/13/2024 8:25 AM EST 06/13/2024 10:04 AM EST us Wilbert Leonard MD LAB BLOOD ORDERABLES Final Resul t Performing Organization Address City/[facility] Co de Phone Number [facility] [address] [place] [address], [place] [phone] documented in this encounter Visit Diagnoses Diagnosis Other grievance manager (current) drug therapy documented in this encounter Additional Health Concerns Infection Onset Date Last Indicated Resolved Time Respiratory Rule-Out 07/12/2024 07/12/2024 025 11:53 PM EST documented as of this encounter Care Teams Carpenter Helper Maintenance Relationship Specialty Start Date End Date Wilbert Leonard MD [address] [place] [address] [address] [place] PCP - General Internal Medicine 07/18/24 documented as of this encounter
--- OUTSIDE RECORDS SUMMARY | 2025-04-24 10:46 | XMS_ITS | Encounter Summary ---
Author Organization [facility] Address [address] [place] [address] Care Team Providers Care Store Product Demonstrator Name Role Phone Wilbert Leonard MD Primary Care Provider Encounter Details Date Type Department Care Team (Late st Contact Info) Description 09/07/[address] [facility] [address] [place] [address] Wilbert Leonard MD [address] [place] [address] [address] [place], [place] Other intermediate project manager (current) drug therapy Social History Tobacco [...] HYDROXY Routine 09/07/2024 5:53 AM EDT Other prison (current) drug therapy documented in this encounter Results * Vitamin D 25 hydroxy (09/07/2024 5:53 AM EDT) Vit D, 25-Hydroxy 73.4 30.0 - 80.0 ng/mL LAB CHEMISTRY METHOD 09/07/2024 8:26 AM EDT [facility] Blood Venous blood specimen / Unknown 09/07/2024 5:53 AM EDT 09/07/2024 7:11 AM EDT us Wilbert Leonard MD LAB BLOOD ORDERABLES Final Resul t [facility] [address] [place] [address], documented in this encounter Visit Diagnoses Diagnosis Other prison (current) drug therapy documented in this encounter Care Teams Store Product Demonstrator Relationship Specialty Start Date End Date Wilbert Leonard MD [address] [place] [address] [address] [place], [place] PCP - General Internal Medicine 07/18/24 documented as of this encounter
--- OUTSIDE RECORDS SUMMARY | 2025-04-24 10:46 | XMS_ITS | Encounter Summary ---
Author Organization [facility] [employer] [facility] Address [address] [place] [address] Care Team Providers Care Manager System Name Role Phone Wilbert Leonard MD Primary Care Provider [phone] Encounter Details Date Type Department Care Team (Late st Contact Info) Description 11/01/2024 Lab Requisition [facility] - Main Lab [address] [facility] [place] [address] Wilbert Leonard MD [address] [place] [address] [address] [place], [place] Other chrome plater helper (current) drug therapy Social History Tobacco Use [...] B6 Routine 11/01/2024 6:45 AM EDT Other chrome plater helper (current) drug therapy documented in this encounter Results * (ABNORMAL) Vitamin B6 (11/01/2024 6:45 AM EDT) Vitamin B6 (Pyridoxine) Level <2(L) 5 - 50 ug/L 11/08/2024 10:36 AM EDT [facility] Comment: This test was developed and the performance characteristics determined by [facility]. It has not been cleared or approved by the FDA. The laboratory is regulated under CLIA as qualified to perform high-complexity testing. This test is used for patient testing purposes. It should not be regarded as investigational or for research. Test performed at [facility], [address], [place] [address] Deirdre Vgot MD, PhD - Mock Up Builder Blood Venous blood specimen / Unknown 11/01/2024 6:45 AM EDT 11/01/2024 7:13 AM EDT us Wilbert Leonard MD LAB BLOOD ORDERABLES Final Resul t [facility] [address] [place] [id number] documented in this encounter Visit Diagnoses Diagnosis Other jail (current) drug therapy documented in this encounter Care Teams Manager System Relationship Specialty Start Date End Date Wilbert Leonard MD [address] [place] [address] Dr [address] [place] PCP - General Internal Medicine 07/18/24 documented as of this encounter
--- OUTSIDE RECORDS SUMMARY | 2025-04-24 10:46 | XMS_ITS | Encounter Summary ---
Author Organization [facility] Address [address] [place] [address] Care Team Providers Care Remote Sensing Research Scientist Name Role Phone Wilbert Leonard MD Primary Care Provider [phone] Encounter Details Date Type Department Care Team (Late st Contact Info) Description 09/13/2024 Lab Requisition [facility] - Main Lab [address] [place] [address] Wilbert Leonard MD [address] [place] [address] [address] [place], [place] Other terminal worker (current) drug therapy Social History Tobacco Use [...] HYDROXY Routine 09/13/2024 6:15 AM EDT Other custodial (current) drug therapy VITAMIN B6 Routine 09/13/2024 6:15 AM EDT Other terminal worker (current) drug therapy HEMOGLOBIN A1C Routine 09/13/2024 6:15 AM EDT Other custodial (current) drug therapy VITAMIN B12 Routine 09/13/2024 6:15 AM EDT Other custodial (current) drug therapy documented in this encounter Results * (ABNORMAL) Vitamin B6 (09/13/2024 6:15 AM EDT) Vitamin B6 (Pyridoxine) Level <2(L) 5 - 50 ug/L 09/19/2024 11:08 AM EDT [facility] Comment: This test was developed and the performance characteristics determined by [facility]. It has not been cleared or approved by the FDA. The laboratory is regulated under CLIA as qualified to perform high-complexity testing. This test is used for patient testing purposes. It should not be regarded as investigational or for research. Test performed at [facility], [address] , [place] [address] Deirdre Vogt MD, PhD - Mental Health Director Blood Venous blood specimen / Unknown 09/13/2024 6:15 AM EDT 09/13/2024 6:54 AM EDT us Wilbert Leonard MD LAB BLOOD ORDERABLES Final Resul t [facility] [address] [place] [address] * (ABNORMAL) Vitamin B12 (09/13/2024 6:15 AM EDT) Pathologist [facility] Vitamin B-12 926(H) 250 - 900 pcg/mL LAB CHEMISTRY METHOD 09/13/2024 8:07 AM EDT [facility] Blood Venous blood specimen / Unknown 09/13/2024 6:15 AM EDT 09/13/2024 6:54 AM EDT us Wilbert Leonard MD LAB BLOOD ORDERABLES Final Resul t [facility] [address] [place] [address], [place] [phone] * Vitamin D 25 hydroxy (09/13/2024 6:15 AM EDT) Vit D, 25-Hydroxy 64.6 30.0 - 80.0 ng/mL LAB CHEMISTRY METHOD 09/13/2024 9:52 AM EDT [facility] Blood Venous blood specimen / Unknown 09/13/2024 6:15 AM EDT 09/13/2024 6:54 AM EDT us Wilbert Leonard MD LAB BLOOD ORDERABLES Final Resul t Performing Organization Address [facility] Co de Phone Number [facility] [address] [place] [address], [place] [phone] * Hemoglobin A1c (09/13/2024 6:15 AM EDT) Hemoglobin A1C 4.7 <6.5 % LAB CHEMISTRY METHOD 09/13/2024 2:18 PM EDT [facility] Mean Bld Glu Estim. 88 mg/dL LAB CHEMISTRY METHOD 09/13/2024 2:18 PM EDT [facility] Blood Venous blood specimen / Unknown 09/13/2024 6:15 AM EDT 09/13/2024 6:54 AM EDT us Wilbert Leonard MD LAB BLOOD ORDERABLES Final Resul t Performing Organization Address [facility] Co de Phone Number [facility] [address] [place] [address], [place] [phone] documented in this encounter Visit Diagnoses Diagnosis Other custodial (current) drug therapy documented in this encounter Care Teams Remote Sensing Research Scientist Relationship Specialty Start Date End Date Wilbert Leonard MD [address] [place] [address] [address] [facility] [place] PCP - General Internal Medicine 07/18/24 documented as of this encounter
--- OUTSIDE RECORDS SUMMARY | 2025-04-24 10:46 | XMS_ITS | Encounter Summary ---
Author Organization [email or web address] Address [address] [place] [address] Care Team Providers Care Data Conversion Analyst Name Role Phone Wilbert Leonard MD Primary Care Provider [phone] Encounter Details Date Type Department Care Team (Late st Contact Info) Description 07/13/2024 Lab Requisition [facility] - Main Lab [address] [facility] [email or web address] [address] Wilbert Leonard MD [address] [place] [address] [address] GIDEON Paulson Cough, unspecified; [...] CBC auto differential (07/13/2024 7:30 AM EST) [facility] WBC 12.8(H) 4.8 - 10.8 K/mcL LAB HEMETOLOGY METHOD 07/13/2024 8:10 AM [facility] RBC 3.70(L) 3.80 - 4.80 M/mcL LAB HEMETOLOGY METHOD 07/13/2024 8:10 AM [facility] Hemoglobin 10.7(L) 11.5 - 16.0 g/dL LAB HEMETOLOGY METHOD 07/13/2024 8:10 AM [facility] Hematocrit 35.1 35.0 - 47.0 % LAB HEMETOLOGY METHOD 07/13/2024 8:10 AM [facility] MCV 94.9 79.0 - 98.0 FL LAB HEMETOLOGY METHOD 07/13/2024 8:10 AM [facility] MCH 28.9 27.0 - 32.0 pcg LAB HEMETOLOGY METHOD 07/13/2024 8:10 AM [facility] MCHC 30.5(L) 32.0 - 37.0 g/dL LAB HEMETOLOGY METHOD 07/13/2024 8:10 AM [facility] RDW 15.6(H) 11.0 - 15.0 % LAB HEMETOLOGY METHOD 07/13/2024 8:10 AM [facility] Platelets 210 130 - 400 K/mcL LAB HEMETOLOGY METHOD 07/13/2024 8:10 AM [facility] MPV 10.7 7.0 - 11.0 FL LAB HEMETOLOGY METHOD 07/13/2024 8:10 AM [facility] NRBC 0.2 <1.0 % LAB HEMETOLOGY METHOD 07/13/2024 8:10 AM [facility] NRBC Absolute 0.02 <0.10 K/mcL LAB HEMETOLOGY METHOD 07/13/2024 8:10 AM [facility] Neutrophils Relative 72.7 % LAB HEMETOLOGY METHOD 07/13/2024 8:10 AM [facility] Lymphocytes Relative 13.7 % LAB HEMETOLOGY METHOD 07/13/2024 8:10 AM [facility] Monocytes Relative 10.3 % LAB HEMETOLOGY METHOD 07/13/2024 8:10 AM [facility] Eosinophils Relative 0.8 % LAB HEMETOLOGY METHOD 07/13/2024 8:10 AM [facility] Basophils Relative 0.4 % LAB HEMETOLOGY METHOD 07/13/2024 8:10 AM [facility] Immature Granulocytes Relative 2.1 % LAB HEMETOLOGY METHOD 07/13/2024 8:10 AM [facility] Neutrophils Absolute 9.34(H) 1.50 - 7.00 K/[facility] LAB HEMETOLOGY METHOD 07/13/2024 8:10 AM [facility] Lymphocytes Absolute 1.76 1.00 - 5.00 K/[facility] LAB HEMETOLOGY METHOD 07/13/2024 8:10 AM [facility] Monocytes Absolute 1.32(H) 0.20 - 1.00 K/mcL LAB HEMETOLOGY METHOD 07/13/2024 8:10 AM [facility] Eosinophils Absolute 0.10 0.00 - 0.50 K/mcL LAB HEMETOLOGY METHOD 07/13/2024 8:10 AM [facility] Basophils Absolute 0.05 0.00 - 0.20 K/mcL LAB HEMETOLOGY METHOD 07/13/2024 8:10 AM [facility] Immature Granulocytes Absolute 0.27(H) 0.00 - 0.03 K/mcL LAB HEMETOLOGY METHOD 07/13/2024 8:10 AM [facility] Blood Venous blood specimen / Unknown 07/13/2024 7:30 AM EST 07/13/2024 8:00 AM EST us Wilbert Leonard MD LAB BLOOD ORDERABLES Final Resul t Performing Organization Address [facility] Co de Phone Number [facility] [address] [place] [address], [place] [phone] * (ABNORMAL) Ammonia (07/13/2024 7:30 AM EST) Ammonia 52(H) 11 - 35 mcmol/L LAB CHEMISTRY METHOD 07/13/2024 8:27 AM EST [facility] Comment:Hemolysis present Blood Venous blood specimen / Unknown 07/13/2024 7:30 AM EST 07/13/2024 8:00 AM EST us Wilbert Leonard MD LAB BLOOD ORDERABLES Final Resul t Performing Organization Address [facility] de Phone Number [facility] [address] [place] [address], [place] [phone] * Thyroid stimulating hormone with reflex to free t4 and free t3 (07/13/2024 7:30 AM EST) TSH 1.93 0.40 - 4.00 mcIU/mL LAB CHEMISTRY METHOD 07/13/2024 10:39 AM EST [facility] Blood Venous blood specimen / Unknown 07/13/2024 7:30 AM EST 07/13/2024 8:00 AM EST us Wilbert Leonard MD LAB BLOOD ORDERABLES Final Resul t Performing Organization Address [facility] Co de Phone Number [facility] [address] [place] [address], [place] [phone] * (ABNORMAL) Comprehensive metabolic panel (07/13/2024 7:30 AM EST) Sodium 138 133 - 145 mmol/L LAB CHEMISTRY METHOD 07/13/2024 8:34 AM [facility] Potassium 4.2 3.5 - 5.5 mmol/L LAB CHEMISTRY METHOD 07/13/2024 8:34 AM [facility] Chloride 99 96 - 110 mmol/L LAB CHEMISTRY METHOD 07/13/2024 8:34 AM [facility] CO2 35(H) 21 - 32 mmol/L LAB CHEMISTRY METHOD 07/13/2024 8:34 AM [facility] Anion Gap 4 3 - 11 LAB CHEMISTRY METHOD 07/13/2024 8:34 AM [facility] Glucose 83 70 - 100 mg/dL LAB CHEMISTRY METHOD 07/13/2024 8:34 AM [facility] BUN 12 5 - 25 mg/dL LAB CHEMISTRY METHOD 07/13/2024 8:34 AM [facility] Creatinine 0.52 0.50 - 1.10 mg/dL LAB CHEMISTRY METHOD 07/13/2024 8:34 AM [facility] eGFR 108 >=60 mL/min/1. 73m2 LAB CHEMISTRY METHOD 07/13/2024 8:34 AM [facility] Comment:Calculation based on the Chronic Kidney Disease Epidemiology Collaboration (CKD-EPI) equation refit without adjustment for race. BUN/Creatinine Ratio 23.1 LAB CHEMISTRY METHOD 07/13/2024 8:34 AM [facility] Calcium 8.0(L) 8.5 - 10.5 mg/dL LAB CHEMISTRY METHOD 07/13/2024 8:34 AM [facility] AST (SGOT) 20 10 - 42 unit/L LAB CHEMISTRY METHOD 07/13/2024 8:34 AM [facility] ALT (SGPT) 11 10 - 60 unit/L LAB CHEMISTRY METHOD 07/13/2024 8:34 AM [facility] Alkaline Phosphatase 70 42 - 121 unit/L LAB CHEMISTRY METHOD 07/13/2024 8:34 AM EST [facility] Total Protein 6.8 6.0 - 8.0 g/dL LAB CHEMISTRY METHOD 07/13/2024 8:34 AM EST [facility] Albumin 2.4(L) 3.2 - 5.0 g/dL LAB CHEMISTRY METHOD 07/13/2024 8:34 AM [facility] Total Bilirubin 0.4 0.0 - 1.4 mg/dL LAB CHEMISTRY METHOD 07/13/2024 8:34 AM EST [facility] Blood Venous blood specimen / Unknown 07/13/2024 7:30 AM EST 07/13/2024 8:00 AM EST us Wilbert Leonard MD LAB BLOOD ORDERABLES Final Resul t [facility] [address] [place] [address], documented in this encounter Visit Diagnoses Diagnosis Cough, unspecified Altered mental status, unspecified documented in this encounter Care Teams Data Conversion Analyst Relationship Specialty Start Date End Date Wilbert Leonard MD [address] [place] [address] Dr [facility] GIDEON Paulson PCP - General Internal Medicine 07/18/24 documented as of this encounter
== END 2025-04-24 10:28 | disposition home or self-care (01) ==
LOC: HO.HGI 09:33
PROVIDERS: PCP Hospitalist; Visit Provider Internal Medicine
DX: D64.9 Anemia, unspecified (principal)
CPT/HCPCS: 99204; G2211